=== PATIENT | male | born 1945 | race Caucasian/White ===

== ENCOUNTER → 2017-10-22 | Outpatient (CLI) | payer MEDICARE ==
[2017-10-22 14:44] LABS: HCT 40.1 % (39.0-53.0); MCH 29.3 pg (25.0-35.0); MCV 83.7 fL (80.0-100.0); Mean Platelet Volume 8.1; Platelet Count 206 k/uL (150-450); RBC 4.78 m/uL (4.30-5.90); RDW 12.3 % (11.5-15.5)
[2017-10-22 14:51] LABS: INR 1.1 (<1.2); Partial Thromboplastin Time 23.7 sec (22.0-30.0); Prothrombin Time 10.4 sec (9.0-12.0)
[2017-10-22 15:05] LABS: ALT 26 U/L (21-72); AST 22 U/L (17-59); Albumin 4.1 g/dL (3.5-5.0); Alkaline Phosphatase 110 U/L (38-126); Anion Gap 13 mmol/L; Blood Urea Nitrogen 15 mg/dL (9-20); Calcium 9.5 mg/dL (8.4-10.2); Carbon Dioxide 27 mmol/L (22-30); Chloride 101 mmol/L (98-107); Glucose 111 mg/dL (74-99); Potassium 4.3 mmol/L (3.5-5.1); Sodium 141 mmol/L (137-145); Total Bilirubin 1.4 mg/dL (0.2-1.3); Total Protein 6.9 g/dL (6.3-8.2)
[2017-10-22 15:16] LABS: Appearance,Urine Clear (Clear); Bilirubin,Urine Negative (Negative); Blood,Urine Negative (Negative); Color,Urine Yellow; Glucose,Urine (UA) Negative (Negative); Ketones,Urine Negative (Negative); Leukocyte Esterase,Urine Negative (Negative); Nitrite,Urine Negative (Negative); PH, Urine 5.5 (5.0-8.0); Protein,Urine Negative (Negative)
== END | disposition home or self-care (01) ==
LOC: LABPAT 13:48
PROVIDERS: ATTEND Orthopaedic Surgery
DX: Z01.812 Encounter for preprocedural laboratory examination (principal); M17.12 Unilateral primary osteoarthritis, left knee
CPT/HCPCS: 36415; 80053; 81003; 85027; 85610; 85730; 87070

== ENCOUNTER 2017-11-04 13:09 | Inpatient (IN) | payer MEDICARE ==
[2017-10-22 10:10] VITALS: BMI 30.8
[~2017-11-04 13:09] MED LIST: ACETAMINOPHEN TAB 500 MG TAB PO ONE; DEXAMETHASONE SOD PHOSPHATE 10 MG/ML 1 ML VIAL IV ONE; MELOXICAM 7.5 MG TAB PO ONE; MIDAZOLAM 2 MG/2 ML VIAL IV PRN; ONDANSETRON 4 MG/2 ML VIAL IVP ONE; TRANEXAMIC ACID 1,000 MG in SODIUM CHLORIDE 0.9% 50 ML IVPB ONE; ceFAZolin IN SWFI 2 GM/20 ML SYRINGE IVP ONE; fentaNYL (PF) 50 MCG/ML 2 ML AMP IV PRN
[2017-11-04] MEDS: LACTATED RINGERS 1,000 ML IV SCH ×2 (13:45→19:43)
[2017-11-04] MEDS ORDERED: LIDOCAINE 1% 20 ML VIAL (10MG/ML) FOR IV START INTRADERMA ONE (13:46)
[2017-11-04] MEDS ORDERED: MIDAZOLAM 2 MG/2 ML VIAL ONE (15:07)
[2017-11-04] MEDS ORDERED: PHENYLEPHRINE-0.9% NACL SYG 1 MG/10 ML SYRINGE ONE (15:07)
[2017-11-04] MEDS ORDERED: fentaNYL (PF) 50 MCG/ML 2 ML AMP ONE (15:07)
[2017-11-04] MEDS ORDERED: diphenhydrAMINE 50 MG/ML 1 ML VIAL ONE (15:07)
[2017-11-04] MEDS ORDERED: SODIUM CHLORIDE 0.9% 100 ML BAG ONE (15:07)
[2017-11-04] MEDS ORDERED: PROPOFOL 10 MG/ML 20 ML VIAL IV ONE (15:07)
[2017-11-04] MEDS ORDERED: TRANEXAMIC ACID 1,000 MG/10 ML VIAL ONE (15:07)
[2017-11-04] MEDS ORDERED: ROPIVACAINE 246.25 MG, EPINEPHrine 0.5 MG, KETOROLAC 30 MG, cloNIDine HCL/PF 80 MCG, WA... MISCELLANE ONE ×5 (15:39)
[2017-11-04] MEDS ORDERED: ceFAZolin 3,000 MG in SODIUM CHLORIDE 0.9% IRRIGATIO 3,000 ML IRRIGATION ONE (15:44)
[2017-11-04] MEDS ORDERED: LACTATED RINGERS 1,000 ML IV ONE (15:58)
--- NOTE | 2017-11-04 17:46 | P.OP ---
Date of Procedure: 11/04/17 Procedure(s) Performed: PREOPERATIVE DIAGNOSIS: Left knee severe osteoarthritis with genu varum POSTOPERATIVE DIAGNOSIS: Left knee severe osteoarthritis with genu varum OPERATION: Left knee cemented total replacement arthroplasty. ANESTHESIA: Spinal ESTIMATED BLOOD LOSS: 100 ml. TRACTOR EXPERT: Sarah Villalobos PA-C (assistance with: patient positioning, retraction, exposure, hemostasis, leg positioning, implantation, irrigation, closure, dressing) COMPLICATIONS: None apparent. COMPONENTS IMPLANTED: Persona system from [employer] INDICATIONS: Mr. Slaughter is a 72-year-old male with a history of left knee osteoarthritis. He is already successfully undergone right knee replacement. Conservative treatment has been tried and has been unsuccessful in controlling symptoms adequately. The operation of knee replacement has been discussed at length in the office, as well as potential risks and complications. These are inclusive of, but not limited to: bleeding, infection, scarring, discomfort, blood vessel and nerve damage, need for further surgery, failure to relieve symptoms, persistence, recurrence, or worsening of problems, loosening, dislocation, wear, blood clot, pulmonary embolism, , gait dysfunction, stiffness, and other risks as discussed in the office. The patient elects to proceed and the consent form has been signed. PROCEDURE: The patient was taken to the operating room and positioned on the operating room table in the supine position. Anesthesia was initiated. Care was taken to make sure that all pressure points were adequately padded. The operative lower extremity was prepped and draped in the usual aseptic fashion using ChloraPrep. Ioban drape was used for the case and the patient received intravenous antibiotics within one hour of the incision. A pneumotourniquet and leg tapia were used for the case. The limb was exsanguinated with an Esmarch bandage and the tourniquet was inflated to 350 mmHg. Time-out was called confirming the patient's identity, side, procedure and administration of antibiotics and tranexamic acid, 1 g IV. The incision was then created midline directly over the knee, carried down through skin and into the subcutaneous tissues and down to fascia. Full thickness subcutaneous medial flap was developed. Medial parapatellar arthrotomy was performed and the interior of the knee was inspected. There was end-stage osteoarthritis of the knee with a mild to moderate genu varum type deformity. The fat pad was excised and proximal medial release on the tibia was completed using meticulous dissection and a curved osteotome. The anterior cruciate ligament was taken down. Note was made of significant attrition of the anterior and significant degenerative appearance of the posterior cruciate ligaments. The exposure was excellent. The knee was flexed 90 degrees and the patella was everted. A spot was chosen on the femur approximately 1 cm anterior to the posterior cruciate ligament insertion and an intramedullary hole was created within the femur. The intramedullary guide was then set to 5 degrees of valgus. The distal cutting block was attached and pinned into position. An appropriate amount of distal femoral resection was set. The oscillating saw was then used to make the distal femoral cut. This cut was confirmed to be flat with the flat end of an osteotome. The retractors were placed around the tibia and the tibial surface was addressed. The angle and depth of resection was adjusted using an extramedullary cutting guide. The guide had a built-in 3 degree posterior slope cut. Once the cutting guide was adjusted appropriately and in line with the axis of the tibia and confirmed to be in good position in relation to the second metatarsal and transmalleolar axis, the tibial cut was then created with protection of the posterior neurovascular structures and the collateral ligaments. The tibial cut surface was removed and sized. Femoral sizing was then accomplished using anterior referencing. Care was taken to analyze the posterior condyles for signs of deficiency or severe wear, and adjustments to the guide were made, as appropriate. 3 degree external rotation pins were placed. The cutting jig for the femur was applied to these pins. The planned cuts were further analyzed prior to performing them with the oscillating saw. No femoral notching was produced. Bone fragments were removed and the cut surfaces were finished, as necessary, with a reciprocating saw. Spacer block technique was then used to confirm that the flexion and extension gaps were equal. Soft tissue releases and adjustment of the tibial and/or femoral cuts were made, as necessary, until the gaps were equal. This included release of the posterior cruciate ligament, which was tight in this patient. The femur was then further finished for a posterior cruciate ligament substituting component. Patellar resurfacing was performed using a reamer. The size of the required patellar component was estimated and the patellar surface was then reamed down to a residual thickness which would recreate the [place] thickness with the component. The placement of the patellar component was influenced by the degree of patellar subluxation, if any, noted on the preoperative x-rays. Prior to placing trial components, anesthetic solution consisting of ropivicaine with epinephrine, ketorolac, and clonidine was injected carefully and methodically in a grid pattern using aspiration technique into the soft tissue around the knee circumferentially, starting with the deeper tissues first and progressing to fascia, and then finally the skin/subcutaneous tissue. Particular care was taken when injecting the posterior capsule. The trial components were inserted. The tibial tray was allowed to self center and the patella was noted to track very well. The position of the tibial component was marked and the tibia was then finished for a stemmed tibial component. Cement was mixed on the back table and applied to the final components. Trial components were removed and the cut surfaces of the bone were pulse lavaged thoroughly and dried. Cement was then applied to the tibial surface and pressurized into the surface using finger pressurization technique. The tibial component was then applied and excess cement was removed after it was impacted securely and noted to be flush with the cut surface. In similar fashion, the cement was applied to the cut femoral surface, pressurized in using finger pressurization and the component was impacted into place. Excess cement was removed. The polyethylene spacer was then implanted and locked into position. The patellar component was then applied in similar technique and a patellar clamp was used to hold the patella in place as the cement hardened. Once the cement had fully hardened, the knee was reinspected. Any other cement extrusion was removed and final kinematic testing showed range of motion from 0 to 130 degrees with excellent stability, both medially and laterally and appropriate alignment of the leg. Patellar tracking was excellent. The knee was then thoroughly pulse lavaged with normal saline. The tourniquet was deflated and hemostasis was obtained with electrocautery and IV tranexamic acid, 1 g given prior to inflation of the tourniquet and another gram given at the time of closure. Closure was with #2 Ethibond in the fascia and supplemented with #2 Quill, 2-0 Vicryl suture was used for the subcutaneous tissues and 3-0 Quill for the skin. Dermabond/Steri-Strips were then applied. A lightly compressive dressing was applied using Webril and an Vic wrap. The patient was then transferred to stretcher and taken to the recovery room in stable condition. Sponge and needle counts were correct.
[2017-11-04] MEDS ORDERED: NA PHOS,M-B/NA PHOS,DI-BA 133 ML ENEMA RECTAL PRN (17:48)
[2017-11-04] MEDS ORDERED: NALOXONE 0.4 MG/ML 1 ML VIAL IV PRN (17:48)
[2017-11-04] MEDS ORDERED: MORPHINE SULFATE 4MG/4ML SYRG IVP PRN ×4 (17:48)
[2017-11-04] MEDS ORDERED: MAGNESIUM HYDROXIDE 2,400 MG/10 ML CUP PO PRN (17:48)
[2017-11-04] MEDS ORDERED: hydrOXYzine PAMOATE 25 MG CAP PO PRN (17:48)
[2017-11-04] MEDS ORDERED: BISACODYL 10 MG SUPP RECTAL PRN (17:48)
[2017-11-04] MEDS ORDERED: HYDROcodone/APAP 7.5-325MG 1 EACH TAB PO PRN ×2 (17:48)
[2017-11-04] MEDS ORDERED: ONDANSETRON 4 MG/2 ML VIAL IVP PRN (17:48)
[2017-11-04] MEDS ORDERED: ACETAMINOPHEN TAB 325 MG TAB PO PRN (17:48)
[2017-11-04] MEDS ORDERED: DIAZEPAM 5 MG TAB PO PRN (17:48)
[2017-11-04] MEDS ORDERED: WARFARIN 5 MG TAB PO ONE (18:00)
--- NOTE | 2017-11-04 18:45 | XR ---
EXAMINATION TYPE: XR knee limited LT DATE OF EXAM: 11/04/2017 COMPARISON: NONE HISTORY: Postop knee surgery TECHNIQUE: 2 views FINDINGS: There is a left knee prosthesis. I see no fracture nor dislocation. Components appear in an atomic position. IMPRESSION: No complicating process seen.
[2017-11-04] MEDS ORDERED: TEMAZEPAM 15 MG CAP PO PRN (21:00)
[2017-11-04] MEDS ORDERED: SENNOSIDES-DOCUSATE SODIUM 1 EACH TAB PO SCH (21:00)
[2017-11-04] MEDS: ceFAZolin IN SWFI 2 GM/20 ML SYRINGE IVP SCH (23:04)
[2017-11-05 02:24] VITALS: TEMP 97.5
[2017-11-05] MEDS: LACTATED RINGERS 1,000 ML IV SCH ×2 (06:08)
[2017-11-05 07:21] VITALS: BP 148/79; PULSE 105; RESP 16
[2017-11-05 07:24] LABS: INR 1.5 (<1.2); Prothrombin Time 13.6 sec (9.0-12.0)
[2017-11-05 07:33] LABS: Basophils % (A) 0 %; Eosinophils % (A) 0 %; HCT 38.6 % (39.0-53.0); HGB 12.6 gm/dL (13.0-17.5); Lymphocytes # (A) 0.7 k/uL (1.0-4.8); Lymphocytes % (A) 4 %; MCH 27.9 pg (25.0-35.0); MCHC 32.6 g/dL (31.0-37.0); MCV 85.7 fL (80.0-100.0); Mean Platelet Volume 8.4; Monocytes % (A) 5 %; Neutrophils # (A) 17.8 k/uL (1.3-7.7); Neutrophils % (A) 91 %; Platelet Count 203 k/uL (150-450); RBC 4.51 m/uL (4.30-5.90); RDW 12.4 % (11.5-15.5); WBC 19.6 k/uL (3.8-10.6)
[2017-11-05] MEDS ORDERED: ISOSORBIDE MONONITRATE ER 30 MG TAB.ER.24H PO SCH (09:00)
[2017-11-05] MEDS ORDERED: MELOXICAM 7.5 MG TAB PO SCH (09:00)
[2017-11-05] MEDS ORDERED: METOPROLOL TARTRATE 50 MG TAB PO SCH (09:00)
[2017-11-05] MEDS ORDERED: amLODIPine 10 MG TAB PO SCH (09:00)
[2017-11-05] MEDS: ceFAZolin IN SWFI 2 GM/20 ML SYRINGE IVP SCH (09:27)
[2017-11-05] MEDS ORDERED: MULTIVITAMINS, THERA 1 EACH TAB PO SCH (12:00)
--- NOTE | 2017-11-05 13:09 | P.CONS ---
History of Present Illness - Reason for Consult Consult date: 11/05/17 Medical Management - Chief Complaint s/p Left TKA - History of Present Illness 72-year-old male who underwent elective left total knee arthroplasty by Dr. Siu on 11/04/2017. Dr. Adams/Saundra was consulted for medical management. The patient has a history of atrial fibrillation, CAD, GERD, hyperlipidemia, hypertension, BPH, and osteoarthritis. The patient denies chest pain or pressure. Denies shortness of breath. Tolerating PO intake. Has been ambulating in the halls and working with PT. Denies any concerns at this time. Review of Systems GENERAL: Patient denies fever. Denies chills. EYES: Denies blurred vision. Denies vision changes. Denies eye pain. EARS, NOSE, MOUTH, & THROAT: Denies headache. Denies sore throat. Denies ear pain. RESPIRATORY: Denies cough. Denies shortness of breath. Denies sputum production. Denies hemoptysis. CARDIOVASCULAR: Denies chest pain or pressure. Denies palpitations. Denies arrhythmias. GASTROINTESTINAL: Denies abdominal pain. Denies diarrhea. Denies constipation. Denies nausea. Denies vomiting. Denies heartburn. Denies blood in the stool. GENITOURINARY: Denies urinary frequency. Denies burning. Denies dysuria. Denies cloudy urine. Denies blood in the urine. MUSCULOSKELETAL: Denies myalgias. Denies joint swelling. Denies decreased range of motion beyond patients baseline. INTEGUMENTARY: Denies pruitis. Denies rash. PSYCHIATRIC: Denies suicidal or homicial ideations. ENDOCRINE: Denies weight change. Denies polydipsia. Denies polyuria. HEMATOLOGIC: Denies bleeding disorders. Past Medical History Past Medical History: Atrial Fibrillation, Coronary Artery Disease (CAD), GERD/ Reflux, Hyperlipidemia, Hypertension, Osteoarthritis (OA), Prostate Disorder, Supraventricular Tachycardia (SVT) Additional Past Medical History / Comment(s): VARICOSE VEINS, HX DUODENAL ULCER , BPH. History of Any Multi-Drug Resistant Organisms: None Reported Past Surgical History: EPS, Heart Catheterization, Joint Replacement, Orthopedic Surgery Additional Past Surgical History / Comment(s): lipoma removed from chest area, sneha ear-cosmetic surgery, rt rotator cuff, Total right knee. Past Anesthesia/Blood Transfusion Reactions: No Reported Reaction Past Psychological History: No Psychological Hx Reported Smoking Status: Former smoker Past Alcohol Use History: Rare Additional Past Alcohol Use History / Comment(s): SMOKED 1 YEAR- APPROX 50 YEARS AGO. Past Drug Use History: None Reported - Past Family History Mother Family Medical History: No Reported History Medications and Allergies Home Medications Medication Instructions Recorded Confirmed Type Aspirin 81 mg PO DAILY 08/20/14 11/04/17 History Esomeprazole Magnesium [NexIUM] 40 mg PO DAILY 08/20/14 11/04/17 History Isosorbide Mononitrate ER [Imdur] 30 mg PO DAILY 08/20/14 11/04/17 History Metoprolol Tartrate [Lopressor] 100 mg PO BID 08/20/14 11/04/17 History Tamsulosin [Flomax] 0.4 mg PO HS 08/20/14 11/04/17 History Atorvastatin [Lipitor] 20 mg PO HS 10/22/17 11/04/17 History [place]-3 Fatty Acids/Fish Oil [Fish 3,000 mg PO DAILY 10/22/17 11/04/17 History Oil 1,000 mg Softgel] amLODIPine BESYLATE [Norvasc] 10 mg PO DAILY 10/22/17 11/04/17 History traMADol HCL [Ultram] 50 mg PO Q6HR PRN 10/22/17 11/04/17 History HYDROcodone/APAP 7.5-325MG [[place] 1 - 2 tab PO Q4-6H PRN #90 tab 11/04/17 Rx 7.5-325] Sennosides-Docusate Sodium 1 tab PO BID #60 tablet 11/04/17 Rx [Senokot-S] Warfarin [Coumadin] 2.5 mg PO DAILY #1 tab 11/04/17 Rx Warfarin [Coumadin] 7.5 mg PO ONCE 11/04/17 11/04/17 History Allergies Allergy/AdvReac Type Severity Reaction Status Date / Time No Known Allergies Allergy Verified 11/04/17 19:16 Physical Exam Vitals: Vital Signs Temp Pulse Pulse Resp BP BP Pulse Ox 11/05/17 07:00 97.5 F L 105 H 16 148/79 99 11/05/17 02:05 97.5 F L 98 17 116/70 94 L 11/04/17 19:45 98 147/80 11/04/17 19:30 97 118/66 11/04/17 19:15 100 153/82 11/04/17 19:00 103 H 152/84 11/04/17 18:45 102 H 141/72 11/04/17 18:30 97.6 F 90 16 144/70 96 11/04/17 18:13 90 16 94/57 93 L 11/04/17 17:58 91 16 91/56 95 11/04/17 17:43 97.8 F 89 18 124/46 96 11/04/17 13:43 97.7 F 66 18 128/69 96 Intake and Output 11/04/17 11/05/17 11/05/17 22:59 06:59 14:59 Intake Total 1201 800 120 Output Total 50 Balance 1151 800 120 Intake: IV 1201 Intake, IV Titration 800 Amount Lactated Ringers 1,000 ml 800 @ 100 mls/hr IV .Q10H CECI Rx#:[id number] Oral 120 Output: Estimated Blood Loss 50 Other: # Voids 1 1 Weight 97.522 kg GENERAL: This is a 72-year-old male in no apparent distress at the time of examination. Pleasant and cooperative. HEENT: Head is atraumatic, normocephalic. Pupils are equal, round, and reactive to light. Sclerae anicteric. Conjunctivae are clear. Mucus membranes of the mouth are moist. Neck is supple. RESPIRATORY: Clear to ausculation. No wheezes, rales, or rhonchi. No use of accessory muscles. Patient maintaining oxygen saturation greater than 92%. No chest wall tenderness is noted on palpation or with deep breathing. CARDIOVASCULAR: Regular rate and rhythm. S1 and S2 noted. No systolic or diastolic murmur auscultated. No JVD noted. No S3 or S4 noted. GASTROINTESTINAL: No distention noted. Abdomen soft and round. Normal active bowel sounds auscultated x 4 quadrants. No pain or tenderness noted upon palpation. INTEGUMENTARY: Dressing to left knee clean dry and intact. No drainage noted. No cyanosis. No jaundice. No rashes noted. No cellulitis noted. EXTREMITIES: 2+ peripheral pulses. No evidence of peripheral edema. No calf tenderness noted. NEUROLOGIC: Cranial nerves II-XII intact. PSYCHIATRIC: Awake, alert, and oriented X 3. Appropriate affect. Intact judgement and insight. 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 Siu Pain control Activity as tolerated Incentive spirometer 10x an hour while awake PT/OT Home meds as appropriate Monitor labs Monitor vital signs and address as appropriate Further recommendations pending patient's course Patient is cleared for discharge per Dr. Adams when cleared by attending physician Nurse practitioner note has been reviewed by physician. Signing provider agrees with the documented findings, assessment, and plan of care.
--- NOTE | 2017-11-05 13:24 | P.DS ---
Providers Date of admission: 11/04/17 13:09 Expected date of discharge: 11/05/17 Attending physician: José Miguel Siu Consults: 11/04/17 17:48 Consult Physician Routine Consulting Provider: Kg Arguello Reason/Comments: Medical management Do you want consulting provider notified?: Yes Primary care physician: Kg Arguello - Discharge Diagnosis(es) (1) Status post total left knee replacement Current Visit: Yes Status: Acute (2) Osteoarthritis of left knee Current Visit: Yes Status: Acute (3) Degenerative arthritis Current Visit: No Status: Acute Hospital Course: This is a 72-year-old male who was last seen with complaint of continued left knee pain. The patient has a known history of degenerative arthritis of the left knee and presents to discuss surgical options. After discussion and consideration the patient elects to proceed with total left knee arthroplasty. The patient is seen preoperatively by Dr. Arguello and cleared for surgery. The patient is admitted to [facility] for total left knee arthroplasty. The procedures performed without complication or sequelae. He is doing well postoperatively. Vital signs are stable at discharge. Labs are stable at discharge. the patient is ambulating well with walker with minimal assistance. The patient is discharged to home on postop day #1 pending medical clearance. Please see orders and refer to the med rec for accurate list of medications. Plan - Discharge Summary Discharge Rx Participant: No New Discharge Prescriptions: New HYDROcodone/APAP 7.5-325MG [[place] 7.5-325] 1 - 2 tab PO Q4-6H PRN #90 tab PRN Reason: Pain Sennosides-Docusate Sodium [Senokot-S] 1 tab PO BID #60 tablet Warfarin [Coumadin] 2.5 mg PO DAILY #1 tab Continue Tamsulosin [Flomax] 0.4 mg PO HS Metoprolol Tartrate [Lopressor] 100 mg PO BID Isosorbide Mononitrate ER [Imdur] 30 mg PO DAILY Atorvastatin [Lipitor] 20 mg PO HS amLODIPine BESYLATE [Norvasc] 10 mg PO DAILY No Action Esomeprazole Magnesium [NexIUM] 40 mg PO DAILY Aspirin 81 mg PO DAILY traMADol HCL [Ultram] 50 mg PO Q6HR PRN PRN Reason: Pain [place]-3 Fatty Acids/Fish Oil [Fish Oil 1,000 mg Softgel] 3,000 mg PO DAILY Warfarin [Coumadin] 7.5 mg PO ONCE Discharge Medication List Aspirin 81 mg PO DAILY 08/20/14 [History] Esomeprazole Magnesium [NexIUM] 40 mg PO DAILY 08/20/14 [History] Isosorbide Mononitrate ER [Imdur] 30 mg PO DAILY 08/20/14 [History] Metoprolol Tartrate [Lopressor] 100 mg PO BID 08/20/14 [History] Tamsulosin [Flomax] 0.4 mg PO HS 08/20/14 [History] Atorvastatin [Lipitor] 20 mg PO HS 10/22/17 [History] [place]-3 Fatty Acids/Fish Oil [Fish Oil 1,000 mg Softgel] 3,000 mg PO DAILY 10/22 [History] amLODIPine BESYLATE [Norvasc] 10 mg PO DAILY 10/22/17 [History] traMADol HCL [Ultram] 50 mg PO Q6HR PRN 10/22/17 [History] HYDROcodone/APAP 7.5-325MG [[place] 7.5-325] 1 - 2 tab PO Q4-6H PRN #90 tab [Rx] Sennosides-Docusate Sodium [Senokot-S] 1 tab PO BID #60 tablet 11/04/17 [Rx] Warfarin [Coumadin] 2.5 mg PO DAILY #1 tab 11/04/17 [Rx] Warfarin [Coumadin] 7.5 mg PO ONCE 11/04/17 [History] Follow up Appointment(s)/Referral(s): Sarah Villalobos PAC [PHYSICIAN AUTOMOTIVE SPECIALTY TECHNICIAN] - 11/20/17 1:45 pm Nirmal Adams Jr, DO [Doctor of Osteopathic Medicine] - 1 Week [facility], [NON-STAFF] - Ambulatory/Diagnostic Orders: Continuous Passive Motion (CPM) Machine [DME.AMB1] Time Frame: 3 Weeks, Facility : [facility], Location: Case Management Prothrombin Time INR [LAB.AMB] Location: Determined By Patient Activity/Diet/Wound Care/Special Instructions: May bear wt as tolerated w walker. May shower if no drainage from incision. CPM 5-6h daily. [facility] - [facility] - [phone] - Please call once home to arrange for delivery of CPM
[2017-11-05] MEDS ORDERED: WARFARIN 5 MG TAB PO ONE (18:00)
[2017-11-05] MEDS ORDERED: TAMSULOSIN 0.4 MG CAP.ER.24H PO SCH (21:00)
[2017-11-05] MEDS ORDERED: ATORVASTATIN 20 MG TAB PO SCH (21:00)
[2017-11-06] MEDS ORDERED: PANTOPRAZOLE 40 MG TABLET PO SCH (07:30)
== END 2017-11-05 15:10 | disposition home health service (06) | DRG 470 ==
LOC: 2ORMAIN 13:09 → 3SUR 17:40
PROVIDERS: ADMIT Orthopaedic Surgery; ATTEND Orthopaedic Surgery
PROC: 0SRD0J9 Replacement of Left Knee Joint with Synthetic Substitute, Cemented, Open Approach (ICD-10-PCS; principal; 2017-11-04 15:25)
DX: M17.12 Unilateral primary osteoarthritis, left knee (principal); I48.0 Paroxysmal atrial fibrillation; I25.10 Atherosclerotic heart disease of native coronary artery without angina pectoris; K21.9 Gastro-esophageal reflux disease without esophagitis; E78.5 Hyperlipidemia, unspecified; I10 Essential (primary) hypertension; N40.0 Benign prostatic hyperplasia without lower urinary tract symptoms; M21.162 Varus deformity, not elsewhere classified, left knee; I08.0 Rheumatic disorders of both mitral and aortic valves; E66.9 Obesity, unspecified; Z96.651 Presence of right artificial knee joint; Z87.11 Personal history of peptic ulcer disease; Z79.01 Long term (current) use of anticoagulants; Z79.899 Other long term (current) drug therapy; Z79.82 Long term (current) use of aspirin; Z82.49 Family history of ischemic heart disease and other diseases of the circulatory system; Z87.891 Personal history of nicotine dependence; Z79.891 Long term (current) use of opiate analgesic; Z68.30 Body mass index [BMI] 30.0-30.9, adult; Z86.79 Personal history of other diseases of the circulatory system
CPT/HCPCS: 85025; 85610; 88300

== ENCOUNTER → 2017-12-02 | Outpatient (CLI) | payer MEDICARE ==
--- NOTE | 2017-12-02 08:24 | CT ---
EXAMINATION TYPE: CT brain wo con DATE OF EXAM: 12/02/2017 COMPARISON: NONE HISTORY: Patient complains of episodes of dysphasia, depression, confusion, and biting his tongue for 1 week post knee replacement. No complaints at time of study. CT DLP: 962.7 mGycm Automated exposure control for dose reduction was used. TECHNIQUE: CT scan of the head is performed without contrast. FINDINGS: There is no acute intracranial hemorrhage, mass effect, or midline shift identified. Dystrophic basal ganglia calcifications are incidentally noted on the left. The ventricles and sulci are within norm al limits in size. No suspicious extra-axial fluid collection is seen. Scattered areas of hypoattenu ation are seen within the periventricular and subcortical white matter. Scant mucosal thickening is p resent within the ethmoid sinuses. The globes are intact and the remaining visualized sinuses are meño ar. Centrally there is possibly a colloid cyst is a rounded opacity appears to be located within the foramen magnum with slight layering hyperattenuation. No ventriculomegaly, transependymal edema or hy drocephalus. MRI could further evaluate this finding. Atherosclerosis is seen of the intracranial vas culature. IMPRESSION: 1. No acute intracranial process. 2. 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 MRI is re commended for further evaluation. 3. Mild burden nonspecific white matter change and cerebral atrophy given the patient's age, most com monly related to sequela of microangiopathy.
== END | disposition home or self-care (01) ==
LOC: RADCTMAIN 07:55
PROVIDERS: ATTEND Family Medicine
DX: G31.89 Other specified degenerative diseases of nervous system (principal); R90.82 White matter disease, unspecified; I73.9 Peripheral vascular disease, unspecified
CPT/HCPCS: 70450

== ENCOUNTER → 2018-06-05 | Outpatient (CLI) | payer MEDICARE ==
[2018-06-05 11:22] LABS: LDL Cholesterol,Calculated 74.4 mg/dL (0.0-131.0); VLDL Calculation 24.6 mg/dL (5.00-40.00)
== END | disposition home or self-care (01) ==
LOC: LABWHC1 06:37
PROVIDERS: ATTEND Internal Medicine Cardiovascular Disease
DX: E78.2 Mixed hyperlipidemia (principal)
CPT/HCPCS: 36415; 80061; 84450; 84460

== ENCOUNTER → 2020-03-22 | Outpatient (CLI) | payer MEDICARE ==
--- NOTE | 2020-03-22 12:39 | XR ---
EXAMINATION TYPE: XR lumbar spine 2 or 3V DATE OF EXAM: 03/22/2020 CLINICAL HISTORY: Lower back pain TECHNIQUE: Frontal and lateral images of the lumbar spine are obtained. COMPARISON: None FINDINGS: There are 5 lumbar type vertebral bodies identified. The lumbar spine shows satisfactory alignment without evidence of acute fracture or dislocation. Vertebral body heights are within normal limits. There is disc space narrowing at essentially all levels, with vacuum disc phenomenon at L4-L 5 and L5-S1. Multilevel endplate osteophytosis and facet arthropathy. Aortic vascular calcifications. There is a calcification over the tip of the right L2 transverse process. IMPRESSION: 1. No acute fracture or dislocation is seen in the lumbar spine. 2. Multilevel degenerative disc disease and facet arthropathy. 3. Calcification overlying the tip of the right L2 transverse process on frontal image of unknown chirag ology.
== END | disposition home or self-care (01) ==
LOC: RADXRMAIN 10:33
PROVIDERS: ATTEND Family Medicine
DX: M51.36 Other intervertebral disc degeneration, lumbar region (principal)
CPT/HCPCS: 72100

== ENCOUNTER → 2020-08-11 | Outpatient (CLI) | payer MEDICARE ==
[2020-08-11 10:55] LABS: Chol/HDL Ratio 3.97
== END | disposition home or self-care (01) ==
LOC: LABWHC1 07:11
PROVIDERS: ATTEND Internal Medicine Cardiovascular Disease
DX: E78.2 Mixed hyperlipidemia (principal)
CPT/HCPCS: 36415; 80061; 84450; 84460

== ENCOUNTER → 2022-06-04 | Outpatient (CLI) | payer MEDICARE ==
--- NOTE | 2022-06-04 12:24 | MR ---
EXAMINATION TYPE: MR lumbar spine wo con DATE OF EXAM: 06/04/2022 COMPARISON: Lumbar spine radiograph 03/22/2020. HISTORY: Lower back pain, radiates down right leg. TECHNIQUE: Multiplanar, multisequence images of the lumbar spine were acquired without IV contrast. FINDINGS: Lumbar segments are intact. No paraspinal masses are identified. Conus medullaris has a normal appe arance. Multilevel disc desiccation. Multilevel Schmorl's nodes. Type II Modic changes involving the inferior endplate of L5 and superior endplate of S1. Multilevel anterior osteophytosis. Bilateral T2 hyperintense likely renal cysts. L1-L2: Broad-based disc bulge with ligamentum flavum buckling and facet hypertrophy with minimal effa cement of the anterior thecal sac. The neural foramen are patent. L2-L3: Broad-based disc bulge with ligamentum flavum buckling and facet hypertrophy contribute to mil d spinal canal stenosis. The neural foramen are patent. L3-L4: Broad-based disc bulge with facet hypertrophy and epidural lipomatosis resulting in mild to mo derate neural canal stenosis. Moderate left and mild right neural foraminal stenosis. L4-L5: Broad-based disc bulge with facet hypertrophy contribute to mild spinal canal stenosis. Mild b ilateral neural foraminal stenosis. L5-S1: Broad-based disc bulge with facet arthropathy without significant spinal canal stenosis. Moder ate bilateral neural foraminal stenosis. IMPRESSION: 1. No definite evidence for disc herniation. 2. Multilevel degenerative disc disease with associated osteoarthritic changes as described above.
== END | disposition home or self-care (01) ==
LOC: RADMRIMAIN 10:52
PROVIDERS: ATTEND Nurse Practitioner Family
DX: M47.27 Other spondylosis with radiculopathy, lumbosacral region (principal); M51.17 Intervertebral disc disorders with radiculopathy, lumbosacral region; M99.74 Connective tissue and disc stenosis of intervertebral foramina of sacral region; M48.061 Spinal stenosis, lumbar region without neurogenic claudication
CPT/HCPCS: 72148

== ENCOUNTER → 2022-07-02 | Outpatient (CLI) | payer MEDICARE ==
[2022-07-02 10:03] VITALS: BP 110/69; PULSE 75; RESP 18; TEMP 98
--- NOTE | 2022-07-02 15:35 | P.PAINPG ---
PQRS Measure Charge Sheet Comment: HISTORY OF PRESENT ILLNESS: 77 yr old male as a referral from [facility] presents today w severe and chronic LBP secondary to DDD, disc bulges, spinal stenosis and facet arthropathy without myelopathy for evaluation. Pt states pain level is at 8/10 in intensity, constant, localized in the mid right lumbar spine, tender in character w shooting pain towards the R buttock and R thigh. Pain is provoked by bending and standing for 20 minutes or more. Pain is alleviated slightly by medications (tramadol), topicals, PT 6 weeks in May 19, heat, stretching as tolerated, repositioning and rest. PMH: Atrial Fibrillation, CAD, GERD, Hyperlipidemia, HTN, OA, BPH, SVT PSH: Cardiac Cath, Chest Lipoma, R Knee Total Arthroplasty, R RCT Repair, BL Ear Cosmetic Surgery, EPS SH:Hx 50 pack/yr tobacco user, Rare ETOH use, No illicit drug use FH: Mo- No Reported History All: NKDA Meds: See list REVIEW OF ORGAN SYSTEMS: CONSTITUTIONAL: No fevers or chills. No recent weight loss. NEUROLOGICAL: + numbness and tingling along the distal extremities. No seizure disorders or headaches. MUSCULOSKELETAL: + pain PSYCHIATRIC: Denies current depression or suicidal thoughts. Physical Examinations : Constitutional : Cooperative , not in acute distress . Neurologic : Cranial nerve II to XII intact. No focal neurological deficits. Psychiatric : alert & oriented x 3. Matching mood & appropriate affect. Judgment & insight intact. Musculoskeletal : Cervical Spine Motor strength in the deltoid and biceps: Normal right side. Normal Left side Motor strength biceps and the wrist extensors: Normal right side . Normal left side Motor strength in the triceps muscle: Normal right side. Normal left side Deep tendon reflexes: Normal at the biceps. Normal at Brachioradialis. Normal at triceps Vertebral body tenderness to deep palpation over Cervical facet loading test: positive bilaterally Spurling test: positive bilaterally Neck distraction test: positive bilaterally Юлия sign: positive bilaterally Lumbar spine Motor strength lower extremities ,thigh and legs 5/5 Right side , 5/5 Left side Deep tendon reflexes : Normal Knee Jerk. Normal Ankle Jerk Vertebral body tenderness over L3 Lumbar facet Loading Test: positive Right / positive Left Range of motion of the lumbar spine Flexion 30 degrees, extension 10 degrees Straight Leg Raise test: Left/ Right positive at degree Zenaida test: positive right / positive left. Severe tenderness over the Sacroiliac joint on the Right / Left sides Gaenslen test: positive bilaterally Seated flexion test: positive bilaterally. Sacral spine : Severe tenderness over the Sacroiliac joint: right side / left side Range of motion: Flexion of the lumbar spine <60 degrees Range of motion: Extension of the lumbar spine <20 degrees Gaenslen's Test positive Darrick's Test positive Zenaida test: positive right side / left side Thigh Thrust Test Sacral Thrust Test Imaging: MRI without contrast of the lumbar spine from 06/04/22 reviewed Assessment/ Plan : Lumbar stenosis, lumbar DDD Recommendation of R TF ANA L3-L4. May need a series of injections, up to 3 within a six-month timeframe, for optimal pain relief. Risks, benefits of procedure discussed and patient verbalized understanding. Admits to aspirin or anti- coagulant use or medical history of diabetes. Protocol for di scontinuation/ continuation of medications arnold procedure discussed. All questions answered. I have spent greater than 30 minutes on patient care today. Dr Louie was available by phone for the evaluation of this patient. The time was used to review the medical records including relevant urine studies and Prescription history (MAPs), review of the available imaging, evaluation and examination of the patient, coordination of care with the medical staff and if applicable referring physicians, as well as creation of the medical record PQRS Narrative: Smoking Status Former smoker Home Medications: Ambulatory Orders Aspirin 81 mg PO DAILY 08/20/14 Esomeprazole Magnesium [NexIUM] 40 mg PO DAILY 08/20/14 Isosorbide Mononitrate ER [Imdur] 30 mg PO DAILY 08/20/14 Metoprolol Tartrate [Lopressor] 100 mg PO BID 08/20/14 Tamsulosin [Flomax] 0.4 mg PO HS 08/20/14 Atorvastatin [Lipitor] 20 mg PO HS 10/22/17 [place]-3 Fatty Acids/Fish Oil [Fish Oil 1,000 mg Softgel] 3,000 mg PO DAILY 10/22/17 amLODIPine BESYLATE [Norvasc] 10 mg PO DAILY 10/22/17 traMADol HCL [Ultram] 50 mg PO Q6HR PRN 10/22/17 HYDROcodone/APAP 7.5-325MG [[place] 7.5-325] 1 - 2 tab PO Q4-6H PRN #90 tab 11/04/17 Sennosides-Docusate Sodium [Senokot-S] 1 tab PO BID #60 tablet 11/04/17 Warfarin [Coumadin] 2.5 mg PO DAILY #1 tab 11/04/17 Warfarin [Coumadin] 7.5 mg PO ONCE 11/04/17 Controlled Substance Measures - Controlled Substance Measures Is patient prescribed a controlled substance at discharge?: No
== END ==
LOC: PNWHC3 09:13
PROVIDERS: ATTEND Specialist
DX: M51.36 Other intervertebral disc degeneration, lumbar region (principal); M48.061 Spinal stenosis, lumbar region without neurogenic claudication; Z87.891 Personal history of nicotine dependence
CPT/HCPCS: 99211

== ENCOUNTER 2022-10-23 10:58 | Day surgery (SDC) | payer MEDICARE ==
[2022-10-18 15:08] VITALS: BMI 32.3
[~2022-10-23 10:58] MED LIST changes: -ACETAMINOPHEN TAB 500 MG TAB PO ONE; -DEXAMETHASONE SOD PHOSPHATE 10 MG/ML 1 ML VIAL IV ONE; -MELOXICAM 7.5 MG TAB PO ONE; -MIDAZOLAM 2 MG/2 ML VIAL IV PRN; -ONDANSETRON 4 MG/2 ML VIAL IVP ONE; +SODIUM CHLORIDE 0.9% 1,000 ML IV SCH; -TRANEXAMIC ACID 1,000 MG in SODIUM CHLORIDE 0.9% 50 ML IVPB ONE; -ceFAZolin IN SWFI 2 GM/20 ML SYRINGE IVP ONE; -fentaNYL (PF) 50 MCG/ML 2 ML AMP IV PRN
[2022-10-23 11:32] VITALS: BP 141/79; PULSE 74; RESP 16; TEMP 97.1
[2022-10-23] MEDS ORDERED: LIDOCAINE 1% INJ 10MG/ML (20 ML MDV) SQ ONE (11:50)
--- NOTE | 2022-10-23 12:34 | P.PCN ---
Description of Procedure: Procedure: Insertion of Linq loop recorder Indication: Paroxysmal atrial fibrillation, palpitations, nonsustained VT CONSENT:I have discussed the risks, benefits and alternative therapies for the above-mentioned procedure. The patient has indicated understanding and acceptance of the risks and procedures discussed. PROCEDURE: Patient was brought to the catheterization lab in a fasting state. Patient was prepped and draped in the usual fashion. 1% lidocaine was used to anesthetize the area of the left third intercostal space. Using the loop recorder incision device, a small 0.5 cm incision was made in the left 3rd intercostal space. Next the Linq loop recorder was deployed in the 3rd intercostal space subcutaneously using the insertion tool. Thresholds were checked and were excellent at 0.22V. Next the incision was closed using Dermabond. Steristrips were placed over the incision and the procedure was completed. The patient tolerated the procedure well. The patient was transported to the post cath holding area in stable condition. Linq loop recorder serial number: [id number]
== END 2022-10-23 12:25 | disposition home or self-care (01) ==
LOC: CATHEP 10:58
PROVIDERS: ATTEND Internal Medicine
DX: I48.0 Paroxysmal atrial fibrillation (principal)
CPT/HCPCS: 33285; C1764; J0690; J2001

== ENCOUNTER 2023-07-11 12:31 | Inpatient (IN) | payer MEDICARE ==
[~2023-07-11 12:31] MED LIST changes: +DEXAMETHASONE SOD PHOSPHATE 4 MG/ML 1 ML VIAL IV ONE; +HYDROmorphone 0.5 MG/0.5 ML SYRINGE IVP PRN; +LACTATED RINGERS 1,000 ML IV SCH; +LIDOCAINE 1% (10MG/ML) FOR IV START INTRADERMA PRN; +ONDANSETRON 4 MG/2 ML VIAL IVP ONE; +droPERidol 5 MG/2 ML VIAL IVP ONE
[2023-07-11] MEDS ORDERED: SODIUM CHLORIDE 0.9% 1,000 ML IV ONE (12:48)
[2023-07-11 13:22] LABS: Basophils % (A) 1 %; Eosinophils # (A) 0.2 k/uL (0-0.7); Eosinophils % (A) 2 %; HCT 42.4 % (39.0-53.0); Lymphocytes # (A) 1.2 k/uL (1.0-4.8); Lymphocytes % (A) 16 %; MCH 29.8 pg (25.0-35.0); MCHC 33.1 g/dL (31.0-37.0); Mean Platelet Volume 8.8; Monocytes # (A) 0.5 k/uL (0-1.0); Monocytes % (A) 7 %; Neutrophils # (A) 5.2 k/uL (1.3-7.7); Neutrophils % (A) 72 %; Platelet Count 168 k/uL (150-450); RBC 4.71 m/uL (4.30-5.90); RDW 12.5 % (11.5-15.5); WBC 7.3 k/uL (3.8-10.6)
[2023-07-11 13:33] LABS: ALT 20 U/L (4-49); AST 24 U/L (17-59); African American GFR (CKD) >90 (>60 ml/min/1.73 sqM); Albumin 4.1 g/dL (3.5-5.0); Alkaline Phosphatase 138 U/L (38-126); Anion Gap 10 mmol/L; Blood Urea Nitrogen 12 mg/dL (9-20); Calcium 9.2 mg/dL (8.4-10.2); Carbon Dioxide 28 mmol/L (22-30); Chloride 102 mmol/L (98-107); Glucose 112 mg/dL (74-99); Non-African American GFR(CKD) >90 (>60 ml/min/1.73 sqM); Potassium 4.5 mmol/L (3.5-5.1); Sodium 140 mmol/L (137-145); Total Bilirubin 1.2 mg/dL (0.2-1.3); Total Protein 6.8 g/dL (6.3-8.2)
[2023-07-11] MEDS ORDERED: PHENYLEPHRINE-0.9% NACL SYG 1,000 MCG/10 ML SYRINGE ONE (14:22)
[2023-07-11] MEDS ORDERED: CALCIUM CHLORIDE 100 MG/ML 10 ML SYRINGE ONE (14:22)
[2023-07-11] MEDS ORDERED: PROTAMINE SULFATE 10 MG/ML 25 ML VIAL IV ONE ×2 (14:22→17:33)
[2023-07-11] MEDS ORDERED: MIDAZOLAM 2 MG/2 ML VIAL ONE (14:22)
[2023-07-11] MEDS ORDERED: SODIUM BICARB 8.4% 50 ML SYR (1 MEQ/ML) ONE (14:22)
[2023-07-11] MEDS ORDERED: PROPOFOL 10 MG/ML 20 ML VIAL IV ONE (14:22)
[2023-07-11] MEDS ORDERED: ALBUMIN HUMAN 5% (25gm) 500 ML VIAL IVPB ONE (14:22)
[2023-07-11] MEDS ORDERED: SUCCINYLCHOLINE CHLORIDE 200 MG/10 ML VIAL IV ONE (14:22)
[2023-07-11] MEDS ORDERED: HEPARIN SODIUM,PORCINE 5,000 UNIT/ML 1 ML VIAL ONE (14:22)
[2023-07-11] MEDS ORDERED: HEPARIN SODIUM,PORCINE 10,000 UNIT/ML 1 ML VIAL ONE (14:22)
[2023-07-11] MEDS ORDERED: ePHEDrine 50 MG/ML 1 ML VIAL ONE (14:22)
[2023-07-11] MEDS ORDERED: KETAMINE HCL IN 0.9 % NACL 50 MG/5 ML SYRINGE ONE (14:22)
[2023-07-11] MEDS ORDERED: fentaNYL (PF) 50 MCG/ML 2 ML AMP ONE (14:22)
[2023-07-11] MEDS ORDERED: ROCURONIUM 10 MG/ML (5 ML VIAL) IV ONE (14:22)
[2023-07-11] MEDS ORDERED: LIDOCAINE 1% INJ 10MG/ML (20 ML MDV) ONE (14:22)
[2023-07-11] MEDS ORDERED: WATER FOR INJECTION, STERILE 10 ML VIAL IV ONE (14:22)
[2023-07-11] MEDS ORDERED: HEPARIN SOD,PORK IN 0.45% NACL 25,000 UNIT in 0.45% NACL 1 250ML.BAG IV ONE (14:42)
[2023-07-11] MEDS ORDERED: LIDOCAINE 1% INJ 10MG/ML (20 ML MDV) SQ ONE (14:53)
[2023-07-11] MEDS ORDERED: PROTAMINE SULFATE 10 MG/ML 5 ML VIAL IV ONE (16:40)
[2023-07-11] MEDS ORDERED: EMPTY BAG 1 BAG with HUMAN PROTHROMBIN COMPLX 2,196 UNIT IV ONE (16:45)
[2023-07-11] MEDS: Kcentra PER PHARMACY 1 EACH MISC MISCELLANE PRN ×2 (16:55→16:56)
[2023-07-11] MEDS ORDERED: NOREPINEPHRINE 4 MG in SODIUM CHLORIDE 0.9% 250 ML IV SCH (17:33)
[2023-07-11] MEDS ORDERED: PHENYLEPHRINE 10 MG/ML VIAL IV ONE (17:33)
[2023-07-11] MEDS ORDERED: ALBUMIN HUMAN 25% 50 ML in EMPTY BAG 1 BAG IVPB ONE (17:33)
[2023-07-11] MEDS ORDERED: CALCIUM CHLORIDE 100 MG/ML 10 ML SYRINGE IVP ONE (17:33)
[2023-07-11] MEDS ORDERED: MAGNESIUM SULFATE 16.24 MEQ in EMPTY SYRINGE 1 SYR IV ONE (17:33)
[2023-07-11] MEDS ORDERED: ALBUMIN HUMAN 5% 500 ML in EMPTY BAG 1 BAG IVPB ONE ×6 (17:33)
[2023-07-11] MEDS ORDERED: PROTAMINE SULFATE 250 MG in EMPTY BAG 1 BAG IV ONE (17:33)
[2023-07-11] MEDS ORDERED: ELECTROLYTE-A SOLUTION 1,000 ML with POTASSIUM CHLORIDE 40 MEQ, MAGNESIUM SULFATE 16 ME... IV ONE ×5 (17:33)
[2023-07-11] MEDS ORDERED: CLEVIDIPINE BUTYRATE 25 MG in EMPTY BAG 1 BAG IV SCH (17:33)
[2023-07-11] MEDS ORDERED: TRANEXAMIC ACID 2,000 MG in SODIUM CHLORIDE 0.9% 80 ML IV ONE (17:33)
[2023-07-11] MEDS ORDERED: ceFAZolin 1,000 MG in SODIUM CHLORIDE 0.9% IRRIGATIO 1,000 ML IRRIGATION ONE (17:33)
[2023-07-11] MEDS ORDERED: SODIUM BICARB 8.4% 50 ML SYR (1 MEQ/ML) IV ONE (17:33)
[2023-07-11] MEDS ORDERED: HEPARIN SODIUM,PORCINE (1 ML) 5,000 UNIT in SODIUM CHLORIDE 0.9% 500 ML 500 ML IV ONE (17:33)
[2023-07-11] MEDS ORDERED: NITROGLYCERIN-D5W PMX 50 MG in DEXTROSE/WATER 1 250ML.BAG IV SCH (17:33)
[2023-07-11] MEDS ORDERED: ELECTROLYTE-A SOLUTION 1,000 ML with POTASSIUM CHLORIDE 100 MEQ, MAGNESIUM SULFATE 16 M... IV ONE ×5 (17:33)
[2023-07-11] MEDS ORDERED: INSULIN REGULAR 100 UNIT in SODIUM CHLORIDE 0.9% 100 ML IV SCH (17:33)
[2023-07-11] MEDS ORDERED: HEPARIN SODIUM 1,000 UN/ML (10ML VL) IV ONE (17:33)
[2023-07-11] MEDS ORDERED: MANNITOL 25% 12.5 GM/50 ML VIAL IV ONE ×2 (17:33)
[2023-07-11] MEDS ORDERED: PHENYLEPHRINE 40 MG in SODIUM CHLORIDE 0.9% 250 ML IV ONE (17:33)
[2023-07-11] MEDS ORDERED: NITROGLYCERIN-D5W PMX 25 MG/250 ML BTL IV ONE (17:33)
[2023-07-11 17:53] LABS: O2 Sat Blood Gas >100.0 %
[2023-07-11] MEDS ORDERED: SODIUM CHLORIDE 0.9% 50 ML with ceFAZolin 2,000 MG IV ONE ×2 (17:54)
[2023-07-11 17:55] LABS: Basophils % (A) 0 %; Eosinophils # (A) 0.2 k/uL (0-0.7); Eosinophils % (A) 2 %; HCT 36.3 % (39.0-53.0); HGB 12.1 gm/dL (13.0-17.5); Lymphocytes # (A) 1.5 k/uL (1.0-4.8); Lymphocytes % (A) 12 %; MCH 30.6 pg (25.0-35.0); MCHC 33.2 g/dL (31.0-37.0); MCV 92.1 fL (80.0-100.0); Monocytes # (A) 0.7 k/uL (0-1.0); Monocytes % (A) 5 %; Neutrophils # (A) 9.7 k/uL (1.3-7.7); Neutrophils % (A) 80 %; Platelet Count 128 k/uL (150-450); RBC 3.94 m/uL (4.30-5.90); RDW 12.8 % (11.5-15.5); WBC 12.2 k/uL (3.8-10.6)
[2023-07-11 18:06] LABS: ABG Base Excess -7.8 mmol/L; ABG Glucose Whole Blood 219 mg/dL (75-99); ABG HCO3 19 mmol/L (21-25); ABG Hematocrit 41 % (34.0-46.0); ABG Ionized Calcium 4.1 mg/dL (4.5-5.3); ABG Oxygen Saturation 99.8 % (94-97); ABG PCO2 45 mmHg (35-45); ABG PH 7.24 (7.35-7.45); ABG PO2 328 mmHg (83-108); ABG Potassium Whole Blood 4.9 mmol/L (3.4-4.5); ABG Sodium Whole Blood 138 mmol/L (135-146); ABG TCO2 21 mmol/L (19-24)
[2023-07-11 18:07] LABS: INR 1.2 (<1.2); Prothrombin Time 12.7 sec (10.0-12.5)
[2023-07-11 18:10] LABS: ALT 19 U/L (4-49); AST 59 U/L (17-59); African American GFR (CKD) >90 (>60 ml/min/1.73 sqM); Albumin 2.9 g/dL (3.5-5.0); Alkaline Phosphatase 82 U/L (38-126); Anion Gap 9 mmol/L; Blood Urea Nitrogen 11 mg/dL (9-20); Calcium 7.1 mg/dL (8.4-10.2); Carbon Dioxide 20 mmol/L (22-30); Chloride 107 mmol/L (98-107); Glucose 191 mg/dL (74-99); Non-African American GFR(CKD) >90 (>60 ml/min/1.73 sqM); Sodium 136 mmol/L (137-145); Total Bilirubin 1.2 mg/dL (0.2-1.3); Total Protein 5.2 g/dL (6.3-8.2)
[2023-07-11 18:12] LABS: Potassium 4.8 mmol/L (3.5-5.1)
[2023-07-11 18:18] LABS: ABG Base Excess -2.5 mmol/L; ABG Glucose Whole Blood 222 mg/dL (75-99); ABG HCO3 26 mmol/L (21-25); ABG Hematocrit 42 % (34.0-46.0); ABG Ionized Calcium 5.2 mg/dL (4.5-5.3); ABG Oxygen Saturation 99.8 % (94-97); ABG PCO2 61 mmHg (35-45); ABG PH 7.24 (7.35-7.45); ABG PO2 335 mmHg (83-108); ABG Potassium Whole Blood 4.8 mmol/L (3.4-4.5); ABG Sodium Whole Blood 143 mmol/L (135-146); ABG TCO2 28 mmol/L (19-24)
[2023-07-11 18:41] LABS: ABG Glucose Whole Blood 247 mg/dL (75-99); ABG HCO3 23 mmol/L (21-25); ABG Hematocrit 33 % (34.0-46.0); ABG Ionized Calcium 4.2 mg/dL (4.5-5.3); ABG PCO2 51 mmHg (35-45); ABG PH 7.27 (7.35-7.45); ABG PO2 354 mmHg (83-108); ABG Potassium Whole Blood 4.4 mmol/L (3.4-4.5); ABG Sodium Whole Blood 141 mmol/L (135-146); ABG TCO2 25 mmol/L (19-24)
[2023-07-11 19:28] LABS: ABG Base Excess -4.1 mmol/L; ABG Glucose Whole Blood 199 mg/dL (75-99); ABG HCO3 22 mmol/L (21-25); ABG Hematocrit 40 % (34.0-46.0); ABG Ionized Calcium 3.8 mg/dL (4.5-5.3); ABG PCO2 41 mmHg (35-45); ABG PH 7.33 (7.35-7.45); ABG Potassium Whole Blood 4.6 mmol/L (3.4-4.5); ABG Sodium Whole Blood 141 mmol/L (135-146); ABG TCO2 23 mmol/L (19-24)
[2023-07-11 19:51] LABS: ABG Base Excess -2.4 mmol/L; ABG Glucose Whole Blood 193 mg/dL (75-99); ABG HCO3 24 mmol/L (21-25); ABG Hematocrit 37 % (34.0-46.0); ABG Ionized Calcium 4.5 mg/dL (4.5-5.3); ABG Oxygen Saturation 99.9 % (94-97); ABG PCO2 49 mmHg (35-45); ABG PO2 352 mmHg (83-108); ABG Potassium Whole Blood 4.5 mmol/L (3.4-4.5); ABG Sodium Whole Blood 144 mmol/L (135-146); ABG TCO2 26 mmol/L (19-24)
[2023-07-11 20:15] LABS: ABG Lactic Acid Whole Blood 3.6 mmol/L (0.5-1.6)
[2023-07-11 20:15] LABS: ABG Lactic Acid Whole Blood 3.7 mmol/L (0.5-1.6)
[2023-07-11 20:16] LABS: ABG Lactic Acid Whole Blood 3.7 mmol/L (0.5-1.6)
[2023-07-11 20:17] LABS: ABG Lactic Acid Whole Blood 4.1 mmol/L (0.5-1.6)
--- NOTE | 2023-07-11 20:17 | P.EPPROC ---
- EP Procedure Note Electrophysiology Procedure Note: PROCEDURE A. fib ablation/PVI DIAGNOSIS Paroxysmal Atrial fibrillation, symptomatic RESULT No left atrial appendage mass seen on intracardiac echo Successful A. fib ablation/pulmonary vein isolation of right inferior, right superior and left superior pulmonary veins veins using cryo-ablation Complete entrance block in all 3 veins confirmed No evidence for phrenic nerve injury Esophageal deflection YES Pericardial tamponade just after left superior pulmonary vein ablation Immediate pericardiocentesis and patient was then taken to the operating PROCEDURE DETAILS Written informed consent prior to procedure. Patient brought to the EP lab. General anesthesia given. Heparin administered. A city maintained above 300 seconds Both groins prepped and draped per protocol and venous sheaths placed. Esophagus intubated, circa catheter for temperature monitoring an endoscope for possible esophageal deflection. Phrenic nerve monitoring performed. Esophageal temperature monitoring performed. Esophageal deflection performed if circa catheter overlapping with the balloon or circa temperature less than 27.5C Intracardiac echocardiography performed. Pericardium evaluated. Left atrial appendage evaluated. Left atrium evaluated along with pulmonary veins Transseptal catheterization performed under fluoroscopic guidance and intracardiac echo guidance Cryoablation sheath exchanged, balloon catheter along with achieve catheter placed in the left atrium. Pulmonary veins isolated in the following sequence: Left superior pulmonary vein followed by left inferior pulmonary vein, followed by right inferior pulmonary vein and lastly right superior pulmonary vein. Phrenic nerve stimulation along with capture thresholds within the SVC and right superior pulmonary vein to identify the phrenic nerve proximity to the cryo- balloon. Pulmonary veins isolated and confirmed with entrance and exit block. Phrenic nerve integrity confirmed at the end of the procedure Diagnostic catheters for the high right atrium, His bundle, coronary sinus placed. LA and RA pressures recorded RA pressure: 15/7/11 LA pressure: 25/9/16 Diagnostic EP study with coronary sinus pacing and recording Baseline measurements: OH interval 151 ms, QRS 86 ms QT 430 ms This is a sudden drop in blood pressure just after left superior pulmonary vein isolation and completion of ablation Intracardiac echo revealed pericardial effusion Immediate pericardiocentesis performed Heparin reversed, K-centra administered, blood products administered, pressors used Patient stabilized and transferred to the operating room for open heart surgery Intraoperatively in the operating room inspection of the left atrium revealed a reentrant between the left superior and left inferior pulmonary veins in the region of the gavino in the region of the ablated tissue This area was primarily closed by the surgeon and hemostasis was assured This tear in the gavino was a direct result of Cryo balloon ablation in the left pulmonary vein PROCEDURES PERFORMED Diagnostic EP study CS pacing and recording Left and right transseptal catheterization Catheter the mapping of the tachycardia Intracardiac echocardiography Pulmonary vein isolation with transseptal and comprehensive EPS, [id number] Urgent pericardiocentesis
[2023-07-11 20:18] LABS: ABG Lactic Acid Whole Blood 4.1 mmol/L (0.5-1.6); ABG PO2 >420 mmHg (83-108)
--- NOTE | 2023-07-11 20:22 | P.HPCAR ---
History of Present Illness This is Dr. Moore dictating an H/P on this patient The patient was interviewed and examined IMPRESSION / ASSESSMENT: Symptomatic paroxysmal atrial fibrillation documented in loop monitor Hypertension Mild CAD Normal LV function PLAN: Proceed with pulmonary vein isolation continue anticoagulation cardiac medications HPI 77-year-old male patient with recurrent palpitations she's become worse in the last one to 2 years He underwent implantation of loop monitor earlier procedure and this documented recurrent episodes of atrial fibrillation lasting a few hours His episodes associated with fatigue shortness of breath and chest discomfort and palpitations He has known coronary artery disease with PLB disease nonobstructive His a history of hypertension The patient denied any chest discomfort shortness of breath dizziness syncope He denied any fever chills cough expectoration of any problems in the last few weeks ROS: No fever chills or rigors, no cough, phlegm or expectoration, no nausea, vomiting or diarrhea, no hematuria, dysuria, no musculoskeletal complaints, no strokes or seizures, no skin lesions. EXAMINATION: Afebrile, blood pressure 167/78 mmHg Heart sounds S1 and S2 are normal with regular Breath sounds are clear No JVD No lower extremity edema Abdomen soft nontender REVIEW OF LABS, ECG & MEDICAL DATA Normal 2-D echo normal LV function Medications include ELIQUIS Lipitor metoprolol amlodipine Physical Exam Vitals: Vital Signs Temp Pulse Resp BP BP Pulse Ox 07/11/23 13:13 97.8 F 68 16 167/78 170/87 98 Intake and Output 07/11/23 07/11/23 07/11/23 06:59 14:59 22:59 Intake Total 318 2924 Output Total 1920 Balance 318 1004 Intake: IV 318 51 Blood Product 2873 Ffp 24 Pher Acda Cnt1 217 Unit [id number] Ffp 24 Pher Acda Cnt2 220 Unit [id number] Platelet Pheresis Pas 266 Psoralen Unit [id number] Rc As-1 Unit 310 [id number] Rc As-1 Unit 310 [id number] Rc As-1 Unit 310 [id number] Rc As-1 Unit 310 [id number] Rc As-1 Unit 310 [id number] Rc As-1 Unit 310 [id number] Rc As-1 Unit 310 [id number] Output: Estimated Blood Loss 1920 Other: Weight 105 kg Past Medical History Past Medical History: Atrial Fibrillation, Coronary Artery Disease (CAD), GERD/Reflux, Hyperlipidemia, Hypertension, Osteoarthritis (OA), Prostate Disorder, Supraventricular Tachycardia (SVT) Additional Past Medical History / Comment(s): See Dr. Moore's H&P. Aortic valve regurgitation, VARICOSE VEINS, HX DUODENAL ULCER, BPH, occasionally left foot burning. History of Any Multi-Drug Resistant Organisms: None Reported Past Surgical History: EPS, Heart Catheterization, Joint Replacement, Orthopedic Surgery Additional Past Surgical History / Comment(s): Lipoma removed from chest area, bilateral ear-cosmetic surgery, right rotator cuff, bilateral knee replacements, heel spur removed, loop recorder, colonoscopies. Past Anesthesia/Blood Transfusion Reactions: No Reported Reaction Additional Past Anesthesia/Blood Transfusion Reaction / Comment(s): With last total knee surgery had several days "things were cloudy" and pt states he was sent for cat scan which was normal Smoking Status: Former smoker - Past Family History Mother Family Medical History: Coronary Artery Disease (CAD) Father Family Medical History: Coronary Artery Disease (CAD) Physical Examination Vital Signs Temp Pulse Resp BP BP Pulse Ox 07/11/23 13:13 97.8 F 68 16 167/78 170/87 98 Intake and Output 07/11/23 07/11/23 07/11/23 06:59 14:59 22:59 Intake Total 318 2924 Output Total 1920 Balance 318 1004 Intake: IV 318 51 Blood Product 2873 Ffp 24 Pher Acda Cnt1 217 Unit [id number] Ffp 24 Pher Acda Cnt2 220 Unit [id number] Platelet Pheresis Pas 266 Psoralen Unit [id number] Rc As-1 Unit 310 [id number] Rc As-1 Unit 310 [id number] Rc As-1 Unit 310 [id number] Rc As-1 Unit 310 [id number] Rc As-1 Unit 310 [id number] Rc As-1 Unit 310 [id number] Rc As-1 Unit 310 [id number] Output: Estimated Blood Loss 1920 Other: Weight 105 kg Results 07/11/23 17:30 07/11/23 17:30 Cardiac Enzymes 07/11/23 07/11/23 Range/Units 12:47 17:30 AST 24 59 (17-59) U/L Coagulation 07/11/23 Range/Units 17:30 PT 12.7 H (10.0-12.5) sec CBC 07/11/23 07/11/23 Range/Units 12:47 17:30 WBC 7.3 12.2 H (3.8-10.6) k/uL RBC 4.71 3.94 L (4.30-5.90) m/uL Hgb 14.0 12.1 L (13.0-17.5) gm/dL Hct 42.4 36.3 L (39.0-53.0) % Plt Count 168 128 L (150-450) k/uL Comprehensive Metabolic Panel 07/11/23 07/11/23 Range/Units 12:47 17:30 Sodium 140 136 L (137-145) mmol/L Potassium 4.5 4.8 (3.5-5.1) mmol/L Chloride 102 107 (98-107) mmol/L Carbon Dioxide 28 20 L (22-30) mmol/L BUN 12 11 (9-20) mg/dL Creatinine 0.70 0.67 (0.66-1.25) mg/dL Glucose 112 H 191 H (74-99) mg/dL Calcium 9.2 7.1 L (8.4-10.2) mg/dL AST 24 59 (17-59) U/L ALT 20 19 (4-49) U/L Alkaline Phosphatase 138 H 82 (38-126) U/L Total Protein 6.8 5.2 L (6.3-8.2) g/dL Albumin 4.1 2.9 L (3.5-5.0) g/dL Current Medications Generic Name Dose Route Start Last Admin Trade Name Freq PRN Reason Stop Dose Admin Hydromorphone HCl 0.5 mg 07/11/23 07:00 Hydromorphone 0.5 Mg/0.5 Ml Syringe IVP 07/11/23 23:00 Q5M PRN Phase 1 or 2 - Pain Control Sodium Chloride 1,000 mls @ 50 mls/hr 07/11/23 05:44 Saline 0.9% IV 08/10/23 05:45 .Q20H CECI Lactated Ringer's 1,000 mls @ 20 mls/hr 07/11/23 05:44 Lactated Ringers IV 08/10/23 05:45 .Q24H CECI Nitroglycerin/Dextrose 50 mg/ 250 mls @ 1.5 mls/hr 07/11/23 17:33 IV Solution IV 08/10/23 17:34 .Q24H CECI Protocol 5 MCG/MIN Clevidipine 25 mg/ IV Solution 50 mls @ 2 mls/hr 07/11/23 17:33 IV 08/10/23 17:34 .Q24H CECI Protocol 1 MG/HR Norepinephrine Bitartrate 4 mg 254 mls @ 0 mls/hr 07/11/23 17:33 / Sodium Chloride IV 08/10/23 17:34 .Q0M CECI Protocol Titrate Propofol 1,000 mg/ IV Solution 100 mls @ 0 mls/hr 07/11/23 17:33 IV 08/10/23 17:34 .Q0M PRN Per Protocol Protocol Titrate Insulin Human Regular 100 unit 100 mls @ 0 mls/hr 07/11/23 17:33 / Sodium Chloride IV 08/10/23 17:34 .Q0M CECI Protocol Titrate Tranexamic Acid 2,000 mg/ 100 mls @ 0 mls/hr 07/12/23 05:00 Sodium Chloride IV 07/12/23 05:01 .Q0M ONE Protocol Per Protocol Lidocaine HCl 0.1 ml 07/11/23 05:44 Lidocaine 1% (10mg/Ml) For Iv Start INTRADERMA 08/10/23 05:45 PER PROTOCOL PRN IV Start Miscellaneous Information 0 each 07/11/23 16:46 07/11/23 16:55 Kcentra Per Pharmacy 1 Each Misc MISCELLANE 08/10/23 16:47 1 each DIRECTED PRN Administration PER PROTOCOL Intake and Output 07/11/23 07/11/23 07/11/23 06:59 14:59 22:59 Intake Total 318 2924 Output Total 1920 Balance 318 1004 Intake: IV 318 51 Blood Product 2873 Ffp 24 Pher Acda Cnt1 217 Unit [id number] Ffp 24 Pher Acda Cnt2 220 Unit [id number] Platelet Pheresis Pas 266 Psoralen Unit [id number] Rc As-1 Unit 310 [id number] Rc As-1 Unit 310 [id number] Rc As-1 Unit 310 [id number] Rc As-1 Unit 310 [id number] Rc As-1 Unit 310 [id number] Rc As-1 Unit 310 [id number] Rc As-1 Unit 310 [id number] Output: Estimated Blood Loss 1920 Other: Weight 105 kg Patient Weight 07/12/23 06:59 Weight 105 kg 07/11/23 17:30 07/11/23 17:30
--- NOTE | 2023-07-11 20:53 | P.GSCN ---
History of Present Illness Consult date: 07/11/23 Reason for Consult: Cardiac tamponade status post ablation for atrial fibrillation Requesting physician: Royal Moore History of present illness: Patient is a 78 years old gentleman with a past medical history of hypertension arthritis known coronary artery disease with proven recurrent symptomatic atrial fibrillation deemed candidate for pulmonary vein and left atrial ablation. He was brought into the elective etiology lab today and this procedure was complicated by hypotension. Intracardiac echocardiography showed evidence of pericardial effusion warranting insertion of a pericardial drain. Cardiac surgical team was notified at that point and preparation were made for proceeding to the operating room for emergent expiration. Meanwhile patient had a total of around 3 L of blood aspirated from his pericardial drain and part of it was given via an right femoral venous sheath. He had received 4 units of blood, KCENTRA to reverse his Eliquis and protamine to reverse heparin. Review of Systems - Cardiovascular Reports high blood pressure, Reports palpitations, Reports rapid heart beat, Reports shortness of breath - Respiratory Reports as per HPI - Gastrointestinal Reports as per HPI, Reports heartburn - Genitourinary Reports as per HPI - Musculoskeletal Reports as per HPI - Integumentary Reports as per HPI - Neurological Reports as per HPI - Psychiatric Reports as per HPI - Endocrine Reports as per HPI - Hematologic/Lymphatic Reports as per HPI - Allergic/Immunologic Reports as per HPI (Patient was intubated when we saw him in consultation) Past Medical History Past Medical History: Atrial Fibrillation, Coronary Artery Disease (CAD), G ERD/Reflux, Hyperlipidemia, Hypertension, Osteoarthritis (OA), Prostate Disorder, Supraventricular Tachycardia (SVT) Additional Past Medical History / Comment(s): See Dr. Moore's H&P. Aortic valve regurgitation, VARICOSE VEINS, HX DUODENAL ULCER, BPH, occasionally left f oot burning. History of Any Multi-Drug Resistant Organisms: None Reported Past Surgical History: EPS, Heart Catheterization, Joint Replacement, Orthopedic Surgery Additional Past Surgical History / Comment(s): Lipoma removed from chest area, bilateral ear-cosmetic surgery, right rotator cuff, bilateral knee replacements, heel spur removed, loop recorder, colonoscopies. Past Anesthesia/Blood Transfusion Reactions: No Reported Reaction Additional Past Anesthesia/Blood Transfusion Reaction / Comm: With last total knee surgery had several days "things were cloudy" and pt states he was sent for cat scan which was normal Smoking Status: Former smoker - Past Family History Mother Family Medical History: Coronary Artery Disease (CAD) Father Family Medical History: Coronary Artery Disease (CAD) Medications and Allergies Home Medications Medication Instructions Recorded Confirmed Type Tamsulosin [Flomax] 0.4 mg PO BID 08/20/14 07/10/23 History Atorvastatin [Lipitor] 20 mg PO 1700 10/22/17 07/10/23 History amLODIPine BESYLATE [Norvasc] 10 mg PO QAM 10/22/17 07/10/23 History traMADol HCL [Ultram] 50 mg PO Q6HR PRN 10/22/17 07/11/23 History Multivitamins, Thera [Multivitamin 1 tab PO QAM 10/05/22 07/10/23 History (formulary)] Apixaban [Eliquis] 5 mg PO BID 07/10/23 07/11/23 History Metoprolol Succinate [Toprol XL] 100 mg PO BID 07/10/23 07/10/23 History Omeprazole 20 mg PO QAM 07/10/23 07/10/23 History Allergies Allergy/AdvReac Type Severity Reaction Status Date / Time No Known Allergies Allergy Verified 07/11/23 12:59 Surgical - Exam Vital Signs Temp Pulse Resp BP Pulse Ox 97.8 F 68 16 167/78 98 07/11/23 13:13 07/11/23 13:13 07/11/23 13:13 07/11/23 13:13 07/11/23 13:13 Results - Labs 07/11/23 17:30 07/11/23 17:30 Abnormal Lab Results - Last 24 Hours (Table) 07/11/23 07/11/23 07/11/23 Range/Units 12:47 12:47 12:49 WBC (3.8-10.6) k/uL RBC (4.30-5.90) m/uL Hgb (13.0-17.5) gm/dL Hct (39.0-53.0) % Plt Count (150-450) k/uL Neutrophils # (1.3-7.7) k/uL PT (10.0-12.5) sec INR (<1.2) ABG pH (7.35-7.45) ABG pCO2 (35-45) mmHg ABG pO2 (83-108) mmHg ABG HCO3 (21-25) mmol/L ABG Total CO2 (19-24) mmol/L ABG O2 Saturation (94-97) % ABG Hematocrit (34.0-46.0) % ABG Potassium (3.4-4.5) mmol/L ABG Ionized Calcium (4.5-5.3) mg/dL ABG Glucose (75-99) mg/dL ABG Lactic Acid (0.5-1.6) mmol/L Hemoglobin (13.0-17.5) gm/dL Sodium (137-145) mmol/L Carbon Dioxide (22-30) mmol/L Glucose 112 H (74-99) mg/dL Calcium (8.4-10.2) mg/dL Alkaline Phosphatase 138 H (38-126) U/L Total Protein (6.3-8.2) g/dL Albumin (3.5-5.0) g/dL TSH 0.394 L (0.465-4.680) mIU/L Arterial Blood Potassium (3.4-4.5) mmol/L Arterial Blood Glucose (75-99) mg/dL Crossmatch See Detail See Detail 07/11/23 07/11/23 07/11/23 Range/Units 17:30 17:30 17:30 WBC 12.2 H (3.8-10.6) k/uL RBC 3.94 L (4.30-5.90) m/uL Hgb 12.1 L (13.0-17.5) gm/dL Hct 36.3 L (39.0-53.0) % Plt Count 128 L (150-450) k/uL Neutrophils # 9.7 H (1.3-7.7) k/uL PT 12.7 H (10.0-12.5) sec INR 1.2 H (<1.2) ABG pH (7.35-7.45) ABG pCO2 (35-45) mmHg ABG pO2 (83-108) mmHg ABG HCO3 (21-25) mmol/L ABG Total CO2 (19-24) mmol/L ABG O2 Saturation (94-97) % ABG Hematocrit (34.0-46.0) % ABG Potassium (3.4-4.5) mmol/L ABG Ionized Calcium (4.5-5.3) mg/dL ABG Glucose (75-99) mg/dL ABG Lactic Acid (0.5-1.6) mmol/L Hemoglobin (13.0-17.5) gm/dL Sodium 136 L (137-145) mmol/L Carbon Dioxide 20 L (22-30) mmol/L Glucose 191 H (74-99) mg/dL Calcium 7.1 L (8.4-10.2) mg/dL Alkaline Phosphatase (38-126) U/L Total Protein 5.2 L (6.3-8.2) g/dL Albumin 2.9 L (3.5-5.0) g/dL TSH (0.465-4.680) mIU/L Arterial Blood Potassium (3.4-4.5) mmol/L Arterial Blood Glucose (75-99) mg/dL Crossmatch 07/11/23 07/11/23 07/11/23 Range/Units 18:06 18:17 18:41 WBC (3.8-10.6) k/uL RBC (4.30-5.90) m/uL Hgb (13.0-17.5) gm/dL Hct (39.0-53.0) % Plt Count (150-450) k/uL Neutrophils # (1.3-7.7) k/uL PT (10.0-12.5) sec INR (<1.2) ABG pH 7.24 L 7.24 L 7.27 L (7.35-7.45) ABG pCO2 61 H 51 H (35-45) mmHg ABG pO2 328 H 335 H 354 H (83-108) mmHg ABG HCO3 19 L 26 H (21-25) mmol/L ABG Total CO2 28 H 25 H (19-24) mmol/L ABG O2 Saturation 99.8 H 99.8 H 100.0 H (94-97) % ABG Hematocrit 33 L (34.0-46.0) % ABG Potassium 4.9 H 4.8 H (3.4-4.5) mmol/L ABG Ionized Calcium 4.1 L 4.2 L (4.5-5.3) mg/dL ABG Glucose 219 H 222 H 247 H (75-99) mg/dL ABG Lactic Acid 3.6 H* 3.7 H* 3.7 H* (0.5-1.6) mmol/L Hemoglobin 10.8 L (13.0-17.5) gm/dL Sodium (137-145) mmol/L Carbon Dioxide (22-30) mmol/L Glucose (74-99) mg/dL Calcium (8.4-10.2) mg/dL Alkaline Phosphatase (38-126) U/L Total Protein (6.3-8.2) g/dL Albumin (3.5-5.0) g/dL TSH (0.465-4.680) mIU/L Arterial Blood Potassium 4.9 H 4.8 H (3.4-4.5) mmol/L Arterial Blood Glucose 219 H 222 H 247 H (75-99) mg/dL Crossmatch 07/11/23 07/11/23 07/11/23 Range/Units 19:03 19:28 19:51 WBC (3.8-10.6) k/uL RBC (4.30-5.90) m/uL Hgb (13.0-17.5) gm/dL Hct (39.0-53.0) % Plt Count (150-450) k/uL Neutrophils # (1.3-7.7) k/uL PT (10.0-12.5) sec INR (<1.2) ABG pH 7.31 L 7.33 L 7.30 L (7.35-7.45) ABG pCO2 49 H (35-45) mmHg ABG pO2 >420 H >420 H 352 H (83-108) mmHg ABG HCO3 (21-25) mmol/L ABG Total CO2 26 H (19-24) mmol/L ABG O2 Saturation 100.0 H 100.0 H 99.9 H (94-97) % ABG Hematocrit 29 L (34.0-46.0) % ABG Potassium 4.6 H (3.4-4.5) mmol/L ABG Ionized Calcium 3.8 L (4.5-5.3) mg/dL ABG Glucose 236 H 199 H 193 H (75-99) mg/dL ABG Lactic Acid 4.6 H* 4.1 H* 4.1 H* (0.5-1.6) mmol/L Hemoglobin 9.4 L 12.1 L (13.0-17.5) gm/dL Sodium (137-145) mmol/L Carbon Dioxide (22-30) mmol/L Glucose (74-99) mg/dL Calcium (8.4-10.2) mg/dL Alkaline Phosphatase (38-126) U/L Total Protein (6.3-8.2) g/dL Albumin (3.5-5.0) g/dL TSH (0.465-4.680) mIU/L Arterial Blood Potassium 4.6 H (3.4-4.5) mmol/L Arterial Blood Glucose 236 H 199 H 193 H (75-99) mg/dL Crossmatch Diabetes panel 07/11/23 07/11/23 Range/Units 12:47 17:30 Sodium 140 136 L (137-145) mmol/L Potassium 4.5 4.8 (3.5-5.1) mmol/L Chloride 102 107 (98-107) mmol/L Carbon Dioxide 28 20 L (22-30) mmol/L BUN 12 11 (9-20) mg/dL Creatinine 0.70 0.67 (0.66-1.25) mg/dL Glucose 112 H 191 H (74-99) mg/dL Calcium 9.2 7.1 L (8.4-10.2) mg/dL AST 24 59 (17-59) U/L ALT 20 19 (4-49) U/L Alkaline Phosphatase 138 H 82 (38-126) U/L Total Protein 6.8 5.2 L (6.3-8.2) g/dL Albumin 4.1 2.9 L (3.5-5.0) g/dL Thyroid panel 07/11/23 Range/Units 12:47 TSH 0.394 L (0.465-4.680) mIU/L Calcium panel 07/11/23 07/11/23 Range/Units 12:47 17:30 Calcium 9.2 7.1 L (8.4-10.2) mg/dL Albumin 4.1 2.9 L (3.5-5.0) g/dL Pituitary panel 07/11/23 07/11/23 Range/Units 12:47 17:30 Sodium 140 136 L (137-145) mmol/L Potassium 4.5 4.8 (3.5-5.1) mmol/L Chloride 102 107 (98-107) mmol/L Carbon Dioxide 28 20 L (22-30) mmol/L BUN 12 11 (9-20) mg/dL Creatinine 0.70 0.67 (0.66-1.25) mg/dL Glucose 112 H 191 H (74-99) mg/dL Calcium 9.2 7.1 L (8.4-10.2) mg/dL TSH 0.394 L (0.465-4.680) mIU/L Adrenal panel 07/11/23 07/11/23 Range/Units 12:47 17:30 Sodium 140 136 L (137-145) mmol/L Potassium 4.5 4.8 (3.5-5.1) mmol/L Chloride 102 107 (98-107) mmol/L Carbon Dioxide 28 20 L (22-30) mmol/L BUN 12 11 (9-20) mg/dL Creatinine 0.70 0.67 (0.66-1.25) mg/dL Glucose 112 H 191 H (74-99) mg/dL Calcium 9.2 7.1 L (8.4-10.2) mg/dL Total Bilirubin 1.2 1.2 (0.2-1.3) mg/dL AST 24 59 (17-59) U/L ALT 20 19 (4-49) U/L Alkaline Phosphatase 138 H 82 (38-126) U/L Total Protein 6.8 5.2 L (6.3-8.2) g/dL Albumin 4.1 2.9 L (3.5-5.0) g/dL
[2023-07-11] MEDS: NOREPINEPHRINE 4 MG in SODIUM CHLORIDE 0.9% 250 ML IV SCH (21:00)
[2023-07-11 21:02] LABS: Glucose,Whole Blood 179 mg/dL (70-110)
[2023-07-11] MEDS ORDERED: ALBUMIN HUMAN 5% 250 ML in EMPTY BAG 1 BAG IVPB PRN (21:06)
[2023-07-11] MEDS ORDERED: ONDANSETRON 4 MG/2 ML VIAL IVP PRN (21:06)
[2023-07-11] MEDS ORDERED: DEXTROSE 50% SYRINGE 50 ML IVP PRN ×2 (21:06)
[2023-07-11] MEDS ORDERED: METOCLOPRAMIDE 5 MG/ML 2 ML VIAL IVP PRN (21:06)
[2023-07-11] MEDS ORDERED: Potassium Replacement Protocol 1 EACH MISC MISCELLANE PRN (21:06)
[2023-07-11] MEDS ORDERED: LACTATED RINGERS 1,000 ML IV SCH (21:06)
[2023-07-11] MEDS ORDERED: Magnesium Replacement Protocol 1 EACH MISC MISCELLANE PRN (21:06)
[2023-07-11] MEDS ORDERED: IPRATROPIUM-ALBUTEROL 3 ML NEB INHALATION PRN (21:06)
[2023-07-11] MEDS ORDERED: hydrALAZINE HCL 20 MG/ML 1 ML VIAL IVP PRN (21:06)
[2023-07-11] MEDS ORDERED: BENZOCAINE/MENTHOL LOZENG 1 EACH LOZENGE MUCOUS MEM PRN (21:06)
[2023-07-11] MEDS ORDERED: CALCIUM GLUCONATE IN NACL 2 GM in SALINE 1 100ML.BAG IVPB PRN (21:06)
[2023-07-11 21:23] LABS: HCT 43.2 % (39.0-53.0); HGB 14.5 gm/dL (13.0-17.5); MCH 30.3 pg (25.0-35.0); MCHC 33.6 g/dL (31.0-37.0); Mean Platelet Volume 9.2; RBC 4.79 m/uL (4.30-5.90); RDW 13.4 % (11.5-15.5); WBC 20.1 k/uL (3.8-10.6)
[2023-07-11 21:28] LABS: ABG Base Excess -5.6 mmol/L; ABG HCO3 21 mmol/L (21-25); ABG Oxygen Saturation 99.5 % (94-97); ABG PCO2 46 mmHg (35-45); ABG PH 7.27 (7.35-7.45); ABG PO2 263 mmHg (83-108); ABG TCO2 23 mmol/L (19-24); Allen Test Performed? Yes
[2023-07-11] MEDS: INSULIN REGULAR 100 UNIT in SODIUM CHLORIDE 0.9% 100 ML IV SCH (21:30)
[2023-07-11] MEDS: IPRATROPIUM-ALBUTEROL 3 ML NEB INHALATION SCH (21:30)
[2023-07-11 21:34] LABS: INR 1.6 (<1.2); Partial Thromboplastin Time 30.1 sec (22.0-30.0); Prothrombin Time 16.7 sec (10.0-12.5)
[2023-07-11] MEDS ORDERED: SODIUM BICARB 8.4% 50 ML SYR (1 MEQ/ML) IV STA (21:38)
[2023-07-11 21:41] LABS: Ionized Calcium 4.2 mg/dL (4.5-5.3)
[2023-07-11 21:51] LABS: ALT 25 U/L (4-49); African American GFR (CKD) >90 (>60 ml/min/1.73 sqM); Anion Gap 7 mmol/L; Blood Urea Nitrogen 12 mg/dL (9-20); Calcium 6.6 mg/dL (8.4-10.2); Carbon Dioxide 21 mmol/L (22-30); Chloride 112 mmol/L (98-107); Glucose 168 mg/dL (74-99); Non-African American GFR(CKD) >90 (>60 ml/min/1.73 sqM); Sodium 140 mmol/L (137-145)
[2023-07-11 21:54] LABS: AST 101 U/L (17-59); Alkaline Phosphatase 42 U/L (38-126); Magnesium 1.8 mg/dL (1.6-2.3); Potassium 4.6 mmol/L (3.5-5.1); Total Bilirubin 3.1 mg/dL (0.2-1.3); Total Protein 3.7 g/dL (6.3-8.2)
[2023-07-11] MEDS ORDERED: CALCIUM GLUCONATE IN NACL 1 GM in SALINE 1 100ML.BAG IVPB ONE (21:57)
[2023-07-11] MEDS ORDERED: MAGNESIUM SULFATE-D5W PMX 1 GM in DEXTROSE/WATER 1 100ML.BAG IVPB ONE (22:02)
[2023-07-11 22:03] LABS: Glucose,Whole Blood 161 mg/dL (70-110)
[2023-07-11] MEDS: CLEVIDIPINE BUTYRATE 25 MG in EMPTY BAG 1 BAG IV SCH (22:20)
[2023-07-11] MEDS: SENNOSIDES-DOCUSATE SODIUM 1 EACH TAB PO SCH (22:22)
[2023-07-11 22:54] LABS: Band Neutrophils % 8 %; Lymphocytes # (M) 1.61 k/uL (1.0-4.8); Neutrophils % (M) 79 %; Nucleated Red Blood Cells 0 /100 WBC (0-0); Total Cells Counted 100
[2023-07-11 22:55] LABS: Platelet Count 53 k/uL (150-450)
[2023-07-11 23:12] LABS: Glucose,Whole Blood 184 mg/dL (70-110)
[2023-07-11] MEDS: ACETAMINOPHEN IV (For NPO) 1,000 MG in EMPTY BAG 1 BAG IVPB SCH (23:55)
[2023-07-12 00:10] LABS: INR 1.3 (<1.2); Partial Thromboplastin Time 26.9 sec (22.0-30.0); Prothrombin Time 13.9 sec (10.0-12.5)
[2023-07-12 00:10] LABS: Glucose,Whole Blood 164 mg/dL (70-110)
[2023-07-12 00:17] LABS: Basophils % (A) 0 %; Eosinophils # (A) 0.1 k/uL (0-0.7); Eosinophils % (A) 0 %; HCT 46.7 % (39.0-53.0); Lymphocytes # (A) 1.3 k/uL (1.0-4.8); Lymphocytes % (A) 7 %; MCH 30.5 pg (25.0-35.0); MCHC 34.2 g/dL (31.0-37.0); MCV 89.1 fL (80.0-100.0); Mean Platelet Volume 9.3; Monocytes # (A) 1.4 k/uL (0-1.0); Monocytes % (A) 7 %; Neutrophils # (A) 16.9 k/uL (1.3-7.7); Neutrophils % (A) 86 %; Platelet Count 66 k/uL (150-450); RBC 5.24 m/uL (4.30-5.90); RDW 13.6 % (11.5-15.5); WBC 19.7 k/uL (3.8-10.6)
[2023-07-12] MEDS: IPRATROPIUM-ALBUTEROL 3 ML NEB INHALATION SCH ×6 (00:25→21:06)
[2023-07-12] MEDS: HEPARIN SODIUM,PORCINE 5,000 UNIT/ML 1 ML VIAL SQ SCH ×3 (00:33→15:33)
--- NOTE | 2023-07-12 00:44 | XR ---
EXAM: XR chest 1V portable CLINICAL INDICATION:Male, 78 years old with history of Post Operative Cardiac Surgery; [facility] COMPARISON: None. TECHNIQUE: Chest single view. FINDINGS: Lines/tubes/devices: ET tube tip difficult to visualize but is judged to be 2.3 cm above the gavino. NG tube traverses below the diaphragm on the left with the tip over the expected gastric cardia regio n but the sidehole is above the level of the GE junction. There is apparent mediastinal drain. Left a trial appendage occlusion device and cardiac loop recorder project over the left heart. EKG leads and other extrinsic structures over the chest. Cardiomediastinum: Cardiac silhouette appears moderately enlarged Atherosclerotic calcifications of the aorta. Vasculature: Mild central congestion. Mildly increased interstitial markings can be related to conge stion or infiltrates. Lungs/pleura: Mild bibasilar atelectasis. No definite consolidation but the left lung base is difficult to assess d ue to overlying heart. Mild blunting of the left costophrenic angle. No visible pneumothorax. Bones/soft tissues: Bony thorax appears grossly intact as seen. Mild/moderate degenerative changes of the shoulders and spine. Regional soft tissues appear unremarkable, except for the possible presence of small streaky l ucency over the right chest which might be gas tracking in the pectoralis.. IMPRESSION: 1. Postoperative chest, with multiple lines and tubes in place as above. Recommend several centimete rs of further advancement of the NG tube. 2. Mild cardiomegaly with mild vascular congestion. Small left pleural effusion.
[2023-07-12 01:05] LABS: Glucose,Whole Blood 134 mg/dL (70-110)
[2023-07-12 01:59] LABS: Glucose,Whole Blood 146 mg/dL (70-110)
[2023-07-12 03:04] LABS: Glucose,Whole Blood 134 mg/dL (70-110)
--- NOTE | 2023-07-12 03:08 | OP ---
OPERATIVE REPORT DATE OF SERVICE : 07/11/2023 ASSISTANTS: Douglas Perez, Physician Housekeeping Room Inspector, and Dr. Royal Moore PREOPERATIVE DIAGNOSES: Cardiac tamponade, status post left atrial ablation for paroxysmal atrial fibrillation. POSTOPERATIVE DIAGNOSES: Cardiac tamponade, status post left atrial ablation for paroxysmal atrial fibrillation with evidence of injury to the left atrium between the left superior pulmonary vein and the left inferior pulmonary vein. PROCEDURES PERFORMED: 1. Emergent sternotomy and institution of cardiopulmonary bypass. 2. Repair of left atrial injury. 3. Exclusion of the left atrial appendage using a 35 mm AtriClip. 4. Intraoperative transesophageal echocardiogram. INDICATIONS FOR PROCEDURE: The patient is a 78-year-old gentleman with a history of paroxysmal atrial fibrillation that is symptomatic, who underwent today pulmonary vein ablation by electrophysiology that was complicated by hypotension and evidence of tamponade by intracardiac echo. Pericardial drain was placed and the cardiac surgical team was called and notified. The patient had around 3 L of blood aspirated from the pericardial drain and some of it was given back via the right femoral venous sheath. By the time we got to get him to the OR, he had received at least 4 units of blood and was on Ameya-Synephrine with a systolic blood pressure of around 100 and a heart rate of around also 100. The patient has been taken emergently to the operating room for emergent sternotomy and exploration. The increased risk was discussed with the family by Dr. Moore, and they agreed to proceed. The patient was already intubated when he was brought to the operating room. The Alberts catheter was inserted. The patient received 2 g of cefazolin intravenously. The chest, abdomen, and both groins were prepped and draped using ChloraPrep. Ioban was used to cover the skin. Transesophageal echocardiogram confirmed good LV function. However, there was evidence of clots around the heart. Emergent midline sternotomy was performed. No bone wax was used. Mediastinal fat was transected between 2 ties. The pericardium was opened and was under tension and there was a large amount of bright red blood that was evacuated. It was clearly and rapidly obvious that we were dealing with a major injury in the left atrium that warranted institution of cardiopulmonary bypass in order to be able to evaluate it and properly correct it. Emergent institution of cardiopulmonary bypass was done via an arterial cannula that is 21-Frisian inserted in the distal ascending aorta and a venous cannula, which was a 29/37-Frisian inserted via the right atrial appendage. With the heart empty and beating on bypass, we kept the patient warm, we were able to explore and there appeared to be a rent in the left atrium between the left superior pulmonary vein and left inferior pulmonary vein, in a way connecting them together. Attempt at repairing this without stopping the heart was not too successful in view of friability of tissue and for that reason, I decided to arrest the heart. The aorta was clamped and during aortic clamping, myocardial protection was achieved with a single dose of 1.2 L of antegrade cold blood cardioplegia. With the heart arrested and empty, we looked and we were able to again identify the injury that extended over around 3/4 of an inch in length. It took 4 pledgeted horizontal mattress Prolene 4-0 to control this area. To reinforce it, I placed a TachoSil patch over it. We were pleased with that. Subsequently, the left atrial appendage was excluded using a 35 mm AtriClip. The patient was placed in Trendelenburg position. De- airing maneuvers were pursued before unclamping the aorta. He regained spontaneous sinus rhythm. After around 10 minutes of reperfusion, we were able to wean off cardiopulmonary bypass without the need of low dose vasopressor support. JUANA showed good left ventricular function and no evidence of air in the heart. With that, pump suckers were stopped as we gave test dose followed by full dose protamine. Two 19- Frisian Toby drain were left, 1 in the posterior pericardium and 1 substernally. Pericardium was partially approximated over the aorta and the heart. We had placed 2 monopolar atrial pacing wires on the pursestring around the right atrial appendage. No ventricular pacing wires were placed. After ensuring adequate hemostasis and hemodynamic and after correct sponge, instrument, and needle count, the sternum was closed using 5 [id number] pionneer cable after interposing fibrillar between the sternal edges. Thorough irrigation with cefazolin followed. The rest of the closure proceeded in layers. Skin glue was applied. The patient received a large amount of Cell Saver blood and received blood, FFPs, and platelets and the final count will be eventually in the chart. He was transferred to the ICU with stable hemodynamics on low-dose Levophed. The patient made adequate urine output on bypass. MMODL / IJN: [id number] / ALICJA
[2023-07-12 03:12] LABS: Basophils % (A) 0 %; Eosinophils % (A) 0 %; HCT 46.1 % (39.0-53.0); HGB 15.8 gm/dL (13.0-17.5); Lymphocytes # (A) 1.3 k/uL (1.0-4.8); Lymphocytes % (A) 6 %; MCH 30.4 pg (25.0-35.0); MCHC 34.2 g/dL (31.0-37.0); MCV 88.8 fL (80.0-100.0); Mean Platelet Volume 10.9; Monocytes # (A) 1.9 k/uL (0-1.0); Monocytes % (A) 9 %; Neutrophils # (A) 17.7 k/uL (1.3-7.7); Neutrophils % (A) 84 %; Platelet Count 70 k/uL (150-450); RBC 5.19 m/uL (4.30-5.90); RDW 13.7 % (11.5-15.5); WBC 21.2 k/uL (3.8-10.6)
[2023-07-12 04:08] LABS: Glucose,Whole Blood 118 mg/dL (70-110)
[2023-07-12] MEDS ORDERED: TRANEXAMIC ACID 2,000 MG in SODIUM CHLORIDE 0.9% 80 ML IV ONE (05:00)
[2023-07-12 05:01] LABS: Glucose,Whole Blood 131 mg/dL (70-110)
[2023-07-12 05:07] LABS: Basophils % (A) 0 %; Eosinophils # (A) 0.1 k/uL (0-0.7); Eosinophils % (A) 0 %; HCT 45.7 % (39.0-53.0); HGB 15.4 gm/dL (13.0-17.5); Lymphocytes # (A) 1.1 k/uL (1.0-4.8); Lymphocytes % (A) 6 %; MCH 29.7 pg (25.0-35.0); MCHC 33.7 g/dL (31.0-37.0); Mean Platelet Volume 11.5; Monocytes # (A) 1.4 k/uL (0-1.0); Monocytes % (A) 7 %; Neutrophils # (A) 16.8 k/uL (1.3-7.7); Neutrophils % (A) 85 %; Platelet Count 71 k/uL (150-450); RBC 5.19 m/uL (4.30-5.90); RDW 14.2 % (11.5-15.5); WBC 19.7 k/uL (3.8-10.6)
[2023-07-12] MEDS: ACETAMINOPHEN IV (For NPO) 1,000 MG in EMPTY BAG 1 BAG IVPB SCH ×3 (05:27→23:00)
[2023-07-12 05:50] LABS: Ionized Calcium 4.5 mg/dL (4.5-5.3)
[2023-07-12 06:00] LABS: ALT 38 U/L (4-49); AST 152 U/L (17-59); African American GFR (CKD) 64 (>60 ml/min/1.73 sqM); Albumin 2.2 g/dL (3.5-5.0); Alkaline Phosphatase 64 U/L (38-126); Anion Gap 9 mmol/L; Blood Urea Nitrogen 20 mg/dL (9-20); Calcium 7.5 mg/dL (8.4-10.2); Carbon Dioxide 19 mmol/L (22-30); Chloride 113 mmol/L (98-107); Glucose 134 mg/dL (74-99); Magnesium 2.2 mg/dL (1.6-2.3); Non-African American GFR(CKD) 56 (>60 ml/min/1.73 sqM); Potassium 4.5 mmol/L (3.5-5.1); Sodium 141 mmol/L (137-145); Total Bilirubin 2.4 mg/dL (0.2-1.3); Total Protein 4.1 g/dL (6.3-8.2)
[2023-07-12 06:00] LABS: Glucose,Whole Blood 136 mg/dL (70-110)
[2023-07-12 06:14] LABS: ABG Base Excess -5.2 mmol/L; ABG HCO3 20 mmol/L (21-25); ABG Oxygen Saturation 97.6 % (94-97); ABG PCO2 34 mmHg (35-45); ABG PH 7.38 (7.35-7.45); ABG PO2 91 mmHg (83-108); ABG TCO2 21 mmol/L (19-24); Allen Test Performed? Yes
[2023-07-12 06:56] LABS: Glucose,Whole Blood 129 mg/dL (70-110)
--- NOTE | 2023-07-12 07:35 | P.PN ---
Subjective Mrs. Slaughter is in the ICU was stable overnight He is on a small dose of flu. In his blood pressure is normal heart rates in the 90s sinus rhythm no arrhythmias Temperature 99.9F, respirations 24, blood pressure 117/65 120/60 mmHg Breath sounds are equal bilaterally no rhonchi no crackles Heart sounds are soft Impression Symptomatic paroxysmal atrial fibrillation, high A. fib burden Status post pulmonary and isolation of the right superior, right inferior and left superior pulmonary vein Pericardial tamponade likely during left superior cryoablation Status post urgent pericardiocentesis and transferred to the operating room for open exploration The site of the puncture intraoperatively was in the gavino between the left superior and left inferior pulmonary veins and was sewn primarily Small left atrial appendage and intraoperative left atrial appendectomy performed This morning his chest x-ray shows slight increased markings but no other abnormalities White count elevated, hemoglobin 15.4 PH 7.38 bicarb 20 Electrolytes normal normal sodium and potassium AST mildly elevated 152 ALT normal Magnesium 2.4 Impression 120 and 113 Platelet count 71,000 Plan continue continue ICU care Appreciate CT surgery efforts The patient has a 14-Marshallese sheath in the right femoral vein, a right femoral artery sheath, 6-Marshallese for hemodynamic monitoring Two 8-Marshallese sheaths in the left femoral vein Over the next 24 hours I will remove the sheaths and perform a primary closure with Vascade in the ICU Discussed with the ICU nurse Objective - Vital Signs Vital signs: Vital Signs Temp 99.9 F H 07/12/23 07:00 Pulse 92 07/12/23 07:00 Resp 24 07/12/23 07:00 BP 107/65 07/12/23 06:45 Pulse Ox 98 07/12/23 07:00 FiO2 50 07/12/23 04:00 Intake & Output 07/11/23 07/12/23 07/12/23 18:59 06:59 18:59 Intake Total 1609 2989.463 Output Total 1540 85979 Balance -311 8202.537 Weight 105 kg 112 kg Intake: IV 369 1034 ACETAMINOPHEN IV (For NPO 200 ) 1,000 mg In Empty Bag 1 bag @ 400 mls/hr IVPB Q6HR [facility] Rx#:[id number] Calcium Gluconate in NaCl 100 1 gm In Saline 1 100ml. bag @ 100 mls/hr IVPB ONCE ONE Rx#:[id number] Lactated Ringers 1,000 ml 550 @ 50 mls/hr IV .Q20H [facility] Rx#:[id number] Magnesium Sulfate-D5w Pmx 100 1 gm In Dextrose/Water 1 100ml.bag @ 100 mls/hr IVPB ONCE ONE Rx#: [id number] Pressure Bag 0.9 NS 33 ceFAZolin 2 gm In Sodium 50 Chloride 0.9% 50 ml @ 100 mls/hr IVPB ONCE ONE Rx# :[id number] Intake, IV Titration 322.463 Amount Insulin Regular 100 unit 27.299 In Sodium Chloride 0.9% 100 ml @ Per Protocol IV .Q0M [facility] Rx#:[id number] Norepinephrine 4 mg In 134.619 Sodium Chloride 0.9% 250 ml @ 0.03 MCG/KG/MIN 12. 002 mls/hr IV .[id number] [facility] Rx#:[id number] propofoL 1,000 mg In 160.545 Empty Bag 1 bag @ Titrate IV .Q0M [facility] Rx#: [id number] Blood Product 1240 1633 Ffp 24 Pher Acda Cnt1 217 Unit [id number] Ffp 24 Pher Acda Cnt2 220 Unit [id number] Platelet Pheresis Pas 266 Psoralen Unit [id number] Rc As-1 Unit 310 0 [id number] Rc As-1 Unit 310 [id number] Rc As-1 Unit 310 [id number] Rc As-1 Unit 310 [id number] Rc As-1 Unit 310 0 [id number] Rc As-1 Unit 310 0 [id number] Rc As-1 Unit 310 0 [id number] Output: Chest Tube Drainage 410 L/R Pleural 410 Urine 782 Estimated Blood Loss 1920 14964 Other: Voiding Method Indwelling Catheter ABP, PAP, CO, CI - Last Documented Arterial Blood Pressure 120/60 - Labs CBC & Chem 7: 07/12/23 05:00 07/12/23 05:00 Labs: Abnormal Lab Results - Last 24 Hours (Table) 07/11/23 07/11/23 07/11/23 Range/Units 12:47 12:47 12:49 WBC (3.8-10.6) k/uL RBC (4.30-5.90) m/uL Hgb (13.0-17.5) gm/dL Hct (39.0-53.0) % Plt Count (150-450) k/uL Neutrophils # (1.3-7.7) k/uL Neutrophils # (Manual) (1.3-7.7) k/uL Monocytes # (0-1.0) k/uL PT (10.0-12.5) sec INR (<1.2) APTT (22.0-30.0) sec Fibrinogen (200-500) mg/dL ABG pH (7.35-7.45) ABG pCO2 (35-45) mmHg ABG pO2 (83-108) mmHg ABG HCO3 (21-25) mmol/L ABG Total CO2 (19-24) mmol/L ABG O2 Saturation (94-97) % ABG Hematocrit (34.0-46.0) % ABG Potassium (3.4-4.5) mmol/L ABG Ionized Calcium (4.5-5.3) mg/dL ABG Glucose (75-99) mg/dL ABG Lactic Acid (0.5-1.6) mmol/L Hemoglobin (13.0-17.5) gm/dL Sodium (137-145) mmol/L Chloride (98-107) mmol/L Carbon Dioxide (22-30) mmol/L Creatinine (0.66-1.25) mg/dL Glucose 112 H (74-99) mg/dL POC Glucose (mg/dL) (70-110) mg/dL Calcium (8.4-10.2) mg/dL Ionized Calcium Elmo (4.5-5.3) mg/dL Total Bilirubin (0.2-1.3) mg/dL AST (17-59) U/L Alkaline Phosphatase 138 H (38-126) U/L Total Protein (6.3-8.2) g/dL Albumin (3.5-5.0) g/dL TSH 0.394 L (0.465-4.680) mIU/L Arterial Blood Potassium (3.4-4.5) mmol/L Arterial Blood Glucose (75-99) mg/dL Crossmatch See Detail See Detail 07/11/23 07/11/23 07/11/23 Range/Units 17:30 17:30 17:30 WBC 12.2 H (3.8-10.6) k/uL RBC 3.94 L (4.30-5.90) m/uL Hgb 12.1 L (13.0-17.5) gm/dL Hct 36.3 L (39.0-53.0) % Plt Count 128 L (150-450) k/uL Neutrophils # 9.7 H (1.3-7.7) k/uL Neutrophils # (Manual) (1.3-7.7) k/uL Monocytes # (0-1.0) k/uL PT 12.7 H (10.0-12.5) sec INR 1.2 H (<1.2) APTT (22.0-30.0) sec Fibrinogen (200-500) mg/dL ABG pH (7.35-7.45) ABG pCO2 (35-45) mmHg ABG pO2 (83-108) mmHg ABG HCO3 (21-25) mmol/L ABG Total CO2 (19-24) mmol/L ABG O2 Saturation (94-97) % ABG Hematocrit (34.0-46.0) % ABG Potassium (3.4-4.5) mmol/L ABG Ionized Calcium (4.5-5.3) mg/dL ABG Glucose (75-99) mg/dL ABG Lactic Acid (0.5-1.6) mmol/L Hemoglobin (13.0-17.5) gm/dL Sodium 136 L (137-145) mmol/L Chloride (98-107) mmol/L Carbon Dioxide 20 L (22-30) mmol/L Creatinine (0.66-1.25) mg/dL Glucose 191 H (74-99) mg/dL POC Glucose (mg/dL) (70-110) mg/dL Calcium 7.1 L (8.4-10.2) mg/dL Ionized Calcium Elmo (4.5-5.3) mg/dL Total Bilirubin (0.2-1.3) mg/dL AST (17-59) U/L Alkaline Phosphatase (38-126) U/L Total Protein 5.2 L (6.3-8.2) g/dL Albumin 2.9 L (3.5-5.0) g/dL TSH (0.465-4.680) mIU/L Arterial Blood Potassium (3.4-4.5) mmol/L Arterial Blood Glucose (75-99) mg/dL Crossmatch 07/11/23 07/11/23 07/11/23 Range/Units 18:06 18:17 18:41 WBC (3.8-10.6) k/uL RBC (4.30-5.90) m/uL Hgb (13.0-17.5) gm/dL Hct (39.0-53.0) % Plt Count (150-450) k/uL Neutrophils # (1.3-7.7) k/uL Neutrophils # (Manual) (1.3-7.7) k/uL Monocytes # (0-1.0) k/uL PT (10.0-12.5) sec INR (<1.2) APTT (22.0-30.0) sec Fibrinogen (200-500) mg/dL ABG pH 7.24 L 7.24 L 7.27 L (7.35-7.45) ABG pCO2 61 H 51 H (35-45) mmHg ABG pO2 328 H 335 H 354 H (83-108) mmHg ABG HCO3 19 L 26 H (21-25) mmol/L ABG Total CO2 28 H 25 H (19-24) mmol/L ABG O2 Saturation 99.8 H 99.8 H 100.0 H (94-97) % ABG Hematocrit 33 L (34.0-46.0) % ABG Potassium 4.9 H 4.8 H (3.4-4.5) mmol/L ABG Ionized Calcium 4.1 L 4.2 L (4.5-5.3) mg/dL ABG Glucose 219 H 222 H 247 H (75-99) mg/dL ABG Lactic Acid 3.6 H* 3.7 H* 3.7 H* (0.5-1.6) mmol/L Hemoglobin 10.8 L (13.0-17.5) gm/dL Sodium (137-145) mmol/L Chloride (98-107) mmol/L Carbon Dioxide (22-30) mmol/L Creatinine (0.66-1.25) mg/dL Glucose (74-99) mg/dL POC Glucose (mg/dL) (70-110) mg/dL Calcium (8.4-10.2) mg/dL Ionized Calcium Elmo (4.5-5.3) mg/dL Total Bilirubin (0.2-1.3) mg/dL AST (17-59) U/L Alkaline Phosphatase (38-126) U/L Total Protein (6.3-8.2) g/dL Albumin (3.5-5.0) g/dL TSH (0.465-4.680) mIU/L Arterial Blood Potassium 4.9 H 4.8 H (3.4-4.5) mmol/L Arterial Blood Glucose 219 H 222 H 247 H (75-99) mg/dL Crossmatch 07/11/23 07/11/23 07/11/23 Range/Units 19:28 19:51 20:45 WBC 20.1 H (3.8-10.6) k/uL RBC (4.30-5.90) m/uL Hgb (13.0-17.5) gm/dL Hct (39.0-53.0) % Plt Count 53 L D (150-450) k/uL Neutrophils # (1.3-7.7) k/uL Neutrophils # (Manual) 17.40 H (1.3-7.7) k/uL Monocytes # (0-1.0) k/uL PT (10.0-12.5) sec INR (<1.2) APTT (22.0-30.0) sec Fibrinogen (200-500) mg/dL ABG pH 7.33 L 7.30 L (7.35-7.45) ABG pCO2 49 H (35-45) mmHg ABG pO2 >420 H 352 H (83-108) mmHg ABG HCO3 (21-25) mmol/L ABG Total CO2 26 H (19-24) mmol/L ABG O2 Saturation 100.0 H 99.9 H (94-97) % ABG Hematocrit (34.0-46.0) % ABG Potassium 4.6 H (3.4-4.5) mmol/L ABG Ionized Calcium 3.8 L (4.5-5.3) mg/dL ABG Glucose 199 H 193 H (75-99) mg/dL ABG Lactic Acid 4.1 H* 4.1 H* (0.5-1.6) mmol/L Hemoglobin 12.1 L (13.0-17.5) gm/dL Sodium (137-145) mmol/L Chloride (98-107) mmol/L Carbon Dioxide (22-30) mmol/L Creatinine (0.66-1.25) mg/dL Glucose (74-99) mg/dL POC Glucose (mg/dL) (70-110) mg/dL Calcium (8.4-10.2) mg/dL Ionized Calcium Elmo (4.5-5.3) mg/dL Total Bilirubin (0.2-1.3) mg/dL AST (17-59) U/L Alkaline Phosphatase (38-126) U/L Total Protein (6.3-8.2) g/dL Albumin (3.5-5.0) g/dL TSH (0.465-4.680) mIU/L Arterial Blood Potassium 4.6 H (3.4-4.5) mmol/L Arterial Blood Glucose 199 H 193 H (75-99) mg/dL Crossmatch 07/11/23 07/11/23 07/11/23 Range/Units 20:45 21:00 21:06 WBC (3.8-10.6) k/uL RBC (4.30-5.90) m/uL Hgb (13.0-17.5) gm/dL Hct (39.0-53.0) % Plt Count (150-450) k/uL Neutrophils # (1.3-7.7) k/uL Neutrophils # (Manual) (1.3-7.7) k/uL Monocytes # (0-1.0) k/uL PT 16.7 H (10.0-12.5) sec INR 1.6 H (<1.2) APTT 30.1 H (22.0-30.0) sec Fibrinogen (200-500) mg/dL ABG pH (7.35-7.45) ABG pCO2 (35-45) mmHg ABG pO2 (83-108) mmHg ABG HCO3 (21-25) mmol/L ABG Total CO2 (19-24) mmol/L ABG O2 Saturation (94-97) % ABG Hematocrit (34.0-46.0) % ABG Potassium (3.4-4.5) mmol/L ABG Ionized Calcium (4.5-5.3) mg/dL ABG Glucose (75-99) mg/dL ABG Lactic Acid (0.5-1.6) mmol/L Hemoglobin (13.0-17.5) gm/dL Sodium (137-145) mmol/L Chloride 112 H (98-107) mmol/L Carbon Dioxide 21 L (22-30) mmol/L Creatinine 0.60 L (0.66-1.25) mg/dL Glucose 168 H (74-99) mg/dL POC Glucose (mg/dL) 179 H (70-110) mg/dL Calcium 6.6 L (8.4-10.2) mg/dL Ionized Calcium Elmo 4.2 L (4.5-5.3) mg/dL Total Bilirubin 3.1 H (0.2-1.3) mg/dL AST 101 H (17-59) U/L Alkaline Phosphatase (38-126) U/L Total Protein 3.7 L (6.3-8.2) g/dL Albumin 2.0 L (3.5-5.0) g/dL TSH (0.465-4.680) mIU/L Arterial Blood Potassium (3.4-4.5) mmol/L Arterial Blood Glucose (75-99) mg/dL Crossmatch 07/11/23 07/11/23 07/11/23 Range/Units 21:24 22:02 23:01 WBC (3.8-10.6) k/uL RBC (4.30-5.90) m/uL Hgb (13.0-17.5) gm/dL Hct (39.0-53.0) % Plt Count (150-450) k/uL Neutrophils # (1.3-7.7) k/uL Neutrophils # (Manual) (1.3-7.7) k/uL Monocytes # (0-1.0) k/uL PT (10.0-12.5) sec INR (<1.2) APTT (22.0-30.0) sec Fibrinogen (200-500) mg/dL ABG pH 7.27 L (7.35-7.45) ABG pCO2 46 H (35-45) mmHg ABG pO2 263 H (83-108) mmHg ABG HCO3 (21-25) mmol/L ABG Total CO2 (19-24) mmol/L ABG O2 Saturation 99.5 H (94-97) % ABG Hematocrit (34.0-46.0) % ABG Potassium (3.4-4.5) mmol/L ABG Ionized Calcium (4.5-5.3) mg/dL ABG Glucose (75-99) mg/dL ABG Lactic Acid (0.5-1.6) mmol/L Hemoglobin (13.0-17.5) gm/dL Sodium (137-145) mmol/L Chloride (98-107) mmol/L Carbon Dioxide (22-30) mmol/L Creatinine (0.66-1.25) mg/dL Glucose (74-99) mg/dL POC Glucose (mg/dL) 161 H 184 H (70-110) mg/dL Calcium (8.4-10.2) mg/dL Ionized Calcium Elmo (4.5-5.3) mg/dL Total Bilirubin (0.2-1.3) mg/dL AST (17-59) U/L Alkaline Phosphatase (38-126) U/L Total Protein (6.3-8.2) g/dL Albumin (3.5-5.0) g/dL TSH (0.465-4.680) mIU/L Arterial Blood Potassium (3.4-4.5) mmol/L Arterial Blood Glucose (75-99) mg/dL Crossmatch 07/11/23 07/12/23 07/12/23 Range/Units 23:15 00:00 00:07 WBC 19.7 H (3.8-10.6) k/uL RBC (4.30-5.90) m/uL Hgb (13.0-17.5) gm/dL Hct (39.0-53.0) % Plt Count 66 L (150-450) k/uL Neutrophils # 16.9 H (1.3-7.7) k/uL Neutrophils # (Manual) (1.3-7.7) k/uL Monocytes # 1.4 H (0-1.0) k/uL PT 13.9 H (10.0-12.5) sec INR 1.3 H (<1.2) APTT (22.0-30.0) sec Fibrinogen 121 L (200-500) mg/dL ABG pH (7.35-7.45) ABG pCO2 (35-45) mmHg ABG pO2 (83-108) mmHg ABG HCO3 (21-25) mmol/L ABG Total CO2 (19-24) mmol/L ABG O2 Saturation (94-97) % ABG Hematocrit (34.0-46.0) % ABG Potassium (3.4-4.5) mmol/L ABG Ionized Calcium (4.5-5.3) mg/dL ABG Glucose (75-99) mg/dL ABG Lactic Acid (0.5-1.6) mmol/L Hemoglobin (13.0-17.5) gm/dL Sodium (137-145) mmol/L Chloride (98-107) mmol/L Carbon Dioxide (22-30) mmol/L Creatinine (0.66-1.25) mg/dL Glucose (74-99) mg/dL POC Glucose (mg/dL) 164 H (70-110) mg/dL Calcium (8.4-10.2) mg/dL Ionized Calcium Elmo (4.5-5.3) mg/dL Total Bilirubin (0.2-1.3) mg/dL AST (17-59) U/L Alkaline Phosphatase (38-126) U/L Total Protein (6.3-8.2) g/dL Albumin (3.5-5.0) g/dL TSH (0.465-4.680) mIU/L Arterial Blood Potassium (3.4-4.5) mmol/L Arterial Blood Glucose (75-99) mg/dL Crossmatch 07/12/23 07/12/23 07/12/23 Range/Units 01:04 01:58 03:00 WBC 21.2 H (3.8-10.6) k/uL RBC (4.30-5.90) m/uL Hgb (13.0-17.5) gm/dL Hct (39.0-53.0) % Plt Count 70 L (150-450) k/uL Neutrophils # 17.7 H (1.3-7.7) k/uL Neutrophils # (Manual) (1.3-7.7) k/uL Monocytes # 1.9 H (0-1.0) k/uL PT (10.0-12.5) sec INR (<1.2) APTT (22.0-30.0) sec Fibrinogen (200-500) mg/dL ABG pH (7.35-7.45) ABG pCO2 (35-45) mmHg ABG pO2 (83-108) mmHg ABG HCO3 (21-25) mmol/L ABG Total CO2 (19-24) mmol/L ABG O2 Saturation (94-97) % ABG Hematocrit (34.0-46.0) % ABG Potassium (3.4-4.5) mmol/L ABG Ionized Calcium (4.5-5.3) mg/dL ABG Glucose (75-99) mg/dL ABG Lactic Acid (0.5-1.6) mmol/L Hemoglobin (13.0-17.5) gm/dL Sodium (137-145) mmol/L Chloride (98-107) mmol/L Carbon Dioxide (22-30) mmol/L Creatinine (0.66-1.25) mg/dL Glucose (74-99) mg/dL POC Glucose (mg/dL) 134 H 146 H (70-110) mg/dL Calcium (8.4-10.2) mg/dL Ionized Calcium Elmo (4.5-5.3) mg/dL Total Bilirubin (0.2-1.3) mg/dL AST (17-59) U/L Alkaline Phosphatase (38-126) U/L Total Protein (6.3-8.2) g/dL Albumin (3.5-5.0) g/dL TSH (0.465-4.680) mIU/L Arterial Blood Potassium (3.4-4.5) mmol/L Arterial Blood Glucose (75-99) mg/dL Crossmatch 07/12/23 07/12/23 07/12/23 Range/Units 03:03 04:06 04:59 WBC (3.8-10.6) k/uL RBC (4.30-5.90) m/uL Hgb (13.0-17.5) gm/dL Hct (39.0-53.0) % Plt Count (150-450) k/uL Neutrophils # (1.3-7.7) k/uL Neutrophils # (Manual) (1.3-7.7) k/uL Monocytes # (0-1.0) k/uL PT (10.0-12.5) sec INR (<1.2) APTT (22.0-30.0) sec Fibrinogen (200-500) mg/dL ABG pH (7.35-7.45) ABG pCO2 (35-45) mmHg ABG pO2 (83-108) mmHg ABG HCO3 (21-25) mmol/L ABG Total CO2 (19-24) mmol/L ABG O2 Saturation (94-97) % ABG Hematocrit (34.0-46.0) % ABG Potassium (3.4-4.5) mmol/L ABG Ionized Calcium (4.5-5.3) mg/dL ABG Glucose (75-99) mg/dL ABG Lactic Acid (0.5-1.6) mmol/L Hemoglobin (13.0-17.5) gm/dL Sodium (137-145) mmol/L Chloride (98-107) mmol/L Carbon Dioxide (22-30) mmol/L Creatinine (0.66-1.25) mg/dL Glucose (74-99) mg/dL POC Glucose (mg/dL) 134 H 118 H 131 H (70-110) mg/dL Calcium (8.4-10.2) mg/dL Ionized Calcium Elmo (4.5-5.3) mg/dL Total Bilirubin (0.2-1.3) mg/dL AST (17-59) U/L Alkaline Phosphatase (38-126) U/L Total Protein (6.3-8.2) g/dL Albumin (3.5-5.0) g/dL TSH (0.465-4.680) mIU/L Arterial Blood Potassium (3.4-4.5) mmol/L Arterial Blood Glucose (75-99) mg/dL Crossmatch 07/12/23 07/12/23 07/12/23 Range/Units 05:00 05:00 05:58 WBC 19.7 H (3.8-10.6) k/uL RBC (4.30-5.90) m/uL Hgb (13.0-17.5) gm/dL Hct (39.0-53.0) % Plt Count 71 L (150-450) k/uL Neutrophils # 16.8 H (1.3-7.7) k/uL Neutrophils # (Manual) (1.3-7.7) k/uL Monocytes # 1.4 H (0-1.0) k/uL PT (10.0-12.5) sec INR (<1.2) APTT (22.0-30.0) sec Fibrinogen (200-500) mg/dL ABG pH (7.35-7.45) ABG pCO2 (35-45) mmHg ABG pO2 (83-108) mmHg ABG HCO3 (21-25) mmol/L ABG Total CO2 (19-24) mmol/L ABG O2 Saturation (94-97) % ABG Hematocrit (34.0-46.0) % ABG Potassium (3.4-4.5) mmol/L ABG Ionized Calcium (4.5-5.3) mg/dL ABG Glucose (75-99) mg/dL ABG Lactic Acid (0.5-1.6) mmol/L Hemoglobin (13.0-17.5) gm/dL Sodium (137-145) mmol/L Chloride 113 H (98-107) mmol/L Carbon Dioxide 19 L (22-30) mmol/L Creatinine (0.66-1.25) mg/dL Glucose 134 H (74-99) mg/dL POC Glucose (mg/dL) 136 H (70-110) mg/dL Calcium 7.5 L (8.4-10.2) mg/dL Ionized Calcium Elmo (4.5-5.3) mg/dL Total Bilirubin 2.4 H (0.2-1.3) mg/dL AST 152 H (17-59) U/L Alkaline Phosphatase (38-126) U/L Total Protein 4.1 L (6.3-8.2) g/dL Albumin 2.2 L (3.5-5.0) g/dL TSH (0.465-4.680) mIU/L Arterial Blood Potassium (3.4-4.5) mmol/L Arterial Blood Glucose (75-99) mg/dL Crossmatch 07/12/23 07/12/23 07/12/23 Range/Units 05:58 06:09 06:55 WBC (3.8-10.6) k/uL RBC (4.30-5.90) m/uL Hgb (13.0-17.5) gm/dL Hct (39.0-53.0) % Plt Count (150-450) k/uL Neutrophils # (1.3-7.7) k/uL Neutrophils # (Manual) (1.3-7.7) k/uL Monocytes # (0-1.0) k/uL PT (10.0-12.5) sec INR (<1.2) APTT (22.0-30.0) sec Fibrinogen 113 L (200-500) mg/dL ABG pH (7.35-7.45) ABG pCO2 34 L (35-45) mmHg ABG pO2 (83-108) mmHg ABG HCO3 20 L (21-25) mmol/L ABG Total CO2 (19-24) mmol/L ABG O2 Saturation 97.6 H (94-97) % ABG Hematocrit (34.0-46.0) % ABG Potassium (3.4-4.5) mmol/L ABG Ionized Calcium (4.5-5.3) mg/dL ABG Glucose (75-99) mg/dL ABG Lactic Acid (0.5-1.6) mmol/L Hemoglobin (13.0-17.5) gm/dL Sodium (137-145) mmol/L Chloride (98-107) mmol/L Carbon Dioxide (22-30) mmol/L Creatinine (0.66-1.25) mg/dL Glucose (74-99) mg/dL POC Glucose (mg/dL) 129 H (70-110) mg/dL Calcium (8.4-10.2) mg/dL Ionized Calcium Elmo (4.5-5.3) mg/dL Total Bilirubin (0.2-1.3) mg/dL AST (17-59) U/L Alkaline Phosphatase (38-126) U/L Total Protein (6.3-8.2) g/dL Albumin (3.5-5.0) g/dL TSH (0.465-4.680) mIU/L Arterial Blood Potassium (3.4-4.5) mmol/L Arterial Blood Glucose (75-99) mg/dL Crossmatch
[2023-07-12] MEDS: SODIUM CHLORIDE 0.9% 1,000 ML IV SCH ×2 (08:00→20:40)
[2023-07-12] MEDS ORDERED: SODIUM BICARB 8.4% 50 ML SYR (1 MEQ/ML) IV STA (08:07)
[2023-07-12 08:25] LABS: Glucose,Whole Blood 97 mg/dL (70-110)
[2023-07-12] MEDS: PANTOPRAZOLE 40 MG/10 ML VIAL IVP SCH (08:26)
[2023-07-12] MEDS: ATORVASTATIN 40 MG TAB PO SCH (08:30)
[2023-07-12] MEDS: MULTIVITAMINS, THERA 1 EACH TAB PO SCH (08:30)
[2023-07-12] MEDS ORDERED: CALCIUM GLUCONATE IN NACL 1 GM in SALINE 1 100ML.BAG IVPB ONE (08:45)
[2023-07-12] MEDS ORDERED: bisacodyL 10 MG SUPP RECTAL PRN (09:00)
[2023-07-12] MEDS ORDERED: MAGNESIUM HYDROXIDE 2,400 MG/30 ML CUP PO PRN (09:00)
--- NOTE | 2023-07-12 09:12 | P.PN ---
Subjective Progress Note Date: 07/12/23 Principal diagnosis: Repeat tamponade status post left atrial ablation for paroxysmal atrial fibrillation with evidence of injury to the left atrium between the left superior pulmonary vein and the left inferior pulmonary vein. Previous medical history of coronary artery disease, recurrent symptomatic atrial fibrillation, SVT, hypertension, hyperlipidemia, arthritis, BPH, and previous tobacco dependence POD #1 emergent sternotomy and institution of cardiopulmonary bypass, repair of left atrial injury, exclusion of the left atrial appendage using a 35 mm AtriClip, intraoperative transesophageal echocardiogram The patient was seen and examined this morning laying in bed in the intensive care unit still being mechanically ventilated on sedation. Remains in sinus rhythm, hemodynamically stable although on low-dose levo for blood pressure support. Mediastinal chest tubes present with 400 mL serosanguineous drainage, no air leak present. Chest x-ray, labs reviewed. No other new concerns. Objective - Vital Signs Vital signs: Vital Signs Temp 99.9 F H 07/12/23 07:00 Pulse 92 07/12/23 07:00 Resp 24 07/12/23 07:00 BP 107/65 07/12/23 06:45 Pulse Ox 98 07/12/23 07:00 FiO2 50 07/12/23 04:00 Intake & Output 07/11/23 07/12/23 07/12/23 18:59 06:59 18:59 Intake Total 1609 2989.463 124.703 Output Total 1920 34470 Balance -311 -8202.537 124.703 Weight 105 kg 112 kg Intake: IV 369 1034 ACETAMINOPHEN IV (For NPO 200 ) 1,000 mg In Empty Bag 1 bag @ 400 mls/hr IVPB Q6HR [facility] Rx#:[id number] Calcium Gluconate in NaCl 100 1 gm In Saline 1 100ml. bag @ 100 mls/hr IVPB ONCE ONE Rx#:[id number] Lactated Ringers 1,000 ml 550 @ 50 mls/hr IV .Q20H [facility] Rx#:[id number] Magnesium Sulfate-D5w Pmx 100 1 gm In Dextrose/Water 1 100ml.bag @ 100 mls/hr IVPB ONCE ONE Rx#: [id number] Pressure Bag 0.9 NS 33 ceFAZolin 2 gm In Sodium 50 Chloride 0.9% 50 ml @ 100 mls/hr IVPB ONCE ONE Rx# :[id number] Intake, IV Titration 322.463 124.703 Amount Insulin Regular 100 unit 27.299 3.1 In Sodium Chloride 0.9% 100 ml @ Per Protocol IV .Q0M [facility] Rx#:[id number] Norepinephrine 4 mg In 134.619 57.343 Sodium Chloride 0.9% 250 ml @ 0.03 MCG/KG/MIN 12. 002 mls/hr IV .[id number] [facility] Rx#:[id number] propofoL 1,000 mg In 160.545 64.26 Empty Bag 1 bag @ Titrate IV .Q0M [facility] Rx#: [id number] Blood Product 1240 1633 Ffp 24 Pher Acda Cnt1 217 Unit [id number] Ffp 24 Pher Acda Cnt2 220 Unit [id number] Platelet Pheresis Pas 266 Psoralen Unit [id number] Rc As-1 Unit 310 0 [id number] Rc As-1 Unit 310 [id number] Rc As-1 Unit 310 [id number] Rc As-1 Unit 310 [id number] Rc As-1 Unit 310 0 [id number] Rc As-1 Unit 310 0 [id number] Rc As-1 Unit 310 0 [id number] Output: Chest Tube Drainage 410 L/R Pleural 410 Urine 782 Estimated Blood Loss 1920 16588 Other: Voiding Method Indwelling Catheter ABP, PAP, CO, CI - Last Documented Arterial Blood Pressure 120/60 - Exam CONSTITUTIONAL: Sedated on mechanical ventilation RESPIRATORY: Lungs sounds diminished bilaterally. Respirations even, nonlabored. Currently on assist control mode with FiO2 50%, PEEP 5, tidal volume 550, respiratory rate 16. 8.0 ET tube present 25 at the lip. CARDIOVASCULAR: S1, S2 present. Regular rate and rhythm, sinus rhythm on telemetry. Sternum stable. Palpable peripheral pulses bilaterally. Trace generalized edema present. No calf pain or tenderness noted. Heart hugger in place, antiembolism stockings, SCDs present. GASTROINTESTINAL: Abdomen soft, nontender, nondistended, obese. Active bowel sounds present 4 quadrants. OGT present to low intermittent suction with minimal drainage GENITOURINARY: Alberts present draining clear, yellow urine. Output overnight 15-25 mL per hour INTEGUMENTARY: Skin is warm and dry. Anterior chest incision well approximated and covered with dry intact dressing NEUROLOGIC: Sedated on mechanical ventilation INVASIVE LINES AND TUBES: Mediastinal chest tubes present and connected to wall suction, no air leaks present, 130 mL serosanguineous drainage overnight, 400 mL since surgery. Atrial epicardial pacemaker wires present, grounded. Right and left femoral sheaths in place. - Allied health notes Allied health notes reviewed: nursing - Labs CBC & Chem 7: 07/12/23 05:00 07/12/23 05:00 Labs: Abnormal Lab Results - Last 24 Hours (Table) 07/11/23 07/11/23 07/11/23 Range/Units 12:47 12:47 12:49 WBC (3.8-10.6) k/uL RBC (4.30-5.90) m/uL Hgb (13.0-17.5) gm/dL Hct (39.0-53.0) % Plt Count (150-450) k/uL Neutrophils # (1.3-7.7) k/uL Neutrophils # (Manual) (1.3-7.7) k/uL Monocytes # (0-1.0) k/uL PT (10.0-12.5) sec INR (<1.2) APTT (22.0-30.0) sec Fibrinogen (200-500) mg/dL ABG pH (7.35-7.45) ABG pCO2 (35-45) mmHg ABG pO2 (83-108) mmHg ABG HCO3 (21-25) mmol/L ABG Total CO2 (19-24) mmol/L ABG O2 Saturation (94-97) % ABG Hematocrit (34.0-46.0) % ABG Potassium (3.4-4.5) mmol/L ABG Ionized Calcium (4.5-5.3) mg/dL ABG Glucose (75-99) mg/dL ABG Lactic Acid (0.5-1.6) mmol/L Hemoglobin (13.0-17.5) gm/dL Sodium (137-145) mmol/L Chloride (98-107) mmol/L Carbon Dioxide (22-30) mmol/L Creatinine (0.66-1.25) mg/dL Glucose 112 H (74-99) mg/dL POC Glucose (mg/dL) (70-110) mg/dL Calcium (8.4-10.2) mg/dL Ionized Calcium Elmo (4.5-5.3) mg/dL Total Bilirubin (0.2-1.3) mg/dL AST (17-59) U/L Alkaline Phosphatase 138 H (38-126) U/L Total Protein (6.3-8.2) g/dL Albumin (3.5-5.0) g/dL TSH 0.394 L (0.465-4.680) mIU/L Arterial Blood Potassium (3.4-4.5) mmol/L Arterial Blood Glucose (75-99) mg/dL Crossmatch See Detail See Detail 07/11/23 07/11/23 07/11/23 Range/Units 17:30 17:30 17:30 WBC 12.2 H (3.8-10.6) k/uL RBC 3.94 L (4.30-5.90) m/uL Hgb 12.1 L (13.0-17.5) gm/dL Hct 36.3 L (39.0-53.0) % Plt Count 128 L (150-450) k/uL Neutrophils # 9.7 H (1.3-7.7) k/uL Neutrophils # (Manual) (1.3-7.7) k/uL Monocytes # (0-1.0) k/uL PT 12.7 H (10.0-12.5) sec INR 1.2 H (<1.2) APTT (22.0-30.0) sec Fibrinogen (200-500) mg/dL ABG pH (7.35-7.45) ABG pCO2 (35-45) mmHg ABG pO2 (83-108) mmHg ABG HCO3 (21-25) mmol/L ABG Total CO2 (19-24) mmol/L ABG O2 Saturation (94-97) % ABG Hematocrit (34.0-46.0) % ABG Potassium (3.4-4.5) mmol/L ABG Ionized Calcium (4.5-5.3) mg/dL ABG Glucose (75-99) mg/dL ABG Lactic Acid (0.5-1.6) mmol/L Hemoglobin (13.0-17.5) gm/dL Sodium 136 L (137-145) mmol/L Chloride (98-107) mmol/L Carbon Dioxide 20 L (22-30) mmol/L Creatinine (0.66-1.25) mg/dL Glucose 191 H (74-99) mg/dL POC Glucose (mg/dL) (70-110) mg/dL Calcium 7.1 L (8.4-10.2) mg/dL Ionized Calcium Elmo (4.5-5.3) mg/dL Total Bilirubin (0.2-1.3) mg/dL AST (17-59) U/L Alkaline Phosphatase (38-126) U/L Total Protein 5.2 L (6.3-8.2) g/dL Albumin 2.9 L (3.5-5.0) g/dL TSH (0.465-4.680) mIU/L Arterial Blood Potassium (3.4-4.5) mmol/L Arterial Blood Glucose (75-99) mg/dL Crossmatch 07/11/23 07/11/23 07/11/23 Range/Units 18:06 18:17 18:41 WBC (3.8-10.6) k/uL RBC (4.30-5.90) m/uL Hgb (13.0-17.5) gm/dL Hct (39.0-53.0) % Plt Count (150-450) k/uL Neutrophils # (1.3-7.7) k/uL Neutrophils # (Manual) (1.3-7.7) k/uL Monocytes # (0-1.0) k/uL PT (10.0-12.5) sec INR (<1.2) APTT (22.0-30.0) sec Fibrinogen (200-500) mg/dL ABG pH 7.24 L 7.24 L 7.27 L (7.35-7.45) ABG pCO2 61 H 51 H (35-45) mmHg ABG pO2 328 H 335 H 354 H (83-108) mmHg ABG HCO3 19 L 26 H (21-25) mmol/L ABG Total CO2 28 H 25 H (19-24) mmol/L ABG O2 Saturation 99.8 H 99.8 H 100.0 H (94-97) % ABG Hematocrit 33 L (34.0-46.0) % ABG Potassium 4.9 H 4.8 H (3.4-4.5) mmol/L ABG Ionized Calcium 4.1 L 4.2 L (4.5-5.3) mg/dL ABG Glucose 219 H 222 H 247 H (75-99) mg/dL ABG Lactic Acid 3.6 H* 3.7 H* 3.7 H* (0.5-1.6) mmol/L Hemoglobin 10.8 L (13.0-17.5) gm/dL Sodium (137-145) mmol/L Chloride (98-107) mmol/L Carbon Dioxide (22-30) mmol/L Creatinine (0.66-1.25) mg/dL Glucose (74-99) mg/dL POC Glucose (mg/dL) (70-110) mg/dL Calcium (8.4-10.2) mg/dL Ionized Calcium Elmo (4.5-5.3) mg/dL Total Bilirubin (0.2-1.3) mg/dL AST (17-59) U/L Alkaline Phosphatase (38-126) U/L Total Protein (6.3-8.2) g/dL Albumin (3.5-5.0) g/dL TSH (0.465-4.680) mIU/L Arterial Blood Potassium 4.9 H 4.8 H (3.4-4.5) mmol/L Arterial Blood Glucose 219 H 222 H 247 H (75-99) mg/dL Crossmatch 07/11/23 07/11/23 07/11/23 Range/Units 19:28 19:51 20:45 WBC 20.1 H (3.8-10.6) k/uL RBC (4.30-5.90) m/uL Hgb (13.0-17.5) gm/dL Hct (39.0-53.0) % Plt Count 53 L D (150-450) k/uL Neutrophils # (1.3-7.7) k/uL Neutrophils # (Manual) 17.40 H (1.3-7.7) k/uL Monocytes # (0-1.0) k/uL PT (10.0-12.5) sec INR (<1.2) APTT (22.0-30.0) sec Fibrinogen (200-500) mg/dL ABG pH 7.33 L 7.30 L (7.35-7.45) ABG pCO2 49 H (35-45) mmHg ABG pO2 >420 H 352 H (83-108) mmHg ABG HCO3 (21-25) mmol/L ABG Total CO2 26 H (19-24) mmol/L ABG O2 Saturation 100.0 H 99.9 H (94-97) % ABG Hematocrit (34.0-46.0) % ABG Potassium 4.6 H (3.4-4.5) mmol/L ABG Ionized Calcium 3.8 L (4.5-5.3) mg/dL ABG Glucose 199 H 193 H (75-99) mg/dL ABG Lactic Acid 4.1 H* 4.1 H* (0.5-1.6) mmol/L Hemoglobin 12.1 L (13.0-17.5) gm/dL Sodium (137-145) mmol/L Chloride (98-107) mmol/L Carbon Dioxide (22-30) mmol/L Creatinine (0.66-1.25) mg/dL Glucose (74-99) mg/dL POC Glucose (mg/dL) (70-110) mg/dL Calcium (8.4-10.2) mg/dL Ionized Calcium Elmo (4.5-5.3) mg/dL Total Bilirubin (0.2-1.3) mg/dL AST (17-59) U/L Alkaline Phosphatase (38-126) U/L Total Protein (6.3-8.2) g/dL Albumin (3.5-5.0) g/dL TSH (0.465-4.680) mIU/L Arterial Blood Potassium 4.6 H (3.4-4.5) mmol/L Arterial Blood Glucose 199 H 193 H (75-99) mg/dL Crossmatch 07/11/23 07/11/23 07/11/23 Range/Units 20:45 21:00 21:06 WBC (3.8-10.6) k/uL RBC (4.30-5.90) m/uL Hgb (13.0-17.5) gm/dL Hct (39.0-53.0) % Plt Count (150-450) k/uL Neutrophils # (1.3-7.7) k/uL Neutrophils # (Manual) (1.3-7.7) k/uL Monocytes # (0-1.0) k/uL PT 16.7 H (10.0-12.5) sec INR 1.6 H (<1.2) APTT 30.1 H (22.0-30.0) sec Fibrinogen (200-500) mg/dL ABG pH (7.35-7.45) ABG pCO2 (35-45) mmHg ABG pO2 (83-108) mmHg ABG HCO3 (21-25) mmol/L ABG Total CO2 (19-24) mmol/L ABG O2 Saturation (94-97) % ABG Hematocrit (34.0-46.0) % ABG Potassium (3.4-4.5) mmol/L ABG Ionized Calcium (4.5-5.3) mg/dL ABG Glucose (75-99) mg/dL ABG Lactic Acid (0.5-1.6) mmol/L Hemoglobin (13.0-17.5) gm/dL Sodium (137-145) mmol/L Chloride 112 H (98-107) mmol/L Carbon Dioxide 21 L (22-30) mmol/L Creatinine 0.60 L (0.66-1.25) mg/dL Glucose 168 H (74-99) mg/dL POC Glucose (mg/dL) 179 H (70-110) mg/dL Calcium 6.6 L (8.4-10.2) mg/dL Ionized Calcium Elmo 4.2 L (4.5-5.3) mg/dL Total Bilirubin 3.1 H (0.2-1.3) mg/dL AST 101 H (17-59) U/L Alkaline Phosphatase (38-126) U/L Total Protein 3.7 L (6.3-8.2) g/dL Albumin 2.0 L (3.5-5.0) g/dL TSH (0.465-4.680) mIU/L Arterial Blood Potassium (3.4-4.5) mmol/L Arterial Blood Glucose (75-99) mg/dL Crossmatch 07/11/23 07/11/23 07/11/23 Range/Units 21:24 22:02 23:01 WBC (3.8-10.6) k/uL RBC (4.30-5.90) m/uL Hgb (13.0-17.5) gm/dL Hct (39.0-53.0) % Plt Count (150-450) k/uL Neutrophils # (1.3-7.7) k/uL Neutrophils # (Manual) (1.3-7.7) k/uL Monocytes # (0-1.0) k/uL PT (10.0-12.5) sec INR (<1.2) APTT (22.0-30.0) sec Fibrinogen (200-500) mg/dL ABG pH 7.27 L (7.35-7.45) ABG pCO2 46 H (35-45) mmHg ABG pO2 263 H (83-108) mmHg ABG HCO3 (21-25) mmol/L ABG Total CO2 (19-24) mmol/L ABG O2 Saturation 99.5 H (94-97) % ABG Hematocrit (34.0-46.0) % ABG Potassium (3.4-4.5) mmol/L ABG Ionized Calcium (4.5-5.3) mg/dL ABG Glucose (75-99) mg/dL ABG Lactic Acid (0.5-1.6) mmol/L Hemoglobin (13.0-17.5) gm/dL Sodium (137-145) mmol/L Chloride (98-107) mmol/L Carbon Dioxide (22-30) mmol/L Creatinine (0.66-1.25) mg/dL Glucose (74-99) mg/dL POC Glucose (mg/dL) 161 H 184 H (70-110) mg/dL Calcium (8.4-10.2) mg/dL Ionized Calcium Elmo (4.5-5.3) mg/dL Total Bilirubin (0.2-1.3) mg/dL AST (17-59) U/L Alkaline Phosphatase (38-126) U/L Total Protein (6.3-8.2) g/dL Albumin (3.5-5.0) g/dL TSH (0.465-4.680) mIU/L Arterial Blood Potassium (3.4-4.5) mmol/L Arterial Blood Glucose (75-99) mg/dL Crossmatch 07/11/23 07/12/23 07/12/23 Range/Units 23:15 00:00 00:07 WBC 19.7 H (3.8-10.6) k/uL RBC (4.30-5.90) m/uL Hgb (13.0-17.5) gm/dL Hct (39.0-53.0) % Plt Count 66 L (150-450) k/uL Neutrophils # 16.9 H (1.3-7.7) k/uL Neutrophils # (Manual) (1.3-7.7) k/uL Monocytes # 1.4 H (0-1.0) k/uL PT 13.9 H (10.0-12.5) sec INR 1.3 H (<1.2) APTT (22.0-30.0) sec Fibrinogen 121 L (200-500) mg/dL ABG pH (7.35-7.45) ABG pCO2 (35-45) mmHg ABG pO2 (83-108) mmHg ABG HCO3 (21-25) mmol/L ABG Total CO2 (19-24) mmol/L ABG O2 Saturation (94-97) % ABG Hematocrit (34.0-46.0) % ABG Potassium (3.4-4.5) mmol/L ABG Ionized Calcium (4.5-5.3) mg/dL ABG Glucose (75-99) mg/dL ABG Lactic Acid (0.5-1.6) mmol/L Hemoglobin (13.0-17.5) gm/dL Sodium (137-145) mmol/L Chloride (98-107) mmol/L Carbon Dioxide (22-30) mmol/L Creatinine (0.66-1.25) mg/dL Glucose (74-99) mg/dL POC Glucose (mg/dL) 164 H (70-110) mg/dL Calcium (8.4-10.2) mg/dL Ionized Calcium Elmo (4.5-5.3) mg/dL Total Bilirubin (0.2-1.3) mg/dL AST (17-59) U/L Alkaline Phosphatase (38-126) U/L Total Protein (6.3-8.2) g/dL Albumin (3.5-5.0) g/dL TSH (0.465-4.680) mIU/L Arterial Blood Potassium (3.4-4.5) mmol/L Arterial Blood Glucose (75-99) mg/dL Crossmatch 07/12/23 07/12/23 07/12/23 Range/Units 01:04 01:58 03:00 WBC 21.2 H (3.8-10.6) k/uL RBC (4.30-5.90) m/uL Hgb (13.0-17.5) gm/dL Hct (39.0-53.0) % Plt Count 70 L (150-450) k/uL Neutrophils # 17.7 H (1.3-7.7) k/uL Neutrophils # (Manual) (1.3-7.7) k/uL Monocytes # 1.9 H (0-1.0) k/uL PT (10.0-12.5) sec INR (<1.2) APTT (22.0-30.0) sec Fibrinogen (200-500) mg/dL ABG pH (7.35-7.45) ABG pCO2 (35-45) mmHg ABG pO2 (83-108) mmHg ABG HCO3 (21-25) mmol/L ABG Total CO2 (19-24) mmol/L ABG O2 Saturation (94-97) % ABG Hematocrit (34.0-46.0) % ABG Potassium (3.4-4.5) mmol/L ABG Ionized Calcium (4.5-5.3) mg/dL ABG Glucose (75-99) mg/dL ABG Lactic Acid (0.5-1.6) mmol/L Hemoglobin (13.0-17.5) gm/dL Sodium (137-145) mmol/L Chloride (98-107) mmol/L Carbon Dioxide (22-30) mmol/L Creatinine (0.66-1.25) mg/dL Glucose (74-99) mg/dL POC Glucose (mg/dL) 134 H 146 H (70-110) mg/dL Calcium (8.4-10.2) mg/dL Ionized Calcium Elmo (4.5-5.3) mg/dL Total Bilirubin (0.2-1.3) mg/dL AST (17-59) U/L Alkaline Phosphatase (38-126) U/L Total Protein (6.3-8.2) g/dL Albumin (3.5-5.0) g/dL TSH (0.465-4.680) mIU/L Arterial Blood Potassium (3.4-4.5) mmol/L Arterial Blood Glucose (75-99) mg/dL Crossmatch 07/12/23 07/12/23 07/12/23 Range/Units 03:03 04:06 04:59 WBC (3.8-10.6) k/uL RBC (4.30-5.90) m/uL Hgb (13.0-17.5) gm/dL Hct (39.0-53.0) % Plt Count (150-450) k/uL Neutrophils # (1.3-7.7) k/uL Neutrophils # (Manual) (1.3-7.7) k/uL Monocytes # (0-1.0) k/uL PT (10.0-12.5) sec INR (<1.2) APTT (22.0-30.0) sec Fibrinogen (200-500) mg/dL ABG pH (7.35-7.45) ABG pCO2 (35-45) mmHg ABG pO2 (83-108) mmHg ABG HCO3 (21-25) mmol/L ABG Total CO2 (19-24) mmol/L ABG O2 Saturation (94-97) % ABG Hematocrit (34.0-46.0) % ABG Potassium (3.4-4.5) mmol/L ABG Ionized Calcium (4.5-5.3) mg/dL ABG Glucose (75-99) mg/dL ABG Lactic Acid (0.5-1.6) mmol/L Hemoglobin (13.0-17.5) gm/dL Sodium (137-145) mmol/L Chloride (98-107) mmol/L Carbon Dioxide (22-30) mmol/L Creatinine (0.66-1.25) mg/dL Glucose (74-99) mg/dL POC Glucose (mg/dL) 134 H 118 H 131 H (70-110) mg/dL Calcium (8.4-10.2) mg/dL Ionized Calcium Elmo (4.5-5.3) mg/dL Total Bilirubin (0.2-1.3) mg/dL AST (17-59) U/L Alkaline Phosphatase (38-126) U/L Total Protein (6.3-8.2) g/dL Albumin (3.5-5.0) g/dL TSH (0.465-4.680) mIU/L Arterial Blood Potassium (3.4-4.5) mmol/L Arterial Blood Glucose (75-99) mg/dL Crossmatch 07/12/23 07/12/23 07/12/23 Range/Units 05:00 05:00 05:58 WBC 19.7 H (3.8-10.6) k/uL RBC (4.30-5.90) m/uL Hgb (13.0-17.5) gm/dL Hct (39.0-53.0) % Plt Count 71 L (150-450) k/uL Neutrophils # 16.8 H (1.3-7.7) k/uL Neutrophils # (Manual) (1.3-7.7) k/uL Monocytes # 1.4 H (0-1.0) k/uL PT (10.0-12.5) sec INR (<1.2) APTT (22.0-30.0) sec Fibrinogen (200-500) mg/dL ABG pH (7.35-7.45) ABG pCO2 (35-45) mmHg ABG pO2 (83-108) mmHg ABG HCO3 (21-25) mmol/L ABG Total CO2 (19-24) mmol/L ABG O2 Saturation (94-97) % ABG Hematocrit (34.0-46.0) % ABG Potassium (3.4-4.5) mmol/L ABG Ionized Calcium (4.5-5.3) mg/dL ABG Glucose (75-99) mg/dL ABG Lactic Acid (0.5-1.6) mmol/L Hemoglobin (13.0-17.5) gm/dL Sodium (137-145) mmol/L Chloride 113 H (98-107) mmol/L Carbon Dioxide 19 L (22-30) mmol/L Creatinine (0.66-1.25) mg/dL Glucose 134 H (74-99) mg/dL POC Glucose (mg/dL) 136 H (70-110) mg/dL Calcium 7.5 L (8.4-10.2) mg/dL Ionized Calcium Elmo (4.5-5.3) mg/dL Total Bilirubin 2.4 H (0.2-1.3) mg/dL AST 152 H (17-59) U/L Alkaline Phosphatase (38-126) U/L Total Protein 4.1 L (6.3-8.2) g/dL Albumin 2.2 L (3.5-5.0) g/dL TSH (0.465-4.680) mIU/L Arterial Blood Potassium (3.4-4.5) mmol/L Arterial Blood Glucose (75-99) mg/dL Crossmatch 07/12/23 07/12/23 07/12/23 Range/Units 05:58 06:09 06:55 WBC (3.8-10.6) k/uL RBC (4.30-5.90) m/uL Hgb (13.0-17.5) gm/dL Hct (39.0-53.0) % Plt Count (150-450) k/uL Neutrophils # (1.3-7.7) k/uL Neutrophils # (Manual) (1.3-7.7) k/uL Monocytes # (0-1.0) k/uL PT (10.0-12.5) sec INR (<1.2) APTT (22.0-30.0) sec Fibrinogen 113 L (200-500) mg/dL ABG pH (7.35-7.45) ABG pCO2 34 L (35-45) mmHg ABG pO2 (83-108) mmHg ABG HCO3 20 L (21-25) mmol/L ABG Total CO2 (19-24) mmol/L ABG O2 Saturation 97.6 H (94-97) % ABG Hematocrit (34.0-46.0) % ABG Potassium (3.4-4.5) mmol/L ABG Ionized Calcium (4.5-5.3) mg/dL ABG Glucose (75-99) mg/dL ABG Lactic Acid (0.5-1.6) mmol/L Hemoglobin (13.0-17.5) gm/dL Sodium (137-145) mmol/L Chloride (98-107) mmol/L Carbon Dioxide (22-30) mmol/L Creatinine (0.66-1.25) mg/dL Glucose (74-99) mg/dL POC Glucose (mg/dL) 129 H (70-110) mg/dL Calcium (8.4-10.2) mg/dL Ionized Calcium Elmo (4.5-5.3) mg/dL Total Bilirubin (0.2-1.3) mg/dL AST (17-59) U/L Alkaline Phosphatase (38-126) U/L Total Protein (6.3-8.2) g/dL Albumin (3.5-5.0) g/dL TSH (0.465-4.680) mIU/L Arterial Blood Potassium (3.4-4.5) mmol/L Arterial Blood Glucose (75-99) mg/dL Crossmatch - Imaging and Cardiology Chest x-ray: image reviewed Assessment and Plan Assessment: Cardiac tamponade status post left atrial ablation for paroxysmal atrial fibrillation with evidence of injury to the left atrium between the left superior pulmonary vein and the left inferior pulmonary vein, status post emergent sternotomy and institution of cardiopulmonary bypass, repair of left atrial injury Leukocytosis, likely reactive Thrombocytopenia, likely from massive blood loss History of coronary artery disease Recurrent symptomatic atrial fibrillation, exclusion of the left atrial appendage using a 35 mm AtriClip, currently sinus History of SVT History of hypertension, currently hypotensive on low dose levo Hyperlipidemia Arthritis BPH Previous tobacco dependence Plan: Ventilator management per pulmonology, may wean and extubate when able Continue mediastinal chest tubes for another 24 hours, monitor output Resume low-dose Lopressor, Lipitor. Continue to hold anticoagulation Wean levo as tolerated Will monitor daily labs and x-rays. Electrolyte replacement per protocol. We will give calcium gluconate and sodium bicarb today Continue Alberts catheter for another 24 hours, continue to record strict accurate intake and output Sternal precautions Per Dr. Moore likely will discontinue femoral sheaths tomorrow Once extubated Will increase activity as tolerated, encourage incentive spirometry More recommendations to follow
--- NOTE | 2023-07-12 09:20 | XR ---
EXAMINATION TYPE: XR chest 1V portable DATE OF EXAM: 07/12/2023 COMPARISON: 07/11/2023 HISTORY: Postop cardiac surgery TECHNIQUE: Single frontal view of the chest is obtained. FINDINGS: ET tube is seen in good position. NG tube is at the level of the GE junction. There are junior bsegmental changes at the lung bases. There is limited inspiration. There is postmedian sternotomy ch anges. A loop recorder device and atrial appendage clip. Atherosclerotic change aorta. No overt failu re. Underlying COPD. IMPRESSION: Postoperative changes are stable.
[2023-07-12 09:24] LABS: Glucose,Whole Blood 146 mg/dL (70-110)
[2023-07-12] MEDS: METOPROLOL TARTRATE 12.5 MG TAB PO SCH ×2 (09:35→20:38)
--- NOTE | 2023-07-12 09:41 | XR ---
EXAMINATION TYPE: XR chest 1V portable DATE OF EXAM: 07/12/2023 9:29 AM CLINICAL INDICATION:Male, 78 years old with history of for og tube placement; [facility] COMPARISON: Chest radiographs from same day earlier. TECHNIQUE: XR chest 1V portable Frontal view of the chest. FINDINGS: Lungs/Pleura: There is no evidence of pleural effusion, focal consolidation, or pneumothorax. Pulmonary vascularity: Unremarkable. Heart/mediastinum: Cardiomediastinal silhouette is unremarkable. Left atrial appendage occlusion quique ce is present. A loop recorder projects over the left thorax over the heart. Musculoskeletal: No acute osseous pathology. Midline sternotomy wires are noted. Other findings: None Lines/Tubes: Endotracheal tube with distal tip 3.4 cm above the gavino. Nasogastric tube with its distal tip and side-port projecting under the diaphragm. IMPRESSION: Stable support tubes. No evidence for acute process. No significant change from prior.
[2023-07-12 10:17] LABS: ABG Base Excess -3.1 mmol/L; ABG HCO3 21 mmol/L (21-25); ABG Oxygen Saturation 96.2 % (94-97); ABG PCO2 33 mmHg (35-45); ABG PH 7.43 (7.35-7.45); ABG PO2 75 mmHg (83-108); ABG TCO2 22 mmol/L (19-24); Allen Test Performed? Yes
[2023-07-12 10:20] LABS: Glucose,Whole Blood 147 mg/dL (70-110)
[2023-07-12 11:25] LABS: Glucose,Whole Blood 135 mg/dL (70-110)
--- NOTE | 2023-07-12 11:33 | P.CONS ---
History of Present Illness - Reason for Consult Consult date: 07/12/23 Medical management Requesting physician: Khurram Espinoza - Chief Complaint Cardiac tamponade status post left atrial ablation - History of Present Illness This is a 78-year-old gentleman with past medical history significant for symptomatic paroxysmal atrial fibrillation, CAD, hypertension, hyperlipidemia, BPH, prior nicotine dependence and multiple other medical issues, underwent emergent sternotomy and cardiopulmonary bypass with repair of left atrial injury, exclusion of left atrial appendage and intraoperative transesophageal echocardiogram secondary to cardiac tamponade status post left atrial ablation for proximal atrial fibrillation. Vent dependent, FiO2 50%/+5 of PEEP. Chest x-ray reporting mild cardiomegaly with mild vascular congestion, small left pleu ral effusion, mild bibasilar atelectasis, loop recorder device and atrial appendage clip. Maintained on levophed. Wily sinus rhythm. T-max 100.2, WBC decreased to 19.7, hemoglobin 15.4, platelets 71. BUN 20, creatinine 1.24. On glucose 134, hemoglobin A1c 6.2, sodium 141, potassium 4.5, magnesium 2.2. T bili decreased to 0.4, AST 152 ALT 38, alk phos 64 albumin 2.2, TSH 0.394. Receiving calcium and bicarb; Bicarb 19, calcium 7.5, ionized calcium 4.5. Review of Systems Review systems unable to obtain as patient sedated and intubated Past Medical History Past Medical History: Atrial Fibrillation, Coronary Artery Disease (CAD), GERD/Reflux, Hyperlipidemia, Hypertension, Osteoarthritis (OA), Prostate Disorder, Supraventricular Tachycardia (SVT) Additional Past Medical History / Comment(s): See Dr. Moore's H&P. Aortic valve regurgitation, VARICOSE VEINS, HX DUODENAL ULCER, BPH, occasionally left foot burning. History of Any Multi-Drug Resistant Organisms: None Reported Past Surgical History: EPS, Heart Catheterization, Joint Replacement, Orthopedic Surgery Additional Past Surgical History / Comment(s): Lipoma removed from chest area, bilateral ear-cosmetic surgery, right rotator cuff, bilateral knee replacements, heel spur removed, loop recorder, colonoscopies. Past Anesthesia/Blood Transfusion Reactions: No Reported Reaction Additional Past Anesthesia/Blood Transfusion Reaction / Comm: With last total knee surgery had several days "things were cloudy" and pt states he was sent for cat scan which was normal Past Psychological History: No Psychological Hx Reported Additional Psychological History / Comment(s): Pt resides with spouse. No device Smoking Status: Former smoker Past Alcohol Use History: Occasional Additional Past Alcohol Use History / Comment(s): SMOKED 1 YEAR - APPROX 50 YEARS AGO. Past Drug Use History: None Reported - Past Family History Mother Family Medical History: Coronary Artery Disease (CAD) Father Family Medical History: Coronary Artery Disease (CAD) Medications and Allergies Home Medications Medication Instructions Recorded Confirmed Type Tamsulosin [Flomax] 0.4 mg PO BID 08/20/14 07/10/23 History Atorvastatin [Lipitor] 20 mg PO 1700 10/22/17 07/10/23 History amLODIPine BESYLATE [Norvasc] 10 mg PO QAM 10/22/17 07/10/23 History traMADol HCL [Ultram] 50 mg PO Q6HR PRN 10/22/17 07/11/23 History Multivitamins, Thera [Multivitamin 1 tab PO QAM 10/05/22 07/10/23 History (formulary)] Apixaban [Eliquis] 5 mg PO BID 07/10/23 07/11/23 History Metoprolol Succinate [Toprol XL] 100 mg PO BID 07/10/23 07/10/23 History Omeprazole 20 mg PO QAM 07/10/23 07/10/23 History Allergies Allergy/AdvReac Type Severity Reaction Status Date / Time No Known Allergies Allergy Verified 07/11/23 12:59 Physical Exam Vitals: Vital Signs Temp Pulse Pulse Resp BP BP BP 07/12/23 10:33 07/12/23 10:00 100.2 F H 93 35 H 07/12/23 09:45 91 36 H 07/12/23 09:36 07/12/23 09:35 91 07/12/23 09:30 36 H 07/12/23 09:29 07/12/23 09:23 89 07/12/23 09:15 89 27 H 110/73 07/12/23 09:00 86 25 H 98/67 07/12/23 08:45 89 25 H 98/67 07/12/23 08:30 90 25 H 07/12/23 08:15 89 25 H 100/66 07/12/23 08:00 100.0 F H 89 26 H 07/12/23 07:45 89 100/70 07/12/23 07:30 89 23 07/12/23 07:15 90 106/68 07/12/23 07:00 99.9 F H 92 24 07/12/23 06:45 92 24 107/65 07/12/23 06:30 92 24 07/12/23 06:15 92 24 100/65 07/12/23 06:00 90 23 07/12/23 05:45 89 24 95/68 07/12/23 05:30 99.7 F H 92 23 07/12/23 05:15 92 23 101/71 07/12/23 05:00 97.4 F L 92 18 07/12/23 04:45 94 16 96/66 07/12/23 04:30 93 21 07/12/23 04:15 93 20 106/71 07/12/23 04:00 96.7 F L 92 26 H 07/12/23 03:45 91 32 H 102/72 07/12/23 03:30 90 23 07/12/23 03:15 87 32 H 106/74 07/12/23 03:10 07/12/23 03:00 92 32 H 07/12/23 02:45 90 27 H 108/83 07/12/23 02:30 89 32 H 07/12/23 02:15 91 18 98/75 07/12/23 02:00 90 28 H 07/12/23 01:45 88 26 H 106/82 07/12/23 01:30 87 28 H 07/12/23 01:15 87 28 H 97/62 07/12/23 01:00 86 28 H 07/12/23 00:45 87 28 H 101/74 07/12/23 00:39 87 07/12/23 00:30 85 28 H 07/12/23 00:26 85 07/12/23 00:20 07/12/23 00:15 83 26 H 98/67 07/12/23 00:00 97.4 F L 81 29 H 07/11/23 23:45 84 27 H 95/73 07/11/23 23:30 85 16 07/11/23 23:15 92 25 H 98/72 07/11/23 23:10 97.4 F L 16 111/65 07/11/23 23:00 93 26 H 07/11/23 22:45 96 24 85/69 07/11/23 22:30 96 24 07/11/23 22:20 96 23 104/54 07/11/23 22:10 97 24 104/54 07/11/23 22:00 98 23 07/11/23 21:50 99 21 07/11/23 21:43 95 07/11/23 21:40 100 21 134/94 07/11/23 21:39 07/11/23 21:32 96 07/11/23 21:30 96 19 07/11/23 21:29 07/11/23 21:20 96 18 07/11/23 21:10 97.4 F L 100 24 07/11/23 21:06 07/11/23 21:02 07/11/23 20:58 82 H 07/11/23 13:13 97.8 F 68 16 167/78 170/87 Pulse Ox FiO2 07/12/23 10:33 97 07/12/23 10:00 96 07/12/23 09:45 97 07/12/23 09:36 50 07/12/23 09:35 07/12/23 09:30 97 07/12/23 09:29 50 07/12/23 09:23 07/12/23 09:15 97 07/12/23 09:00 97 07/12/23 08:45 97 07/12/23 08:30 97 07/12/23 08:15 97 07/12/23 08:00 97 50 07/12/23 07:45 98 07/12/23 07:30 98 07/12/23 07:15 98 07/12/23 07:00 98 07/12/23 06:45 98 07/12/23 06:30 98 07/12/23 06:15 98 07/12/23 06:00 98 07/12/23 05:45 98 07/12/23 05:30 99 07/12/23 05:15 99 07/12/23 05:00 99 07/12/23 04:45 99 07/12/23 04:30 99 07/12/23 04:15 99 07/12/23 04:00 99 50 07/12/23 03:45 100 07/12/23 03:30 100 07/12/23 03:15 100 07/12/23 03:10 50 07/12/23 03:00 99 07/12/23 02:45 100 07/12/23 02:30 98 07/12/23 02:15 96 07/12/23 02:00 99 07/12/23 01:45 99 07/12/23 01:30 99 07/12/23 01:15 100 07/12/23 01:00 100 07/12/23 00:45 99 07/12/23 00:39 07/12/23 00:30 99 07/12/23 00:26 07/12/23 00:20 50 07/12/23 00:15 100 07/12/23 00:00 100 50 07/11/23 23:45 100 07/11/23 23:30 100 07/11/23 23:15 99 07/11/23 23:10 100 50 07/11/23 23:00 99 07/11/23 22:45 99 07/11/23 22:30 100 07/11/23 22:20 98 07/11/23 22:10 99 07/11/23 22:00 100 07/11/23 21:50 99 07/11/23 21:43 07/11/23 21:40 100 07/11/23 21:39 50 07/11/23 21:32 07/11/23 21:30 100 60 07/11/23 21:29 60 07/11/23 21:20 100 07/11/23 21:10 100 60 07/11/23 21:06 100 07/11/23 21:02 100 07/11/23 20:58 07/11/23 13:13 98 Intake and Output 07/11/23 07/12/23 07/12/23 22:59 06:59 14:59 Intake Total 3276.349 1004.114 515.536 Output Total 20372 332 134 Balance -9503.651 672.114 381.536 Intake: IV 358 727 369 ACETAMINOPHEN IV (For NPO 200 ) 1,000 mg In Empty Bag 1 bag @ 400 mls/hr IVPB Q6HR [facility] Rx#:[id number] Calcium Gluconate in NaCl 100 1 gm In Saline 1 100ml. bag @ 100 mls/hr IVPB ONCE ONE Rx#:[id number] Calcium Gluconate in NaCl 100 1 gm In Saline 1 100ml. bag @ 100 mls/hr IVPB ONCE ONE Rx#:[id number] Lactated Ringers 1,000 ml 100 450 130 @ 50 mls/hr IV .Q20H [facility] Rx#:[id number] Magnesium Sulfate-D5w Pmx 100 1 gm In Dextrose/Water 1 100ml.bag @ 100 mls/hr IVPB ONCE ONE Rx#: [id number] Pressure Bag 0.9 NS 6 27 9 Sodium Chloride 0.9% 1, 80 000 ml @ 80 mls/hr IV . [id number] [facility] Rx#:[id number] ceFAZolin 2 gm In Sodium 50 50 Chloride 0.9% 50 ml @ 100 mls/hr IVPB ONCE ONE Rx# :[id number] Intake, IV Titration 45.349 277.114 146.536 Amount Insulin Regular 100 unit 2.6 24.699 5.558 In Sodium Chloride 0.9% 100 ml @ Per Protocol IV .Q0M [facility] Rx#:[id number] Norepinephrine 4 mg In 18.336 116.283 58.343 Sodium Chloride 0.9% 250 ml @ 0.03 MCG/KG/MIN 12. 002 mls/hr IV .[id number] [facility] Rx#:[id number] propofoL 1,000 mg In 24.413 136.132 82.635 Empty Bag 1 bag @ Titrate IV .Q0M [facility] Rx#: [id number] Blood Product 2873 Ffp 24 Pher Acda Cnt1 217 Unit [id number] Ffp 24 Pher Acda Cnt2 220 Unit [id number] Platelet Pheresis Pas 266 Psoralen Unit [id number] Rc As-1 Unit 310 [id number] Rc As-1 Unit 310 [id number] Rc As-1 Unit 310 [id number] Rc As-1 Unit 310 [id number] Rc As-1 Unit 310 [id number] Rc As-1 Unit 310 [id number] Rc As-1 Unit 310 [id number] Output: Chest Tube Drainage 270 140 34 L/R Pleural 270 140 34 Urine 590 192 100 Estimated Blood Loss 60186 Other: Voiding Method Indwelling Catheter Indwelling Catheter Indwelling Catheter Weight 112 kg 112 kg ABP, PAP, CO, CI - Last 8 Hours Arterial Blood Pressure 138/63 Arterial Blood Pressure 137/62 Arterial Blood Pressure 134/66 Arterial Blood Pressure 125/59 Arterial Blood Pressure 105/51 Arterial Blood Pressure 120/60 Arterial Blood Pressure 113/58 Arterial Blood Pressure 110/55 Arterial Blood Pressure 114/58 Arterial Blood Pressure 115/58 Arterial Blood Pressure 115/55 Arterial Blood Pressure 111/56 Arterial Blood Pressure 120/60 Arterial Blood Pressure 112/56 Arterial Blood Pressure 107/56 Arterial Blood Pressure 112/56 Arterial Blood Pressure 116/59 Arterial Blood Pressure 114/58 Arterial Blood Pressure 114/59 Arterial Blood Pressure 109/58 Arterial Blood Pressure 109/58 Arterial Blood Pressure 114/60 Arterial Blood Pressure 110/59 Arterial Blood Pressure 110/60 Arterial Blood Pressure 111/62 Arterial Blood Pressure 108/60 Arterial Blood Pressure 117/64 Arterial Blood Pressure 110/62 Arterial Blood Pressure 115/69 PHYSICAL EXAM: VITAL SIGNS: As above GENERAL: Sitting up in bed, sedated and intubated HEENT: Normocephalic, Conjunctivae normal. eyes normal. NECK: Supple, No JVD. CARDIOVASCULAR: S1, S2 regular.telemetry sinus rhythm ,No murmur RESPIRATION: Unlabored, Breath sounds diminished in the bases. Mediastinal chest tubes. ABDOMEN: Soft, nontender . No guarding. no masses palpable. No ascites, No hepatosplenomegaly.Bowel sounds heard. LEGS: Trace edema NERVOUS SYSTEM: Currently unable to assess, intubated, sedated Skin: Warm and dry, no rash Results CBC & Chem 7: 07/12/23 05:00 07/12/23 05:00 Labs: Abnormal Lab Results - Last 24 Hours (Table) 07/11/23 07/11/23 07/11/23 Range/Units 12:47 12:47 12:49 WBC (3.8-10.6) k/uL RBC (4.30-5.90) m/uL Hgb (13.0-17.5) gm/dL Hct (39.0-53.0) % Plt Count (150-450) k/uL Neutrophils # (1.3-7.7) k/uL Neutrophils # (Manual) (1.3-7.7) k/uL Monocytes # (0-1.0) k/uL PT (10.0-12.5) sec INR (<1.2) APTT (22.0-30.0) sec Fibrinogen (200-500) mg/dL ABG pH (7.35-7.45) ABG pCO2 (35-45) mmHg ABG pO2 (83-108) mmHg ABG HCO3 (21-25) mmol/L ABG Total CO2 (19-24) mmol/L ABG O2 Saturation (94-97) % ABG Hematocrit (34.0-46.0) % ABG Potassium (3.4-4.5) mmol/L ABG Ionized Calcium (4.5-5.3) mg/dL ABG Glucose (75-99) mg/dL ABG Lactic Acid (0.5-1.6) mmol/L Hemoglobin (13.0-17.5) gm/dL Sodium (137-145) mmol/L Chloride (98-107) mmol/L Carbon Dioxide (22-30) mmol/L Creatinine (0.66-1.25) mg/dL Glucose 112 H (74-99) mg/dL POC Glucose (mg/dL) (70-110) mg/dL Hemoglobin A1c (<=6.0) % Calcium (8.4-10.2) mg/dL Ionized Calcium Elmo (4.5-5.3) mg/dL Total Bilirubin (0.2-1.3) mg/dL AST (17-59) U/L Alkaline Phosphatase 138 H (38-126) U/L Total Protein (6.3-8.2) g/dL Albumin (3.5-5.0) g/dL TSH 0.394 L (0.465-4.680) mIU/L Arterial Blood Potassium (3.4-4.5) mmol/L Arterial Blood Glucose (75-99) mg/dL Crossmatch See Detail See Detail 07/11/23 07/11/23 07/11/23 Range/Units 17:30 17:30 17:30 WBC 12.2 H (3.8-10.6) k/uL RBC 3.94 L (4.30-5.90) m/uL Hgb 12.1 L (13.0-17.5) gm/dL Hct 36.3 L (39.0-53.0) % Plt Count 128 L (150-450) k/uL Neutrophils # 9.7 H (1.3-7.7) k/uL Neutrophils # (Manual) (1.3-7.7) k/uL Monocytes # (0-1.0) k/uL PT 12.7 H (10.0-12.5) sec INR 1.2 H (<1.2) APTT (22.0-30.0) sec Fibrinogen (200-500) mg/dL ABG pH (7.35-7.45) ABG pCO2 (35-45) mmHg ABG pO2 (83-108) mmHg ABG HCO3 (21-25) mmol/L ABG Total CO2 (19-24) mmol/L ABG O2 Saturation (94-97) % ABG Hematocrit (34.0-46.0) % ABG Potassium (3.4-4.5) mmol/L ABG Ionized Calcium (4.5-5.3) mg/dL ABG Glucose (75-99) mg/dL ABG Lactic Acid (0.5-1.6) mmol/L Hemoglobin (13.0-17.5) gm/dL Sodium 136 L (137-145) mmol/L Chloride (98-107) mmol/L Carbon Dioxide 20 L (22-30) mmol/L Creatinine (0.66-1.25) mg/dL Glucose 191 H (74-99) mg/dL POC Glucose (mg/dL) (70-110) mg/dL Hemoglobin A1c (<=6.0) % Calcium 7.1 L (8.4-10.2) mg/dL Ionized Calcium Elmo (4.5-5.3) mg/dL Total Bilirubin (0.2-1.3) mg/dL AST (17-59) U/L Alkaline Phosphatase (38-126) U/L Total Protein 5.2 L (6.3-8.2) g/dL Albumin 2.9 L (3.5-5.0) g/dL TSH (0.465-4.680) mIU/L Arterial Blood Potassium (3.4-4.5) mmol/L Arterial Blood Glucose (75-99) mg/dL Crossmatch 07/11/23 07/11/23 07/11/23 Range/Units 18:06 18:17 18:41 WBC (3.8-10.6) k/uL RBC (4.30-5.90) m/uL Hgb (13.0-17.5) gm/dL Hct (39.0-53.0) % Plt Count (150-450) k/uL Neutrophils # (1.3-7.7) k/uL Neutrophils # (Manual) (1.3-7.7) k/uL Monocytes # (0-1.0) k/uL PT (10.0-12.5) sec INR (<1.2) APTT (22.0-30.0) sec Fibrinogen (200-500) mg/dL ABG pH 7.24 L 7.24 L 7.27 L (7.35-7.45) ABG pCO2 61 H 51 H (35-45) mmHg ABG pO2 328 H 335 H 354 H (83-108) mmHg ABG HCO3 19 L 26 H (21-25) mmol/L ABG Total CO2 28 H 25 H (19-24) mmol/L ABG O2 Saturation 99.8 H 99.8 H 100.0 H (94-97) % ABG Hematocrit 33 L (34.0-46.0) % ABG Potassium 4.9 H 4.8 H (3.4-4.5) mmol/L ABG Ionized Calcium 4.1 L 4.2 L (4.5-5.3) mg/dL ABG Glucose 219 H 222 H 247 H (75-99) mg/dL ABG Lactic Acid 3.6 H* 3.7 H* 3.7 H* (0.5-1.6) mmol/L Hemoglobin 10.8 L (13.0-17.5) gm/dL Sodium (137-145) mmol/L Chloride (98-107) mmol/L Carbon Dioxide (22-30) mmol/L Creatinine (0.66-1.25) mg/dL Glucose (74-99) mg/dL POC Glucose (mg/dL) (70-110) mg/dL Hemoglobin A1c (<=6.0) % Calcium (8.4-10.2) mg/dL Ionized Calcium Elmo (4.5-5.3) mg/dL Total Bilirubin (0.2-1.3) mg/dL AST (17-59) U/L Alkaline Phosphatase (38-126) U/L Total Protein (6.3-8.2) g/dL Albumin (3.5-5.0) g/dL TSH (0.465-4.680) mIU/L Arterial Blood Potassium 4.9 H 4.8 H (3.4-4.5) mmol/L Arterial Blood Glucose 219 H 222 H 247 H (75-99) mg/dL Crossmatch 07/11/23 07/11/23 07/11/23 Range/Units 19:28 19:51 20:45 WBC 20.1 H (3.8-10.6) k/uL RBC (4.30-5.90) m/uL Hgb (13.0-17.5) gm/dL Hct (39.0-53.0) % Plt Count 53 L D (150-450) k/uL Neutrophils # (1.3-7.7) k/uL Neutrophils # (Manual) 17.40 H (1.3-7.7) k/uL Monocytes # (0-1.0) k/uL PT (10.0-12.5) sec INR (<1.2) APTT (22.0-30.0) sec Fibrinogen (200-500) mg/dL ABG pH 7.33 L 7.30 L (7.35-7.45) ABG pCO2 49 H (35-45) mmHg ABG pO2 >420 H 352 H (83-108) mmHg ABG HCO3 (21-25) mmol/L ABG Total CO2 26 H (19-24) mmol/L ABG O2 Saturation 100.0 H 99.9 H (94-97) % ABG Hematocrit (34.0-46.0) % ABG Potassium 4.6 H (3.4-4.5) mmol/L ABG Ionized Calcium 3.8 L (4.5-5.3) mg/dL ABG Glucose 199 H 193 H (75-99) mg/dL ABG Lactic Acid 4.1 H* 4.1 H* (0.5-1.6) mmol/L Hemoglobin 12.1 L (13.0-17.5) gm/dL Sodium (137-145) mmol/L Chloride (98-107) mmol/L Carbon Dioxide (22-30) mmol/L Creatinine (0.66-1.25) mg/dL Glucose (74-99) mg/dL POC Glucose (mg/dL) (70-110) mg/dL Hemoglobin A1c (<=6.0) % Calcium (8.4-10.2) mg/dL Ionized Calcium Elmo (4.5-5.3) mg/dL Total Bilirubin (0.2-1.3) mg/dL AST (17-59) U/L Alkaline Phosphatase (38-126) U/L Total Protein (6.3-8.2) g/dL Albumin (3.5-5.0) g/dL TSH (0.465-4.680) mIU/L Arterial Blood Potassium 4.6 H (3.4-4.5) mmol/L Arterial Blood Glucose 199 H 193 H (75-99) mg/dL Crossmatch 07/11/23 07/11/23 07/11/23 Range/Units 20:45 21:00 21:06 WBC (3.8-10.6) k/uL RBC (4.30-5.90) m/uL Hgb (13.0-17.5) gm/dL Hct (39.0-53.0) % Plt Count (150-450) k/uL Neutrophils # (1.3-7.7) k/uL Neutrophils # (Manual) (1.3-7.7) k/uL Monocytes # (0-1.0) k/uL PT 16.7 H (10.0-12.5) sec INR 1.6 H (<1.2) APTT 30.1 H (22.0-30.0) sec Fibrinogen (200-500) mg/dL ABG pH (7.35-7.45) ABG pCO2 (35-45) mmHg ABG pO2 (83-108) mmHg ABG HCO3 (21-25) mmol/L ABG Total CO2 (19-24) mmol/L ABG O2 Saturation (94-97) % ABG Hematocrit (34.0-46.0) % ABG Potassium (3.4-4.5) mmol/L ABG Ionized Calcium (4.5-5.3) mg/dL ABG Glucose (75-99) mg/dL ABG Lactic Acid (0.5-1.6) mmol/L Hemoglobin (13.0-17.5) gm/dL Sodium (137-145) mmol/L Chloride 112 H (98-107) mmol/L Carbon Dioxide 21 L (22-30) mmol/L Creatinine 0.60 L (0.66-1.25) mg/dL Glucose 168 H (74-99) mg/dL POC Glucose (mg/dL) 179 H (70-110) mg/dL Hemoglobin A1c (<=6.0) % Calcium 6.6 L (8.4-10.2) mg/dL Ionized Calcium Elmo 4.2 L (4.5-5.3) mg/dL Total Bilirubin 3.1 H (0.2-1.3) mg/dL AST 101 H (17-59) U/L Alkaline Phosphatase (38-126) U/L Total Protein 3.7 L (6.3-8.2) g/dL Albumin 2.0 L (3.5-5.0) g/dL TSH (0.465-4.680) mIU/L Arterial Blood Potassium (3.4-4.5) mmol/L Arterial Blood Glucose (75-99) mg/dL Crossmatch 07/11/23 07/11/23 07/11/23 Range/Units 21:24 22:02 23:01 WBC (3.8-10.6) k/uL RBC (4.30-5.90) m/uL Hgb (13.0-17.5) gm/dL Hct (39.0-53.0) % Plt Count (150-450) k/uL Neutrophils # (1.3-7.7) k/uL Neutrophils # (Manual) (1.3-7.7) k/uL Monocytes # (0-1.0) k/uL PT (10.0-12.5) sec INR (<1.2) APTT (22.0-30.0) sec Fibrinogen (200-500) mg/dL ABG pH 7.27 L (7.35-7.45) ABG pCO2 46 H (35-45) mmHg ABG pO2 263 H (83-108) mmHg ABG HCO3 (21-25) mmol/L ABG Total CO2 (19-24) mmol/L ABG O2 Saturation 99.5 H (94-97) % ABG Hematocrit (34.0-46.0) % ABG Potassium (3.4-4.5) mmol/L ABG Ionized Calcium (4.5-5.3) mg/dL ABG Glucose (75-99) mg/dL ABG Lactic Acid (0.5-1.6) mmol/L Hemoglobin (13.0-17.5) gm/dL Sodium (137-145) mmol/L Chloride (98-107) mmol/L Carbon Dioxide (22-30) mmol/L Creatinine (0.66-1.25) mg/dL Glucose (74-99) mg/dL POC Glucose (mg/dL) 161 H 184 H (70-110) mg/dL Hemoglobin A1c (<=6.0) % Calcium (8.4-10.2) mg/dL Ionized Calcium Elmo (4.5-5.3) mg/dL Total Bilirubin (0.2-1.3) mg/dL AST (17-59) U/L Alkaline Phosphatase (38-126) U/L Total Protein (6.3-8.2) g/dL Albumin (3.5-5.0) g/dL TSH (0.465-4.680) mIU/L Arterial Blood Potassium (3.4-4.5) mmol/L Arterial Blood Glucose (75-99) mg/dL Crossmatch 07/11/23 07/12/23 07/12/23 Range/Units 23:15 00:00 00:07 WBC 19.7 H (3.8-10.6) k/uL RBC (4.30-5.90) m/uL Hgb (13.0-17.5) gm/dL Hct (39.0-53.0) % Plt Count 66 L (150-450) k/uL Neutrophils # 16.9 H (1.3-7.7) k/uL Neutrophils # (Manual) (1.3-7.7) k/uL Monocytes # 1.4 H (0-1.0) k/uL PT 13.9 H (10.0-12.5) sec INR 1.3 H (<1.2) APTT (22.0-30.0) sec Fibrinogen 121 L (200-500) mg/dL ABG pH (7.35-7.45) ABG pCO2 (35-45) mmHg ABG pO2 (83-108) mmHg ABG HCO3 (21-25) mmol/L ABG Total CO2 (19-24) mmol/L ABG O2 Saturation (94-97) % ABG Hematocrit (34.0-46.0) % ABG Potassium (3.4-4.5) mmol/L ABG Ionized Calcium (4.5-5.3) mg/dL ABG Glucose (75-99) mg/dL ABG Lactic Acid (0.5-1.6) mmol/L Hemoglobin (13.0-17.5) gm/dL Sodium (137-145) mmol/L Chloride (98-107) mmol/L Carbon Dioxide (22-30) mmol/L Creatinine (0.66-1.25) mg/dL Glucose (74-99) mg/dL POC Glucose (mg/dL) 164 H (70-110) mg/dL Hemoglobin A1c (<=6.0) % Calcium (8.4-10.2) mg/dL Ionized Calcium Elmo (4.5-5.3) mg/dL Total Bilirubin (0.2-1.3) mg/dL AST (17-59) U/L Alkaline Phosphatase (38-126) U/L Total Protein (6.3-8.2) g/dL Albumin (3.5-5.0) g/dL TSH (0.465-4.680) mIU/L Arterial Blood Potassium (3.4-4.5) mmol/L Arterial Blood Glucose (75-99) mg/dL Crossmatch 07/12/23 07/12/23 07/12/23 Range/Units 01:04 01:58 03:00 WBC 21.2 H (3.8-10.6) k/uL RBC (4.30-5.90) m/uL Hgb (13.0-17.5) gm/dL Hct (39.0-53.0) % Plt Count 70 L (150-450) k/uL Neutrophils # 17.7 H (1.3-7.7) k/uL Neutrophils # (Manual) (1.3-7.7) k/uL Monocytes # 1.9 H (0-1.0) k/uL PT (10.0-12.5) sec INR (<1.2) APTT (22.0-30.0) sec Fibrinogen (200-500) mg/dL ABG pH (7.35-7.45) ABG pCO2 (35-45) mmHg ABG pO2 (83-108) mmHg ABG HCO3 (21-25) mmol/L ABG Total CO2 (19-24) mmol/L ABG O2 Saturation (94-97) % ABG Hematocrit (34.0-46.0) % ABG Potassium (3.4-4.5) mmol/L ABG Ionized Calcium (4.5-5.3) mg/dL ABG Glucose (75-99) mg/dL ABG Lactic Acid (0.5-1.6) mmol/L Hemoglobin (13.0-17.5) gm/dL Sodium (137-145) mmol/L Chloride (98-107) mmol/L Carbon Dioxide (22-30) mmol/L Creatinine (0.66-1.25) mg/dL Glucose (74-99) mg/dL POC Glucose (mg/dL) 134 H 146 H (70-110) mg/dL Hemoglobin A1c (<=6.0) % Calcium (8.4-10.2) mg/dL Ionized Calcium Elmo (4.5-5.3) mg/dL Total Bilirubin (0.2-1.3) mg/dL AST (17-59) U/L Alkaline Phosphatase (38-126) U/L Total Protein (6.3-8.2) g/dL Albumin (3.5-5.0) g/dL TSH (0.465-4.680) mIU/L Arterial Blood Potassium (3.4-4.5) mmol/L Arterial Blood Glucose (75-99) mg/dL Crossmatch 07/12/23 07/12/23 07/12/23 Range/Units 03:03 04:06 04:59 WBC (3.8-10.6) k/uL RBC (4.30-5.90) m/uL Hgb (13.0-17.5) gm/dL Hct (39.0-53.0) % Plt Count (150-450) k/uL Neutrophils # (1.3-7.7) k/uL Neutrophils # (Manual) (1.3-7.7) k/uL Monocytes # (0-1.0) k/uL PT (10.0-12.5) sec INR (<1.2) APTT (22.0-30.0) sec Fibrinogen (200-500) mg/dL ABG pH (7.35-7.45) ABG pCO2 (35-45) mmHg ABG pO2 (83-108) mmHg ABG HCO3 (21-25) mmol/L ABG Total CO2 (19-24) mmol/L ABG O2 Saturation (94-97) % ABG Hematocrit (34.0-46.0) % ABG Potassium (3.4-4.5) mmol/L ABG Ionized Calcium (4.5-5.3) mg/dL ABG Glucose (75-99) mg/dL ABG Lactic Acid (0.5-1.6) mmol/L Hemoglobin (13.0-17.5) gm/dL Sodium (137-145) mmol/L Chloride (98-107) mmol/L Carbon Dioxide (22-30) mmol/L Creatinine (0.66-1.25) mg/dL Glucose (74-99) mg/dL POC Glucose (mg/dL) 134 H 118 H 131 H (70-110) mg/dL Hemoglobin A1c (<=6.0) % Calcium (8.4-10.2) mg/dL Ionized Calcium Elmo (4.5-5.3) mg/dL Total Bilirubin (0.2-1.3) mg/dL AST (17-59) U/L Alkaline Phosphatase (38-126) U/L Total Protein (6.3-8.2) g/dL Albumin (3.5-5.0) g/dL TSH (0.465-4.680) mIU/L Arterial Blood Potassium (3.4-4.5) mmol/L Arterial Blood Glucose (75-99) mg/dL Crossmatch 07/12/23 07/12/23 07/12/23 Range/Units 05:00 05:00 05:00 WBC 19.7 H (3.8-10.6) k/uL RBC (4.30-5.90) m/uL Hgb (13.0-17.5) gm/dL Hct (39.0-53.0) % Plt Count 71 L (150-450) k/uL Neutrophils # 16.8 H (1.3-7.7) k/uL Neutrophils # (Manual) (1.3-7.7) k/uL Monocytes # 1.4 H (0-1.0) k/uL PT (10.0-12.5) sec INR (<1.2) APTT (22.0-30.0) sec Fibrinogen (200-500) mg/dL ABG pH (7.35-7.45) ABG pCO2 (35-45) mmHg ABG pO2 (83-108) mmHg ABG HCO3 (21-25) mmol/L ABG Total CO2 (19-24) mmol/L ABG O2 Saturation (94-97) % ABG Hematocrit (34.0-46.0) % ABG Potassium (3.4-4.5) mmol/L ABG Ionized Calcium (4.5-5.3) mg/dL ABG Glucose (75-99) mg/dL ABG Lactic Acid (0.5-1.6) mmol/L Hemoglobin (13.0-17.5) gm/dL Sodium (137-145) mmol/L Chloride 113 H (98-107) mmol/L Carbon Dioxide 19 L (22-30) mmol/L Creatinine (0.66-1.25) mg/dL Glucose 134 H (74-99) mg/dL POC Glucose (mg/dL) (70-110) mg/dL Hemoglobin A1c 6.2 H (<=6.0) % Calcium 7.5 L (8.4-10.2) mg/dL Ionized Calcium Elmo (4.5-5.3) mg/dL Total Bilirubin 2.4 H (0.2-1.3) mg/dL AST 152 H (17-59) U/L Alkaline Phosphatase (38-126) U/L Total Protein 4.1 L (6.3-8.2) g/dL Albumin 2.2 L (3.5-5.0) g/dL TSH (0.465-4.680) mIU/L Arterial Blood Potassium (3.4-4.5) mmol/L Arterial Blood Glucose (75-99) mg/dL Crossmatch 07/12/23 07/12/23 07/12/23 Range/Units 05:58 05:58 06:09 WBC (3.8-10.6) k/uL RBC (4.30-5.90) m/uL Hgb (13.0-17.5) gm/dL Hct (39.0-53.0) % Plt Count (150-450) k/uL Neutrophils # (1.3-7.7) k/uL Neutrophils # (Manual) (1.3-7.7) k/uL Monocytes # (0-1.0) k/uL PT (10.0-12.5) sec INR (<1.2) APTT (22.0-30.0) sec Fibrinogen 113 L (200-500) mg/dL ABG pH (7.35-7.45) ABG pCO2 34 L (35-45) mmHg ABG pO2 (83-108) mmHg ABG HCO3 20 L (21-25) mmol/L ABG Total CO2 (19-24) mmol/L ABG O2 Saturation 97.6 H (94-97) % ABG Hematocrit (34.0-46.0) % ABG Potassium (3.4-4.5) mmol/L ABG Ionized Calcium (4.5-5.3) mg/dL ABG Glucose (75-99) mg/dL ABG Lactic Acid (0.5-1.6) mmol/L Hemoglobin (13.0-17.5) gm/dL Sodium (137-145) mmol/L Chloride (98-107) mmol/L Carbon Dioxide (22-30) mmol/L Creatinine (0.66-1.25) mg/dL Glucose (74-99) mg/dL POC Glucose (mg/dL) 136 H (70-110) mg/dL Hemoglobin A1c (<=6.0) % Calcium (8.4-10.2) mg/dL Ionized Calcium Elmo (4.5-5.3) mg/dL Total Bilirubin (0.2-1.3) mg/dL AST (17-59) U/L Alkaline Phosphatase (38-126) U/L Total Protein (6.3-8.2) g/dL Albumin (3.5-5.0) g/dL TSH (0.465-4.680) mIU/L Arterial Blood Potassium (3.4-4.5) mmol/L Arterial Blood Glucose (75-99) mg/dL Crossmatch 12/15/23 12/15/23 12/15/23 Range/Units 06:55 09:23 10:14 WBC (3.8-10.6) k/uL RBC (4.30-5.90) m/uL Hgb (13.0-17.5) gm/dL Hct (39.0-53.0) % Plt Count (150-450) k/uL Neutrophils # (1.3-7.7) k/uL Neutrophils # (Manual) (1.3-7.7) k/uL Monocytes # (0-1.0) k/uL PT (10.0-12.5) sec INR (<1.2) APTT (22.0-30.0) sec Fibrinogen (200-500) mg/dL ABG pH (7.35-7.45) ABG pCO2 33 L (35-45) mmHg ABG pO2 75 L (83-108) mmHg ABG HCO3 (21-25) mmol/L ABG Total CO2 (19-24) mmol/L ABG O2 Saturation (94-97) % ABG Hematocrit (34.0-46.0) % ABG Potassium (3.4-4.5) mmol/L ABG Ionized Calcium (4.5-5.3) mg/dL ABG Glucose (75-99) mg/dL ABG Lactic Acid (0.5-1.6) mmol/L Hemoglobin (13.0-17.5) gm/dL Sodium (137-145) mmol/L Chloride (98-107) mmol/L Carbon Dioxide (22-30) mmol/L Creatinine (0.66-1.25) mg/dL Glucose (74-99) mg/dL POC Glucose (mg/dL) 129 H 146 H (70-110) mg/dL Hemoglobin A1c (<=6.0) % Calcium (8.4-10.2) mg/dL Ionized Calcium Elmo (4.5-5.3) mg/dL Total Bilirubin (0.2-1.3) mg/dL AST (17-59) U/L Alkaline Phosphatase (38-126) U/L Total Protein (6.3-8.2) g/dL Albumin (3.5-5.0) g/dL TSH (0.465-4.680) mIU/L Arterial Blood Potassium (3.4-4.5) mmol/L Arterial Blood Glucose (75-99) mg/dL Crossmatch 07/12/23 Range/Units 10:19 WBC (3.8-10.6) k/uL RBC (4.30-5.90) m/uL Hgb (13.0-17.5) gm/dL Hct (39.0-53.0) % Plt Count (150-450) k/uL Neutrophils # (1.3-7.7) k/uL Neutrophils # (Manual) (1.3-7.7) k/uL Monocytes # (0-1.0) k/uL PT (10.0-12.5) sec INR (<1.2) APTT (22.0-30.0) sec Fibrinogen (200-500) mg/dL ABG pH (7.35-7.45) ABG pCO2 (35-45) mmHg ABG pO2 (83-108) mmHg ABG HCO3 (21-25) mmol/L ABG Total CO2 (19-24) mmol/L ABG O2 Saturation (94-97) % ABG Hematocrit (34.0-46.0) % ABG Potassium (3.4-4.5) mmol/L ABG Ionized Calcium (4.5-5.3) mg/dL ABG Glucose (75-99) mg/dL ABG Lactic Acid (0.5-1.6) mmol/L Hemoglobin (13.0-17.5) gm/dL Sodium (137-145) mmol/L Chloride (98-107) mmol/L Carbon Dioxide (22-30) mmol/L Creatinine (0.66-1.25) mg/dL Glucose (74-99) mg/dL POC Glucose (mg/dL) 147 H (70-110) mg/dL Hemoglobin A1c (<=6.0) % Calcium (8.4-10.2) mg/dL Ionized Calcium Elmo (4.5-5.3) mg/dL Total Bilirubin (0.2-1.3) mg/dL AST (17-59) U/L Alkaline Phosphatase (38-126) U/L Total Protein (6.3-8.2) g/dL Albumin (3.5-5.0) g/dL TSH (0.465-4.680) mIU/L Arterial Blood Potassium (3.4-4.5) mmol/L Arterial Blood Glucose (75-99) mg/dL Crossmatch Assessment and Plan Assessment: Cardiac tamponade status post left atrial ablation for symptomatic paroximal atrial fibrillation, status post emergent sternotomy and cardiopulmonary bypass with repair left atrial injury Thrombocytopenia secondary to the above Hypotension, pressor dependent, secondary to the above Acute hypoxic respiratory failure, vent dependent secondary to the above Acute renal failure Diabetes mellitus, hemoglobin A1c 6.2 CAD Hypertension Hyperlipidemia BPH Gastroesophageal reflux disease Morbid obesity, BMI 35 Plan: Continue on current medication regime ,monitoring and symptomatic treatment. Vent and levophed weaning in progress. Close monitoring of renal function, coags. The impression and plan of care has been dictated as directed. : I performed a history and examination of this patient, discussed the same with the dictator. I agree with the dictator's note ,documented as a scribe. Any additional findings or plans will be noted.
[2023-07-12 12:16] LABS: Glucose,Whole Blood 130 mg/dL (70-110)
--- NOTE | 2023-07-12 12:22 | CDI ---
Documentation Clarification Form Date: From: Judy Reinoso Phone: [phone] Admit Date: 07/11/2023 08:45:00 PM Patient Name: Eliud Slaughter Visit Number: [id number] Discharge Date: ATTENTION: The Clinical Documentation Specialists (CDI) and [facility] Coding Staff appreciate your assistance in clarifying documentation. Please respond to the clarification below the line at the bottom and electronically sign. The CDI & [facility] Coding staff will review the response and follow-up if needed. Please note: Queries are made part of the Legal Health Record. If you have any questions, please contact the author of this message via ITS. Dr. Royal Moore Your patient has a hemoglobin level of 12.1. Please clarify if there is an additional diagnosis and/or clinical significance related to these lab values. History/Risk Factors: "78-year-old gentleman with past medical history significant for symptomatic paroxysmal atrial fibrillation, CAD, hypertension, hyperlipidemia, BPH, prior nicotine dependence and multiple other medical issues, underwent emergent sternotomy and cardiopulmonary bypass with repair of left atrial injury, exclusion of left atrial appendage and intraoperative transesophageal echocardiogram secondary to cardiac tamponade status post left atrial ablation for proximal atrial fibrillation." - Per Medical Consult Note on 07/12 Clinical indicators: "evidence of injury to the left atrium between the left superior pulmonary vein and the left inferior pulmonary vein" "Thrombocytopenia, likely from massive blood loss" "currently hypotensive" - Per Progress Note on 07/12 "about 3L of blood aspirated from the pericardial drain" - Per OP report on 07/11 Hemoglobin: 07/11 - 14.0, 12.1, 14.5: 07/12 - 16.0, 15.8, 15.4 Treatment: "on low dose levo" - Per Progress Note on 07/12 "patient received a large amount of Cell Saver blood and received blood, FFPs, and platelets and the final count will be eventually in the chart" - Per OP Report on 07/11 Is there an additional diagnosis and/or clinical significance related to the above lab result/information: [ xx ] Acute blood loss anemia [ ] No additional diagnosis/Not clinically significant [ ] Unable to determine [ ] Other, please specify MTDD
--- NOTE | 2023-07-12 12:35 | CDI ---
Documentation Clarification Form Date: From: Judy Reinoso Phone: [phone] Admit Date: 07/11/2023 08:45:00 PM Patient Name: Eliud Slaughter Visit Number: [id number] Discharge Date: ATTENTION: The Clinical Documentation Specialists (CDI) and [facility] Coding Staff appreciate your assistance in clarifying documentation. Please respond to the clarification below the line at the bottom and electronically sign. The CDI & [facility] Coding staff will review the response and follow-up if needed. Please note: Queries are made part of the Legal Health Record. If you have any questions, please contact the author of this message via ITS. Dr. Royal Moore "Hypotension" is documented in the Progress Note on 07/12 and patient had an emergent sternotomy and cardiopulmonary bypass on 07/11. Additional clarification is requested regarding the relationship, if any, that exists between the diagnosis and the procedure. History/Risk Factors: "78-year-old gentleman with past medical history significant for symptomatic paroxysmal atrial fibrillation, CAD, hypertension, hyperlipidemia, BPH, prior nicotine dependence and multiple other medical issues, underwent emergent sternotomy and cardiopulmonary bypass with repair of left atrial injury, exclusion of left atrial appendage and intraoperative transesophageal echocardiogram secondary to cardiac tamponade status post left atrial ablation for proximal atrial fibrillation." - Per Medical Consult Note on 07/12 Clinical indicators: "evidence of injury to the left atrium between the left superior pulmonary vein and the left inferior pulmonary vein" "Thrombocytopenia, likely from massive blood loss" "currently hypotensive" - Per Progress Note on 07/12 "about 3L of blood aspirated from the pericardial drain" - Per OP report on 07/11 Treatment: "on low dose levo" - Per Progress Note on 07/12 "received at least 4 units of blood and was on Ameya-Synephrine" - Per OP Report on 07/11 What relationship, if any, exists between the diagnosis of hypotension and the procedure: [ ] hypotension is a complication of surgical procedure [ xx] hypotension is an expected outcome of the surgical procedure [ ] hypotension is related to patients co-morbid condition(s) of blood loss & not a complication of the procedure [ ] Other please specify ____ [ ] Unable to determine MTDD
--- NOTE | 2023-07-12 13:37 | P.CNPUL ---
History of Present Illness Consult date: 07/12/23 Requesting physician: Khurram Espinoza Reason for consult: other (ICU management) Chief complaint: Cardiac tamponade History of present illness: This is a 78-year-old white male with history of hypertension, degenerative joint disease, known history of coronary artery disease, recurrent symptomatic atrial fibrillation, he was deemed to be a good candidate for pulmonary vein and left atrial ablation. Yesterday the patient underwent elective ablation by Dr. Trinidad, the procedure was complicated by hypotension. Echocardiography showed evidence of the pericardial effusion and tamponade hence cardiothoracic surgery was consulted yesterday on emergent basis, and the patient underwent Urgent pe ricardiocentesis and was sent to the OR for open exploration. Apparently there was a puncture in the gavino between the left superior and left inferior pulmonary veins and this was repaired by Dr. Espinoza. Postoperatively, patient was admitted to the ICU intubated and mechanically ventilated, and this consult was initiated. I saw this patient today, he is intubated and mechanically ventilated, he is on assist control rate of 16 tidal volume 550 FiO2 50% and PEEP of 5. His IV fluid is running at 80 mL/h, patient is on insulin drip at 2.5 units per hour, ABG showed a pO2 of 90 pCO2 of 34 pH of 7.38. Chest x-ray this morning showed mostly stable tubes and catheters, and no evidence of acute process. Patient was on propofol which was placed on hold earlier this morning for plans to wean and extubate if possible. Hence I recommended that we continue with the weaning process, check weaning parameters, and if appropriate and the patient meets the criteria, we'll proceed with extubation. Review of Systems ROS unobtainable: due to endotracheal tube Past Medical History Past Medical History: Atrial Fibrillation, Coronary Artery Disease (CAD), GERD/Reflux, Hyperlipidemia, Hypertension, Osteoarthritis (OA), Prostate Disorder, Supraventricular Tachycardia (SVT) Additional Past Medical History / Comment(s): See Dr. Moore's H&P. Aortic valve regurgitation, VARICOSE VEINS, HX DUODENAL ULCER, BPH, occasionally left foot burning. History of Any Multi-Drug Resistant Organisms: None Reported Past Surgical History: EPS, Heart Catheterization, Joint Replacement, Orthopedic Surgery Additional Past Surgical History / Comment(s): Lipoma removed from chest area, bilateral ear-cosmetic surgery, right rotator cuff, bilateral knee replacements, heel spur removed, loop recorder, colonoscopies. Past Anesthesia/Blood Transfusion Reactions: No Reported Reaction Additional Past Anesthesia/Blood Transfusion Reaction / Comment(s): With last total knee surgery had several days "things were cloudy" and pt states he was sent for cat scan which was normal Past Psychological History: No Psychological Hx Reported Additional Psychological History / Comment(s): Pt resides with spouse. No device Smoking Status: Former smoker Past Alcohol Use History: Occasional Additional Past Alcohol Use History / Comment(s): SMOKED 1 YEAR - APPROX 50 YEARS AGO. Past Drug Use History: None Reported - Past Family History Mother Family Medical History: Coronary Artery Disease (CAD) Father Family Medical History: Coronary Artery Disease (CAD) Medications and Allergies Home Medications Medication Instructions Recorded Confirmed Type Tamsulosin [Flomax] 0.4 mg PO BID 08/20/14 07/10/23 History Atorvastatin [Lipitor] 20 mg PO 1700 10/22/17 07/10/23 History amLODIPine BESYLATE [Norvasc] 10 mg PO QAM 10/22/17 07/10/23 History traMADol HCL [Ultram] 50 mg PO Q6HR PRN 10/22/17 07/11/23 History Multivitamins, Thera [Multivitamin 1 tab PO QAM 10/05/22 07/10/23 History (formulary)] Apixaban [Eliquis] 5 mg PO BID 07/10/23 07/11/23 History Metoprolol Succinate [Toprol XL] 100 mg PO BID 07/10/23 07/10/23 History Omeprazole 20 mg PO QAM 07/10/23 07/10/23 History Allergies Allergy/AdvReac Type Severity Reaction Status Date / Time No Known Allergies Allergy Verified 07/11/23 12:59 Physical Exam Vitals: Vital Signs Temp Pulse Resp BP BP Pulse Ox FiO2 07/12/23 12:30 93 28 H 95 07/12/23 12:00 93 31 H 93 L 07/12/23 11:45 26 H 07/12/23 11:30 93 21 126/70 94 L 07/12/23 11:00 92 24 94 L 07/12/23 10:33 97 07/12/23 10:30 89 27 H 133/72 94 L 07/12/23 10:00 100.2 F H 93 35 H 96 07/12/23 09:45 91 36 H 97 07/12/23 09:36 50 07/12/23 09:35 91 96 07/12/23 09:30 36 H 97 07/12/23 09:29 50 07/12/23 09:23 89 07/12/23 09:15 89 27 H 110/73 97 07/12/23 09:00 86 25 H 98/67 97 07/12/23 08:45 89 25 H 98/67 97 07/12/23 08:30 90 25 H 97 07/12/23 08:15 89 25 H 100/66 97 07/12/23 08:00 100.0 F H 89 26 H 97 50 07/12/23 07:45 89 100/70 98 07/12/23 07:30 89 23 98 07/12/23 07:15 90 106/68 98 07/12/23 07:00 99.9 F H 92 24 98 07/12/23 06:45 92 24 107/65 98 07/12/23 06:30 92 24 98 07/12/23 06:15 92 24 100/65 98 07/12/23 06:00 90 23 98 07/12/23 05:45 89 24 95/68 98 07/12/23 05:30 99.7 F H 92 23 99 07/12/23 05:15 92 23 101/71 99 07/12/23 05:00 97.4 F L 92 18 99 07/12/23 04:45 94 16 96/66 99 07/12/23 04:30 93 21 99 07/12/23 04:15 93 20 106/71 99 07/12/23 04:00 96.7 F L 92 26 H 99 50 07/12/23 03:45 91 32 H 102/72 100 07/12/23 03:30 90 23 100 07/12/23 03:15 87 32 H 106/74 100 07/12/23 03:10 50 07/12/23 03:00 92 32 H 99 07/12/23 02:45 90 27 H 108/83 100 07/12/23 02:30 89 32 H 98 07/12/23 02:15 91 18 98/75 96 07/12/23 02:00 90 28 H 99 07/12/23 01:45 88 26 H 106/82 99 07/12/23 01:30 87 28 H 99 07/12/23 01:15 87 28 H 97/62 100 07/12/23 01:00 86 28 H 100 07/12/23 00:45 87 28 H 101/74 99 07/12/23 00:39 87 07/12/23 00:30 85 28 H 99 07/12/23 00:26 85 07/12/23 00:20 50 07/12/23 00:15 83 26 H 98/67 100 07/12/23 00:00 97.4 F L 81 29 H 100 50 07/11/23 23:45 84 27 H 95/73 100 07/11/23 23:30 85 16 100 07/11/23 23:15 92 25 H 98/72 99 07/11/23 23:10 97.4 F L 16 111/65 100 50 07/11/23 23:00 93 26 H 99 07/11/23 22:45 96 24 85/69 99 07/11/23 22:30 96 24 100 07/11/23 22:20 96 23 104/54 98 07/11/23 22:10 97 24 104/54 99 07/11/23 22:00 98 23 100 07/11/23 21:50 99 21 99 07/11/23 21:43 95 07/11/23 21:40 100 21 134/94 100 07/11/23 21:39 50 07/11/23 21:32 96 07/11/23 21:30 96 19 100 60 07/11/23 21:29 60 07/11/23 21:20 96 18 100 07/11/23 21:10 97.4 F L 100 24 100 60 07/11/23 21:06 100 07/11/23 21:02 100 07/11/23 20:58 82 H Intake and Output 07/11/23 07/12/23 07/12/23 22:59 06:59 14:59 Intake Total 3276.349 1004.114 687.236 Output Total 83230 332 254 Balance -9503.651 672.114 433.236 Intake: IV 358 727 535 ACETAMINOPHEN IV (For NPO 200 ) 1,000 mg In Empty Bag 1 bag @ 400 mls/hr IVPB Q6HR [facility] Rx#:[id number] Calcium Gluconate in NaCl 100 1 gm In Saline 1 100ml. bag @ 100 mls/hr IVPB ONCE ONE Rx#:[id number] Calcium Gluconate in NaCl 100 1 gm In Saline 1 100ml. bag @ 100 mls/hr IVPB ONCE ONE Rx#:[id number] Lactated Ringers 1,000 ml 100 450 130 @ 50 mls/hr IV .Q20H [facility] Rx#:[id number] Magnesium Sulfate-D5w Pmx 100 1 gm In Dextrose/Water 1 100ml.bag @ 100 mls/hr IVPB ONCE ONE Rx#: [id number] Pressure Bag 0.9 NS 6 27 15 Sodium Chloride 0.9% 1, 240 000 ml @ 80 mls/hr IV . [id number] [facility] Rx#:[id number] ceFAZolin 2 gm In Sodium 50 50 Chloride 0.9% 50 ml @ 100 mls/hr IVPB ONCE ONE Rx# :[id number] Intake, IV Titration 45.349 277.114 152.236 Amount Insulin Regular 100 unit 2.6 24.699 11.258 In Sodium Chloride 0.9% 100 ml @ Per Protocol IV .Q0M [facility] Rx#:[id number] Norepinephrine 4 mg In 18.336 116.283 58.343 Sodium Chloride 0.9% 250 ml @ 0.03 MCG/KG/MIN 12. 002 mls/hr IV .[id number] [facility] Rx#:[id number] propofoL 1,000 mg In 24.413 136.132 82.635 Empty Bag 1 bag @ Titrate IV .Q0M [facility] Rx#: [id number] Blood Product 2873 Ffp 24 Pher Acda Cnt1 217 Unit [id number] Ffp 24 Pher Acda Cnt2 220 Unit [id number] Platelet Pheresis Pas 266 Psoralen Unit [id number] Rc As-1 Unit 310 [id number] Rc As-1 Unit 310 [id number] Rc As-1 Unit 310 [id number] Rc As-1 Unit 310 [id number] Rc As-1 Unit 310 [id number] Rc As-1 Unit 310 [id number] Rc As-1 Unit 310 [id number] Output: Chest Tube Drainage 270 140 74 L/R Pleural 270 140 74 Urine 590 192 180 Estimated Blood Loss 22891 Other: Voiding Method Indwelling Catheter Indwelling Catheter Indwelling Catheter Weight 112 kg 112 kg ABP, PAP, CO, CI - Last 8 Hours Arterial Blood Pressure 134/63 Arterial Blood Pressure 140/67 Arterial Blood Pressure 123/58 Arterial Blood Pressure 124/63 Arterial Blood Pressure 114/59 Arterial Blood Pressure 138/63 Arterial Blood Pressure 137/62 Arterial Blood Pressure 134/66 Arterial Blood Pressure 125/59 Arterial Blood Pressure 105/51 Arterial Blood Pressure 120/60 Arterial Blood Pressure 113/58 Arterial Blood Pressure 110/55 Arterial Blood Pressure 114/58 Arterial Blood Pressure 115/58 Arterial Blood Pressure 115/55 Arterial Blood Pressure 111/56 Arterial Blood Pressure 120/60 Arterial Blood Pressure 112/56 Arterial Blood Pressure 107/56 Arterial Blood Pressure 112/56 Arterial Blood Pressure 116/59 Arterial Blood Pressure 114/58 Arterial Blood Pressure 114/59 Physical Exam: Revealed a 78-year-old white male intubated, mechanically ventilated, not in distress. Head: Atraumatic normocephalic. HEENT:[Neck is supple.] [No neck masses.] [No thyromegaly.] [No JVD.] Chest: [Symmetrical chest expansion, diminished breath sounds at the bases. Mediastinal chest tubes present and connected to wall suction. No air leak. Cardiac Exam: [Normal S1 and S2, no S3 gallop, no murmur.] Positive pericardial rub. Abdomen: [Soft, nontender, no megaly, no rebound, no guarding, normal bowel sounds.] Extremities: [No clubbing, no edema, no cyanosis.] Right and left femoral sheaths noted in place Neurological Exam: Not fully assessed, patient was sedated, lethargic, arousable but tends to fall asleep easily, patient was on propofol which was just discontinued Psychiatric: Could not be assessed. Skin is warm, anterior chest incision well approximated and covered with dry intact dressing Results - Laboratory Findings CBC and BMP: 07/12/23 05:00 07/12/23 05:00 ABG ABG pH 7.43 (7.35-7.45) 07/12/23 10:14 ABG pCO2 33 mmHg (35-45) L 07/12/23 10:14 ABG pO2 75 mmHg (83-108) L 07/12/23 10:14 ABG O2 Saturation 96.2 % (94-97) 07/12/23 10:14 PT/INR, D-dimer PT 13.9 sec (10.0-12.5) H 07/11/23 23:15 INR 1.3 (<1.2) H 07/11/23 23:15 Abnormal lab findings: Abnormal Labs 07/11/23 07/11/23 07/11/23 12:47 12:47 12:49 WBC RBC Hgb Hct Plt Count Neutrophils # Neutrophils # (Manual) Monocytes # PT INR APTT Fibrinogen ABG pH ABG pCO2 ABG pO2 ABG HCO3 ABG Total CO2 ABG O2 Saturation ABG Hematocrit ABG Potassium ABG Ionized Calcium ABG Glucose ABG Lactic Acid Hemoglobin Sodium Chloride Carbon Dioxide Creatinine Glucose 112 H POC Glucose (mg/dL) Hemoglobin A1c Calcium Ionized Calcium Elmo Total Bilirubin AST Alkaline Phosphatase 138 H Total Protein Albumin TSH 0.394 L Arterial Blood Potassium Arterial Blood Glucose Crossmatch See Detail See Detail 07/11/23 07/11/23 07/11/23 17:30 17:30 17:30 WBC 12.2 H RBC 3.94 L Hgb 12.1 L Hct 36.3 L Plt Count 128 L Neutrophils # 9.7 H Neutrophils # (Manual) Monocytes # PT 12.7 H INR 1.2 H APTT Fibrinogen ABG pH ABG pCO2 ABG pO2 ABG HCO3 ABG Total CO2 ABG O2 Saturation ABG Hematocrit ABG Potassium ABG Ionized Calcium ABG Glucose ABG Lactic Acid Hemoglobin Sodium 136 L Chloride Carbon Dioxide 20 L Creatinine Glucose 191 H POC Glucose (mg/dL) Hemoglobin A1c Calcium 7.1 L Ionized Calcium Elmo Total Bilirubin AST Alkaline Phosphatase Total Protein 5.2 L Albumin 2.9 L TSH Arterial Blood Potassium Arterial Blood Glucose Crossmatch 07/11/23 07/11/23 07/11/23 18:06 18:17 18:41 WBC RBC Hgb Hct Plt Count Neutrophils # Neutrophils # (Manual) Monocytes # PT INR APTT Fibrinogen ABG pH 7.24 L 7.24 L 7.27 L ABG pCO2 61 H 51 H ABG pO2 328 H 335 H 354 H ABG HCO3 19 L 26 H ABG Total CO2 28 H 25 H ABG O2 Saturation 99.8 H 99.8 H 100.0 H ABG Hematocrit 33 L ABG Potassium 4.9 H 4.8 H ABG Ionized Calcium 4.1 L 4.2 L ABG Glucose 219 H 222 H 247 H ABG Lactic Acid 3.6 H* 3.7 H* 3.7 H* Hemoglobin 10.8 L Sodium Chloride Carbon Dioxide Creatinine Glucose POC Glucose (mg/dL) Hemoglobin A1c Calcium Ionized Calcium Elmo Total Bilirubin AST Alkaline Phosphatase Total Protein Albumin TSH Arterial Blood Potassium 4.9 H 4.8 H Arterial Blood Glucose 219 H 222 H 247 H Crossmatch 07/11/23 07/11/23 07/11/23 19:28 19:51 20:45 WBC 20.1 H RBC Hgb Hct Plt Count 53 L D Neutrophils # Neutrophils # (Manual) 17.40 H Monocytes # PT INR APTT Fibrinogen ABG pH 7.33 L 7.30 L ABG pCO2 49 H ABG pO2 >420 H 352 H ABG HCO3 ABG Total CO2 26 H ABG O2 Saturation 100.0 H 99.9 H ABG Hematocrit ABG Potassium 4.6 H ABG Ionized Calcium 3.8 L ABG Glucose 199 H 193 H ABG Lactic Acid 4.1 H* 4.1 H* Hemoglobin 12.1 L Sodium Chloride Carbon Dioxide Creatinine Glucose POC Glucose (mg/dL) Hemoglobin A1c Calcium Ionized Calcium Elmo Total Bilirubin AST Alkaline Phosphatase Total Protein Albumin TSH Arterial Blood Potassium 4.6 H Arterial Blood Glucose 199 H 193 H Crossmatch 07/11/23 07/11/23 07/11/23 20:45 21:00 21:06 WBC RBC Hgb Hct Plt Count Neutrophils # Neutrophils # (Manual) Monocytes # PT 16.7 H INR 1.6 H APTT 30.1 H Fibrinogen ABG pH ABG pCO2 ABG pO2 ABG HCO3 ABG Total CO2 ABG O2 Saturation ABG Hematocrit ABG Potassium ABG Ionized Calcium ABG Glucose ABG Lactic Acid Hemoglobin Sodium Chloride 112 H Carbon Dioxide 21 L Creatinine 0.60 L Glucose 168 H POC Glucose (mg/dL) 179 H Hemoglobin A1c Calcium 6.6 L Ionized Calcium Elmo 4.2 L Total Bilirubin 3.1 H AST 101 H Alkaline Phosphatase Total Protein 3.7 L Albumin 2.0 L TSH Arterial Blood Potassium Arterial Blood Glucose Crossmatch 07/11/23 07/11/23 07/11/23 21:24 22:02 23:01 WBC RBC Hgb Hct Plt Count Neutrophils # Neutrophils # (Manual) Monocytes # PT INR APTT Fibrinogen ABG pH 7.27 L ABG pCO2 46 H ABG pO2 263 H ABG HCO3 ABG Total CO2 ABG O2 Saturation 99.5 H ABG Hematocrit ABG Potassium ABG Ionized Calcium ABG Glucose ABG Lactic Acid Hemoglobin Sodium Chloride Carbon Dioxide Creatinine Glucose POC Glucose (mg/dL) 161 H 184 H Hemoglobin A1c Calcium Ionized Calcium El[place] Total Bilirubin AST Alkaline Phosphatase Total Protein Albumin TSH Arterial Blood Potassium Arterial Blood Glucose Crossmatch 07/11/23 07/12/23 07/12/23 23:15 00:00 00:07 WBC 19.7 H RBC Hgb Hct Plt Count 66 L Neutrophils # 16.9 H Neutrophils # (Manual) Monocytes # 1.4 H PT 13.9 H INR 1.3 H APTT Fibrinogen 121 L ABG pH ABG pCO2 ABG pO2 ABG HCO3 ABG Total CO2 ABG O2 Saturation ABG Hematocrit ABG Potassium ABG Ionized Calcium ABG Glucose ABG Lactic Acid Hemoglobin Sodium Chloride Carbon Dioxide Creatinine Glucose POC Glucose (mg/dL) 164 H Hemoglobin A1c Calcium Ionized Calcium [place] Total Bilirubin AST Alkaline Phosphatase Total Protein Albumin TSH Arterial Blood Potassium Arterial Blood Glucose Crossmatch 07/12/23 07/12/23 07/12/23 01:04 01:58 03:00 WBC 21.2 H RBC Hgb Hct Plt Count 70 L Neutrophils # 17.7 H Neutrophils # (Manual) Monocytes # 1.9 H PT INR APTT Fibrinogen ABG pH ABG pCO2 ABG pO2 ABG HCO3 ABG Total CO2 ABG O2 Saturation ABG Hematocrit ABG Potassium ABG Ionized Calcium ABG Glucose ABG Lactic Acid Hemoglobin Sodium Chloride Carbon Dioxide Creatinine Glucose POC Glucose (mg/dL) 134 H 146 H Hemoglobin A1c Calcium Ionized Calcium [place] Total Bilirubin AST Alkaline Phosphatase Total Protein Albumin TSH Arterial Blood Potassium Arterial Blood Glucose Crossmatch 07/12/23 07/12/23 07/12/23 03:03 04:06 04:59 WBC RBC Hgb Hct Plt Count Neutrophils # Neutrophils # (Manual) Monocytes # PT INR APTT Fibrinogen ABG pH ABG pCO2 ABG pO2 ABG HCO3 ABG Total CO2 ABG O2 Saturation ABG Hematocrit ABG Potassium ABG Ionized Calcium ABG Glucose ABG Lactic Acid Hemoglobin Sodium Chloride Carbon Dioxide Creatinine Glucose POC Glucose (mg/dL) 134 H 118 H 131 H Hemoglobin A1c Calcium Ionized Calcium [place] Total Bilirubin AST Alkaline Phosphatase Total Protein Albumin TSH Arterial Blood Potassium Arterial Blood Glucose Crossmatch 07/12/23 07/12/23 07/12/23 05:00 05:00 05:00 WBC 19.7 H RBC Hgb Hct Plt Count 71 L Neutrophils # 16.8 H Neutrophils # (Manual) Monocytes # 1.4 H PT INR APTT Fibrinogen ABG pH ABG pCO2 ABG pO2 ABG HCO3 ABG Total CO2 ABG O2 Saturation ABG Hematocrit ABG Potassium ABG Ionized Calcium ABG Glucose ABG Lactic Acid Hemoglobin Sodium Chloride 113 H Carbon Dioxide 19 L Creatinine Glucose 134 H POC Glucose (mg/dL) Hemoglobin A1c 6.2 H Calcium 7.5 L Ionized Calcium Elmo Total Bilirubin 2.4 H AST 152 H Alkaline Phosphatase Total Protein 4.1 L Albumin 2.2 L TSH Arterial Blood Potassium Arterial Blood Glucose Crossmatch 07/12/23 07/12/23 07/12/23 05:58 05:58 06:09 WBC RBC Hgb Hct Plt Count Neutrophils # Neutrophils # (Manual) Monocytes # PT INR APTT Fibrinogen 113 L ABG pH ABG pCO2 34 L ABG pO2 ABG HCO3 20 L ABG Total CO2 ABG O2 Saturation 97.6 H ABG Hematocrit ABG Potassium ABG Ionized Calcium ABG Glucose ABG Lactic Acid Hemoglobin Sodium Chloride Carbon Dioxide Creatinine Glucose POC Glucose (mg/dL) 136 H Hemoglobin A1c Calcium Ionized Calcium [place] Total Bilirubin AST Alkaline Phosphatase Total Protein Albumin TSH Arterial Blood Potassium Arterial Blood Glucose Crossmatch 07/12/23 07/12/23 07/12/23 06:55 09:23 10:14 WBC RBC Hgb Hct Plt Count Neutrophils # Neutrophils # (Manual) Monocytes # PT INR APTT Fibrinogen ABG pH ABG pCO2 33 L ABG pO2 75 L ABG HCO3 ABG Total CO2 ABG O2 Saturation ABG Hematocrit ABG Potassium ABG Ionized Calcium ABG Glucose ABG Lactic Acid Hemoglobin Sodium Chloride Carbon Dioxide Creatinine Glucose POC Glucose (mg/dL) 129 H 146 H Hemoglobin A1c Calcium Ionized Calcium [place] Total Bilirubin AST Alkaline Phosphatase Total Protein Albumin TSH Arterial Blood Potassium Arterial Blood Glucose Crossmatch 07/12/23 07/12/23 07/12/23 10:19 11:23 12:15 WBC RBC Hgb Hct Plt Count Neutrophils # Neutrophils # (Manual) Monocytes # PT INR APTT Fibrinogen ABG pH ABG pCO2 ABG pO2 ABG HCO3 ABG Total CO2 ABG O2 Saturation ABG Hematocrit ABG Potassium ABG Ionized Calcium ABG Glucose ABG Lactic Acid Hemoglobin Sodium Chloride Carbon Dioxide Creatinine Glucose POC Glucose (mg/dL) 147 H 135 H 130 H Hemoglobin A1c Calcium Ionized Calcium [place] Total Bilirubin AST Alkaline Phosphatase Total Protein Albumin TSH Arterial Blood Potassium Arterial Blood Glucose Crossmatch - Diagnostic Findings Chest x-ray: image reviewed (As noted in HPI) Assessment and Plan Assessment: Impression Acute hypoxic respiratory failure secondary to cardiac tamponade, iatrogenic in nature Cardiac tamponade, status post left atrial ablation for paroxysmal atrial fibril lation with evidence of injury to the left atrium requiring emergent sternotomy, institution of cardiopulmonary bypass, and repair of left atrial injury, exclusion of left atrial appendage using a 35 mm atriclip, intraoperative transesophageal echocardiogram, postoperative day #1 Benign essential hypertension Chronic atrial fibrillation, symptomatic History of supraventricular tachycardia Dyslipidemia degenerative joint disease Ex-smoker Recommendation: Continue ventilatory support Continue to address weaning and possible extubation today. Continue supportive care measures Check weaning parameters before extubation today, and address accordingly Continue mediastinal chest tubes for another 24 hours. Patient is now off norepinephrine Continue Alberts catheter for the next 24 hours. Resume his home cardiac medications Cardiology to address his femoral sheaths If extubated, O2 incentive spirometry and encourage ambulation We'll continue to follow Time with Patient: Greater than 30
[2023-07-12 13:50] LABS: Glucose,Whole Blood 117 mg/dL (70-110)
[2023-07-12 14:51] LABS: Glucose,Whole Blood 117 mg/dL (70-110)
[2023-07-12] MEDS ORDERED: fentaNYL (PF) 50 MCG/ML 2 ML AMP IVP STA (14:54)
--- NOTE | 2023-07-12 15:06 | P.PN ---
Subjective HISTORY OF PRESENTING ILLNESS Patient is a pleasant 78-year-old male with history of CAD, persistent atrial fibrillation, SVT, hypertension, hyperlipidemia, previous tobacco abuse who presented for elective A. fib ablation. Patient did have cardiac tamponade nod and therefore was taken to surgery with findings of left atrial injury with repair as well as exclusion of left atrial appendage and he had been placed on cardiopulmonary bypass. He remains in sinus rhythm today and has approximate 400 mL output from his mediastinal chest tube. He has been on low-dose norepinephrine. He was extubated earlier today and found to have left sided we akness and therefore code stroke called and neurology consult that with concern of ischemic stroke. Blood blood cell count 19.7, hemoglobin 15.4, platelets down to 71, creatinine 1.2, bilirubin 2.4, AST 152, ALT was 38. Patient not responding all questions appropriately however does admit to chest pain around his sternotomy incision. PHYSICAL EXAMINATION Vital signs reviewed. CONSTITUTIONAL: No apparent distress, +left sided weakness. HEENT: Head is normocephalic. Pupils are equal, round. Sclerae anicteric. Mucous membranes of the mouth are moist. No JVD. No carotid bruit. CHEST EXAMINATION: Lungs are clear to auscultation. No chest wall tenderness is noted on palpation or with deep breathing. HEART EXAMINATION: Regular rate and rhythm. S1, S2 heard. No murmurs, gallops or rub. ABDOMEN: Soft, nontender. Positive bowel sounds. EXTREMITIES: 2+ peripheral pulses, no lower extremity edema and no calf tenderness. NEUROLOGIC EXAMINATION: Patient is awake, slurring his words ASSESSMENT Status post pulmonary vein isolation ablation 07/11 with left atrial injury, pericardial effusion/cardiac tamponade Left atrial injury status post cardiopulmonary bypass with left atrial repair, exclusion of left atrial appendage Acute left-sided stroke CAD Thrombocytopenia Hypertension Hyperlipidemia PLAN Patient had cardiac tamponade from left atrial injury with 6 this will repair, postop day 1. Unfortunately it does appear he is also suffered a ischemic stroke. Defer to neurology and surgery in terms of timing of restarting anticoagulation. Continue current supportive care. Monitor hemoglobin and platelets closely. Prognosis guarded. Objective - Vital Signs Vital signs: Vital Signs Temp 100.2 F H 07/12/23 10:00 Pulse 92 07/12/23 13:00 Resp 31 H 07/12/23 13:00 BP 140/69 07/12/23 13:00 Pulse Ox 94 L 07/12/23 13:00 FiO2 50 07/12/23 09:36 Intake & Output 07/11/23 07/12/23 07/12/23 18:59 06:59 18:59 Intake Total 1609 2989.463 775.503 Output Total 1920 75827 314 Balance -311 -8202.537 461.503 Weight 105 kg 112 kg 112 kg Intake: IV 369 1034 618 ACETAMINOPHEN IV (For NPO 200 ) 1,000 mg In Empty Bag 1 bag @ 400 mls/hr IVPB Q6HR [facility] Rx#:[id number] Calcium Gluconate in NaCl 100 1 gm In Saline 1 100ml. bag @ 100 mls/hr IVPB ONCE ONE Rx#:[id number] Calcium Gluconate in NaCl 100 1 gm In Saline 1 100ml. bag @ 100 mls/hr IVPB ONCE ONE Rx#:[id number] Lactated Ringers 1,000 ml 550 130 @ 50 mls/hr IV .Q20H [facility] Rx#:[id number] Magnesium Sulfate-D5w Pmx 100 1 gm In Dextrose/Water 1 100ml.bag @ 100 mls/hr IVPB ONCE ONE Rx#: [id number] Pressure Bag 0.9 NS 33 18 Sodium Chloride 0.9% 1, 320 000 ml @ 80 mls/hr IV . [id number] [facility] Rx#:[id number] ceFAZolin 2 gm In Sodium 50 50 Chloride 0.9% 50 ml @ 100 mls/hr IVPB ONCE ONE Rx# :[id number] Intake, IV Titration 322.463 157.503 Amount Insulin Regular 100 unit 27.299 16.525 In Sodium Chloride 0.9% 100 ml @ Per Protocol IV .Q0M [facility] Rx#:[id number] Norepinephrine 4 mg In 134.619 58.343 Sodium Chloride 0.9% 250 ml @ 0.03 MCG/KG/MIN 12. 002 mls/hr IV .[id number] [facility] Rx#:[id number] propofoL 1,000 mg In 160.545 82.635 Empty Bag 1 bag @ Titrate IV .Q0M [facility] Rx#: [id number] Blood Product 1240 1633 Ffp 24 Pher Acda Cnt1 217 Unit [id number] Ffp 24 Pher Acda Cnt2 220 Unit [id number] Platelet Pheresis Pas 266 Psoralen Unit [id number] Rc As-1 Unit 310 0 [id number] Rc As-1 Unit 310 [id number] Rc As-1 Unit 310 [id number] Rc As-1 Unit 310 [id number] Rc As-1 Unit 310 0 [id number] Rc As-1 Unit 310 0 [id number] Rc As-1 Unit 310 0 [id number] Output: Chest Tube Drainage 410 84 L/R Pleural 410 84 Urine 782 230 Estimated Blood Loss 1920 18087 Other: Voiding Method Indwelling Catheter Indwelling Catheter ABP, PAP, CO, CI - Last Documented Arterial Blood Pressure 140/66 - Labs CBC & Chem 7: 07/12/23 05:00 07/12/23 05:00 Labs: Abnormal Lab Results - Last 24 Hours (Table) 07/11/23 07/11/23 07/11/23 Range/Units 12:47 12:49 17:30 WBC (3.8-10.6) k/uL RBC (4.30-5.90) m/uL Hgb (13.0-17.5) gm/dL Hct (39.0-53.0) % Plt Count (150-450) k/uL Neutrophils # (1.3-7.7) k/uL Neutrophils # (Manual) (1.3-7.7) k/uL Monocytes # (0-1.0) k/uL PT (10.0-12.5) sec INR (<1.2) APTT (22.0-30.0) sec Fibrinogen (200-500) mg/dL ABG pH (7.35-7.45) ABG pCO2 (35-45) mmHg ABG pO2 (83-108) mmHg ABG HCO3 (21-25) mmol/L ABG Total CO2 (19-24) mmol/L ABG O2 Saturation (94-97) % ABG Hematocrit (34.0-46.0) % ABG Potassium (3.4-4.5) mmol/L ABG Ionized Calcium (4.5-5.3) mg/dL ABG Glucose (75-99) mg/dL ABG Lactic Acid (0.5-1.6) mmol/L Hemoglobin (13.0-17.5) gm/dL Sodium 136 L (137-145) mmol/L Chloride (98-107) mmol/L Carbon Dioxide 20 L (22-30) mmol/L Creatinine (0.66-1.25) mg/dL Glucose 191 H (74-99) mg/dL POC Glucose (mg/dL) (70-110) mg/dL Hemoglobin A1c (<=6.0) % Calcium 7.1 L (8.4-10.2) mg/dL Ionized Calcium Elmo (4.5-5.3) mg/dL Total Bilirubin (0.2-1.3) mg/dL AST (17-59) U/L Total Protein 5.2 L (6.3-8.2) g/dL Albumin 2.9 L (3.5-5.0) g/dL Arterial Blood Potassium (3.4-4.5) mmol/L Arterial Blood Glucose (75-99) mg/dL Crossmatch See Detail See Detail 07/11/23 07/11/23 07/11/23 Range/Units 17:30 17:30 18:06 WBC 12.2 H (3.8-10.6) k/uL RBC 3.94 L (4.30-5.90) m/uL Hgb 12.1 L (13.0-17.5) gm/dL Hct 36.3 L (39.0-53.0) % Plt Count 128 L (150-450) k/uL Neutrophils # 9.7 H (1.3-7.7) k/uL Neutrophils # (Manual) (1.3-7.7) k/uL Monocytes # (0-1.0) k/uL PT 12.7 H (10.0-12.5) sec INR 1.2 H (<1.2) APTT (22.0-30.0) sec Fibrinogen (200-500) mg/dL ABG pH 7.24 L (7.35-7.45) ABG pCO2 (35-45) mmHg ABG pO2 328 H (83-108) mmHg ABG HCO3 19 L (21-25) mmol/L ABG Total CO2 (19-24) mmol/L ABG O2 Saturation 99.8 H (94-97) % ABG Hematocrit (34.0-46.0) % ABG Potassium 4.9 H (3.4-4.5) mmol/L ABG Ionized Calcium 4.1 L (4.5-5.3) mg/dL ABG Glucose 219 H (75-99) mg/dL ABG Lactic Acid 3.6 H* (0.5-1.6) mmol/L Hemoglobin (13.0-17.5) gm/dL Sodium (137-145) mmol/L Chloride (98-107) mmol/L Carbon Dioxide (22-30) mmol/L Creatinine (0.66-1.25) mg/dL Glucose (74-99) mg/dL POC Glucose (mg/dL) (70-110) mg/dL Hemoglobin A1c (<=6.0) % Calcium (8.4-10.2) mg/dL Ionized Calcium Elmo (4.5-5.3) mg/dL Total Bilirubin (0.2-1.3) mg/dL AST (17-59) U/L Total Protein (6.3-8.2) g/dL Albumin (3.5-5.0) g/dL Arterial Blood Potassium 4.9 H (3.4-4.5) mmol/L Arterial Blood Glucose 219 H (75-99) mg/dL Crossmatch 07/11/23 07/11/23 07/11/23 Range/Units 18:17 18:41 19:28 WBC (3.8-10.6) k/uL RBC (4.30-5.90) m/uL Hgb (13.0-17.5) gm/dL Hct (39.0-53.0) % Plt Count (150-450) k/uL Neutrophils # (1.3-7.7) k/uL Neutrophils # (Manual) (1.3-7.7) k/uL Monocytes # (0-1.0) k/uL PT (10.0-12.5) sec INR (<1.2) APTT (22.0-30.0) sec Fibrinogen (200-500) mg/dL ABG pH 7.24 L 7.27 L 7.33 L (7.35-7.45) ABG pCO2 61 H 51 H (35-45) mmHg ABG pO2 335 H 354 H >420 H (83-108) mmHg ABG HCO3 26 H (21-25) mmol/L ABG Total CO2 28 H 25 H (19-24) mmol/L ABG O2 Saturation 99.8 H 100.0 H 100.0 H (94-97) % ABG Hematocrit 33 L (34.0-46.0) % ABG Potassium 4.8 H 4.6 H (3.4-4.5) mmol/L ABG Ionized Calcium 4.2 L 3.8 L (4.5-5.3) mg/dL ABG Glucose 222 H 247 H 199 H (75-99) mg/dL ABG Lactic Acid 3.7 H* 3.7 H* 4.1 H* (0.5-1.6) mmol/L Hemoglobin 10.8 L (13.0-17.5) gm/dL Sodium (137-145) mmol/L Chloride (98-107) mmol/L Carbon Dioxide (22-30) mmol/L Creatinine (0.66-1.25) mg/dL Glucose (74-99) mg/dL POC Glucose (mg/dL) (70-110) mg/dL Hemoglobin A1c (<=6.0) % Calcium (8.4-10.2) mg/dL Ionized Calcium Elmo (4.5-5.3) mg/dL Total Bilirubin (0.2-1.3) mg/dL AST (17-59) U/L Total Protein (6.3-8.2) g/dL Albumin (3.5-5.0) g/dL Arterial Blood Potassium 4.8 H 4.6 H (3.4-4.5) mmol/L Arterial Blood Glucose 222 H 247 H 199 H (75-99) mg/dL Crossmatch 07/11/23 07/11/23 07/11/23 Range/Units 19:51 20:45 20:45 WBC 20.1 H (3.8-10.6) k/uL RBC (4.30-5.90) m/uL Hgb (13.0-17.5) gm/dL Hct (39.0-53.0) % Plt Count 53 L D (150-450) k/uL Neutrophils # (1.3-7.7) k/uL Neutrophils # (Manual) 17.40 H (1.3-7.7) k/uL Monocytes # (0-1.0) k/uL PT 16.7 H (10.0-12.5) sec INR 1.6 H (<1.2) APTT 30.1 H (22.0-30.0) sec Fibrinogen (200-500) mg/dL ABG pH 7.30 L (7.35-7.45) ABG pCO2 49 H (35-45) mmHg ABG pO2 352 H (83-108) mmHg ABG HCO3 (21-25) mmol/L ABG Total CO2 26 H (19-24) mmol/L ABG O2 Saturation 99.9 H (94-97) % ABG Hematocrit (34.0-46.0) % ABG Potassium (3.4-4.5) mmol/L ABG Ionized Calcium (4.5-5.3) mg/dL ABG Glucose 193 H (75-99) mg/dL ABG Lactic Acid 4.1 H* (0.5-1.6) mmol/L Hemoglobin 12.1 L (13.0-17.5) gm/dL Sodium (137-145) mmol/L Chloride (98-107) mmol/L Carbon Dioxide (22-30) mmol/L Creatinine (0.66-1.25) mg/dL Glucose (74-99) mg/dL POC Glucose (mg/dL) (70-110) mg/dL Hemoglobin A1c (<=6.0) % Calcium (8.4-10.2) mg/dL Ionized Calcium Elmo (4.5-5.3) mg/dL Total Bilirubin (0.2-1.3) mg/dL AST (17-59) U/L Total Protein (6.3-8.2) g/dL Albumin (3.5-5.0) g/dL Arterial Blood Potassium (3.4-4.5) mmol/L Arterial Blood Glucose 193 H (75-99) mg/dL Crossmatch 07/11/23 07/11/23 07/11/23 Range/Units 21:00 21:06 21:24 WBC (3.8-10.6) k/uL RBC (4.30-5.90) m/uL Hgb (13.0-17.5) gm/dL Hct (39.0-53.0) % Plt Count (150-450) k/uL Neutrophils # (1.3-7.7) k/uL Neutrophils # (Manual) (1.3-7.7) k/uL Monocytes # (0-1.0) k/uL PT (10.0-12.5) sec INR (<1.2) APTT (22.0-30.0) sec Fibrinogen (200-500) mg/dL ABG pH 7.27 L (7.35-7.45) ABG pCO2 46 H (35-45) mmHg ABG pO2 263 H (83-108) mmHg ABG HCO3 (21-25) mmol/L ABG Total CO2 (19-24) mmol/L ABG O2 Saturation 99.5 H (94-97) % ABG Hematocrit (34.0-46.0) % ABG Potassium (3.4-4.5) mmol/L ABG Ionized Calcium (4.5-5.3) mg/dL ABG Glucose (75-99) mg/dL ABG Lactic Acid (0.5-1.6) mmol/L Hemoglobin (13.0-17.5) gm/dL Sodium (137-145) mmol/L Chloride 112 H (98-107) mmol/L Carbon Dioxide 21 L (22-30) mmol/L Creatinine 0.60 L (0.66-1.25) mg/dL Glucose 168 H (74-99) mg/dL POC Glucose (mg/dL) 179 H (70-110) mg/dL Hemoglobin A1c (<=6.0) % Calcium 6.6 L (8.4-10.2) mg/dL Ionized Calcium Elmo 4.2 L (4.5-5.3) mg/dL Total Bilirubin 3.1 H (0.2-1.3) mg/dL AST 101 H (17-59) U/L Total Protein 3.7 L (6.3-8.2) g/dL Albumin 2.0 L (3.5-5.0) g/dL Arterial Blood Potassium (3.4-4.5) mmol/L Arterial Blood Glucose (75-99) mg/dL Crossmatch 07/11/23 07/11/23 07/11/23 Range/Units 22:02 23:01 23:15 WBC (3.8-10.6) k/uL RBC (4.30-5.90) m/uL Hgb (13.0-17.5) gm/dL Hct (39.0-53.0) % Plt Count (150-450) k/uL Neutrophils # (1.3-7.7) k/uL Neutrophils # (Manual) (1.3-7.7) k/uL Monocytes # (0-1.0) k/uL PT 13.9 H (10.0-12.5) sec INR 1.3 H (<1.2) APTT (22.0-30.0) sec Fibrinogen 121 L (200-500) mg/dL ABG pH (7.35-7.45) ABG pCO2 (35-45) mmHg ABG pO2 (83-108) mmHg ABG HCO3 (21-25) mmol/L ABG Total CO2 (19-24) mmol/L ABG O2 Saturation (94-97) % ABG Hematocrit (34.0-46.0) % ABG Potassium (3.4-4.5) mmol/L ABG Ionized Calcium (4.5-5.3) mg/dL ABG Glucose (75-99) mg/dL ABG Lactic Acid (0.5-1.6) mmol/L Hemoglobin (13.0-17.5) gm/dL Sodium (137-145) mmol/L Chloride (98-107) mmol/L Carbon Dioxide (22-30) mmol/L Creatinine (0.66-1.25) mg/dL Glucose (74-99) mg/dL POC Glucose (mg/dL) 161 H 184 H (70-110) mg/dL Hemoglobin A1c (<=6.0) % Calcium (8.4-10.2) mg/dL Ionized Calcium Elmo (4.5-5.3) mg/dL Total Bilirubin (0.2-1.3) mg/dL AST (17-59) U/L Total Protein (6.3-8.2) g/dL Albumin (3.5-5.0) g/dL Arterial Blood Potassium (3.4-4.5) mmol/L Arterial Blood Glucose (75-99) mg/dL Crossmatch 07/12/23 07/12/23 07/12/23 Range/Units 00:00 00:07 01:04 WBC 19.7 H (3.8-10.6) k/uL RBC (4.30-5.90) m/uL Hgb (13.0-17.5) gm/dL Hct (39.0-53.0) % Plt Count 66 L (150-450) k/uL Neutrophils # 16.9 H (1.3-7.7) k/uL Neutrophils # (Manual) (1.3-7.7) k/uL Monocytes # 1.4 H (0-1.0) k/uL PT (10.0-12.5) sec INR (<1.2) APTT (22.0-30.0) sec Fibrinogen (200-500) mg/dL ABG pH (7.35-7.45) ABG pCO2 (35-45) mmHg ABG pO2 (83-108) mmHg ABG HCO3 (21-25) mmol/L ABG Total CO2 (19-24) mmol/L ABG O2 Saturation (94-97) % ABG Hematocrit (34.0-46.0) % ABG Potassium (3.4-4.5) mmol/L ABG Ionized Calcium (4.5-5.3) mg/dL ABG Glucose (75-99) mg/dL ABG Lactic Acid (0.5-1.6) mmol/L Hemoglobin (13.0-17.5) gm/dL Sodium (137-145) mmol/L Chloride (98-107) mmol/L Carbon Dioxide (22-30) mmol/L Creatinine (0.66-1.25) mg/dL Glucose (74-99) mg/dL POC Glucose (mg/dL) 164 H 134 H (70-110) mg/dL Hemoglobin A1c (<=6.0) % Calcium (8.4-10.2) mg/dL Ionized Calcium Elmo (4.5-5.3) mg/dL Total Bilirubin (0.2-1.3) mg/dL AST (17-59) U/L Total Protein (6.3-8.2) g/dL Albumin (3.5-5.0) g/dL Arterial Blood Potassium (3.4-4.5) mmol/L Arterial Blood Glucose (75-99) mg/dL Crossmatch 07/12/23 07/12/23 07/12/23 Range/Units 01:58 03:00 03:03 WBC 21.2 H (3.8-10.6) k/uL RBC (4.30-5.90) m/uL Hgb (13.0-17.5) gm/dL Hct (39.0-53.0) % Plt Count 70 L (150-450) k/uL Neutrophils # 17.7 H (1.3-7.7) k/uL Neutrophils # (Manual) (1.3-7.7) k/uL Monocytes # 1.9 H (0-1.0) k/uL PT (10.0-12.5) sec INR (<1.2) APTT (22.0-30.0) sec Fibrinogen (200-500) mg/dL ABG pH (7.35-7.45) ABG pCO2 (35-45) mmHg ABG pO2 (83-108) mmHg ABG HCO3 (21-25) mmol/L ABG Total CO2 (19-24) mmol/L ABG O2 Saturation (94-97) % ABG Hematocrit (34.0-46.0) % ABG Potassium (3.4-4.5) mmol/L ABG Ionized Calcium (4.5-5.3) mg/dL ABG Glucose (75-99) mg/dL ABG Lactic Acid (0.5-1.6) mmol/L Hemoglobin (13.0-17.5) gm/dL Sodium (137-145) mmol/L Chloride (98-107) mmol/L Carbon Dioxide (22-30) mmol/L Creatinine (0.66-1.25) mg/dL Glucose (74-99) mg/dL POC Glucose (mg/dL) 146 H 134 H (70-110) mg/dL Hemoglobin A1c (<=6.0) % Calcium (8.4-10.2) mg/dL Ionized Calcium Elmo (4.5-5.3) mg/dL Total Bilirubin (0.2-1.3) mg/dL AST (17-59) U/L Total Protein (6.3-8.2) g/dL Albumin (3.5-5.0) g/dL Arterial Blood Potassium (3.4-4.5) mmol/L Arterial Blood Glucose (75-99) mg/dL Crossmatch 07/12/23 07/12/23 07/12/23 Range/Units 04:06 04:59 05:00 WBC (3.8-10.6) k/uL RBC (4.30-5.90) m/uL Hgb (13.0-17.5) gm/dL Hct (39.0-53.0) % Plt Count (150-450) k/uL Neutrophils # (1.3-7.7) k/uL Neutrophils # (Manual) (1.3-7.7) k/uL Monocytes # (0-1.0) k/uL PT (10.0-12.5) sec INR (<1.2) APTT (22.0-30.0) sec Fibrinogen (200-500) mg/dL ABG pH (7.35-7.45) ABG pCO2 (35-45) mmHg ABG pO2 (83-108) mmHg ABG HCO3 (21-25) mmol/L ABG Total CO2 (19-24) mmol/L ABG O2 Saturation (94-97) % ABG Hematocrit (34.0-46.0) % ABG Potassium (3.4-4.5) mmol/L ABG Ionized Calcium (4.5-5.3) mg/dL ABG Glucose (75-99) mg/dL ABG Lactic Acid (0.5-1.6) mmol/L Hemoglobin (13.0-17.5) gm/dL Sodium (137-145) mmol/L Chloride (98-107) mmol/L Carbon Dioxide (22-30) mmol/L Creatinine (0.66-1.25) mg/dL Glucose (74-99) mg/dL POC Glucose (mg/dL) 118 H 131 H (70-110) mg/dL Hemoglobin A1c 6.2 H (<=6.0) % Calcium (8.4-10.2) mg/dL Ionized Calcium Elmo (4.5-5.3) mg/dL Total Bilirubin (0.2-1.3) mg/dL AST (17-59) U/L Total Protein (6.3-8.2) g/dL Albumin (3.5-5.0) g/dL Arterial Blood Potassium (3.4-4.5) mmol/L Arterial Blood Glucose (75-99) mg/dL Crossmatch 07/12/23 07/12/23 07/12/23 Range/Units 05:00 05:00 05:58 WBC 19.7 H (3.8-10.6) k/uL RBC (4.30-5.90) m/uL Hgb (13.0-17.5) gm/dL Hct (39.0-53.0) % Plt Count 71 L (150-450) k/uL Neutrophils # 16.8 H (1.3-7.7) k/uL Neutrophils # (Manual) (1.3-7.7) k/uL Monocytes # 1.4 H (0-1.0) k/uL PT (10.0-12.5) sec INR (<1.2) APTT (22.0-30.0) sec Fibrinogen (200-500) mg/dL ABG pH (7.35-7.45) ABG pCO2 (35-45) mmHg ABG pO2 (83-108) mmHg ABG HCO3 (21-25) mmol/L ABG Total CO2 (19-24) mmol/L ABG O2 Saturation (94-97) % ABG Hematocrit (34.0-46.0) % ABG Potassium (3.4-4.5) mmol/L ABG Ionized Calcium (4.5-5.3) mg/dL ABG Glucose (75-99) mg/dL ABG Lactic Acid (0.5-1.6) mmol/L Hemoglobin (13.0-17.5) gm/dL Sodium (137-145) mmol/L Chloride 113 H (98-107) mmol/L Carbon Dioxide 19 L (22-30) mmol/L Creatinine (0.66-1.25) mg/dL Glucose 134 H (74-99) mg/dL POC Glucose (mg/dL) 136 H (70-110) mg/dL Hemoglobin A1c (<=6.0) % Calcium 7.5 L (8.4-10.2) mg/dL Ionized Calcium Elmo (4.5-5.3) mg/dL Total Bilirubin 2.4 H (0.2-1.3) mg/dL AST 152 H (17-59) U/L Total Protein 4.1 L (6.3-8.2) g/dL Albumin 2.2 L (3.5-5.0) g/dL Arterial Blood Potassium (3.4-4.5) mmol/L Arterial Blood Glucose (75-99) mg/dL Crossmatch 07/12/23 07/12/23 07/12/23 Range/Units 05:58 06:09 06:55 WBC (3.8-10.6) k/uL RBC (4.30-5.90) m/uL Hgb (13.0-17.5) gm/dL Hct (39.0-53.0) % Plt Count (150-450) k/uL Neutrophils # (1.3-7.7) k/uL Neutrophils # (Manual) (1.3-7.7) k/uL Monocytes # (0-1.0) k/uL PT (10.0-12.5) sec INR (<1.2) APTT (22.0-30.0) sec Fibrinogen 113 L (200-500) mg/dL ABG pH (7.35-7.45) ABG pCO2 34 L (35-45) mmHg ABG pO2 (83-108) mmHg ABG HCO3 20 L (21-25) mmol/L ABG Total CO2 (19-24) mmol/L ABG O2 Saturation 97.6 H (94-97) % ABG Hematocrit (34.0-46.0) % ABG Potassium (3.4-4.5) mmol/L ABG Ionized Calcium (4.5-5.3) mg/dL ABG Glucose (75-99) mg/dL ABG Lactic Acid (0.5-1.6) mmol/L Hemoglobin (13.0-17.5) gm/dL Sodium (137-145) mmol/L Chloride (98-107) mmol/L Carbon Dioxide (22-30) mmol/L Creatinine (0.66-1.25) mg/dL Glucose (74-99) mg/dL POC Glucose (mg/dL) 129 H (70-110) mg/dL Hemoglobin A1c (<=6.0) % Calcium (8.4-10.2) mg/dL Ionized Calcium Elmo (4.5-5.3) mg/dL Total Bilirubin (0.2-1.3) mg/dL AST (17-59) U/L Total Protein (6.3-8.2) g/dL Albumin (3.5-5.0) g/dL Arterial Blood Potassium (3.4-4.5) mmol/L Arterial Blood Glucose (75-99) mg/dL Crossmatch 07/12/23 07/12/23 07/12/23 Range/Units 09:23 10:14 10:19 WBC (3.8-10.6) k/uL RBC (4.30-5.90) m/uL Hgb (13.0-17.5) gm/dL Hct (39.0-53.0) % Plt Count (150-450) k/uL Neutrophils # (1.3-7.7) k/uL Neutrophils # (Manual) (1.3-7.7) k/uL Monocytes # (0-1.0) k/uL PT (10.0-12.5) sec INR (<1.2) APTT (22.0-30.0) sec Fibrinogen (200-500) mg/dL ABG pH (7.35-7.45) ABG pCO2 33 L (35-45) mmHg ABG pO2 75 L (83-108) mmHg ABG HCO3 (21-25) mmol/L ABG Total CO2 (19-24) mmol/L ABG O2 Saturation (94-97) % ABG Hematocrit (34.0-46.0) % ABG Potassium (3.4-4.5) mmol/L ABG Ionized Calcium (4.5-5.3) mg/dL ABG Glucose (75-99) mg/dL ABG Lactic Acid (0.5-1.6) mmol/L Hemoglobin (13.0-17.5) gm/dL Sodium (137-145) mmol/L Chloride (98-107) mmol/L Carbon Dioxide (22-30) mmol/L Creatinine (0.66-1.25) mg/dL Glucose (74-99) mg/dL POC Glucose (mg/dL) 146 H 147 H (70-110) mg/dL Hemoglobin A1c (<=6.0) % Calcium (8.4-10.2) mg/dL Ionized Calcium Elmo (4.5-5.3) mg/dL Total Bilirubin (0.2-1.3) mg/dL AST (17-59) U/L Total Protein (6.3-8.2) g/dL Albumin (3.5-5.0) g/dL Arterial Blood Potassium (3.4-4.5) mmol/L Arterial Blood Glucose (75-99) mg/dL Crossmatch 07/12/23 07/12/23 07/12/23 Range/Units 11: 12: 13:49 WBC (3.8-10.6) k/uL RBC (4.30-5.90) m/uL Hgb (13.0-17.5) gm/dL Hct (39.0-53.0) % Plt Count (150-450) k/uL Neutrophils # (1.3-7.7) k/uL Neutrophils # (Manual) (1.3-7.7) k/uL Monocytes # (0-1.0) k/uL PT (10.0-12.5) sec INR (<1.2) APTT (22.0-30.0) sec Fibrinogen (200-500) mg/dL ABG pH (7.35-7.45) ABG pCO2 (35-45) mmHg ABG pO2 (83-108) mmHg ABG HCO3 (21-25) mmol/L ABG Total CO2 (19-24) mmol/L ABG O2 Saturation (94-97) % ABG Hematocrit (34.0-46.0) % ABG Potassium (3.4-4.5) mmol/L ABG Ionized Calcium (4.5-5.3) mg/dL ABG Glucose (75-99) mg/dL ABG Lactic Acid (0.5-1.6) mmol/L Hemoglobin (13.0-17.5) gm/dL Sodium (137-145) mmol/L Chloride (98-107) mmol/L Carbon Dioxide (22-30) mmol/L Creatinine (0.66-1.25) mg/dL Glucose (74-99) mg/dL POC Glucose (mg/dL) 135 H 130 H 117 H (70-110) mg/dL Hemoglobin A1c (<=6.0) % Calcium (8.4-10.2) mg/dL Ionized Calcium Elmo (4.5-5.3) mg/dL Total Bilirubin (0.2-1.3) mg/dL AST (17-59) U/L Total Protein (6.3-8.2) g/dL Albumin (3.5-5.0) g/dL Arterial Blood Potassium (3.4-4.5) mmol/L Arterial Blood Glucose (75-99) mg/dL Crossmatch 07/12/23 Range/Units 14:50 WBC (3.8-10.6) k/uL RBC (4.30-5.90) m/uL Hgb (13.0-17.5) gm/dL Hct (39.0-53.0) % Plt Count (150-450) k/uL Neutrophils # (1.3-7.7) k/uL Neutrophils # (Manual) (1.3-7.7) k/uL Monocytes # (0-1.0) k/uL PT (10.0-12.5) sec INR (<1.2) APTT (22.0-30.0) sec Fibrinogen (200-500) mg/dL ABG pH (7.35-7.45) ABG pCO2 (35-45) mmHg ABG pO2 (83-108) mmHg ABG HCO3 (21-25) mmol/L ABG Total CO2 (19-24) mmol/L ABG O2 Saturation (94-97) % ABG Hematocrit (34.0-46.0) % ABG Potassium (3.4-4.5) mmol/L ABG Ionized Calcium (4.5-5.3) mg/dL ABG Glucose (75-99) mg/dL ABG Lactic Acid (0.5-1.6) mmol/L Hemoglobin (13.0-17.5) gm/dL Sodium (137-145) mmol/L Chloride (98-107) mmol/L Carbon Dioxide (22-30) mmol/L Creatinine (0.66-1.25) mg/dL Glucose (74-99) mg/dL POC Glucose (mg/dL) 117 H (70-110) mg/dL Hemoglobin A1c (<=6.0) % Calcium (8.4-10.2) mg/dL Ionized Calcium Elmo (4.5-5.3) mg/dL Total Bilirubin (0.2-1.3) mg/dL AST (17-59) U/L Total Protein (6.3-8.2) g/dL Albumin (3.5-5.0) g/dL Arterial Blood Potassium (3.4-4.5) mmol/L Arterial Blood Glucose (75-99) mg/dL Crossmatch
--- NOTE | 2023-07-12 15:12 | CT ---
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 Coronal and sagittal reconstructions performed. Subseque nt CT scanning of the head and neck performed with IV Contrast, patient injected with 65 mL of Isovue 370. Coronal/sagittal reconstructions performed. 3-D reconstructions generated on a dedicated workst [employer]. CT DLP: 672 (accession [id number]), 1192.8 (accession [id number]) mGycm Automated exposure control for dose reduction was used. FINDINGS: Noncontrast CT head: There is cortical/subcortical hypodensity anterior right frontal lobe, axial image 43 with loss of gr ay-white matter interface. Some benign basal ganglionic calcifications on the left. Other scattered calcifications carotid sipho ns. No evidence for acute intracranial hemorrhage, mass, mass effect, midline shift, or extra-axial f luid collection. No hydrocephalus. No effacement of basal subarachnoid cisterns. Leftward nasal septal deviation. Mucosal retention cyst left maxillary sinus measuring 1.3 cm. Mastoi d air cells well pneumatized. CT angiography head: The left vertebral artery. Otherwise, the vertebral and basilar arteries are patent as is the remaind er of the posterior circulation. Dural venous sinuses are patent. Mild atherosclerotic calcifications in the carotid siphons without significant narrowing. Remainder o f the anterior circulation is patent. No aneurysmal changes seen. CT angiography neck: Nodules within the thyroid gland measuring up to 1.3 cm on the left. Nonemergent thyroid ultrasound f ollow-up to further evaluate. Extensive subcutaneous emphysema along the anterior chest wall. Median sternotomy wires are also pres ent. Anterior mediastinal air. Prominent patchy dependent opacities in the lungs, likely atelectasis. Findings likely on the basis of patient's recent cardiac surgery. Conventional arch was a branching anatomy. Tortuous arch vessels. Mild atherosclerotic narrowing at t he origin of the right subclavian artery. Very diminutive right vertebral artery. Bilateral common carotid arteries are patent. Mild atelectatic calcifications at the knee right commo n and internal carotid arteries are widely patent. The left common carotid artery is patent. There is mild, less than 20% narrowing at the proximal left ICA by NASCET criteria. IMPRESSION: CT HEAD: 1. CORRELATE FOR ACUTE ISCHEMIA ANTERIOR RIGHT FRONTAL LOBE. NO MIDLINE SHIFT OR ACUTE INTRACRANIAL H EMORRHAGE. CTA HEAD: 2. Dominant left vertebral artery. No large vessel intracranial arterial occlusion, significant steno sis, or aneurysmal change is are seen. CTA NECK: 3. Dominant left vertebral artery. No significant common or internal carotid artery stenosis. 4. Recent post-CABG changes in the visualized upper chest. Findings called to Dr. Chaves at 3:09 PM.
[2023-07-12] MEDS ORDERED: ASPIRIN 300 MG SUPP RECTAL SCH (15:15)
[2023-07-12 16:49] LABS: Glucose,Whole Blood 142 mg/dL (70-110)
--- NOTE | 2023-07-12 17:03 | P.CNNES ---
History of Present Illness Consult date: 07/12/23 Requesting physician: Royal Moore Reason for Consult: s/p cardiac ablation r/o stroke. History of Present Illness: Patient is a 78-year-old right-handed male with history of hypertension, DJD, CAD, paroxysmal atrial fibrillation, came to the hospital for an elective procedure, and underwent pulmonary vein isolation, and elective ablation of atrial fibrillation yesterday. Postoperatively, patient developed hypotension, and was found to have pericardial tamponade just after left superior pulmonary vein ablation. Patient underwent immediate pericardiocentesis and patient was transferred to the operating room. Patient underwent emergent sternotomy and institution of cardiopulmonary bypass. Patient was found to have a puncture in the gavino between the left superior and left inferior pulmonary veins and this was repaired. Repair of the left atrial injury. Exclusion of the left atrial appendage using 35mm Atriclip, intraoperative transesophageal echocardiogram. Patient was intubated, and transferred to ICU after stabilization. Patient received 7 units of packed RBC, 1 unit platelets and 2 units FFP. Agent remains stable overnight. Patient was extubated this morning at 10:25 AM. Subsequently patient was noted to have left hemiparesis, dysarthria and his tongue was deviating to the right as per nursing report, therefore neurology was consulted. Per patient's report, patient is a nonsmoker, drinks 1 or 2 drinks a week not a heavy drinker. Denies any diabetes or blood pressure. Patient is cognitively intact for his age. He does not use any assistive device for walking. Patient's T-max is 100.2 as of 10 AM today. Chest x-ray showed stable support groups. No evidence for acute process. No significant change from prior. Blood test shows WBC 19.7 hemoglobin 15.4, platelets are 71. Fibular no chin 113. Sodium and potassium are normal, renal functions are normal, AST is 152, ALT 64. Hemoglobin A1c 6.2 Review of Systems Some reported by patient, but mostly by patient's . Constitutional: Denies chills, Denies fever Eyes: denies blurred vision, denies pain Ears: deny: decreased hearing, ear discharge Ears, nose, mouth and throat: Reports epistaxis, Reports post-nasal drip, Denies headache, Denies sore throat Cardiovascular: Reports chest pain, Reports shortness of breath Respiratory: Denies cough, Denies excessive sputum, Denies hemoptysis Gastrointestinal: Denies abdominal pain, Denies diarrhea, Denies nausea, Denies vomiting Genitourinary: Reports nocturia, Reports urinary frequency, Denies incontinence Musculoskeletal: Reports low back pain, Denies neck pain Musculoskeletal: bilateral: knee pain Integumentary: Denies pruritus, Denies rash Neurological: Reports as per HPI Psychiatric: Denies anxiety, Denies depression Endocrine: Reports fatigue, Denies weight change Hematologic/Lymphatic: Denies easy bleeding, Denies easy bruising Past Medical History Past Medical History: Atrial Fibrillation, Coronary Artery Disease (CAD), GERD/Reflux, Hyperlipidemia, Hypertension, Osteoarthritis (OA), Prostate Disorder, Supraventricular Tachycardia (SVT) Additional Past Medical History / Comment(s): See Dr. Moore's H&P. Aortic valve regurgitation, VARICOSE VEINS, HX DUODENAL ULCER, BPH, occasionally left foot burning. History of Any Multi-Drug Resistant Organisms: None Reported Past Surgical History: EPS, Heart Catheterization, Joint Replacement, Orthopedic Surgery Additional Past Surgical History / Comment(s): Lipoma removed from chest area, bilateral ear-cosmetic surgery, right rotator cuff, bilateral knee replacements, heel spur removed, loop recorder, colonoscopies. Past Anesthesia/Blood Transfusion Reactions: No Reported Reaction Additional Past Anesthesia/Blood Transfusion Reaction / Comment(s): With last total knee surgery had several days "things were cloudy" and pt states he was sent for cat scan which was normal Past Psychological History: No Psychological Hx Reported Additional Psychological History / Comment(s): Pt resides with spouse. No device Smoking Status: Former smoker Past Alcohol Use History: Occasional Additional Past Alcohol Use History / Comment(s): SMOKED 1 YEAR - APPROX 50 YEARS AGO. Past Drug Use History: None Reported - Past Family History Mother Family Medical History: Coronary Artery Disease (CAD) Father Family Medical History: Coronary Artery Disease (CAD) Medications and Allergies Home Medications Medication Instructions Recorded Confirmed Type Tamsulosin [Flomax] 0.4 mg PO BID 08/20/14 07/10/23 History Atorvastatin [Lipitor] 20 mg PO 1700 10/22/17 07/10/23 History amLODIPine BESYLATE [Norvasc] 10 mg PO QAM 10/22/17 07/10/23 History traMADol HCL [Ultram] 50 mg PO Q6HR PRN 10/22/17 07/11/23 History Multivitamins, Thera [Multivitamin 1 tab PO QAM 10/05/22 07/10/23 History (formulary)] Apixaban [Eliquis] 5 mg PO BID 07/10/23 07/11/23 History Metoprolol Succinate [Toprol XL] 100 mg PO BID 07/10/23 07/10/23 History Omeprazole 20 mg PO QAM 07/10/23 07/10/23 History Allergies Allergy/AdvReac Type Severity Reaction Status Date / Time No Known Allergies Allergy Verified 07/11/23 12:59 Physical Examination - Vital Signs Vital Signs: Vital Signs Temp Pulse Resp BP BP Pulse Ox FiO2 07/12/23 13:00 92 31 H 140/69 94 L 07/12/23 12:30 93 28 H 95 07/12/23 12:00 93 31 H 93 L 07/12/23 11:45 26 H 07/12/23 11:30 93 21 126/70 94 L 07/12/23 11:00 92 24 94 L 07/12/23 10:33 97 07/12/23 10:30 89 27 H 133/72 94 L 07/12/23 10:00 100.2 F H 93 35 H 96 07/12/23 09:45 91 36 H 97 07/12/23 09:36 50 07/12/23 09:35 91 96 07/12/23 09:30 36 H 97 07/12/23 09:29 50 07/12/23 09:23 89 07/12/23 09:15 89 27 H 110/73 97 07/12/23 09:00 86 25 H 98/67 97 07/12/23 08:45 89 25 H 98/67 97 07/12/23 08:30 90 25 H 97 07/12/23 08:15 89 25 H 100/66 97 07/12/23 08:00 100.0 F H 89 26 H 97 50 07/12/23 07:45 89 100/70 98 07/12/23 07:30 89 23 98 07/12/23 07:15 90 106/68 98 07/12/23 07:00 99.9 F H 92 24 98 07/12/23 06:45 92 24 107/65 98 07/12/23 06:30 92 24 98 12/15/23 06:15 92 24 100/65 98 07/12/23 06:00 90 23 98 07/12/23 05:45 89 24 95/68 98 07/12/23 05:30 99.7 F H 92 23 99 07/12/23 05:15 92 23 101/71 99 07/12/23 05:00 97.4 F L 92 18 99 07/12/23 04:45 94 16 96/66 99 07/12/23 04:30 93 21 99 07/12/23 04:15 93 20 106/71 99 07/12/23 04:00 96.7 F L 92 26 H 99 50 07/12/23 03:45 91 32 H 102/72 100 07/12/23 03:30 90 23 100 07/12/23 03:15 87 32 H 106/74 100 07/12/23 03:10 50 07/12/23 03:00 92 32 H 99 07/12/23 02:45 90 27 H 108/83 100 07/12/23 02:30 89 32 H 98 07/12/23 02:15 91 18 98/75 96 07/12/23 02:00 90 28 H 99 07/12/23 01:45 88 26 H 106/82 99 07/12/23 01:30 87 28 H 99 07/12/23 01:15 87 28 H 97/62 100 07/12/23 01:00 86 28 H 100 07/12/23 00:45 87 28 H 101/74 99 07/12/23 00:39 87 07/12/23 00:30 85 28 H 99 07/12/23 00:26 85 07/12/23 00:20 50 07/12/23 00:15 83 26 H 98/67 100 07/12/23 00:00 97.4 F L 81 29 H 100 50 07/11/23 23:45 84 27 H 95/73 100 07/11/23 23:30 85 16 100 07/11/23 23:15 92 25 H 98/72 99 07/11/23 23:10 97.4 F L 16 111/65 100 50 07/11/23 23:00 93 26 H 99 07/11/23 22:45 96 24 85/69 99 07/11/23 22:30 96 24 100 07/11/23 22:20 96 23 104/54 98 07/11/23 22:10 97 24 104/54 99 07/11/23 22:00 98 23 100 07/11/23 21:50 99 21 99 07/11/23 21:43 95 07/11/23 21:40 100 21 134/94 100 07/11/23 21:39 50 07/11/23 21:32 96 07/11/23 21:30 96 19 100 60 07/11/23 21:29 60 07/11/23 21:20 96 18 100 07/11/23 21:10 97.4 F L 100 24 100 60 07/11/23 21:06 100 07/11/23 21:02 100 07/11/23 20:58 82 H Intake and Output 07/11/23 07/12/23 07/12/23 22:59 06:59 14:59 Intake Total 3276.349 1004.114 770.236 Output Total 05455 332 314 Balance -9503.651 672.114 456.236 Intake: IV 358 727 618 ACETAMINOPHEN IV (For NPO 200 ) 1,000 mg In Empty Bag 1 bag @ 400 mls/hr IVPB Q6HR [facility] Rx#:[id number] Calcium Gluconate in NaCl 100 1 gm In Saline 1 100ml. bag @ 100 mls/hr IVPB ONCE ONE Rx#:[id number] Calcium Gluconate in NaCl 100 1 gm In Saline 1 100ml. bag @ 100 mls/hr IVPB ONCE ONE Rx#:[id number] Lactated Ringers 1,000 ml 100 450 130 @ 50 mls/hr IV .Q20H [facility] Rx#:[id number] Magnesium Sulfate-D5w Pmx 100 1 gm In Dextrose/Water 1 100ml.bag @ 100 mls/hr IVPB ONCE ONE Rx#: [id number] Pressure Bag 0.9 NS 6 27 18 Sodium Chloride 0.9% 1, 320 000 ml @ 80 mls/hr IV . [id number] [facility] Rx#:[id number] ceFAZolin 2 gm In Sodium 50 50 Chloride 0.9% 50 ml @ 100 mls/hr IVPB ONCE ONE Rx# :[id number] Intake, IV Titration 45.349 277.114 152.236 Amount Insulin Regular 100 unit 2.6 24.699 11.258 In Sodium Chloride 0.9% 100 ml @ Per Protocol IV .Q0M [facility] Rx#:[id number] Norepinephrine 4 mg In 18.336 116.283 58.343 Sodium Chloride 0.9% 250 ml @ 0.03 MCG/KG/MIN 12. 002 mls/hr IV .[id number] [facility] Rx#:[id number] propofoL 1,000 mg In 24.413 136.132 82.635 Empty Bag 1 bag @ Titrate IV .Q0M [facility] Rx#: [id number] Blood Product 2873 Ffp 24 Pher Acda Cnt1 217 Unit [id number] Ffp 24 Pher Acda Cnt2 220 Unit [id number] Platelet Pheresis Pas 266 Psoralen Unit [id number] Rc As-1 Unit 310 [id number] Rc As-1 Unit 310 [id number] Rc As-1 Unit 310 [id number] Rc As-1 Unit 310 [id number] Rc As-1 Unit 310 [id number] Rc As-1 Unit 310 [id number] Rc As-1 Unit 310 [id number] Output: Chest Tube Drainage 270 140 84 L/R Pleural 270 140 84 Urine 590 192 230 Estimated Blood Loss 22279 Other: Voiding Method Indwelling Catheter Indwelling Catheter Indwelling Catheter Weight 112 kg 112 kg ABP, PAP, CO, CI - Last 8 Hours Arterial Blood Pressure 140/66 Arterial Blood Pressure 134/63 Arterial Blood Pressure 140/67 Arterial Blood Pressure 123/58 Arterial Blood Pressure 124/63 Arterial Blood Pressure 114/59 Arterial Blood Pressure 138/63 Arterial Blood Pressure 137/62 Arterial Blood Pressure 134/66 Arterial Blood Pressure 125/59 Arterial Blood Pressure 105/51 Arterial Blood Pressure 120/60 Arterial Blood Pressure 113/58 Arterial Blood Pressure 110/55 Arterial Blood Pressure 114/58 Arterial Blood Pressure 115/58 Arterial Blood Pressure 115/55 Arterial Blood Pressure 111/56 Arterial Blood Pressure 120/60 Arterial Blood Pressure 112/56 Arterial Blood Pressure 107/56 Arterial Blood Pressure 112/56 Arterial Blood Pressure 116/59 Arterial Blood Pressure 114/58 Patient is an elderly male, who is laying in the bed, appears slightly encephalopathic, with slow mentation. Patient is alert awake. Patient knows his age, and current month of June. Speech is at least moderately dysarthric, but is intelligible, and able to understand although patient requires a lot of effort. He can name and repeat very well. His comprehension is intact. Attention, concentration is decreased and fund of knowledge is difficult to assess with current state. On cranial nerve examination, pupils are equal, round and reacting to light, visual donaldson are full on confrontation, however patient neglects left side on double simultaneous stimulation. Extraocular muscles are intact with no nystagmus. Patient has left facial weakness, central type, with significant involvement of the lower facial region. His left cheek puffs out when he tries to breathe. His tongue protrudes to the left. Palatal elevation and sensation normal, hearing is normal and shoulder shrug decreased on the left, facial sensation normal. On muscle strength testing, patient has normal strength of the right arm and right leg. Patient's left arm is almost flaccid, but he does flex his left elbow against the gravity. [employer] is 0. On holding it up, it drops down immediately. The left leg slightly droops, but does not hit the bed. Left ankle is normal, hip flexion is slightly weaker than the right. Deep tendon reflexes are symmetric 1 at the biceps, 1 brachioradialis, 1 at the knees, 0 ankles and plantars are flat bilaterally. Sensory to touch is equal with no neglect on double simultaneous stimulation. Cerebellar function cannot be performed with the left side. No ataxia for [id number] on the right. Tone and bulk of muscles normal. Gait deferred.. On general examination, there is no carotid bruit or murmur, S1-S2 audible. Chest is clear on consultation. Abdomen is soft nontender. No organomegaly, bowel sounds present. Peripheral pulses are present. Results - Laboratory Findings CBC and BMP: 07/12/23 05:00 07/12/23 05:00 Abnormal Lab Findings: Abnormal Labs 07/11/23 07/11/23 07/11/23 12:47 12:47 12:49 WBC RBC Hgb Hct Plt Count Neutrophils # Neutrophils # (Manual) Monocytes # PT INR APTT Fibrinogen ABG pH ABG pCO2 ABG pO2 ABG HCO3 ABG Total CO2 ABG O2 Saturation ABG Hematocrit ABG Potassium ABG Ionized Calcium ABG Glucose ABG Lactic Acid Hemoglobin Sodium Chloride Carbon Dioxide Creatinine Glucose 112 H POC Glucose (mg/dL) Hemoglobin A1c Calcium Ionized Calcium Elmo Total Bilirubin AST Alkaline Phosphatase 138 H Total Protein Albumin TSH 0.394 L Arterial Blood Potassium Arterial Blood Glucose Crossmatch See Detail See Detail 07/11/23 07/11/23 07/11/23 17:30 17:30 17:30 WBC 12.2 H RBC 3.94 L Hgb 12.1 L Hct 36.3 L Plt Count 128 L Neutrophils # 9.7 H Neutrophils # (Manual) Monocytes # PT 12.7 H INR 1.2 H APTT Fibrinogen ABG pH ABG pCO2 ABG pO2 ABG HCO3 ABG Total CO2 ABG O2 Saturation ABG Hematocrit ABG Potassium ABG Ionized Calcium ABG Glucose ABG Lactic Acid Hemoglobin Sodium 136 L Chloride Carbon Dioxide 20 L Creatinine Glucose 191 H POC Glucose (mg/dL) Hemoglobin A1c Calcium 7.1 L Ionized Calcium Elmo Total Bilirubin AST Alkaline Phosphatase Total Protein 5.2 L Albumin 2.9 L TSH Arterial Blood Potassium Arterial Blood Glucose Crossmatch 07/11/23 07/11/23 07/11/23 18:06 18:17 18:41 WBC RBC Hgb Hct Plt Count Neutrophils # Neutrophils # (Manual) Monocytes # PT INR APTT Fibrinogen ABG pH 7.24 L 7.24 L 7.27 L ABG pCO2 61 H 51 H ABG pO2 328 H 335 H 354 H ABG HCO3 19 L 26 H ABG Total CO2 28 H 25 H ABG O2 Saturation 99.8 H 99.8 H 100.0 H ABG Hematocrit 33 L ABG Potassium 4.9 H 4.8 H ABG Ionized Calcium 4.1 L 4.2 L ABG Glucose 219 H 222 H 247 H ABG Lactic Acid 3.6 H* 3.7 H* 3.7 H* Hemoglobin 10.8 L Sodium Chloride Carbon Dioxide Creatinine Glucose POC Glucose (mg/dL) Hemoglobin A1c Calcium Ionized Calcium Elmo Total Bilirubin AST Alkaline Phosphatase Total Protein Albumin TSH Arterial Blood Potassium 4.9 H 4.8 H Arterial Blood Glucose 219 H 222 H 247 H Crossmatch 07/11/23 07/11/23 07/11/23 19:28 19:51 20:45 WBC 20.1 H RBC Hgb Hct Plt Count 53 L D Neutrophils # Neutrophils # (Manual) 17.40 H Monocytes # PT INR APTT Fibrinogen ABG pH 7.33 L 7.30 L ABG pCO2 49 H ABG pO2 >420 H 352 H ABG HCO3 ABG Total CO2 26 H ABG O2 Saturation 100.0 H 99.9 H ABG Hematocrit ABG Potassium 4.6 H ABG Ionized Calcium 3.8 L ABG Glucose 199 H 193 H ABG Lactic Acid 4.1 H* 4.1 H* Hemoglobin 12.1 L Sodium Chloride Carbon Dioxide Creatinine Glucose POC Glucose (mg/dL) Hemoglobin A1c Calcium Ionized Calcium Elmo Total Bilirubin AST Alkaline Phosphatase Total Protein Albumin TSH Arterial Blood Potassium 4.6 H Arterial Blood Glucose 199 H 193 H Crossmatch 07/11/23 07/11/23 07/11/23 20:45 21:00 21:06 WBC RBC Hgb Hct Plt Count Neutrophils # Neutrophils # (Manual) Monocytes # PT 16.7 H INR 1.6 H APTT 30.1 H Fibrinogen ABG pH ABG pCO2 ABG pO2 ABG HCO3 ABG Total CO2 ABG O2 Saturation ABG Hematocrit ABG Potassium ABG Ionized Calcium ABG Glucose ABG Lactic Acid Hemoglobin Sodium Chloride 112 H Carbon Dioxide 21 L Creatinine 0.60 L Glucose 168 H POC Glucose (mg/dL) 179 H Hemoglobin A1c Calcium 6.6 L Ionized Calcium Elmo 4.2 L Total Bilirubin 3.1 H AST 101 H Alkaline Phosphatase Total Protein 3.7 L Albumin 2.0 L TSH Arterial Blood Potassium Arterial Blood Glucose Crossmatch 07/11/23 07/11/23 07/11/23 21:24 22:02 23:01 WBC RBC Hgb Hct Plt Count Neutrophils # Neutrophils # (Manual) Monocytes # PT INR APTT Fibrinogen ABG pH 7.27 L ABG pCO2 46 H ABG pO2 263 H ABG HCO3 ABG Total CO2 ABG O2 Saturation 99.5 H ABG Hematocrit ABG Potassium ABG Ionized Calcium ABG Glucose ABG Lactic Acid Hemoglobin Sodium Chloride Carbon Dioxide Creatinine Glucose POC Glucose (mg/dL) 161 H 184 H Hemoglobin A1c Calcium Ionized Calcium Elmo Total Bilirubin AST Alkaline Phosphatase Total Protein Albumin TSH Arterial Blood Potassium Arterial Blood Glucose Crossmatch 07/11/23 07/12/23 07/12/23 23:15 00:00 00:07 WBC 19.7 H RBC Hgb Hct Plt Count 66 L Neutrophils # 16.9 H Neutrophils # (Manual) Monocytes # 1.4 H PT 13.9 H INR 1.3 H APTT Fibrinogen 121 L ABG pH ABG pCO2 ABG pO2 ABG HCO3 ABG Total CO2 ABG O2 Saturation ABG Hematocrit ABG Potassium ABG Ionized Calcium ABG Glucose ABG Lactic Acid Hemoglobin Sodium Chloride Carbon Dioxide Creatinine Glucose POC Glucose (mg/dL) 164 H Hemoglobin A1c Calcium Ionized Calcium Elmo Total Bilirubin AST Alkaline Phosphatase Total Protein Albumin TSH Arterial Blood Potassium Arterial Blood Glucose Crossmatch 07/12/23 07/12/23 07/12/23 01:04 01:58 03:00 WBC 21.2 H RBC Hgb Hct Plt Count 70 L Neutrophils # 17.7 H Neutrophils # (Manual) Monocytes # 1.9 H PT INR APTT Fibrinogen ABG pH ABG pCO2 ABG pO2 ABG HCO3 ABG Total CO2 ABG O2 Saturation ABG Hematocrit ABG Potassium ABG Ionized Calcium ABG Glucose ABG Lactic Acid Hemoglobin Sodium Chloride Carbon Dioxide Creatinine Glucose POC Glucose (mg/dL) 134 H 146 H Hemoglobin A1c Calcium Ionized Calcium Elmo Total Bilirubin AST Alkaline Phosphatase Total Protein Albumin TSH Arterial Blood Potassium Arterial Blood Glucose Crossmatch 07/12/23 07/12/23 07/12/23 03:03 04:06 04:59 WBC RBC Hgb Hct Plt Count Neutrophils # Neutrophils # (Manual) Monocytes # PT INR APTT Fibrinogen ABG pH ABG pCO2 ABG pO2 ABG HCO3 ABG Total CO2 ABG O2 Saturation ABG Hematocrit ABG Potassium ABG Ionized Calcium ABG Glucose ABG Lactic Acid Hemoglobin Sodium Chloride Carbon Dioxide Creatinine Glucose POC Glucose (mg/dL) 134 H 118 H 131 H Hemoglobin A1c Calcium Ionized Calcium Elmo Total Bilirubin AST Alkaline Phosphatase Total Protein Albumin TSH Arterial Blood Potassium Arterial Blood Glucose Crossmatch 07/12/23 07/12/23 07/12/23 05:00 05:00 05:00 WBC 19.7 H RBC Hgb Hct Plt Count 71 L Neutrophils # 16.8 H Neutrophils # (Manual) Monocytes # 1.4 H PT INR APTT Fibrinogen ABG pH ABG pCO2 ABG pO2 ABG HCO3 ABG Total CO2 ABG O2 Saturation ABG Hematocrit ABG Potassium ABG Ionized Calcium ABG Glucose ABG Lactic Acid Hemoglobin Sodium Chloride 113 H Carbon Dioxide 19 L Creatinine Glucose 134 H POC Glucose (mg/dL) Hemoglobin A1c 6.2 H Calcium 7.5 L Ionized Calcium Elmo Total Bilirubin 2.4 H AST 152 H Alkaline Phosphatase Total Protein 4.1 L Albumin 2.2 L TSH Arterial Blood Potassium Arterial Blood Glucose Crossmatch 07/12/23 07/12/23 07/12/23 05:58 05:58 06:09 WBC RBC Hgb Hct Plt Count Neutrophils # Neutrophils # (Manual) Monocytes # PT INR APTT Fibrinogen 113 L ABG pH ABG pCO2 34 L ABG pO2 ABG HCO3 20 L ABG Total CO2 ABG O2 Saturation 97.6 H ABG Hematocrit ABG Potassium ABG Ionized Calcium ABG Glucose ABG Lactic Acid Hemoglobin Sodium Chloride Carbon Dioxide Creatinine Glucose POC Glucose (mg/dL) 136 H Hemoglobin A1c Calcium Ionized Calcium Elmo Total Bilirubin AST Alkaline Phosphatase Total Protein Albumin TSH Arterial Blood Potassium Arterial Blood Glucose Crossmatch 07/12/23 07/12/23 07/12/23 06:55 09:23 10:14 WBC RBC Hgb Hct Plt Count Neutrophils # Neutrophils # (Manual) Monocytes # PT INR APTT Fibrinogen ABG pH ABG pCO2 33 L ABG pO2 75 L ABG HCO3 ABG Total CO2 ABG O2 Saturation ABG Hematocrit ABG Potassium ABG Ionized Calcium ABG Glucose ABG Lactic Acid Hemoglobin Sodium Chloride Carbon Dioxide Creatinine Glucose POC Glucose (mg/dL) 129 H 146 H Hemoglobin A1c Calcium Ionized Calcium Elmo Total Bilirubin AST Alkaline Phosphatase Total Protein Albumin TSH Arterial Blood Potassium Arterial Blood Glucose Crossmatch 07/12/23 07/12/23 07/12/23 10:19 11:23 12:15 WBC RBC Hgb Hct Plt Count Neutrophils # Neutrophils # (Manual) Monocytes # PT INR APTT Fibrinogen ABG pH ABG pCO2 ABG pO2 ABG HCO3 ABG Total CO2 ABG O2 Saturation ABG Hematocrit ABG Potassium ABG Ionized Calcium ABG Glucose ABG Lactic Acid Hemoglobin Sodium Chloride Carbon Dioxide Creatinine Glucose POC Glucose (mg/dL) 147 H 135 H 130 H Hemoglobin A1c Calcium Ionized Calcium Elmo Total Bilirubin AST Alkaline Phosphatase Total Protein Albumin TSH Arterial Blood Potassium Arterial Blood Glucose Crossmatch Assessment and Plan Assessment: * Acute ischemic stroke with dysarthria and left hemiparesis, mainly involving the left facial brachial region. Patient also has slight left visual field neglect without visual field loss. Patient's current NIH stroke scale is 7. Patient not a candidate for TPA, because of recent cardiac surgery, and s ymptoms present for > 4.5 hours. * Status post pulmonary vein isolation, and ablation 07/11/2023 with left atrial injury, pericardial effusion/cardiac tamponade * Left atrial injury status post cardiopulmonary bypass with left atrial repair, exclusion of left atrial appendage * History of paroxysmal atrial fibrillation. * CAD * Thrombocytopenia * Hypertension * Hyperlipidemia * Obesity Plan: * Stat computed tomography scan of the head evaluate for CVA, rule out bleed * Stat CTA head and neck to rule out large vessel occlusion * 2-D echo * Fasting a.m. lipid panel * Hemoglobin A1c 6.2 * Optimize control of blood pressure due to cardiac reasons. * Start aspirin 300 mg rectally daily. Patient is nothing by mouth. Discussed with surgical team, cleared for aspirin. * Neuro checks every 2 hours. * Telemetry monitoring rule out any arrhythmia * PT, OT, speech therapy * DVT prophylaxis: As per critical care team/cardiology * Discussed at length with patient's , nursing staff. Also discussed with cardiothoracic surgery. * Neurology will continue to follow. Thank you for the consult. Addendum: CT had revealed evidence of acute ischemia anterior right frontal lobe, no midline shift or acute intracranial hemorrhage. I personally reviewed CT head, agree with the findings. CTA of head showed dominant left vertebral artery. No large vessel intracranial arterial occlusion, significant stenosis or aneurysmal change seen. CTA of the neck showed dominant left vertebral artery. No significant, and or internal carotid artery stenosis. Recent post CABG changes visualized. I personally reviewed CTA of head and neck, agree with findings. No large vessel occlusion. No indication for mechanical thrombectomy. Time with Patient: Greater than 30
[2023-07-12] MEDS ORDERED: AMIODARONE 360 MG in DEXTROSE 5% IN WATER 200 ML IV ONE ×2 (17:22)
[2023-07-12] MEDS ORDERED: DEXTROSE 5% IN WATER 100 ML with AMIODARONE 150 MG IV ONE ×2 (17:22→18:53)
[2023-07-12 19:19] LABS: Glucose,Whole Blood 170 mg/dL (70-110)
[2023-07-12] MEDS: NOREPINEPHRINE 4 MG in SODIUM CHLORIDE 0.9% 250 ML IV SCH (19:46)
[2023-07-12 20:07] LABS: Glucose,Whole Blood 165 mg/dL (70-110)
[2023-07-12] MEDS: MORPHINE SULFATE 2 MG/ML SYRINGE IVP PRN (20:22)
[2023-07-12] MEDS: SENNOSIDES-DOCUSATE SODIUM 1 EACH TAB PO SCH (20:38)
[2023-07-12] MEDS: TAMSULOSIN 0.4 MG CAP.ER.24H PO SCH (20:39)
[2023-07-12] MEDS: CLEVIDIPINE BUTYRATE 25 MG in EMPTY BAG 1 BAG IV SCH (20:43)
[2023-07-12 21:07] LABS: Glucose,Whole Blood 164 mg/dL (70-110)
[2023-07-12] MEDS ORDERED: DIGOXIN 250 MCG/ML 2 ML AMP IVP ONE (21:36)
[2023-07-12] MEDS: AMIODARONE 360 MG in DEXTROSE 5% IN WATER 200 ML IV SCH ×2 (21:36)
[2023-07-12 22:07] LABS: Glucose,Whole Blood 135 mg/dL (70-110)
[2023-07-12 22:56] LABS: Glucose,Whole Blood 136 mg/dL (70-110)
[2023-07-12] MEDS ORDERED: AMIODARONE 450 MG in DEXTROSE 5% IN WATER 250 ML IV SCH ×2 (23:30)
[2023-07-13] MEDS: MORPHINE SULFATE 2 MG/ML SYRINGE IVP PRN ×2 (00:01→04:59)
[2023-07-13] MEDS: HEPARIN SODIUM,PORCINE 5,000 UNIT/ML 1 ML VIAL SQ SCH ×4 (00:05→23:51)
[2023-07-13 00:09] LABS: Glucose,Whole Blood 136 mg/dL (70-110)
[2023-07-13 01:01] LABS: Glucose,Whole Blood 124 mg/dL (70-110)
[2023-07-13 02:01] LABS: Glucose,Whole Blood 157 mg/dL (70-110)
[2023-07-13 03:04] LABS: Glucose,Whole Blood 143 mg/dL (70-110)
[2023-07-13] MEDS: AMIODARONE 360 MG in DEXTROSE 5% IN WATER 200 ML IV SCH ×10 (03:07→22:19)
[2023-07-13] MEDS: INSULIN REGULAR 100 UNIT in SODIUM CHLORIDE 0.9% 100 ML IV SCH (03:08)
[2023-07-13 04:04] LABS: Glucose,Whole Blood 146 mg/dL (70-110)
[2023-07-13 05:00] LABS: Basophils % (A) 0 %; Eosinophils % (A) 0 %; HCT 34.4 % (39.0-53.0); Lymphocytes # (A) 1.5 k/uL (1.0-4.8); Lymphocytes % (A) 9 %; MCHC 34.1 g/dL (31.0-37.0); MCV 87.9 fL (80.0-100.0); Mean Platelet Volume 11.1; Monocytes # (A) 1.5 k/uL (0-1.0); Monocytes % (A) 9 %; Neutrophils # (A) 13.8 k/uL (1.3-7.7); Neutrophils % (A) 81 %; RBC 3.91 m/uL (4.30-5.90); RDW 13.9 % (11.5-15.5); WBC 17.1 k/uL (3.8-10.6)
[2023-07-13 05:02] LABS: Ionized Calcium 4.6 mg/dL (4.5-5.3)
[2023-07-13 05:05] LABS: Glucose,Whole Blood 136 mg/dL (70-110)
[2023-07-13 05:14] LABS: HGB 11.7 gm/dL (13.0-17.5)
[2023-07-13 05:15] LABS: Platelet Count 84 k/uL (150-450)
[2023-07-13 05:45] LABS: ALT 38 U/L (4-49); AST 99 U/L (17-59); African American GFR (CKD) 68 (>60 ml/min/1.73 sqM); Albumin 2.2 g/dL (3.5-5.0); Alkaline Phosphatase 78 U/L (38-126); Anion Gap 6 mmol/L; Blood Urea Nitrogen 28 mg/dL (9-20); Calcium 7.7 mg/dL (8.4-10.2); Carbon Dioxide 23 mmol/L (22-30); Chloride 111 mmol/L (98-107); Glucose 128 mg/dL (74-99); Non-African American GFR(CKD) 59 (>60 ml/min/1.73 sqM); Potassium 3.7 mmol/L (3.5-5.1); Sodium 140 mmol/L (137-145); Total Bilirubin 1.3 mg/dL (0.2-1.3); Total Protein 4.2 g/dL (6.3-8.2)
[2023-07-13] MEDS: ACETAMINOPHEN IV (For NPO) 1,000 MG in EMPTY BAG 1 BAG IVPB SCH ×2 (05:52→11:40)
[2023-07-13] MEDS: POTASSIUM CHLORIDE 10 MEQ in WATER FOR INJECTION 1 100ML.BAG IVPB SCH ×2 (06:03→07:00)
[2023-07-13 06:08] LABS: Glucose,Whole Blood 134 mg/dL (70-110)
[2023-07-13] MEDS ORDERED: DIGOXIN 250 MCG/ML 2 ML AMP IVP ONE (07:00)
[2023-07-13 07:13] LABS: Glucose,Whole Blood 123 mg/dL (70-110)
--- NOTE | 2023-07-13 08:07 | XR ---
EXAMINATION TYPE: XR chest 1V portable DATE OF EXAM: 07/13/2023 5:51 AM CLINICAL INDICATION:Male, 78 years old with history of Post Operative Cardiac Surgery; [facility] COMPARISON: Chest radiographs from 07/12/2023 TECHNIQUE: XR chest 1V portable Frontal view of the chest. FINDINGS: Lungs/Pleura: There is no evidence of pleural effusion, focal consolidation, or pneumothorax. Pulmonary vascularity: Unremarkable. Heart/mediastinum: Cardiomediastinal silhouette is unremarkable. Left atrial appendage occlusion quique ce is present. A loop recorder projects over the left thorax over the heart. Musculoskeletal: No acute osseous pathology. Midline sternotomy wires are noted. Other findings: None IMPRESSION: Low lung volumes with a generalized hazy appearance which could represent atelectasis versus pulmonar y edema correlate with serum BNP.
[2023-07-13] MEDS: ASPIRIN 325 MG TAB PO SCH (08:14)
[2023-07-13] MEDS: TAMSULOSIN 0.4 MG CAP.ER.24H PO SCH ×2 (08:15→20:26)
[2023-07-13] MEDS: MULTIVITAMINS, THERA 1 EACH TAB PO SCH (08:15)
[2023-07-13] MEDS: ATORVASTATIN 40 MG TAB PO SCH (08:15)
[2023-07-13] MEDS: PANTOPRAZOLE 40 MG/10 ML VIAL IVP SCH (08:27)
[2023-07-13] MEDS: SODIUM CHLORIDE 0.9% 1,000 ML IV SCH ×2 (08:28→20:27)
[2023-07-13 08:42] LABS: Glucose,Whole Blood 139 mg/dL (70-110)
[2023-07-13] MEDS ORDERED: METOPROLOL TARTRATE 25 MG TAB PO SCH (09:00)
[2023-07-13] MEDS: IPRATROPIUM-ALBUTEROL 3 ML NEB INHALATION SCH ×4 (09:09→19:46)
--- NOTE | 2023-07-13 10:13 | P.PN ---
Subjective Progress Note Date: 07/13/23 Principal diagnosis: Repeat tamponade status post left atrial ablation for paroxysmal atrial fibrillation with evidence of injury to the left atrium between the left superior pulmonary vein and the left inferior pulmonary vein. Previous medical history of coronary artery disease, recurrent symptomatic atrial fibrillation, SVT, hypertension, hyperlipidemia, arthritis, BPH, and previous tobacco dependence POD #2 emergent sternotomy and institution of cardiopulmonary bypass, repair of left atrial injury, exclusion of the left atrial appendage using a 35 mm AtriClip, intraoperative transesophageal echocardiogram Acute ischemia anterior right frontal lobe without midline shift or acute intracranial hemorrhage The patient was seen and examined this morning with Dr. Ram sitting up in her recliner in the intensive care unit in no acute distress. Currently in rapid atrial fibrillation although blood pressure stable, off levo since prior to extubation yesterday, currently on IV amiodarone. Patient did receive 2 doses of digoxin last night and beta mauro increased this morning. Mediastinal chest tubes present with 250 mL serosanguineous drainage in the last 24 hours, no air leak present. Chest x-ray, labs reviewed. This morning patient is alert and oriented 3 and able to speak understandably, he does still have left arm weakness but able to move all extremities and follow all commands, does have a bit of a left-sided facial droop and left pronator drift. He did pass his bedside swallow this morning and has been able to take oral medication. Objective - Vital Signs Vital signs: Vital Signs Temp 99.3 F 07/13/23 08:00 Pulse 161 H 07/13/23 09:09 Resp 24 07/13/23 09:00 BP 127/81 07/13/23 07:00 Pulse Ox 93 L 07/13/23 09:13 FiO2 50 07/12/23 09:36 Intake & Output 07/12/23 07/13/23 07/13/23 18:59 06:59 18:59 Intake Total 2068.069 6266.613 356.683 Output Total 784 790 100 Balance 509.553 624.613 256.683 Weight 112 kg 111.4 kg Intake: IV 1133 1196 349 ACETAMINOPHEN IV (For NPO 100 100 ) 1,000 mg In Empty Bag 1 bag @ 400 mls/hr IVPB Q6HR [facility] Rx#:[id number] Calcium Gluconate in NaCl 100 1 gm In Saline 1 100ml. bag @ 100 mls/hr IVPB ONCE ONE Rx#:[id number] Lactated Ringers 1,000 ml 130 @ 50 mls/hr IV .Q20H [facility] Rx#:[id number] Potassium Chloride 10 meq 100 100 In Water For Injection 1 100ml.bag @ 100 mls/hr IVPB Q1H [facility] Rx#: [id number] Pressure Bag 0.9 NS 33 36 9 Sodium Chloride 0.9% 1, 720 960 240 000 ml @ 80 mls/hr IV . [id number] [facility] Rx#:[id number] ceFAZolin 2 gm In Sodium 50 Chloride 0.9% 50 ml @ 100 mls/hr IVPB ONCE ONE Rx# :[id number] Intake, IV Titration 160.553 218.613 7.683 Amount Amiodarone 360 mg In 183.887 Dextrose 5% in Water 200 ml @ 1 MG/MIN 33.333 mls/ hr IV .Q6H [facility] Rx#: [id number] Insulin Regular 100 unit 19.575 34.726 7.683 In Sodium Chloride 0.9% 100 ml @ Per Protocol IV .Q0M [facility] Rx#:[id number] Norepinephrine 4 mg In 58.343 Sodium Chloride 0.9% 250 ml @ 0.03 MCG/KG/MIN 12. 002 mls/hr IV .[id number] [facility] Rx#:[id number] propofoL 1,000 mg In 82.635 Empty Bag 1 bag @ Titrate IV .Q0M [facility] Rx#: [id number] Output: Chest Tube Drainage 124 110 0 Midstinal 124 110 0 Urine 660 680 100 Other: Voiding Method Indwelling Catheter Indwelling Catheter Urinal ABP, PAP, CO, CI - Last Documented Arterial Blood Pressure 111/55 - Exam CONSTITUTIONAL: Appears comfortable, cooperative, no acute distress RESPIRATORY: Lungs sounds diminished bilaterally. Respirations even, nonlabored. Currently on 2 L nasal cannula with oxygen saturation 93%. Able to achieve 1000 mL on incentive spirometry. Strong cough. CARDIOVASCULAR: S1, S2 present. Rapid irregular rate and rhythm, rapid atrial fibrillation on telemetry. Sternum stable. Palpable peripheral pulses bilaterally. No edema present. No calf pain or tenderness noted. Heart hugger, antiembolism stockings, SCDs present. GASTROINTESTINAL: Abdomen soft, nontender, nondistended. Active bowel sounds present 4 quadrants. Tolerating ice chips and clear liquids GENITOURINARY: Alberts present draining clear, yellow urine. Output overnight 45-60 mL per hour, 1340 mL in the last 24 hours INTEGUMENTARY: Skin is warm and dry. Anterior chest incision well approximated and covered with dry intact dressing NEUROLOGIC: Cranial nerves II through XII intact MUSKULOSKELETAL: Able to move all extremities, right arm weakness PSYCHIATRIC: Alert and oriented to person place and time, flat affect INVASIVE LINES AND TUBES: Mediastinal chest tubes present and connected to wall suction, no air leaks present, 50 mL serosanguineous drainage overnight, 250 mL in the last 24 hours - Allied health notes Allied health notes reviewed: nursing - Labs CBC & Chem 7: 07/13/23 04:04 07/13/23 04:04 Labs: Abnormal Lab Results - Last 24 Hours (Table) 07/11/23 07/12/23 07/12/23 Range/Units 12:47 10:14 10:19 WBC (3.8-10.6) k/uL RBC (4.30-5.90) m/uL Hgb (13.0-17.5) gm/dL Hct (39.0-53.0) % Plt Count (150-450) k/uL Neutrophils # (1.3-7.7) k/uL Monocytes # (0-1.0) k/uL ABG pCO2 33 L (35-45) mmHg ABG pO2 75 L (83-108) mmHg Chloride (98-107) mmol/L BUN (9-20) mg/dL Glucose (74-99) mg/dL POC Glucose (mg/dL) 147 H (70-110) mg/dL Calcium (8.4-10.2) mg/dL AST (17-59) U/L Total Protein (6.3-8.2) g/dL Albumin (3.5-5.0) g/dL Crossmatch See Detail 07/12/23 07/12/23 07/12/23 Range/Units 11:23 12:15 13:49 WBC (3.8-10.6) k/uL RBC (4.30-5.90) m/uL Hgb (13.0-17.5) gm/dL Hct (39.0-53.0) % Plt Count (150-450) k/uL Neutrophils # (1.3-7.7) k/uL Monocytes # (0-1.0) k/uL ABG pCO2 (35-45) mmHg ABG pO2 (83-108) mmHg Chloride (98-107) mmol/L BUN (9-20) mg/dL Glucose (74-99) mg/dL POC Glucose (mg/dL) 135 H 130 H 117 H (70-110) mg/dL Calcium (8.4-10.2) mg/dL AST (17-59) U/L Total Protein (6.3-8.2) g/dL Albumin (3.5-5.0) g/dL Crossmatch 07/12/23 07/12/23 07/12/23 Range/Units 14:50 16:47 19:10 WBC (3.8-10.6) k/uL RBC (4.30-5.90) m/uL Hgb (13.0-17.5) gm/dL Hct (39.0-53.0) % Plt Count (150-450) k/uL Neutrophils # (1.3-7.7) k/uL Monocytes # (0-1.0) k/uL ABG pCO2 (35-45) mmHg ABG pO2 (83-108) mmHg Chloride (98-107) mmol/L BUN (9-20) mg/dL Glucose (74-99) mg/dL POC Glucose (mg/dL) 117 H 142 H 170 H (70-110) mg/dL Calcium (8.4-10.2) mg/dL AST (17-59) U/L Total Protein (6.3-8.2) g/dL Albumin (3.5-5.0) g/dL Crossmatch 07/12/23 07/12/23 07/12/23 Range/Units 20:05 21:06 22:05 WBC (3.8-10.6) k/uL RBC (4.30-5.90) m/uL Hgb (13.0-17.5) gm/dL Hct (39.0-53.0) % Plt Count (150-450) k/uL Neutrophils # (1.3-7.7) k/uL Monocytes # (0-1.0) k/uL ABG pCO2 (35-45) mmHg ABG pO2 (83-108) mmHg Chloride (98-107) mmol/L BUN (9-20) mg/dL Glucose (74-99) mg/dL POC Glucose (mg/dL) 165 H 164 H 135 H (70-110) mg/dL Calcium (8.4-10.2) mg/dL AST (17-59) U/L Total Protein (6.3-8.2) g/dL Albumin (3.5-5.0) g/dL Crossmatch 07/12/23 07/13/23 07/13/23 Range/Units 22:55 00:07 01:00 WBC (3.8-10.6) k/uL RBC (4.30-5.90) m/uL Hgb (13.0-17.5) gm/dL Hct (39.0-53.0) % Plt Count (150-450) k/uL Neutrophils # (1.3-7.7) k/uL Monocytes # (0-1.0) k/uL ABG pCO2 (35-45) mmHg ABG pO2 (83-108) mmHg Chloride (98-107) mmol/L BUN (9-20) mg/dL Glucose (74-99) mg/dL POC Glucose (mg/dL) 136 H 136 H 124 H (70-110) mg/dL Calcium (8.4-10.2) mg/dL AST (17-59) U/L Total Protein (6.3-8.2) g/dL Albumin (3.5-5.0) g/dL Crossmatch 07/13/23 07/13/23 07/13/23 Range/Units 01:59 03:01 04:03 WBC (3.8-10.6) k/uL RBC (4.30-5.90) m/uL Hgb (13.0-17.5) gm/dL Hct (39.0-53.0) % Plt Count (150-450) k/uL Neutrophils # (1.3-7.7) k/uL Monocytes # (0-1.0) k/uL ABG pCO2 (35-45) mmHg ABG pO2 (83-108) mmHg Chloride (98-107) mmol/L BUN (9-20) mg/dL Glucose (74-99) mg/dL POC Glucose (mg/dL) 157 H 143 H 146 H (70-110) mg/dL Calcium (8.4-10.2) mg/dL AST (17-59) U/L Total Protein (6.3-8.2) g/dL Albumin (3.5-5.0) g/dL Crossmatch 07/13/23 07/13/23 07/13/23 Range/Units 04:04 04:04 05:04 WBC 17.1 H (3.8-10.6) k/uL RBC 3.91 L (4.30-5.90) m/uL Hgb 11.7 L D (13.0-17.5) gm/dL Hct 34.4 L (39.0-53.0) % Plt Count 84 L (150-450) k/uL Neutrophils # 13.8 H (1.3-7.7) k/uL Monocytes # 1.5 H (0-1.0) k/uL ABG pCO2 (35-45) mmHg ABG pO2 (83-108) mmHg Chloride 111 H (98-107) mmol/L BUN 28 H (9-20) mg/dL Glucose 128 H (74-99) mg/dL POC Glucose (mg/dL) 136 H (70-110) mg/dL Calcium 7.7 L (8.4-10.2) mg/dL AST 99 H (17-59) U/L Total Protein 4.2 L (6.3-8.2) g/dL Albumin 2.2 L (3.5-5.0) g/dL Crossmatch 07/13/23 07/13/23 07/13/23 Range/Units 06:06 07:12 08:41 WBC (3.8-10.6) k/uL RBC (4.30-5.90) m/uL Hgb (13.0-17.5) gm/dL Hct (39.0-53.0) % Plt Count (150-450) k/uL Neutrophils # (1.3-7.7) k/uL Monocytes # (0-1.0) k/uL ABG pCO2 (35-45) mmHg ABG pO2 (83-108) mmHg Chloride (98-107) mmol/L BUN (9-20) mg/dL Glucose (74-99) mg/dL POC Glucose (mg/dL) 134 H 123 H 139 H (70-110) mg/dL Calcium (8.4-10.2) mg/dL AST (17-59) U/L Total Protein (6.3-8.2) g/dL Albumin (3.5-5.0) g/dL Crossmatch - Imaging and Cardiology Chest x-ray: report reviewed, image reviewed Assessment and Plan Assessment: Cardiac tamponade status post left atrial ablation for paroxysmal atrial fibrillation with evidence of injury to the left atrium between the left superior pulmonary vein and the left inferior pulmonary vein, status post emergent sternotomy and institution of cardiopulmonary bypass, repair of left atrial injury Leukocytosis, likely reactive Thrombocytopenia, likely from massive blood loss History of coronary artery disease Recurrent symptomatic atrial fibrillation, exclusion of the left atrial appendage using a 35 mm AtriClip, currently sinus History of SVT History of hypertension, currently hypotensive on low dose levo Hyperlipidemia Arthritis BPH Previous tobacco dependence Acute ischemia anterior right frontal lobe without midline shift or acute intracranial hemorrhage Plan: Continue mediastinal chest tubes for another 24 hours, monitor output Lopressor increased. A. fib management per Dr. Moore Will monitor daily labs and x-rays. Electrolyte replacement per protocol Continue Alberts catheter for another 24 hours, continue to record strict accurate intake and output Sternal precautions Increase activity as tolerated. PT/OT/cardiac rehab consulted Wean O2 as tolerated. Encourage incentive spirometry use More recommendations to follow
[2023-07-13 11:29] LABS: Glucose,Whole Blood 165 mg/dL (70-110)
[2023-07-13] MEDS: INSULIN ASPART (NovoLOG) 100 UNIT/ML VIAL SQ SCH ×3 (11:39→20:26)
[2023-07-13] MEDS ORDERED: ACETAMINOPHEN TAB 325 MG TAB PO PRN (11:46)
--- NOTE | 2023-07-13 11:58 | P.PN ---
Subjective Progress Note Date: 07/13/23 Principal diagnosis: Acute hypoxic respiratory failure secondary to cardiac tamponade, iatrogenic in nature This is a 78-year-old white male with history of hypertension, degenerative joint disease, known history of coronary artery disease, recurrent symptomatic atrial fibrillation, he was deemed to be a good candidate for pulmonary vein and left atrial ablation. Yesterday the patient underwent elective ablation by Dr. Trinidad, the procedure was complicated by hypotension. Echocardiography showed evidence of the pericardial effusion and tamponade hence cardiothoracic surgery was consulted yesterday on emergent basis, and the patient underwent Urgent pericardiocentesis and was sent to the OR for open exploration. Apparently there was a puncture in the gavino between the left superior and left inferior pulmonary veins and this was repaired by Dr. Espinoza. Postoperatively, patient was admitted to the ICU intubated and mechanically ventilated, and this consult was initiated. I saw this patient today, he is intubated and mechanically ventilated, he is on assist control rate of 16 tidal volume 550 FiO2 50% and PEEP of 5. His IV fluid is running at 80 mL/h, patient is on insulin drip at 2.5 units per hour, ABG showed a pO2 of 90 pCO2 of 34 pH of 7.38. Chest x-ray this morning showed mostly stable tubes and catheters, and no evidence of acute process. Patient was on propofol which was placed on hold earlier this morning for plans to wean and extubate if possible. Hence I recommended that we continue with the weaning process, check weaning parameters, and if appropriate and the patient meets the criteria, we'll proceed with extubation. Patient was reevaluated today on 07/13/2023, patient remains in the ICU, he was extubated yesterday, tolerated the extubation well. Unfortunately the patient developed what seems to be an acute ischemic event involving the right frontal lobe, no midline shift or acute intracranial hemorrhage. Patient was seen by neurology on consultation, and at this point mostly recommending supportive care measures. Patient has a slight weakness noted in his left upper extremity, and according to the urologist he was found to have left visual field neglect without visual field loss. Clearly the urologist felt that he is not a candidate for TPA, NIH stroke scale is 7. Not to mention the patient had a recent cardiac surgery. Labs today showed WBC count of 17.1 hemoglobin 11.7 on a relatively normal basic metabolic profile, renal profile is improving creatinine is down to 1.18 compared to 1.24 yesterday patient is on amiodarone drip for atrial fibrillation with RVR, he is also on insulin drip at 1.5 units per hour, IV fluid 0.9 normal saline at 80 mL per hour. He is doing poorly with incentive spirometry achieving no more than 500 mL. Mediastinal tube remains in place, drained 50 mL overnight. Chest x-ray showed minimal basilar atelectasis. Especially at the left base. Objective - Vital Signs Vital signs: Vital Signs Temp 99.3 F 07/13/23 08:00 Pulse 84 07/13/23 11:00 Resp 23 07/13/23 11:00 BP 131/66 07/13/23 11:00 Pulse Ox 94 L 07/13/23 10:00 FiO2 50 07/12/23 09:36 Intake & Output 07/12/23 07/13/23 07/13/23 18:59 06:59 18:59 Intake Total 1077.985 0014.613 896.683 Output Total 784 790 100 Balance 509.553 624.613 796.683 Weight 112 kg 111.4 kg Intake: IV 1133 1196 689 ACETAMINOPHEN IV (For NPO 100 100 100 ) 1,000 mg In Empty Bag 1 bag @ 400 mls/hr IVPB Q6HR [facility] Rx#:[id number] Calcium Gluconate in NaCl 100 1 gm In Saline 1 100ml. bag @ 100 mls/hr IVPB ONCE ONE Rx#:[id number] Lactated Ringers 1,000 ml 130 @ 50 mls/hr IV .Q20H [facility] Rx#:[id number] Potassium Chloride 10 meq 100 100 In Water For Injection 1 100ml.bag @ 100 mls/hr IVPB Q1H [facility] Rx#: [id number] Pressure Bag 0.9 NS 33 36 9 Sodium Chloride 0.9% 1, 720 960 480 000 ml @ 80 mls/hr IV . [id number] [facility] Rx#:[id number] ceFAZolin 2 gm In Sodium 50 Chloride 0.9% 50 ml @ 100 mls/hr IVPB ONCE ONE Rx# :[id number] Intake, IV Titration 160.553 218.613 207.683 Amount Amiodarone 360 mg In 183.887 200 Dextrose 5% in Water 200 ml @ 1 MG/MIN 33.333 mls/ hr IV .Q6H [facility] Rx#: [id number] Insulin Regular 100 unit 19.575 34.726 7.683 In Sodium Chloride 0.9% 100 ml @ Per Protocol IV .Q0M [facility] Rx#:[id number] Norepinephrine 4 mg In 58.343 Sodium Chloride 0.9% 250 ml @ 0.03 MCG/KG/MIN 12. 002 mls/hr IV .[id number] [facility] Rx#:[id number] propofoL 1,000 mg In 82.635 Empty Bag 1 bag @ Titrate IV .Q0M [facility] Rx#: [id number] Output: Chest Tube Drainage 124 110 0 Midstinal 124 110 0 Urine 660 680 100 Other: Voiding Method Indwelling Catheter Indwelling Catheter Urinal ABP, PAP, CO, CI - Last Documented Arterial Blood Pressure 116/62 - Exam Physical Exam: Revealed a 78-year-old white male in no distress, patient is in atrial fibrillation with RVR. And on IV amiodarone. HEENT:[Neck is supple.] [No neck masses.] [No thyromegaly.] [No JVD.] Speech is normal. Chest: [Minimal crackles and diminished breath sounds at the left base otherwise unremarkable. Cardiac: Irregular irregular rhythm, positive pericardial rub. Abdomen: [Soft, nontender, no megaly, no rebound, no guarding, normal bowel sounds.] Extremities: [No clubbing, no edema, no cyanosis.] Neurological Exam: Patient continues to have mild left sided hemiparesis, he has a left upper extremity pronator shift, and this left sided facial droop, seems to be oriented 3 psychiatric: Depressed mood Flat affect, normal mental status examination. skin: No rashes - Labs CBC & Chem 7: 07/13/23 04:04 07/13/23 04:04 Labs: Abnormal Lab Results - Last 24 Hours (Table) 07/11/23 07/12/23 07/12/23 Range/Units 12:47 12:15 13:49 WBC (3.8-10.6) k/uL RBC (4.30-5.90) m/uL Hgb (13.0-17.5) gm/dL Hct (39.0-53.0) % Plt Count (150-450) k/uL Neutrophils # (1.3-7.7) k/uL Monocytes # (0-1.0) k/uL Chloride (98-107) mmol/L BUN (9-20) mg/dL Glucose (74-99) mg/dL POC Glucose (mg/dL) 130 H 117 H (70-110) mg/dL Calcium (8.4-10.2) mg/dL AST (17-59) U/L Total Protein (6.3-8.2) g/dL Albumin (3.5-5.0) g/dL Crossmatch See Detail 07/12/23 07/12/23 07/12/23 Range/Units 14:50 16:47 19:10 WBC (3.8-10.6) k/uL RBC (4.30-5.90) m/uL Hgb (13.0-17.5) gm/dL Hct (39.0-53.0) % Plt Count (150-450) k/uL Neutrophils # (1.3-7.7) k/uL Monocytes # (0-1.0) k/uL Chloride (98-107) mmol/L BUN (9-20) mg/dL Glucose (74-99) mg/dL POC Glucose (mg/dL) 117 H 142 H 170 H (70-110) mg/dL Calcium (8.4-10.2) mg/dL AST (17-59) U/L Total Protein (6.3-8.2) g/dL Albumin (3.5-5.0) g/dL Crossmatch 07/12/23 07/12/23 07/12/23 Range/Units 20:05 21:06 22:05 WBC (3.8-10.6) k/uL RBC (4.30-5.90) m/uL Hgb (13.0-17.5) gm/dL Hct (39.0-53.0) % Plt Count (150-450) k/uL Neutrophils # (1.3-7.7) k/uL Monocytes # (0-1.0) k/uL Chloride (98-107) mmol/L BUN (9-20) mg/dL Glucose (74-99) mg/dL POC Glucose (mg/dL) 165 H 164 H 135 H (70-110) mg/dL Calcium (8.4-10.2) mg/dL AST (17-59) U/L Total Protein (6.3-8.2) g/dL Albumin (3.5-5.0) g/dL Crossmatch 07/12/23 07/13/23 07/13/23 Range/Units 22:55 00:07 01:00 WBC (3.8-10.6) k/uL RBC (4.30-5.90) m/uL Hgb (13.0-17.5) gm/dL Hct (39.0-53.0) % Plt Count (150-450) k/uL Neutrophils # (1.3-7.7) k/uL Monocytes # (0-1.0) k/uL Chloride (98-107) mmol/L BUN (9-20) mg/dL Glucose (74-99) mg/dL POC Glucose (mg/dL) 136 H 136 H 124 H (70-110) mg/dL Calcium (8.4-10.2) mg/dL AST (17-59) U/L Total Protein (6.3-8.2) g/dL Albumin (3.5-5.0) g/dL Crossmatch 07/13/23 07/13/23 07/13/23 Range/Units 01:59 03:01 04:03 WBC (3.8-10.6) k/uL RBC (4.30-5.90) m/uL Hgb (13.0-17.5) gm/dL Hct (39.0-53.0) % Plt Count (150-450) k/uL Neutrophils # (1.3-7.7) k/uL Monocytes # (0-1.0) k/uL Chloride (98-107) mmol/L BUN (9-20) mg/dL Glucose (74-99) mg/dL POC Glucose (mg/dL) 157 H 143 H 146 H (70-110) mg/dL Calcium (8.4-10.2) mg/dL AST (17-59) U/L Total Protein (6.3-8.2) g/dL Albumin (3.5-5.0) g/dL Crossmatch 07/13/23 07/13/23 07/13/23 Range/Units 04:04 04:04 05:04 WBC 17.1 H (3.8-10.6) k/uL RBC 3.91 L (4.30-5.90) m/uL Hgb 11.7 L D (13.0-17.5) gm/dL Hct 34.4 L (39.0-53.0) % Plt Count 84 L (150-450) k/uL Neutrophils # 13.8 H (1.3-7.7) k/uL Monocytes # 1.5 H (0-1.0) k/uL Chloride 111 H (98-107) mmol/L BUN 28 H (9-20) mg/dL Glucose 128 H (74-99) mg/dL POC Glucose (mg/dL) 136 H (70-110) mg/dL Calcium 7.7 L (8.4-10.2) mg/dL AST 99 H (17-59) U/L Total Protein 4.2 L (6.3-8.2) g/dL Albumin 2.2 L (3.5-5.0) g/dL Crossmatch 07/13/23 07/13/23 07/13/23 Range/Units 06:06 07:12 08:41 WBC (3.8-10.6) k/uL RBC (4.30-5.90) m/uL Hgb (13.0-17.5) gm/dL Hct (39.0-53.0) % Plt Count (150-450) k/uL Neutrophils # (1.3-7.7) k/uL Monocytes # (0-1.0) k/uL Chloride (98-107) mmol/L BUN (9-20) mg/dL Glucose (74-99) mg/dL POC Glucose (mg/dL) 134 H 123 H 139 H (70-110) mg/dL Calcium (8.4-10.2) mg/dL AST (17-59) U/L Total Protein (6.3-8.2) g/dL Albumin (3.5-5.0) g/dL Crossmatch 07/13/23 Range/Units 11:27 WBC (3.8-10.6) k/uL RBC (4.30-5.90) m/uL Hgb (13.0-17.5) gm/dL Hct (39.0-53.0) % Plt Count (150-450) k/uL Neutrophils # (1.3-7.7) k/uL Monocytes # (0-1.0) k/uL Chloride (98-107) mmol/L BUN (9-20) mg/dL Glucose (74-99) mg/dL POC Glucose (mg/dL) 165 H (70-110) mg/dL Calcium (8.4-10.2) mg/dL AST (17-59) U/L Total Protein (6.3-8.2) g/dL Albumin (3.5-5.0) g/dL Crossmatch Assessment and Plan Assessment: Impression Acute hypoxic respiratory failure secondary to cardiac tamponade, iatrogenic in nature Cardiac tamponade, status post left atrial ablation for paroxysmal atrial fibrillation with evidence of injury to the left atrium requiring emergent sternotomy, institution of cardiopulmonary bypass, and repair of left atrial injury, exclusion of left atrial appendage using a 35 mm atriclip, intraopera tive transesophageal echocardiogram, postoperative day #2 Acute CVA, 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 With a left sided hemiparesis. Benign essential hypertension Chronic atrial fibrillation, symptomatic History of supraventricular tachycardia Dyslipidemia degenerative joint disease Ex-smoker Recommendation: Patient tolerated extubation well over the last 24 hours. Continue to monitor the patient in the ICU Continue supportive care measures Continue incentive spirometry Continue mediastinal chest tubes , as felt necessary by cardiac surgery on the case. Continue amiodarone, patient did receive digoxin last night for his atrial fibrillation with RVR Early ambulation Immune GI and DVT prophylaxis per We'll continue to follow Time with Patient: Less than 30
--- NOTE | 2023-07-13 12:26 | P.PN ---
Subjective Progress Note Date: 07/13/23 07/12/2023 This is a 78-year-old gentleman with past medical history significant for symptomatic paroxysmal atrial fibrillation, CAD, hypertension, hyperlipidemia, BPH, prior nicotine dependence and multiple other medical issues, underwent emergent sternotomy and cardiopulmonary bypass with repair of left atrial injury, exclusion of left atrial appendage and intraoperative transesophageal echocardiogram secondary to cardiac tamponade status post left atrial ablation for proximal atrial fibrillation. Vent dependent, FiO2 50%/+5 of PEEP. Chest x-ray reporting mild cardiomegaly with mild vascular congestion, small left pleural effusion, mild bibasilar atelectasis, loop recorder device and atrial ap pendage clip. Maintained on levophed. Wily sinus rhythm. T-max 100.2, WBC decreased to 19.7, hemoglobin 15.4, platelets 71. BUN 20, creatinine 1.24. On glucose 134, hemoglobin A1c 6.2, sodium 141, potassium 4.5, magnesium 2.2. T bili decreased to 0.4, AST 152 ALT 38, alk phos 64 albumin 2.2, TSH 0.394. Receiving calcium and bicarb; Bicarb 19, calcium 7.5, ionized calcium 4.5. 07/13/2023: The patient is awake and alert in bed. He is lying flat. He is status post left atrial ablation for chronic atrial fibrillation. During the procedure he had a left atrial injury resulting in cardiac tamponade on and blood loss. Cardiothoracic surgery then taken to the operating room he was on c ardiopulmonary bypass. Upon is awaking there was a left facial droop and weakness. Thought to be an acute CVA during the event. He seems quite somnolent today he is much more awake. Family is at bedside. He has some slurred speech but is understanding me. Some commands. Nursing reports a bedside swallow test was okay for round and textured diet. Currently he is in sinus rhythm. Respiratory normal pressures tolerable pulse ox is 94% on 2 L O2. Labs showed potassium 2.9 hemoglobin was 1.7. Platelets are 84. Chemistries are essentially normal exception of glucose 128. He did receive 7 units packed red blood cells 2 units of fresh frozen plasma and 1 unit of platelets yesterday. He continues be followed by critical care, thoracic surgery, cardiology, and neurology. their notes were reviewed today Objective - Vital Signs Vital signs: Vital Signs Temp 99.3 F 07/13/23 08:00 Pulse 84 07/13/23 11:00 Resp 23 07/13/23 11:00 BP 131/66 07/13/23 11:00 Pulse Ox 94 L 07/13/23 10:00 FiO2 50 07/12/23 09:36 Intake & Output 07/12/23 07/13/23 07/13/23 18:59 06:59 18:59 Intake Total 8587.785 9706.613 896.683 Output Total 784 790 100 Balance 509.553 624.613 796.683 Weight 112 kg 111.4 kg Intake: IV 1133 1196 689 ACETAMINOPHEN IV (For NPO 100 100 100 ) 1,000 mg In Empty Bag 1 bag @ 400 mls/hr IVPB Q6HR [facility] Rx#:[id number] Calcium Gluconate in NaCl 100 1 gm In Saline 1 100ml. bag @ 100 mls/hr IVPB ONCE ONE Rx#:[id number] Lactated Ringers 1,000 ml 130 @ 50 mls/hr IV .Q20H [facility] Rx#:[id number] Potassium Chloride 10 meq 100 100 In Water For Injection 1 100ml.bag @ 100 mls/hr IVPB Q1H [facility] Rx#: [id number] Pressure Bag 0.9 NS 33 36 9 Sodium Chloride 0.9% 1, 720 960 480 000 ml @ 80 mls/hr IV . [id number] [facility] Rx#:[id number] ceFAZolin 2 gm In Sodium 50 Chloride 0.9% 50 ml @ 100 mls/hr IVPB ONCE ONE Rx# :[id number] Intake, IV Titration 160.553 218.613 207.683 Amount Amiodarone 360 mg In 183.887 200 Dextrose 5% in Water 200 ml @ 1 MG/MIN 33.333 mls/ hr IV .Q6H [facility] Rx#: [id number] Insulin Regular 100 unit 19.575 34.726 7.683 In Sodium Chloride 0.9% 100 ml @ Per Protocol IV .Q0M [facility] Rx#:[id number] Norepinephrine 4 mg In 58.343 Sodium Chloride 0.9% 250 ml @ 0.03 MCG/KG/MIN 12. 002 mls/hr IV .[id number] [facility] Rx#:[id number] propofoL 1,000 mg In 82.635 Empty Bag 1 bag @ Titrate IV .Q0M [facility] Rx#: [id number] Output: Chest Tube Drainage 124 110 0 Midstinal 124 110 0 Urine 660 680 100 Other: Voiding Method Indwelling Catheter Indwelling Catheter Urinal ABP, PAP, CO, CI - Last Documented Arterial Blood Pressure 116/62 - Exam GENERAL: lying flat, awake alert HEENT: Normocephalic, Conjunctivae normal. eyes normal. There is obvious left facial droop with smiling NECK: Supple, No JVD. CARDIOVASCULAR: S1, S2 regular.telemetry sinus rhythm ,No murmur RESPIRATION: Unlabored, Breath sounds diminished in the bases. Mediastinal chest tube in place ABDOMEN: Soft, nontender . No guarding. no masses palpable. No ascites, No hepatosplenomegaly.Bowel sounds heard. Extremities: The legs show trace pedal edema. He is moving them in all quadrants. There is some weakness in the left hand grasp. NERVOUS SYSTEM: Awake alert and oriented 2. Skin: Warm and dry, no rash Results - Labs CBC & Chem 7: 07/13/23 04:04 07/13/23 04:04 Labs: Abnormal Lab Results - Last 24 Hours (Table) 07/11/23 07/12/23 07/12/23 Range/Units 12:47 12:15 13:49 WBC (3.8-10.6) k/uL RBC (4.30-5.90) m/uL Hgb (13.0-17.5) gm/dL Hct (39.0-53.0) % Plt Count (150-450) k/uL Neutrophils # (1.3-7.7) k/uL Monocytes # (0-1.0) k/uL Chloride (98-107) mmol/L BUN (9-20) mg/dL Glucose (74-99) mg/dL POC Glucose (mg/dL) 130 H 117 H (70-110) mg/dL Calcium (8.4-10.2) mg/dL AST (17-59) U/L Total Protein (6.3-8.2) g/dL Albumin (3.5-5.0) g/dL Crossmatch See Detail 07/12/23 07/12/23 07/12/23 Range/Units 14:50 16:47 19:10 WBC (3.8-10.6) k/uL RBC (4.30-5.90) m/uL Hgb (13.0-17.5) gm/dL Hct (39.0-53.0) % Plt Count (150-450) k/uL Neutrophils # (1.3-7.7) k/uL Monocytes # (0-1.0) k/uL Chloride (98-107) mmol/L BUN (9-20) mg/dL Glucose (74-99) mg/dL POC Glucose (mg/dL) 117 H 142 H 170 H (70-110) mg/dL Calcium (8.4-10.2) mg/dL AST (17-59) U/L Total Protein (6.3-8.2) g/dL Albumin (3.5-5.0) g/dL Crossmatch 07/12/23 07/12/23 07/12/23 Range/Units 20:05 21:06 22:05 WBC (3.8-10.6) k/uL RBC (4.30-5.90) m/uL Hgb (13.0-17.5) gm/dL Hct (39.0-53.0) % Plt Count (150-450) k/uL Neutrophils # (1.3-7.7) k/uL Monocytes # (0-1.0) k/uL Chloride (98-107) mmol/L BUN (9-20) mg/dL Glucose (74-99) mg/dL POC Glucose (mg/dL) 165 H 164 H 135 H (70-110) mg/dL Calcium (8.4-10.2) mg/dL AST (17-59) U/L Total Protein (6.3-8.2) g/dL Albumin (3.5-5.0) g/dL Crossmatch 07/12/23 07/13/23 07/13/23 Range/Units 22:55 00:07 01:00 WBC (3.8-10.6) k/uL RBC (4.30-5.90) m/uL Hgb (13.0-17.5) gm/dL Hct (39.0-53.0) % Plt Count (150-450) k/uL Neutrophils # (1.3-7.7) k/uL Monocytes # (0-1.0) k/uL Chloride (98-107) mmol/L BUN (9-20) mg/dL Glucose (74-99) mg/dL POC Glucose (mg/dL) 136 H 136 H 124 H (70-110) mg/dL Calcium (8.4-10.2) mg/dL AST (17-59) U/L Total Protein (6.3-8.2) g/dL Albumin (3.5-5.0) g/dL Crossmatch 07/13/23 07/13/23 07/13/23 Range/Units 01:59 03:01 04:03 WBC (3.8-10.6) k/uL RBC (4.30-5.90) m/uL Hgb (13.0-17.5) gm/dL Hct (39.0-53.0) % Plt Count (150-450) k/uL Neutrophils # (1.3-7.7) k/uL Monocytes # (0-1.0) k/uL Chloride (98-107) mmol/L BUN (9-20) mg/dL Glucose (74-99) mg/dL POC Glucose (mg/dL) 157 H 143 H 146 H (70-110) mg/dL Calcium (8.4-10.2) mg/dL AST (17-59) U/L Total Protein (6.3-8.2) g/dL Albumin (3.5-5.0) g/dL Crossmatch 07/13/23 07/13/23 07/13/23 Range/Units 04:04 04:04 05:04 WBC 17.1 H (3.8-10.6) k/uL RBC 3.91 L (4.30-5.90) m/uL Hgb 11.7 L D (13.0-17.5) gm/dL Hct 34.4 L (39.0-53.0) % Plt Count 84 L (150-450) k/uL Neutrophils # 13.8 H (1.3-7.7) k/uL Monocytes # 1.5 H (0-1.0) k/uL Chloride 111 H (98-107) mmol/L BUN 28 H (9-20) mg/dL Glucose 128 H (74-99) mg/dL POC Glucose (mg/dL) 136 H (70-110) mg/dL Calcium 7.7 L (8.4-10.2) mg/dL AST 99 H (17-59) U/L Total Protein 4.2 L (6.3-8.2) g/dL Albumin 2.2 L (3.5-5.0) g/dL Crossmatch 07/13/23 07/13/23 07/13/23 Range/Units 06:06 07:12 08:41 WBC (3.8-10.6) k/uL RBC (4.30-5.90) m/uL Hgb (13.0-17.5) gm/dL Hct (39.0-53.0) % Plt Count (150-450) k/uL Neutrophils # (1.3-7.7) k/uL Monocytes # (0-1.0) k/uL Chloride (98-107) mmol/L BUN (9-20) mg/dL Glucose (74-99) mg/dL POC Glucose (mg/dL) 134 H 123 H 139 H (70-110) mg/dL Calcium (8.4-10.2) mg/dL AST (17-59) U/L Total Protein (6.3-8.2) g/dL Albumin (3.5-5.0) g/dL Crossmatch 07/13/23 Range/Units 11:27 WBC (3.8-10.6) k/uL RBC (4.30-5.90) m/uL Hgb (13.0-17.5) gm/dL Hct (39.0-53.0) % Plt Count (150-450) k/uL Neutrophils # (1.3-7.7) k/uL Monocytes # (0-1.0) k/uL Chloride (98-107) mmol/L BUN (9-20) mg/dL Glucose (74-99) mg/dL POC Glucose (mg/dL) 165 H (70-110) mg/dL Calcium (8.4-10.2) mg/dL AST (17-59) U/L Total Protein (6.3-8.2) g/dL Albumin (3.5-5.0) g/dL Crossmatch Assessment and Plan Plan: Acute hypoxic respiratory failure secondary to cardiac tamponade, iatrogenic in nature Cardiac tamponade, status post left atrial ablation for paroxysmal atrial fibrillation injury to the left atrium requiring emergent sternotomy, institution of cardiopulmonary bypass, and repair of left atrial injury, , chest tube in place emergent sternotomy POD#2 Acute CVA, 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 With a left sided hemiparesis. Benign essential hypertension Chronic atrial fibrillation, symptomatic, status post ablation History of supraventricular tachycardia Dyslipidemia degenerative joint disease BPH: Alberts catheter to gravity Ex-smoker Recommendations from critical care, thoracic surgery, cardiology, and neurology are pending. He'll continue on his current care treatment. I'll advance his diet. Labs in a.m. He'll be reevaluated by family medicine in the next 24 hours
[2023-07-13 12:40] LABS: Chol/HDL Ratio 2.85 Ratio; LDL Cholesterol,Calculated 11.2 mg/dL (0.0-131.0)
[2023-07-13] MEDS: METOPROLOL TARTRATE 25 MG TAB PO SCH ×2 (16:07→20:26)
--- NOTE | 2023-07-13 16:15 | P.PN ---
Subjective HISTORY OF PRESENTING ILLNESS Patient is a pleasant 78-year-old male with history of CAD, persistent atrial fibrillation, SVT, hypertension, hyperlipidemia, previous tobacco abuse who presented for elective A. fib ablation. Patient did have cardiac tamponade nod and therefore was taken to surgery with findings of left atrial injury with repair as well as exclusion of left atrial appendage and he had been placed on cardiopulmonary bypass. He remains in sinus rhythm today and has approximate 400 mL output from his mediastinal chest tube. He has been on low-dose norepinephrine. He was extubated earlier today and found to have left sided we akness and therefore code stroke called and neurology consult that with concern of ischemic stroke. Blood blood cell count 19.7, hemoglobin 15.4, platelets down to 71, creatinine 1.2, bilirubin 2.4, AST 152, ALT was 38. Patient not responding all questions appropriately however does admit to chest pain around his sternotomy incision. 07/13 Patient seen and examined. Patient went and A. fib with RVR with heart rates in the 150s and was placed on amiodarone, currently amiodarone drip at 1. He additionally received metoprolol with conversion to normal sinus rhythm. His somewhat more alert today and moving more of his left hand. CT brain showed findings consistent with right frontal lobe stroke. Patient tolerating aspirin. Platelets stable at 84, 71 yesterday. Off of vasopressors. His arterial sheath was removed this morning with no significant hematoma. PHYSICAL EXAMINATION Vital signs reviewed. CONSTITUTIONAL: No apparent distress, +left sided weakness. HEENT: Head is normocephalic. Pupils are equal, round. Sclerae anicteric. Mucous membranes of the mouth are moist. No JVD. No carotid bruit. CHEST EXAMINATION: Lungs are clear to auscultation. No chest wall tenderness is noted on palpation or with deep breathing. HEART EXAMINATION: Regular rate and rhythm. S1, S2 heard. No murmurs, gallops or rub. ABDOMEN: Soft, nontender. Positive bowel sounds. EXTREMITIES: 2+ peripheral pulses, no lower extremity edema and no calf tenderness. NEUROLOGIC EXAMINATION: Patient is awake, slurring his words ASSESSMENT Status post pulmonary vein isolation ablation 07/11 with left atrial injury, pericardial effusion/cardiac tamponade Left atrial injury status post cardiopulmonary bypass with left atrial repair, exclusion of left atrial appendage Acute left-sided stroke CAD Thrombocytopenia Hypertension Hyperlipidemia Persistent Afib with RVR, currently sinus rhythm PLAN Patient had cardiac tamponade from left atrial injury with surgical repair, postop day 2. Defer to neuro on timing of restarting anticoagulation with recent stroke however additional thrombogenicity from pulmonary vein ablation. Continue current supportive care. Monitor hemoglobin and platelets closely. Continue amiodarone drip and likely transition to lower dose 0.5 mg tomorrow, possibly oral tomorrow. Objective - Vital Signs Vital signs: Vital Signs Temp 98.2 F 07/13/23 12:00 Pulse 80 07/13/23 16:09 Resp 17 07/13/23 14:00 BP 127/65 07/13/23 14:00 Pulse Ox 92 L 07/13/23 14:00 FiO2 50 07/12/23 09:36 Intake & Output 07/12/23 07/13/23 07/13/23 18:59 06:59 18:59 Intake Total 6462.551 9634.613 1216.683 Output Total 784 790 100 Balance 509.553 138.282 7378.683 Weight 112 kg 111.4 kg Intake: IV 1133 1196 1009 ACETAMINOPHEN IV (For NPO 100 100 100 ) 1,000 mg In Empty Bag 1 bag @ 400 mls/hr IVPB Q6HR [facility] Rx#:[id number] Calcium Gluconate in NaCl 100 1 gm In Saline 1 100ml. bag @ 100 mls/hr IVPB ONCE ONE Rx#:[id number] Lactated Ringers 1,000 ml 130 @ 50 mls/hr IV .Q20H [facility] Rx#:[id number] Potassium Chloride 10 meq 100 100 In Water For Injection 1 100ml.bag @ 100 mls/hr IVPB Q1H [facility] Rx#: [id number] Pressure Bag 0.9 NS 33 36 9 Sodium Chloride 0.9% 1, 720 960 800 000 ml @ 80 mls/hr IV . [id number] [facility] Rx#:[id number] ceFAZolin 2 gm In Sodium 50 Chloride 0.9% 50 ml @ 100 mls/hr IVPB ONCE ONE Rx# :[id number] Intake, IV Titration 160.553 218.613 207.683 Amount Amiodarone 360 mg In 183.887 200 Dextrose 5% in Water 200 ml @ 1 MG/MIN 33.333 mls/ hr IV .Q6H [facility] Rx#: [id number] Insulin Regular 100 unit 19.575 34.726 7.683 In Sodium Chloride 0.9% 100 ml @ Per Protocol IV .Q0M [facility] Rx#:[id number] Norepinephrine 4 mg In 58.343 Sodium Chloride 0.9% 250 ml @ 0.03 MCG/KG/MIN 12. 002 mls/hr IV .[id number] [facility] Rx#:[id number] propofoL 1,000 mg In 82.635 Empty Bag 1 bag @ Titrate IV .Q0M [facility] Rx#: [id number] Output: Chest Tube Drainage 124 110 0 Midstinal 124 110 0 Urine 660 680 100 Other: Voiding Method Indwelling Catheter Indwelling Catheter Urinal ABP, PAP, CO, CI - Last Documented Arterial Blood Pressure 116/62 - Labs CBC & Chem 7: 07/13/23 04:04 07/13/23 04:04 Labs: Abnormal Lab Results - Last 24 Hours (Table) 07/11/23 07/12/23 07/12/23 Range/Units 12:47 16:47 19:10 WBC (3.8-10.6) k/uL RBC (4.30-5.90) m/uL Hgb (13.0-17.5) gm/dL Hct (39.0-53.0) % Plt Count (150-450) k/uL Neutrophils # (1.3-7.7) k/uL Monocytes # (0-1.0) k/uL Chloride (98-107) mmol/L BUN (9-20) mg/dL Glucose (74-99) mg/dL POC Glucose (mg/dL) 142 H 170 H (70-110) mg/dL Calcium (8.4-10.2) mg/dL AST (17-59) U/L Total Protein (6.3-8.2) g/dL Albumin (3.5-5.0) g/dL HDL Cholesterol (40.00-60.00) mg/dL Crossmatch See Detail 07/12/23 07/12/23 07/12/23 Range/Units 20:05 21:06 22:05 WBC (3.8-10.6) k/uL RBC (4.30-5.90) m/uL Hgb (13.0-17.5) gm/dL Hct (39.0-53.0) % Plt Count (150-450) k/uL Neutrophils # (1.3-7.7) k/uL Monocytes # (0-1.0) k/uL Chloride (98-107) mmol/L BUN (9-20) mg/dL Glucose (74-99) mg/dL POC Glucose (mg/dL) 165 H 164 H 135 H (70-110) mg/dL Calcium (8.4-10.2) mg/dL AST (17-59) U/L Total Protein (6.3-8.2) g/dL Albumin (3.5-5.0) g/dL HDL Cholesterol (40.00-60.00) mg/dL Crossmatch 07/12/23 07/13/23 07/13/23 Range/Units 22:55 00:07 01:00 WBC (3.8-10.6) k/uL RBC (4.30-5.90) m/uL Hgb (13.0-17.5) gm/dL Hct (39.0-53.0) % Plt Count (150-450) k/uL Neutrophils # (1.3-7.7) k/uL Monocytes # (0-1.0) k/uL Chloride (98-107) mmol/L BUN (9-20) mg/dL Glucose (74-99) mg/dL POC Glucose (mg/dL) 136 H 136 H 124 H (70-110) mg/dL Calcium (8.4-10.2) mg/dL AST (17-59) U/L Total Protein (6.3-8.2) g/dL Albumin (3.5-5.0) g/dL HDL Cholesterol (40.00-60.00) mg/dL Crossmatch 07/13/23 07/13/23 07/13/23 Range/Units 01:59 03:01 04:03 WBC (3.8-10.6) k/uL RBC (4.30-5.90) m/uL Hgb (13.0-17.5) gm/dL Hct (39.0-53.0) % Plt Count (150-450) k/uL Neutrophils # (1.3-7.7) k/uL Monocytes # (0-1.0) k/uL Chloride (98-107) mmol/L BUN (9-20) mg/dL Glucose (74-99) mg/dL POC Glucose (mg/dL) 157 H 143 H 146 H (70-110) mg/dL Calcium (8.4-10.2) mg/dL AST (17-59) U/L Total Protein (6.3-8.2) g/dL Albumin (3.5-5.0) g/dL HDL Cholesterol (40.00-60.00) mg/dL Crossmatch 07/13/23 07/13/23 07/13/23 Range/Units 04:04 04:04 05:04 WBC 17.1 H (3.8-10.6) k/uL RBC 3.91 L (4.30-5.90) m/uL Hgb 11.7 L D (13.0-17.5) gm/dL Hct 34.4 L (39.0-53.0) % Plt Count 84 L (150-450) k/uL Neutrophils # 13.8 H (1.3-7.7) k/uL Monocytes # 1.5 H (0-1.0) k/uL Chloride 111 H (98-107) mmol/L BUN 28 H (9-20) mg/dL Glucose 128 H (74-99) mg/dL POC Glucose (mg/dL) 136 H (70-110) mg/dL Calcium 7.7 L (8.4-10.2) mg/dL AST 99 H (17-59) U/L Total Protein 4.2 L (6.3-8.2) g/dL Albumin 2.2 L (3.5-5.0) g/dL HDL Cholesterol 20.00 L (40.00-60.00) mg/dL Crossmatch 07/13/23 07/13/23 07/13/23 Range/Units 06:06 07:12 08:41 WBC (3.8-10.6) k/uL RBC (4.30-5.90) m/uL Hgb (13.0-17.5) gm/dL Hct (39.0-53.0) % Plt Count (150-450) k/uL Neutrophils # (1.3-7.7) k/uL Monocytes # (0-1.0) k/uL Chloride (98-107) mmol/L BUN (9-20) mg/dL Glucose (74-99) mg/dL POC Glucose (mg/dL) 134 H 123 H 139 H (70-110) mg/dL Calcium (8.4-10.2) mg/dL AST (17-59) U/L Total Protein (6.3-8.2) g/dL Albumin (3.5-5.0) g/dL HDL Cholesterol (40.00-60.00) mg/dL Crossmatch 07/13/23 Range/Units 11:27 WBC (3.8-10.6) k/uL RBC (4.30-5.90) m/uL Hgb (13.0-17.5) gm/dL Hct (39.0-53.0) % Plt Count (150-450) k/uL Neutrophils # (1.3-7.7) k/uL Monocytes # (0-1.0) k/uL Chloride (98-107) mmol/L BUN (9-20) mg/dL Glucose (74-99) mg/dL POC Glucose (mg/dL) 165 H (70-110) mg/dL Calcium (8.4-10.2) mg/dL AST (17-59) U/L Total Protein (6.3-8.2) g/dL Albumin (3.5-5.0) g/dL HDL Cholesterol (40.00-60.00) mg/dL Crossmatch
[2023-07-13 16:37] LABS: Glucose,Whole Blood 200 mg/dL (70-110)
--- NOTE | 2023-07-13 16:46 | CA ---
Transthoracic Echo Report Name: Eliud Slaughter Age: 78 Gender: M : 1945 Exam Date: 07/13/2023 15:43 Exam Location: [facility] Ht (in): 70 Wt (lb): 245 Ordering Physician: Wilson Chaves MD Attending/Referring Phys: [employer] Information Clerk Aishwarya Felix RDCS Procedure CPT: Indications: CVA Cardiac Hx: Technical Quality: Very technically difficult study Contrast 1: Total Dose (mL): Contrast 2: Total Dose (mL): MEASUREMENTS (Male / Female) Normal Values FINDINGS Left Ventricle Left ventricle not well visualized. Left ventricular ejection fraction is estimated at 50-55 %. Right Ventricle Right ventricle not well visualized. Right Atrium Right atrium not well visualized. Left Atrium Left atrium not well visualized. Mitral Valve Mitral valve not well visualized. Aortic Valve Aortic valve not well visualized. Tricuspid Valve Tricuspid valve not well visualized. Pulmonic Valve Pulmonic valve not well visualized. Pericardium No pericardial effusion. Aorta Aortic root and proximal ascending aorta not well visualized. CONCLUSIONS Limited 2-D echo Technically difficult study Left ventricular EF 50-55% Previewed by: Dr. Francois Gregory DO (Electronically Signed) Final Date: 13 July 2023 16:45
[2023-07-13 20:24] LABS: Glucose,Whole Blood 194 mg/dL (70-110)
[2023-07-13] MEDS: SENNOSIDES-DOCUSATE SODIUM 1 EACH TAB PO SCH (20:26)
[2023-07-13] MEDS: HYDROcodone/APAP 5-325MG 1 EACH TAB PO PRN (20:44)
[2023-07-13] MEDS: CLEVIDIPINE BUTYRATE 25 MG in EMPTY BAG 1 BAG IV SCH (20:56)
[2023-07-14] MEDS ORDERED: METOPROLOL TARTRATE 50 MG TAB PO STA (01:25)
[2023-07-14] MEDS ORDERED: DEXTROSE 5% IN WATER 100 ML with AMIODARONE 150 MG IV ONE (01:25)
[2023-07-14 03:45] LABS: Basophils % (A) 0 %; Eosinophils # (A) 0.1 k/uL (0-0.7); Eosinophils % (A) 1 %; HCT 29.3 % (39.0-53.0); Lymphocytes % (A) 8 %; MCV 90.8 fL (80.0-100.0); Mean Platelet Volume 11.8; Monocytes # (A) 0.7 k/uL (0-1.0); Monocytes % (A) 6 %; Neutrophils # (A) 10.4 k/uL (1.3-7.7); Neutrophils % (A) 84 %; Platelet Count 68 k/uL (150-450); RBC 3.23 m/uL (4.30-5.90); RDW 13.8 % (11.5-15.5); WBC 12.4 k/uL (3.8-10.6)
[2023-07-14] MEDS: AMIODARONE 360 MG in DEXTROSE 5% IN WATER 200 ML IV SCH ×2 (03:49)
[2023-07-14 03:55] LABS: HGB 9.7 gm/dL (13.0-17.5)
[2023-07-14 04:00] LABS: ALT 43 U/L (4-49); African American GFR (CKD) >90 (>60 ml/min/1.73 sqM); Anion Gap 5 mmol/L; Blood Urea Nitrogen 23 mg/dL (9-20); Calcium 7.5 mg/dL (8.4-10.2); Carbon Dioxide 22 mmol/L (22-30); Chloride 107 mmol/L (98-107); Glucose 142 mg/dL (74-99); Non-African American GFR(CKD) >90 (>60 ml/min/1.73 sqM); Sodium 134 mmol/L (137-145); Total Bilirubin 1.4 mg/dL (0.2-1.3)
[2023-07-14 04:04] LABS: AST 97 U/L (17-59); Albumin 2.2 g/dL (3.5-5.0); Alkaline Phosphatase 64 U/L (38-126); Potassium 4.2 mmol/L (3.5-5.1); Total Protein 4.5 g/dL (6.3-8.2)
[2023-07-14] MEDS: HYDROcodone/APAP 5-325MG 1 EACH TAB PO PRN ×2 (04:19→23:51)
[2023-07-14 06:40] LABS: Glucose,Whole Blood 165 mg/dL (70-110)
[2023-07-14] MEDS: INSULIN ASPART (NovoLOG) 100 UNIT/ML VIAL SQ SCH ×4 (06:42→21:59)
--- NOTE | 2023-07-14 08:00 | P.PN ---
Subjective Progress Note Date: 07/13/23 Patient was seen for a follow-up. Patient's was also present today. Patient denies any headache. He is doing much better. No new focal symptoms. Patient is laying in the bed. Objective - Vital Signs Vital signs: Vital Signs Temp 98.2 F 07/13/23 12:00 Pulse 86 07/13/23 14:00 Resp 17 07/13/23 14:00 BP 127/65 07/13/23 14:00 Pulse Ox 92 L 07/13/23 14:00 FiO2 50 07/12/23 09:36 Intake & Output 07/12/23 07/13/23 07/13/23 18:59 06:59 18:59 Intake Total 6631.404 7459.613 1056.683 Output Total 784 790 100 Balance 509.553 624.613 956.683 Weight 112 kg 111.4 kg Intake: IV 1133 1196 849 ACETAMINOPHEN IV (For NPO 100 100 100 ) 1,000 mg In Empty Bag 1 bag @ 400 mls/hr IVPB Q6HR [facility] Rx#:[id number] Calcium Gluconate in NaCl 100 1 gm In Saline 1 100ml. bag @ 100 mls/hr IVPB ONCE ONE Rx#:[id number] Lactated Ringers 1,000 ml 130 @ 50 mls/hr IV .Q20H [facility] Rx#:[id number] Potassium Chloride 10 meq 100 100 In Water For Injection 1 100ml.bag @ 100 mls/hr IVPB Q1H [facility] Rx#: [id number] Pressure Bag 0.9 NS 33 36 9 Sodium Chloride 0.9% 1, 720 960 640 000 ml @ 80 mls/hr IV . [id number] [facility] Rx#:[id number] ceFAZolin 2 gm In Sodium 50 Chloride 0.9% 50 ml @ 100 mls/hr IVPB ONCE ONE Rx# :[id number] Intake, IV Titration 160.553 218.613 207.683 Amount Amiodarone 360 mg In 183.887 200 Dextrose 5% in Water 200 ml @ 1 MG/MIN 33.333 mls/ hr IV .Q6H [facility] Rx#: [id number] Insulin Regular 100 unit 19.575 34.726 7.683 In Sodium Chloride 0.9% 100 ml @ Per Protocol IV .Q0M [facility] Rx#:[id number] Norepinephrine 4 mg In 58.343 Sodium Chloride 0.9% 250 ml @ 0.03 MCG/KG/MIN 12. 002 mls/hr IV .[id number] [facility] Rx#:[id number] propofoL 1,000 mg In 82.635 Empty Bag 1 bag @ Titrate IV .Q0M [facility] Rx#: [id number] Output: Chest Tube Drainage 124 110 0 Midstinal 124 110 0 Urine 660 680 100 Other: Voiding Method Indwelling Catheter Indwelling Catheter Urinal ABP, PAP, CO, CI - Last Documented Arterial Blood Pressure 116/62 - Exam Patient is an elderly male, who is laying in the bed, much more mentally clear. Mentation is improved. Patient is alert awake. Patient knows his age, and current month of June. Speech is very mildly dysarthric. He can name and repeat very well. His comprehension is intact. Attention, concentration and fund of knowledge normal. On cranial nerve examination, pupils are equal, round and reacting to light, visual donaldson are full on confrontation, with no neglect on double simultaneous stimulation. Extraocular muscles are intact with no nystagmus. Patient has mild left facial weakness, central type. His tongue protrudes to the midline. Palatal elevation and sensation normal, hearing is normal and shoulder shrug normal. Facial sensation normal. On muscle strength testing, there is mild left pronation drift only 10. The strength is normal in arms and legs distally and proximally bilaterally, except left induction heat treater, which is 5-. Deep tendon reflexes are symmetric 1 at the biceps, 1 brachioradialis, 1 at the knees, 0 ankles and plantars are flat bilaterally. Sensory to touch is equal with no neglect on double simultaneous stimulation. Cerebellar function revealed mild ataxia for [id number] testing left upper extremity. No ataxia on the right side. Tone and bulk of muscles normal. Gait deferred.. On general examination, there is no carotid bruit or murmur, S1-S2 audible. Chest is clear on consultation. Abdomen is soft nontender. No organomegaly, bowel sounds present. Peripheral pulses are present. - Labs CBC & Chem 7: 07/14/23 03:11 07/14/23 03:11 Labs: Abnormal Lab Results - Last 24 Hours (Table) 07/11/23 07/12/23 07/12/23 Range/Units 12:47 14:50 16:47 WBC (3.8-10.6) k/uL RBC (4.30-5.90) m/uL Hgb (13.0-17.5) gm/dL Hct (39.0-53.0) % Plt Count (150-450) k/uL Neutrophils # (1.3-7.7) k/uL Monocytes # (0-1.0) k/uL Chloride (98-107) mmol/L BUN (9-20) mg/dL Glucose (74-99) mg/dL POC Glucose (mg/dL) 117 H 142 H (70-110) mg/dL Calcium (8.4-10.2) mg/dL AST (17-59) U/L Total Protein (6.3-8.2) g/dL Albumin (3.5-5.0) g/dL HDL Cholesterol (40.00-60.00) mg/dL Crossmatch See Detail 07/12/23 07/12/23 07/12/23 Range/Units 19:10 20:05 21:06 WBC (3.8-10.6) k/uL RBC (4.30-5.90) m/uL Hgb (13.0-17.5) gm/dL Hct (39.0-53.0) % Plt Count (150-450) k/uL Neutrophils # (1.3-7.7) k/uL Monocytes # (0-1.0) k/uL Chloride (98-107) mmol/L BUN (9-20) mg/dL Glucose (74-99) mg/dL POC Glucose (mg/dL) 170 H 165 H 164 H (70-110) mg/dL Calcium (8.4-10.2) mg/dL AST (17-59) U/L Total Protein (6.3-8.2) g/dL Albumin (3.5-5.0) g/dL HDL Cholesterol (40.00-60.00) mg/dL Crossmatch 07/12/23 07/12/23 07/13/23 Range/Units 22:05 22:55 00:07 WBC (3.8-10.6) k/uL RBC (4.30-5.90) m/uL Hgb (13.0-17.5) gm/dL Hct (39.0-53.0) % Plt Count (150-450) k/uL Neutrophils # (1.3-7.7) k/uL Monocytes # (0-1.0) k/uL Chloride (98-107) mmol/L BUN (9-20) mg/dL Glucose (74-99) mg/dL POC Glucose (mg/dL) 135 H 136 H 136 H (70-110) mg/dL Calcium (8.4-10.2) mg/dL AST (17-59) U/L Total Protein (6.3-8.2) g/dL Albumin (3.5-5.0) g/dL HDL Cholesterol (40.00-60.00) mg/dL Crossmatch 07/13/23 07/13/23 07/13/23 Range/Units 01:00 01:59 03:01 WBC (3.8-10.6) k/uL RBC (4.30-5.90) m/uL Hgb (13.0-17.5) gm/dL Hct (39.0-53.0) % Plt Count (150-450) k/uL Neutrophils # (1.3-7.7) k/uL Monocytes # (0-1.0) k/uL Chloride (98-107) mmol/L BUN (9-20) mg/dL Glucose (74-99) mg/dL POC Glucose (mg/dL) 124 H 157 H 143 H (70-110) mg/dL Calcium (8.4-10.2) mg/dL AST (17-59) U/L Total Protein (6.3-8.2) g/dL Albumin (3.5-5.0) g/dL HDL Cholesterol (40.00-60.00) mg/dL Crossmatch 07/13/23 07/13/23 07/13/23 Range/Units 04:03 04:04 04:04 WBC 17.1 H (3.8-10.6) k/uL RBC 3.91 L (4.30-5.90) m/uL Hgb 11.7 L D (13.0-17.5) gm/dL Hct 34.4 L (39.0-53.0) % Plt Count 84 L (150-450) k/uL Neutrophils # 13.8 H (1.3-7.7) k/uL Monocytes # 1.5 H (0-1.0) k/uL Chloride 111 H (98-107) mmol/L BUN 28 H (9-20) mg/dL Glucose 128 H (74-99) mg/dL POC Glucose (mg/dL) 146 H (70-110) mg/dL Calcium 7.7 L (8.4-10.2) mg/dL AST 99 H (17-59) U/L Total Protein 4.2 L (6.3-8.2) g/dL Albumin 2.2 L (3.5-5.0) g/dL HDL Cholesterol 20.00 L (40.00-60.00) mg/dL Crossmatch 07/13/23 07/13/23 07/13/23 Range/Units 05:04 06:06 07:12 WBC (3.8-10.6) k/uL RBC (4.30-5.90) m/uL Hgb (13.0-17.5) gm/dL Hct (39.0-53.0) % Plt Count (150-450) k/uL Neutrophils # (1.3-7.7) k/uL Monocytes # (0-1.0) k/uL Chloride (98-107) mmol/L BUN (9-20) mg/dL Glucose (74-99) mg/dL POC Glucose (mg/dL) 136 H 134 H 123 H (70-110) mg/dL Calcium (8.4-10.2) mg/dL AST (17-59) U/L Total Protein (6.3-8.2) g/dL Albumin (3.5-5.0) g/dL HDL Cholesterol (40.00-60.00) mg/dL Crossmatch 07/13/23 07/13/23 Range/Units 08:41 11:27 WBC (3.8-10.6) k/uL RBC (4.30-5.90) m/uL Hgb (13.0-17.5) gm/dL Hct (39.0-53.0) % Plt Count (150-450) k/uL Neutrophils # (1.3-7.7) k/uL Monocytes # (0-1.0) k/uL Chloride (98-107) mmol/L BUN (9-20) mg/dL Glucose (74-99) mg/dL POC Glucose (mg/dL) 139 H 165 H (70-110) mg/dL Calcium (8.4-10.2) mg/dL AST (17-59) U/L Total Protein (6.3-8.2) g/dL Albumin (3.5-5.0) g/dL HDL Cholesterol (40.00-60.00) mg/dL Crossmatch Assessment and Plan Assessment: * Acute ischemic stroke with dysarthria and left hemiparesis, mainly involving the left facial brachial region. Patient also has slight left visual field neglect without visual field loss. Patient's current NIH stroke scale is 7. Patient not a candidate for TPA, because of recent cardiac surgery, and symptoms present for > 4.5 hours. Patient's neurological examination much improved, with NIH stroke scale down to 4. * Status post pulmonary vein isolation, and ablation 07/11/2023 with left atrial injury, pericardial effusion/cardiac tamponade * Left atrial injury status post cardiopulmonary bypass with left atrial repair, exclusion of left atrial appendage * History of paroxysmal atrial fibrillation. * CAD * Thrombocytopenia * Hypertension * Hyperlipidemia * Obesity Plan: * Patient has remarkably improved today as compared to yesterday. * CTA of head showed dominant left vertebral artery. No large vessel intracranial arterial occlusion, significant stenosis or aneurysmal change seen. * CTA of the neck showed dominant left vertebral artery. No significant, and or internal carotid artery stenosis. Recent post CABG changes visualized. I personally reviewed CTA of head and neck, agree with findings. No large vessel occlusion. No indication for mechanical thrombectomy. * 2-D echo limited views revealed technically difficult study. Left- ventricular EF is 50-55%. Left atrium not well visualized. * Fasting a.m. lipid panel cholesterol 57, LDL 11, HDL 20 and triglycerides 129. Continue continue Lipitor 40 mg daily. (Patient at home on Lipitor 20 mg) * Hemoglobin A1c 6.2 * Optimize control of blood pressure due to cardiac reasons. * Continue aspirin 325 mg daily. * Neuro checks every 2 hours. * Telemetry monitoring rule out any arrhythmia * PT, OT, speech therapy * DVT prophylaxis: heparin 5000 units subcu every 8 hours * Cardiology wants to resume anticoagulation for recurrence of atrial fibrillation. Cardiothoracic surgery has cleared patient for anticoagulation. We will check stat MRI of the brain to rule out any hemorrhagic conversion. If negative, then may consider resuming anticoagulation, if the benefits out weigh the risks. * Discussed with patient's family in detail as well.
--- NOTE | 2023-07-14 08:05 | XR ---
EXAMINATION TYPE: XR chest 1V portable DATE OF EXAM: 07/14/2023 5:22 AM CLINICAL INDICATION:Male, 78 years old with history of post cardiac surgery; [facility] COMPARISON: Chest radiograph from one day prior. TECHNIQUE: XR chest 1V portable Frontal view of the chest. FINDINGS: Lungs/Pleura: There is no evidence of pleural effusion, focal consolidation, or pneumothora x. Pulmonary vascularity: Unremarkable. Heart/mediastinum: Cardiomediastinal silhouette is unremarkable. Left atrial appendage occlusion quique ce is present. A loop recorder projects over the left thorax over the heart. Musculoskeletal: No acute osseous pathology. Midline sternotomy wires are noted. Other findings: None IMPRESSION: Low lung volumes with a generalized hazy appearance which could represent atelectasis.
[2023-07-14] MEDS: IPRATROPIUM-ALBUTEROL 3 ML NEB INHALATION SCH ×5 (08:13→19:36)
[2023-07-14] MEDS: ASPIRIN 325 MG TAB PO SCH (08:18)
[2023-07-14] MEDS: HEPARIN SODIUM,PORCINE 5,000 UNIT/ML 1 ML VIAL SQ SCH ×2 (08:18→15:57)
[2023-07-14] MEDS: ATORVASTATIN 40 MG TAB PO SCH (08:19)
[2023-07-14] MEDS: TAMSULOSIN 0.4 MG CAP.ER.24H PO SCH ×2 (08:19→21:46)
[2023-07-14] MEDS: METOPROLOL TARTRATE 50 MG TAB PO SCH ×3 (08:20→21:46)
[2023-07-14] MEDS: PANTOPRAZOLE 40 MG/10 ML VIAL IVP SCH ×2 (08:20→08:27)
[2023-07-14] MEDS: MULTIVITAMINS, THERA 1 EACH TAB PO SCH (08:20)
--- NOTE | 2023-07-14 09:04 | P.PN ---
Subjective Progress Note Date: 07/14/23 Principal diagnosis: Repeat tamponade status post left atrial ablation for paroxysmal atrial fibrillation with evidence of injury to the left atrium between the left superior pulmonary vein and the left inferior pulmonary vein. Previous medical history of coronary artery disease, recurrent symptomatic atrial fibrillation, SVT, hypertension, hyperlipidemia, arthritis, BPH, and previous tobacco dependence POD #3 emergent sternotomy and institution of cardiopulmonary bypass, repair of left atrial injury, exclusion of the left atrial appendage using a 35 mm AtriClip, intraoperative transesophageal echocardiogram Acute ischemia anterior right frontal lobe without midline shift or acute intracranial hemorrhage The patient was seen and examined this morning sitting up in the recliner in the intensive care unit in no acute distress. Currently in rapid atrial fibrillation although blood pressure stable, had converted yesterday to sinus rhythm but went back into atrial fibrillation this morning. Mediastinal chest tubes present with 150 mL serosanguineous drainage in the last 24 hours, no air leak present. Limited echo was completed yesterday demonstrating normal left ventricular systolic function with EF 50-55%, no pericardial effusion noted. Chest x-ray, labs reviewed. This morning patient is alert and oriented 3 and able to speak clearly, he does still have left arm weakness but able to move all extremities and follow all commands, per nursing he did ambulate about 20 feet and has been tolerating oral diet without difficulty. Objective - Vital Signs Vital signs: Vital Signs Temp 98.7 F 07/14/23 04:00 Pulse 134 H 07/14/23 07:00 Resp 35 H 07/14/23 07:00 BP 124/104 07/14/23 07:00 Pulse Ox 92 L 07/14/23 07:00 FiO2 50 07/12/23 09:36 Intake & Output 07/13/23 07/14/23 07/14/23 18:59 06:59 18:59 Intake Total 0247.095 4669.332 Output Total 360 470 Balance 4060.107 9273.332 Weight 114.1 kg Intake: IV 1169 1040 ACETAMINOPHEN IV (For NPO 100 ) 1,000 mg In Empty Bag 1 bag @ 400 mls/hr IVPB Q6HR [facility] Rx#:[id number] Potassium Chloride 10 meq 100 In Water For Injection 1 100ml.bag @ 100 mls/hr IVPB Q1H [facility] Rx#: [id number] Pressure Bag 0.9 NS 9 Sodium Chloride 0.9% 1, 960 1040 000 ml @ 80 mls/hr IV . [id number] [facility] Rx#:[id number] Intake, IV Titration 407.683 183.332 Amount Amiodarone 360 mg In 400 183.332 Dextrose 5% in Water 200 ml @ 1 MG/MIN 33.333 mls/ hr IV .Q6H [facility] Rx#: [id number] Insulin Regular 100 unit 7.683 In Sodium Chloride 0.9% 100 ml @ Per Protocol IV .Q0M [facility] Rx#:[id number] Oral 800 Output: Chest Tube Drainage 60 120 Midstinal 60 120 Urine 300 350 Other: Voiding Method Urinal External Catheter # Voids 1 1 ABP, PAP, CO, CI - Last Documented Arterial Blood Pressure 116/62 - Exam CONSTITUTIONAL: Appears comfortable, cooperative, no acute distress RESPIRATORY: Lungs sounds diminished bilaterally. Respirations even, nonlabored. Currently on 1 L nasal cannula with oxygen saturation 93%. Able to achieve 1000 mL on incentive spirometry. Strong cough. CARDIOVASCULAR: S1, S2 present. Rapid irregular rate and rhythm, rapid atrial fibrillation on telemetry. Sternum stable. Palpable peripheral pulses bilaterally. No edema present. No calf pain or tenderness noted. Heart hugger, antiembolism stockings, SCDs present. GASTROINTESTINAL: Abdomen soft, nontender, nondistended. Active bowel sounds present 4 quadrants. Tolerating diet, passing flatus GENITOURINARY: External catheter present draining clear, yellow urine. Output 650 mL in the last 24 hours INTEGUMENTARY: Skin is warm and dry. Anterior chest incision well approximated and covered with dry intact dressing NEUROLOGIC: Cranial nerves II through XII intact MUSKULOSKELETAL: Able to move all extremities, right arm weakness PSYCHIATRIC: Alert and oriented to person place and time, flat affect INVASIVE LINES AND TUBES: Mediastinal chest tubes present and connected to wall suction, no air leaks present, 90 mL serosanguineous drainage overnight, 150 mL in the last 24 hours - Allied health notes Allied health notes reviewed: nursing - Labs CBC & Chem 7: 07/14/23 03:11 07/14/23 03:11 Labs: Abnormal Lab Results - Last 24 Hours (Table) 07/13/23 07/13/23 07/13/23 Range/Units 04:04 08:41 11:27 WBC (3.8-10.6) k/uL RBC (4.30-5.90) m/uL Hgb (13.0-17.5) gm/dL Hct (39.0-53.0) % Plt Count (150-450) k/uL Neutrophils # (1.3-7.7) k/uL Sodium (137-145) mmol/L BUN (9-20) mg/dL Glucose (74-99) mg/dL POC Glucose (mg/dL) 139 H 165 H (70-110) mg/dL Calcium (8.4-10.2) mg/dL Total Bilirubin (0.2-1.3) mg/dL AST (17-59) U/L Total Protein (6.3-8.2) g/dL Albumin (3.5-5.0) g/dL HDL Cholesterol 20.00 L (40.00-60.00) mg/dL 07/13/23 07/13/23 07/14/23 Range/Units 16:36 20:22 03:11 WBC 12.4 H (3.8-10.6) k/uL RBC 3.23 L (4.30-5.90) m/uL Hgb 9.7 L D (13.0-17.5) gm/dL Hct 29.3 L (39.0-53.0) % Plt Count 68 L (150-450) k/uL Neutrophils # 10.4 H (1.3-7.7) k/uL Sodium (137-145) mmol/L BUN (9-20) mg/dL Glucose (74-99) mg/dL POC Glucose (mg/dL) 200 H 194 H (70-110) mg/dL Calcium (8.4-10.2) mg/dL Total Bilirubin (0.2-1.3) mg/dL AST (17-59) U/L Total Protein (6.3-8.2) g/dL Albumin (3.5-5.0) g/dL HDL Cholesterol (40.00-60.00) mg/dL 07/14/23 07/14/23 Range/Units 03:11 06:38 WBC (3.8-10.6) k/uL RBC (4.30-5.90) m/uL Hgb (13.0-17.5) gm/dL Hct (39.0-53.0) % Plt Count (150-450) k/uL Neutrophils # (1.3-7.7) k/uL Sodium 134 L (137-145) mmol/L BUN 23 H (9-20) mg/dL Glucose 142 H (74-99) mg/dL POC Glucose (mg/dL) 165 H (70-110) mg/dL Calcium 7.5 L (8.4-10.2) mg/dL Total Bilirubin 1.4 H (0.2-1.3) mg/dL AST 97 H (17-59) U/L Total Protein 4.5 L (6.3-8.2) g/dL Albumin 2.2 L (3.5-5.0) g/dL HDL Cholesterol (40.00-60.00) mg/dL - Imaging and Cardiology Chest x-ray: report reviewed, image reviewed Assessment and Plan Assessment: Cardiac tamponade status post left atrial ablation for paroxysmal atrial fibrillation with evidence of injury to the left atrium between the left superior pulmonary vein and the left inferior pulmonary vein, status post emergent sternotomy and institution of cardiopulmonary bypass, repair of left atrial injury Leukocytosis, likely reactive Thrombocytopenia, likely from massive blood loss History of coronary artery disease Recurrent symptomatic atrial fibrillation, exclusion of the left atrial appendage using a 35 mm AtriClip, currently sinus History of SVT History of hypertension, currently hypotensive on low dose levo Hyperlipidemia Arthritis BPH Previous tobacco dependence Acute ischemia anterior right frontal lobe without midline shift or acute intracranial hemorrhage Plan: Continue mediastinal chest tubes for another 24 hours, placed to water seal, monitor output Lopressor increased. A. fib management per Dr. Moore Will monitor daily labs and x-rays. Electrolyte replacement per protocol Continue to record strict accurate intake and output Sternal precautions Increase activity as tolerated. PT/OT/cardiac rehab consulted Wean O2 as tolerated. Encourage incentive spirometry use Continue epicardial pacer wires for another 24 hours, may ground NO anticoagulation until after chest tube and pacer wires removed More recommendations to follow
[2023-07-14] MEDS ORDERED: AMIODARONE 200 MG TAB PO STA (09:24)
[2023-07-14] MEDS ORDERED: DIGOXIN 250 MCG TAB PO ONE (09:30)
[2023-07-14] MEDS ORDERED: DIGOXIN 250 MCG/ML 2 ML AMP IVP ONE (09:30)
[2023-07-14] MEDS ORDERED: FUROSEMIDE 10 MG/ML 4 ML VIAL IV STA (09:35)
--- NOTE | 2023-07-14 09:35 | P.PN ---
Progress Note - Text Patient is steadily improving Neurologically he is has improved significantly since Saturday He is able to comprehend everything the nurses and I had to sit He is able to speak although has still mild dysarthria He is able to track my finger and he is a full range of orbital motion/no pulses He is able to stick out his tongue His left arm strength has improved and is able to lift his arm against gravity He has developed swelling in the right arm on account of IV infiltration and this is being discontinued He goes in and out of atrial fibrillation but has maintained blood pressure and is able to tolerate the higher dose of metoprolol 50 mrem 3 times a day Denies any chest discomfort denies any shortness of breath Sitting up in a chair His swallowing reflex is improved and is able to eat Examination pulse rate ranges from 70-130 (in A. fib and recent sinus rhythm he goes in and out of atrial fibrillation Blood pressure is stable 128/78 mmHg respirations actually are normal between 16-20 he has no respiratory distress The chest tube still in situ, atrial pacing wires and in situ His groin lines venous and arterial were removed on Saturday and then subsequently on Saturday Labs White count 12,000, hemoglobin 9.7 Sodium 134 potassium 4.2 AST improved to 97 Bilirubin 1.4 Creatinine 0.7 Good urine output Impression Symptomatic paroxysmal atrial fibrillation with RVR in the high A. fib burden on the loop monitor Status post A. fib ablation was successful isolation of the right superior right inferior and left superior pulmonary vein Pericardial tamponade on account of cardiac puncture during isolation of the left superior pulmonary vein Urgent pericardiocentesis followed by open heart surgery for exploration Primary closure of the puncture in the left pulmonary venous gavino Hypertension Postoperative paroxysmal atrial fibrillation Swollen right upper extremity, IV line being discontinued ultrasound awaited Postoperative stroke but improving steadily improvement in speech and significant improvement in the left arm function Postoperative echo shows normal LV function and no pericardial effusion Plan The nurse was able to get a good IV line in the left forearm The IV line in the right antecubital area was discontinued Right arm elevation, ultrasound of right comfortably Incentive spirometry Lasix 40 mg IV 1 dose Stop IV amiodarone and switched to by mouth amiodarone 200 mg 3 times daily 1 dose of IV digoxin 0.25 mg Continue metoprolol 50 mg 3 times a day Continue full dose aspirin along with atorvastatin DC IV hydralazine Plan for PICC line in the left arm tomorrow for staple IV access Avoid central line in the groins
[2023-07-14 11:08] LABS: Glucose,Whole Blood 162 mg/dL (70-110)
--- NOTE | 2023-07-14 11:20 | P.PN ---
Subjective Progress Note Date: 07/14/23 Principal diagnosis: Acute hypoxic respiratory failure secondary to cardiac tamponade, iatrogenic in nature This is a 78-year-old white male with history of hypertension, degenerative joint disease, known history of coronary artery disease, recurrent symptomatic atrial fibrillation, he was deemed to be a good candidate for pulmonary vein and left atrial ablation. Yesterday the patient underwent elective ablation by Dr. Trinidad, the procedure was complicated by hypotension. Echocardiography showed evidence of the pericardial effusion and tamponade hence cardiothoracic surgery was consulted yesterday on emergent basis, and the patient underwent Urgent pericardiocentesis and was sent to the OR for open exploration. Apparently there was a puncture in the gavino between the left superior and left inferior pulmonary veins and this was repaired by Dr. Espinoza. Postoperatively, patient was admitted to the ICU intubated and mechanically ventilated, and this consult was initiated. I saw this patient today, he is intubated and mechanically ventilated, he is on assist control rate of 16 tidal volume 550 FiO2 50% and PEEP of 5. His IV fluid is running at 80 mL/h, patient is on insulin drip at 2.5 units per hour, ABG showed a pO2 of 90 pCO2 of 34 pH of 7.38. Chest x-ray this morning showed mostly stable tubes and catheters, and no evidence of acute process. Patient was on propofol which was placed on hold earlier this morning for plans to wean and extubate if possible. Hence I recommended that we continue with the weaning process, check weaning parameters, and if appropriate and the patient meets the criteria, we'll proceed with extubation. Patient was reevaluated today on 07/13/2023, patient remains in the ICU, he was extubated yesterday, tolerated the extubation well. Unfortunately the patient developed what seems to be an acute ischemic event involving the right frontal lobe, no midline shift or acute intracranial hemorrhage. Patient was seen by neurology on consultation, and at this point mostly recommending supportive care measures. Patient has a slight weakness noted in his left upper extremity, and according to the urologist he was found to have left visual field neglect without visual field loss. Clearly the urologist felt that he is not a candidate for TPA, NIH stroke scale is 7. Not to mention the patient had a recent cardiac surgery. Labs today showed WBC count of 17.1 hemoglobin 11.7 on a relatively normal basic metabolic profile, renal profile is improving creatinine is down to 1.18 compared to 1.24 yesterday patient is on amiodarone drip for atrial fibrillation with RVR, he is also on insulin drip at 1.5 units per hour, IV fluid 0.9 normal saline at 80 mL per hour. He is doing poorly with incentive spirometry achieving no more than 500 mL. Mediastinal tube remains in place, drained 50 mL overnight. Chest x-ray showed minimal basilar atelectasis. Especially at the left base. Patient was reevaluated 07/14/2023, patient remains in the ICU, hemodynamically stable, however the patient remains on amiodarone for his atrial fibrillation with RVR receiving 1 mg/m and his IV fluid is 0.9 normal saline at 75 mL per hour. Chest x-ray is showing minimal left lower lobe atelectasis and possibly a small tiny left pleural effusion, his mediastinal chest tube drained no more than 60 mL of bloody effusion. Patient remains doing poorly with incentive spirometry. Transcript Clerk saw the patient, transitioned his amiodarone to oral, and placed on metoprolol 50 mg 3 times a day. Today the right upper extremity noted to be swollen and edematous, hence I recommended removing the IV from the right upper extremity, and established another IV access in the left forearm. Ultrasound of the upper extremity was also ordered to make sure the patient does not have DVT. Neurologically the patient is about the same, his left-sided weakness and his left facial droop remain but they seem to be improving. WBC count is 12.4 hemoglobin 9.7 basic metabolic profile is normal and renal profile is normal Objective - Vital Signs Vital signs: Vital Signs Temp 98.3 F 07/14/23 08:00 Pulse 68 07/14/23 10:00 Resp 17 07/14/23 10:00 BP 131/75 07/14/23 10:00 Pulse Ox 95 07/14/23 10:00 FiO2 50 07/12/23 09:36 Intake & Output 07/13/23 07/14/23 07/14/23 18:59 06:59 18:59 Intake Total 4578.720 4657.332 180 Output Total 360 470 510 Balance 9766.015 4991.332 -330 Weight 114.1 kg Intake: IV 1169 1040 180 ACETAMINOPHEN IV (For NPO 100 ) 1,000 mg In Empty Bag 1 bag @ 400 mls/hr IVPB Q6HR [facility] Rx#:[id number] Potassium Chloride 10 meq 100 In Water For Injection 1 100ml.bag @ 100 mls/hr IVPB Q1H [facility] Rx#: [id number] Pressure Bag 0.9 NS 9 Sodium Chloride 0.9% 1, 960 1040 180 000 ml @ 20 mls/hr IV . Q24H [facility] Rx#:[id number] Intake, IV Titration 407.683 183.332 Amount Amiodarone 360 mg In 400 183.332 Dextrose 5% in Water 200 ml @ 1 MG/MIN 33.333 mls/ hr IV .Q6H [facility] Rx#: [id number] Insulin Regular 100 unit 7.683 In Sodium Chloride 0.9% 100 ml @ Per Protocol IV .Q0M [facility] Rx#:[id number] Oral 800 Output: Chest Tube Drainage 60 120 10 Midstinal 60 120 10 Urine 300 350 500 Other: Voiding Method Urinal External Catheter # Voids 1 1 ABP, PAP, CO, CI - Last Documented Arterial Blood Pressure 116/62 - Exam Physical Exam: Revealed a 78-year-old white male in no distress, patient is in atrial fibrillation with RVR. Remains on amiodarone, received digoxin last night, HEENT:[Neck is supple.] [No neck masses.] [No thyromegaly.] [No JVD.] Speech is normal. Chest: [Minimal crackles and diminished breath sounds at the left base , no rhonchi and wheezes Cardiac: Irregular irregular rhythm, positive pericardial rub. Abdomen: [Soft, nontender, no megaly, no rebound, no guarding, normal bowel sounds.] Extremities: [No clubbing, no edema, no cyanosis.] Neurological Exam: Left facial droop is noted and mild left sided upper extremity weakness noted. psychiatric: Depressed mood Flat affect, normal mental status examination. skin: No rashes - Labs CBC & Chem 7: 07/14/23 03:11 07/14/23 03:11 Labs: Abnormal Lab Results - Last 24 Hours (Table) 07/13/23 07/13/23 07/13/23 Range/Units 04:04 11:27 16:36 WBC (3.8-10.6) k/uL RBC (4.30-5.90) m/uL Hgb (13.0-17.5) gm/dL Hct (39.0-53.0) % Plt Count (150-450) k/uL Neutrophils # (1.3-7.7) k/uL Sodium (137-145) mmol/L BUN (9-20) mg/dL Glucose (74-99) mg/dL POC Glucose (mg/dL) 165 H 200 H (70-110) mg/dL Calcium (8.4-10.2) mg/dL Total Bilirubin (0.2-1.3) mg/dL AST (17-59) U/L Total Protein (6.3-8.2) g/dL Albumin (3.5-5.0) g/dL HDL Cholesterol 20.00 L (40.00-60.00) mg/dL 07/13/23 07/14/23 07/14/23 Range/Units 20:22 03:11 03:11 WBC 12.4 H (3.8-10.6) k/uL RBC 3.23 L (4.30-5.90) m/uL Hgb 9.7 L D (13.0-17.5) gm/dL Hct 29.3 L (39.0-53.0) % Plt Count 68 L (150-450) k/uL Neutrophils # 10.4 H (1.3-7.7) k/uL Sodium 134 L (137-145) mmol/L BUN 23 H (9-20) mg/dL Glucose 142 H (74-99) mg/dL POC Glucose (mg/dL) 194 H (70-110) mg/dL Calcium 7.5 L (8.4-10.2) mg/dL Total Bilirubin 1.4 H (0.2-1.3) mg/dL AST 97 H (17-59) U/L Total Protein 4.5 L (6.3-8.2) g/dL Albumin 2.2 L (3.5-5.0) g/dL HDL Cholesterol (40.00-60.00) mg/dL 07/14/23 Range/Units 06:38 WBC (3.8-10.6) k/uL RBC (4.30-5.90) m/uL Hgb (13.0-17.5) gm/dL Hct (39.0-53.0) % Plt Count (150-450) k/uL Neutrophils # (1.3-7.7) k/uL Sodium (137-145) mmol/L BUN (9-20) mg/dL Glucose (74-99) mg/dL POC Glucose (mg/dL) 165 H (70-110) mg/dL Calcium (8.4-10.2) mg/dL Total Bilirubin (0.2-1.3) mg/dL AST (17-59) U/L Total Protein (6.3-8.2) g/dL Albumin (3.5-5.0) g/dL HDL Cholesterol (40.00-60.00) mg/dL Assessment and Plan Assessment: Impression Acute hypoxic respiratory failure secondary to cardiac tamponade, iatrogenic in nature Cardiac tamponade, status post left atrial ablation for paroxysmal atrial fibrillation with evidence of injury to the left atrium requiring emergent sternotomy, institution of cardiopulmonary bypass, and repair of left atrial injury, exclusion of left atrial appendage using a 35 mm atriclip, intraoperati ve transesophageal echocardiogram, postoperative day #3 Acute CVA, 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 With a left sided hemiparesis. Benign essential hypertension Chronic atrial fibrillation, symptomatic History of supraventricular tachycardia Dyslipidemia degenerative joint disease Ex-smoker Upper extremity swelling, rule out DVT hence ultrasound was ordered and IV access was discontinued in the right upper extremity. Recommendation: Continue incentive spirometry Patient tolerated extubation well over the last 48 hours Continue to monitor the patient in the ICU Continue supportive care measures Continue incentive spirometry Cardiac surgery addressing mediastinal tube Continue to hold on anticoagulation until chest tube and pacing wires removed Physician to oral amiodarone as per cardiology Ambulate with assistance Immune GI and DVT prophylaxis per We'll continue to follow Time with Patient: Less than 30
[2023-07-14] MEDS: SODIUM CHLORIDE 0.9% 1,000 ML IV SCH (11:32)
--- NOTE | 2023-07-14 11:35 | US ---
EXAMINATION TYPE: US venous doppler duplex UE RT DATE OF EXAM: 07/14/2023 Exam done portable COMPARISON: NONE CLINICAL INDICATION: Male, 78 years old with history of Edema, warmth; SIDE PERFORMED: Right Difficult and limited study due to arm swelling and patient's limited range of movement in his arm, exam done with patient sitting up in chair Right Arm: visualized portions appear negative for DVT, unable to obtain images of cephalic vein Right medial upper arm: 18.2 x 2.5 x 6.9cm elongated non vascular complex area seen IMPRESSION: 1. No evidence for deep vein thrombosis. 2. Elongated right medial arm saphenous edema possibly relating to blood products. Correlate with hi story.
--- NOTE | 2023-07-14 12:05 | P.PN ---
Subjective 07/12/2023 This is a 78-year-old gentleman with past medical history significant for symptomatic paroxysmal atrial fibrillation, CAD, hypertension, hyperlipidemia, BPH, prior nicotine dependence and multiple other medical issues, underwent emergent sternotomy and cardiopulmonary bypass with repair of left atrial injury, exclusion of left atrial appendage and intraoperative transesophageal echocardiogram secondary to cardiac tamponade status post left atrial ablation for proximal atrial fibrillation. Vent dependent, FiO2 50%/+5 of PEEP. Chest x-ray reporting mild cardiomegaly with mild vascular congestion, small left pleural effusion, mild bibasilar atelectasis, loop recorder device and atrial appendage clip. Maintained on levophed. Wliy sinus rhythm. T-max 100.2, WBC decreased to 19.7, hemoglobin 15.4, platelets 71. BUN 20, creatinine 1.24. On glucose 134, hemoglobin A1c 6.2, sodium 141, potassium 4.5, magnesium 2.2. T bili decreased to 0.4, AST 152 ALT 38, alk phos 64 albumin 2.2, TSH 0.394. Receiving calcium and bicarb; Bicarb 19, calcium 7.5, ionized calcium 4.5. 07/13/2023: The patient is awake and alert in bed. He is lying flat. He is status post left atrial ablation for chronic atrial fibrillation. During the procedure he had a left atrial injury resulting in cardiac tamponade on and blood loss. Cardiothoracic surgery then taken to the operating room he was on cardiopulmonary bypass. Upon is awaking there was a left facial droop and weakness. Thought to be an acute CVA during the event. He seems quite somnolent today he is much more awake. Family is at bedside. He has some slurred speech but is understanding me. Some commands. Nursing reports a bedside swallow test was okay for round and textured diet. Currently he is in sinus rhythm. Respiratory normal pressures tolerable pulse ox is 94% on 2 L O2. Labs showed potassium 2.9 hemoglobin was 1.7. Platelets are 84. Chemistries are essentially normal exception of glucose 128. He did receive 7 units packed red blood cells 2 units of fresh frozen plasma and 1 unit of platelets yesterday. He continues be followed by critical care, thoracic surgery, cardiology, and neurology. their notes were reviewed today 07/14/2023 patient is in chair. He is somnolent but easily arousable. Facial droop is resolved. and son are at bedside. He has no significant complaints today other than anorexia. He denies any chest pains other than surgical pressures or shortness of breath, nausea vomiting, or other issues. Cardiology, thoracic surgery and critical care have reviewed their notes. Heart rate is somewhat tachycardic and a pulse ox remains controlled with 1 L of oxygen via nasal cannula. Blood pressure slightly elevated. He is now on Clevidipine for blood pressure control. White count is improved 0.4. Hemoglobin is 9.7 platelets are 68. Electrolytes are essentially normal. Glucose is been 200 or less for the past 24 hours. Objective - Vital Signs Vital signs: Vital Signs Temp 98.3 F 07/14/23 08:00 Pulse 127 H 07/14/23 11:30 Resp 22 07/14/23 11:00 BP 144/84 07/14/23 11:00 Pulse Ox 91 L 07/14/23 11:00 FiO2 50 07/12/23 09:36 Intake & Output 07/13/23 07/14/23 07/14/23 18:59 06:59 18:59 Intake Total 5730.985 6017.332 180 Output Total 360 470 510 Balance 4304.036 1977.332 -330 Weight 114.1 kg Intake: IV 1169 1040 180 ACETAMINOPHEN IV (For NPO 100 ) 1,000 mg In Empty Bag 1 bag @ 400 mls/hr IVPB Q6HR [facility] Rx#:[id number] Potassium Chloride 10 meq 100 In Water For Injection 1 100ml.bag @ 100 mls/hr IVPB Q1H [facility] Rx#: [id number] Pressure Bag 0.9 NS 9 Sodium Chloride 0.9% 1, 960 1040 180 000 ml @ 20 mls/hr IV . Q24H [facility] Rx#:[id number] Intake, IV Titration 407.683 183.332 Amount Amiodarone 360 mg In 400 183.332 Dextrose 5% in Water 200 ml @ 1 MG/MIN 33.333 mls/ hr IV .Q6H [facility] Rx#: [id number] Insulin Regular 100 unit 7.683 In Sodium Chloride 0.9% 100 ml @ Per Protocol IV .Q0M [facility] Rx#:[id number] Oral 800 Output: Chest Tube Drainage 60 120 10 Midstinal 60 120 10 Urine 300 350 500 Other: Voiding Method Urinal External Catheter # Voids 1 1 ABP, PAP, CO, CI - Last Documented Arterial Blood Pressure 116/62 - Exam GENERAL: up in chair HEENT: facial droop resolved NECK: Supple, No JVD. CARDIOVASCULAR: S1, S2 regular.telemetry sinus rhythm ,No murmur RESPIRATION: Unlabored, Breath sounds diminished in the bases. Mediastinal chest tube in place ABDOMEN: Soft, nontender . No guarding. no masses palpable. No ascites, No hepatosplenomegaly.Bowel sounds heard. condom cath in place Extremities: The legs show trace pedal edema. He is moving them in all quadrants. There is some weakness in the left hand grasp. NERVOUS SYSTEM: Awake alert and oriented 2. Skin: Warm and dry, no rash Results - Labs CBC & Chem 7: 07/14/23 03:11 07/14/23 03:11 Labs: Abnormal Lab Results - Last 24 Hours (Table) 07/13/23 07/13/23 07/13/23 Range/Units 04:04 16:36 20:22 WBC (3.8-10.6) k/uL RBC (4.30-5.90) m/uL Hgb (13.0-17.5) gm/dL Hct (39.0-53.0) % Plt Count (150-450) k/uL Neutrophils # (1.3-7.7) k/uL Sodium (137-145) mmol/L BUN (9-20) mg/dL Glucose (74-99) mg/dL POC Glucose (mg/dL) 200 H 194 H (70-110) mg/dL Calcium (8.4-10.2) mg/dL Total Bilirubin (0.2-1.3) mg/dL AST (17-59) U/L Total Protein (6.3-8.2) g/dL Albumin (3.5-5.0) g/dL HDL Cholesterol 20.00 L (40.00-60.00) mg/dL 07/14/23 07/14/23 07/14/23 Range/Units 03:11 03:11 06:38 WBC 12.4 H (3.8-10.6) k/uL RBC 3.23 L (4.30-5.90) m/uL Hgb 9.7 L D (13.0-17.5) gm/dL Hct 29.3 L (39.0-53.0) % Plt Count 68 L (150-450) k/uL Neutrophils # 10.4 H (1.3-7.7) k/uL Sodium 134 L (137-145) mmol/L BUN 23 H (9-20) mg/dL Glucose 142 H (74-99) mg/dL POC Glucose (mg/dL) 165 H (70-110) mg/dL Calcium 7.5 L (8.4-10.2) mg/dL Total Bilirubin 1.4 H (0.2-1.3) mg/dL AST 97 H (17-59) U/L Total Protein 4.5 L (6.3-8.2) g/dL Albumin 2.2 L (3.5-5.0) g/dL HDL Cholesterol (40.00-60.00) mg/dL // Range/Units 11:07 WBC (3.8-10.6) k/uL RBC (4.30-5.90) m/uL Hgb (13.0-17.5) gm/dL Hct (39.0-53.0) % Plt Count (150-450) k/uL Neutrophils # (1.3-7.7) k/uL Sodium (137-145) mmol/L BUN (9-20) mg/dL Glucose (74-99) mg/dL POC Glucose (mg/dL) 162 H (70-110) mg/dL Calcium (8.4-10.2) mg/dL Total Bilirubin (0.2-1.3) mg/dL AST (17-59) U/L Total Protein (6.3-8.2) g/dL Albumin (3.5-5.0) g/dL HDL Cholesterol (40.00-60.00) mg/dL Assessment and Plan Plan: Acute hypoxic respiratory failure secondary to cardiac tamponade, iatrogenic in nature Cardiac tamponade, status post left atrial ablation for paroxysmal atrial fibrillation injury to the left atrium requiring emergent sternotomy, institution of cardiopulmonary bypass, and repair of left atrial injury, , chest tube in place emergent sternotomy POD#2 Acute CVA, 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 With a left sided hemiparesis. Benign essential hypertension Chronic atrial fibrillation, symptomatic, status post ablation History of supraventricular tachycardia Dyslipidemia degenerative joint disease BPH: Alberts catheter to gravity Ex-smoker Recommendations from critical care, thoracic surgery, cardiology, reviewed He'll continue on his current care treatment. continue diet Labs in a.m. He'll be reevaluated by family medicine in the next 24 hours
--- NOTE | 2023-07-14 13:57 | CT ---
EXAMINATION TYPE: CT brain wo con CT DLP: 1138.7 mGycm, Automated exposure control for dose reduction was used. DATE OF EXAM: 07/14/2023 1:48 PM COMPARISON: 07/12/2023.. CLINICAL INDICATION:Male, 78 years old with history of Follow up CVA, TECHNIQUE: Brain: Axial CT images of the brain were obtained with coronal and sagittal reformats created and rev iewed. Contrast used: None. Oral contrast used: None. FINDINGS: Brain: Extra-axial spaces: No abnormal extra-axial fluid collections. Ventricular system: Within normal limits Cerebral parenchyma: Right frontal lobe loss of cast-white matter differentiation. No acute intrapare nchymal hemorrhage or mass effect. The cast-white junction is well differentiated. Cerebellum: Unremarkable. Mass effect: No evidence of midline shift. Intracranial vasculature: Atherosclerotic calcifications of the intracranial vessels. Soft tissues: Normal. Calvarium/osseous structures: No depressed skull fracture. Paranasal sinuses and mastoid air cells: Mild scattered paranasal sinus disease. Visualized orbits: Orbital contents are intact. IMPRESSION: Similar right frontal lobe CVA. No new areas of abnormal cast-white matter loss of differentiation. N o evidence for hemorrhagic conversion.
--- NOTE | 2023-07-14 14:19 | P.PN ---
Subjective Progress Note Date: 07/14/23 Patient was seen for a follow-up. Patient's and their son were also present today. Patient denies any headache. He is doing much better. No new focal symptoms. Patient is laying in the recliner. Objective - Vital Signs Vital signs: Vital Signs Temp 98.3 F 07/14/23 08:00 Pulse 123 H 07/14/23 12:00 Resp 24 07/14/23 12:00 BP 116/67 07/14/23 12:00 Pulse Ox 92 L 07/14/23 12:00 FiO2 50 07/12/23 09:36 Intake & Output 07/13/23 07/14/23 07/14/23 18:59 06:59 18:59 Intake Total 9838.825 3454.332 220 Output Total 360 470 910 Balance 9306.783 9214.332 -690 Weight 114.1 kg Intake: IV 1169 1040 220 ACETAMINOPHEN IV (For NPO 100 ) 1,000 mg In Empty Bag 1 bag @ 400 mls/hr IVPB Q6HR [facility] Rx#:[id number] Potassium Chloride 10 meq 100 In Water For Injection 1 100ml.bag @ 100 mls/hr IVPB Q1H [facility] Rx#: [id number] Pressure Bag 0.9 NS 9 Sodium Chloride 0.9% 1, 960 1040 220 000 ml @ 20 mls/hr IV . Q24H [facility] Rx#:[id number] Intake, IV Titration 407.683 183.332 Amount Amiodarone 360 mg In 400 183.332 Dextrose 5% in Water 200 ml @ 1 MG/MIN 33.333 mls/ hr IV .Q6H [facility] Rx#: [id number] Insulin Regular 100 unit 7.683 In Sodium Chloride 0.9% 100 ml @ Per Protocol IV .Q0M [facility] Rx#:[id number] Oral 800 Output: Chest Tube Drainage 60 120 10 Midstinal 60 120 10 Urine 300 350 900 Other: Voiding Method Urinal External Catheter # Voids 1 1 ABP, PAP, CO, CI - Last Documented Arterial Blood Pressure 116/62 - Exam Patient is an elderly male, who is laying in the recliner, much more mentally clear. Mentation is improved. Still appears short of breath. Patient is alert awake. Patient knows that he is in [facility] in [place] and it is June 2023. Speech is very mildly dysarthric (almost 95% back to baseline). He can name and repeat very well. His comprehension is intact. Attention, concentration is slightly limited and fund of knowledge normal. On cranial nerve examination, pupils are equal, round and reacting to light, visual donaldson are full on confrontation, with no neglect on double simultaneous stimulation. Extraocular muscles are intact with no nystagmus. Patient has very mild left facial weakness, central type. His tongue protrudes to the midline. Palatal elevation and sensation normal, hearing is normal and shoulder shrug normal. Facial sensation normal. On muscle strength testing, there is mild left pronation, but no drift. 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 Deep tendon reflexes are symmetric 1 at the biceps, 1 brachioradialis, 1 at the knees, 0 ankles and plantars are flat bilaterally. Sensory to touch is equal with no neglect on double simultaneous stimulation. Cerebellar function revealed no ataxia for [id number] testing left upper extremity. No ataxia on the right side. Tone and bulk of muscles normal. Gait deferred.. On general examination, there is no carotid bruit or murmur, S1-S2 audible. Chest is clear on consultation. Abdomen is soft nontender. No organomegaly, bowel sounds present. Peripheral pulses are present. - Labs CBC & Chem 7: 07/14/23 03:11 07/14/23 03:11 Labs: Abnormal Lab Results - Last 24 Hours (Table) 07/13/23 07/13/23 07/13/23 Range/Units 04:04 16:36 20:22 WBC (3.8-10.6) k/uL RBC (4.30-5.90) m/uL Hgb (13.0-17.5) gm/dL Hct (39.0-53.0) % Plt Count (150-450) k/uL Neutrophils # (1.3-7.7) k/uL Sodium (137-145) mmol/L BUN (9-20) mg/dL Glucose (74-99) mg/dL POC Glucose (mg/dL) 200 H 194 H (70-110) mg/dL Calcium (8.4-10.2) mg/dL Total Bilirubin (0.2-1.3) mg/dL AST (17-59) U/L Total Protein (6.3-8.2) g/dL Albumin (3.5-5.0) g/dL HDL Cholesterol 20.00 L (40.00-60.00) mg/dL 07/14/23 07/14/23 07/14/23 Range/Units 03:11 03:11 06:38 WBC 12.4 H (3.8-10.6) k/uL RBC 3.23 L (4.30-5.90) m/uL Hgb 9.7 L D (13.0-17.5) gm/dL Hct 29.3 L (39.0-53.0) % Plt Count 68 L (150-450) k/uL Neutrophils # 10.4 H (1.3-7.7) k/uL Sodium 134 L (137-145) mmol/L BUN 23 H (9-20) mg/dL Glucose 142 H (74-99) mg/dL POC Glucose (mg/dL) 165 H (70-110) mg/dL Calcium 7.5 L (8.4-10.2) mg/dL Total Bilirubin 1.4 H (0.2-1.3) mg/dL AST 97 H (17-59) U/L Total Protein 4.5 L (6.3-8.2) g/dL Albumin 2.2 L (3.5-5.0) g/dL HDL Cholesterol (40.00-60.00) mg/dL 07/14/23 Range/Units 11:07 WBC (3.8-10.6) k/uL RBC (4.30-5.90) m/uL Hgb (13.0-17.5) gm/dL Hct (39.0-53.0) % Plt Count (150-450) k/uL Neutrophils # (1.3-7.7) k/uL Sodium (137-145) mmol/L BUN (9-20) mg/dL Glucose (74-99) mg/dL POC Glucose (mg/dL) 162 H (70-110) mg/dL Calcium (8.4-10.2) mg/dL Total Bilirubin (0.2-1.3) mg/dL AST (17-59) U/L Total Protein (6.3-8.2) g/dL Albumin (3.5-5.0) g/dL HDL Cholesterol (40.00-60.00) mg/dL Assessment and Plan Assessment: * Acute ischemic stroke initially manifesting with dysarthria and left hemiparesis, mainly involving the left facial brachial region. Patient also has slight left visual field neglect without visual field loss, with initial NIH stroke scale is 7. Patient not a candidate for TPA, because of recent cardiac surgery, and symptoms present for > 4.5 hours. Patient's neurological examination much improved, with NIH stroke scale down to 3. * Status post pulmonary vein isolation, and ablation 07/11/2023 with left atrial injury, pericardial effusion/cardiac tamponade * Left atrial injury status post cardiopulmonary bypass with left atrial repair, exclusion of left atrial appendage * History of paroxysmal atrial fibrillation. * CAD * Thrombocytopenia * Hypertension * Hyperlipidemia * Obesity Plan: * Patient has further improved today as compared to yesterday. * Repeat CT head performed today revealed similar right frontal lobe CVA. No new areas of abnormal cast white matter loss of differentiation. No evidence of hemorrhagic conversion. * May start anticoagulation with heparin without bolus, as cardiology wants to start anticoagulation as early as possible. Today is 3 days post CVA. * MRI will be done in the morning. * CTA of head showed dominant left vertebral artery. No large vessel intracranial arterial occlusion, significant stenosis or aneurysmal change seen. * CTA of the neck showed dominant left vertebral artery. No significant, and or internal carotid artery stenosis. Recent post CABG changes visualized. I personally reviewed CTA of head and neck, agree with findings. No large vessel occlusion. No indication for mechanical thrombectomy. * 2-D echo limited views revealed technically difficult study. Left- ventricular EF is 50-55%. Left atrium not well visualized. * Fasting a.m. lipid panel cholesterol 57, LDL 11, HDL 20 and triglycerides 129. Continue continue Lipitor 40 mg daily. (Patient at home on Lipitor 20 mg) * Hemoglobin A1c 6.2 * Optimize control of blood pressure due to cardiac reasons. * Continue aspirin 325 mg daily. * Neuro checks every 2 hours. * Telemetry monitoring rule out any arrhythmia * PT, OT, speech therapy * DVT prophylaxis: heparin 5000 units subcu every 8 hours. * Discussed with patient's family in detail as well. * Dr. Judson Leal will resume neurology service in the morning.
[2023-07-14] MEDS: AMIODARONE 200 MG TAB PO SCH ×2 (15:57→21:46)
[2023-07-14 16:11] LABS: Glucose,Whole Blood 180 mg/dL (70-110)
[2023-07-14 17:46] LABS: Glucose,Whole Blood 171 mg/dL (70-110)
[2023-07-14 19:49] LABS: Glucose,Whole Blood 166 mg/dL (70-110)
[2023-07-14] MEDS: SENNOSIDES-DOCUSATE SODIUM 1 EACH TAB PO SCH (21:45)
[2023-07-14 21:53] LABS: Glucose,Whole Blood 182 mg/dL (70-110)
[2023-07-14] MEDS: CLEVIDIPINE BUTYRATE 25 MG in EMPTY BAG 1 BAG IV SCH (23:24)
[2023-07-15] MEDS: HEPARIN SODIUM,PORCINE 5,000 UNIT/ML 1 ML VIAL SQ SCH ×3 (00:41→17:31)
[2023-07-15 03:56] LABS: HCT 26.3 % (39.0-53.0); HGB 9.2 gm/dL (13.0-17.5); MCH 31.3 pg (25.0-35.0); MCV 89.4 fL (80.0-100.0); Mean Platelet Volume 10.1; RBC 2.94 m/uL (4.30-5.90); RDW 13.8 % (11.5-15.5); WBC 10.3 k/uL (3.8-10.6)
[2023-07-15 04:07] LABS: Platelet Count 82 k/uL (150-450)
[2023-07-15 04:18] LABS: African American GFR (CKD) >90 (>60 ml/min/1.73 sqM); Anion Gap 6 mmol/L; Blood Urea Nitrogen 17 mg/dL (9-20); Calcium 7.4 mg/dL (8.4-10.2); Carbon Dioxide 23 mmol/L (22-30); Chloride 102 mmol/L (98-107); Glucose 128 mg/dL (74-99); Non-African American GFR(CKD) 89 (>60 ml/min/1.73 sqM); Potassium 3.6 mmol/L (3.5-5.1); Sodium 131 mmol/L (137-145)
[2023-07-15] MEDS ORDERED: POTASSIUM CHLORIDE ER 20 MEQ TAB.ER PO SCH (05:00)
[2023-07-15 06:51] LABS: Glucose,Whole Blood 163 mg/dL (70-110)
[2023-07-15] MEDS: INSULIN ASPART (NovoLOG) 100 UNIT/ML VIAL SQ SCH ×4 (06:56→20:38)
--- NOTE | 2023-07-15 07:09 | XR ---
EXAMINATION TYPE: XR chest 1V portable DATE OF EXAM: 07/15/2023 COMPARISON: 07/14/2023 HISTORY: Shortness of breath TECHNIQUE: Single frontal view of the chest is obtained. FINDINGS: Postoperative change with bilateral consolidation and small left effusion. No sizable pneu mothorax. Arthropathy of the shoulders. Post median sternotomy. IMPRESSION: Bilateral consolidation and small left pleural effusion stable.
[2023-07-15] MEDS: IPRATROPIUM-ALBUTEROL 3 ML NEB INHALATION SCH ×4 (08:10→20:28)
[2023-07-15] MEDS ORDERED: DIGOXIN 250 MCG/ML 2 ML AMP IVP ONE (08:19)
[2023-07-15] MEDS: ATORVASTATIN 40 MG TAB PO SCH (08:39)
[2023-07-15] MEDS: MULTIVITAMINS, THERA 1 EACH TAB PO SCH (08:39)
[2023-07-15] MEDS: AMIODARONE 200 MG TAB PO SCH ×3 (08:40→22:07)
[2023-07-15] MEDS: PANTOPRAZOLE 40 MG TABLET PO SCH (08:40)
[2023-07-15] MEDS: TAMSULOSIN 0.4 MG CAP.ER.24H PO SCH ×2 (08:40→20:38)
[2023-07-15] MEDS: ASPIRIN 325 MG TAB PO SCH (08:40)
[2023-07-15] MEDS: METOPROLOL TARTRATE 50 MG TAB PO SCH ×3 (08:40→23:07)
[2023-07-15] MEDS ORDERED: LIDOCAINE 1% INJ 10MG/ML (20 ML MDV) SQ ONE (11:12)
--- NOTE | 2023-07-15 11:33 | P.PN ---
Subjective Progress Note Date: 07/15/23 This is a 78-year-old white male with history of hypertension, degenerative joint disease, known history of coronary artery disease, recurrent symptomatic atrial fibrillation, he was deemed to be a good candidate for pulmonary vein and left atrial ablation. Yesterday the patient underwent elective ablation by Dr. Trinidad, the procedure was complicated by hypotension. Echocardiography showed evidence of the pericardial effusion and tamponade hence cardiothoracic surgery was consulted yesterday on emergent basis, and the patient underwent Urgent pericardiocentesis and was sent to the OR for open exploration. Apparently there was a puncture in the gavino between the left superior and left inferior pulmonary veins and this was repaired by Dr. Espinoza. Postoperatively, patient was admitted to the ICU intubated and mechanically ventilated, and this consult was initiated. I saw this patient today, he is intubated and mechanically ventilated, he is on assist control rate of 16 tidal volume 550 FiO2 50% and PEEP of 5. His IV fluid is running at 80 mL/h, patient is on insulin drip at 2.5 units per hour, ABG showed a pO2 of 90 pCO2 of 34 pH of 7.38. Chest x-ray this morning showed mostly stable tubes and catheters, and no evidence of acute process. Patient was on propofol which was placed on hold earlier this morning for plans to wean and extubate if possible. Hence I recommended that we continue with the weaning process, check weaning parameters, and if appropriate and the patient meets the criteria, we'll proceed with extubation. Patient was reevaluated today on 07/13/2023, patient remains in the ICU, he was extubated yesterday, tolerated the extubation well. Unfortunately the patient developed what seems to be an acute ischemic event involving the right frontal lobe, no midline shift or acute intracranial hemorrhage. Patient was seen by neurology on consultation, and at this point mostly recommending supportive care measures. Patient has a slight weakness noted in his left upper extremity, and according to the urologist he was found to have left visual field neglect without visual field loss. Clearly the urologist felt that he is not a candidate for TPA, NIH stroke scale is 7. Not to mention the patient had a recent cardiac surgery. Labs today showed WBC count of 17.1 hemoglobin 11.7 on a relatively normal basic metabolic profile, renal profile is improving creatinine is down to 1.18 compared to 1.24 yesterday patient is on amiodarone drip for atrial fibrillation with RVR, he is also on insulin drip at 1.5 units per hour, IV fluid 0.9 normal saline at 80 mL per hour. He is doing poorly with incentive spirometry achieving no more than 500 mL. Mediastinal tube remains in place, drained 50 mL overnight. Chest x-ray showed minimal basilar atelectasis. Especially at the left base. Patient was reevaluated 07/14/2023, patient remains in the ICU, hemodynamically stable, however the patient remains on amiodarone for his atrial fibrillation with RVR receiving 1 mg/m and his IV fluid is 0.9 normal saline at 75 mL per hour. Chest x-ray is showing minimal left lower lobe atelectasis and possibly a small tiny left pleural effusion, his mediastinal chest tube drained no more than 60 mL of bloody effusion. Patient remains doing poorly with incentive spirometry. [employer] saw the patient, transitioned his amiodarone to oral, and placed on metoprolol 50 mg 3 times a day. Today the right upper extremity noted to be swollen and edematous, hence I recommended removing the IV from the right upper extremity, and established another IV access in the left forearm. Ultrasound of the upper extremity was also ordered to make sure the patient does not have DVT. Neurologically the patient is about the same, his left-sided weakness and his left facial droop remain but they seem to be improving. WBC count is 12.4 hemoglobin 9.7 basic metabolic profile is normal and renal profile is normal. The patient is seen today 07/15/2023 in follow-up in the intensive care unit. Currently awake and alert in no acute distress. He is resting comfortably in bed. Maintaining O2 saturations in the 90s on 2 L/m per nasal cannula. He states he is feeling stronger today compared to yesterday. Still with some left-sided weakness. Follow-up computed tomography scan of the brain continued to show a right frontal lobe CVA. No new areas of abnormal mont[place] oca-white matter loss of differentiation. No evidence of hemorrhagic conversion. X-ray shows bilateral consolidation and a small left pleural effusion. He is status post 7 units of packed red blood cells, 2 units of fresh frozen plasma and 1 unit of platelets this admission. White count 10.3. Hemoglobin 9.2. Platelets 82,000. Sodium 131. Potassium 3.6. Bicarb 23. BUN 17. Creatinine 0.73. Glucose 128. He is continued on DuoNeb inhalations. Heparin for DVT prophylaxis. Normal saline at KVO. Plan is for PICC line placement today. Objective - Vital Signs Vital signs: Vital Signs Temp 98.2 F 07/15/23 08:00 Pulse 117 H 07/15/23 11:00 Resp 18 07/15/23 11:00 BP 119/93 07/15/23 11:00 Pulse Ox 95 07/15/23 11:00 FiO2 50 07/12/23 09:36 Intake & Output 07/14/23 07/15/23 07/15/23 18:59 06:59 18:59 Intake Total 860 710 50 Output Total 1290 550 275 Balance -430 160 -225 Weight 114.7 kg Intake: IV 340 170 50 Sodium Chloride 0.9% 1, 340 170 50 000 ml @ 20 mls/hr IV . Q24H [facility] Rx#:[id number] Oral 520 540 Output: Chest Tube Drainage 30 Midstinal 30 Urine 1260 550 275 Other: Voiding Method External Catheter External Catheter # Voids 1 ABP, PAP, CO, CI - Last Documented Arterial Blood Pressure 116/62 - Exam GENERAL EXAM: Alert, very pleasant 78-year-old gentleman, 2 L/m per nasal c annula, comfortable in no apparent distress. HEAD: Normocephalic. EYES: Normal reaction of pupils, equal size. NOSE: Clear with pink turbinates. THROAT: No erythema or exudates. NECK: No masses, no JVD. CHEST: No chest wall deformity. LUNGS: Equal air entry with crackles in the bilateral bases. CVS: S1 and S2 normal with no audible murmur, regular rhythm. ABDOMEN: No hepatosplenomegaly, normal bowel sounds, no guarding or rigidity. SPINE: No scoliosis or deformity SKIN: No rashes CENTRAL NERVOUS SYSTEM: No focal deficits, tone is normal in all 4 extremities. EXTREMITIES: Residual left-sided weakness. There is right upper extremity edema. No clubbing, no cyanosis. Peripheral pulses are intact. - Labs CBC & Chem 7: 07/15/23 03:29 07/15/23 03:29 Labs: Abnormal Lab Results - Last 24 Hours (Table) 07/14/23 07/14/23 07/14/23 Range/Units 16:09 17:45 19:47 RBC (4.30-5.90) m/uL Hgb (13.0-17.5) gm/dL Hct (39.0-53.0) % Plt Count (150-450) k/uL Sodium (137-145) mmol/L Glucose (74-99) mg/dL POC Glucose (mg/dL) 180 H 171 H 166 H (70-110) mg/dL Calcium (8.4-10.2) mg/dL 07/14/23 07/15/23 07/15/23 Range/Units 21:51 03:29 03:29 RBC 2.94 L (4.30-5.90) m/uL Hgb 9.2 L (13.0-17.5) gm/dL Hct 26.3 L (39.0-53.0) % Plt Count 82 L (150-450) k/uL Sodium 131 L (137-145) mmol/L Glucose 128 H (74-99) mg/dL POC Glucose (mg/dL) 182 H (70-110) mg/dL Calcium 7.4 L (8.4-10.2) mg/dL 07/15/23 Range/Units 06:50 RBC (4.30-5.90) m/uL Hgb (13.0-17.5) gm/dL Hct (39.0-53.0) % Plt Count (150-450) k/uL Sodium (137-145) mmol/L Glucose (74-99) mg/dL POC Glucose (mg/dL) 163 H (70-110) mg/dL Calcium (8.4-10.2) mg/dL Assessment and Plan Assessment: Acute hypoxic respiratory failure secondary to cardiac tamponade, iatrogenic in nature Cardiac tamponade, status post left atrial ablation for paroxysmal atrial fibrillation with evidence of injury to the left atrium requiring emergent sternotomy, institution of cardiopulmonary bypass, and repair of left atrial injury, exclusion of left atrial appendage using a 35 mm atriclip, intraoperative transesophageal echocardiogram, postoperative day #4 Acute blood loss anemia secondary to above, status post 7 units of packed red blood cells, current hemoglobin 9.2. Acute CVA, 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 With a left sided hemiparesis. Benign essential hypertension Chronic atrial fibrillation, symptomatic History of supraventricular tachycardia Dyslipidemia degenerative joint disease Ex-smoker Right upper extremity swelling, ruled out DVT Plan: The patient was seen and evaluated Computed tomography scan of the brain, chest x-ray, labs and medications reviewed Remains with some left-sided weakness Stable and on 2 L nasal cannula Encouraged the increased use of the incentive spirometer MRI of the brain pending PICC line pending Increase his activity as tolerated Heparin for DVT prophylaxis We will continue to follow I have personally seen and examined the patient, performed the documentation and the assessment and plan as written. Number of minutes spent on the visit: 10.
[2023-07-15 11:57] LABS: Glucose,Whole Blood 167 mg/dL (70-110)
--- NOTE | 2023-07-15 12:38 | XR ---
EXAMINATION TYPE: XR chest 1V portable DATE OF EXAM: 07/15/2023 COMPARISON: 07/15/2023 HISTORY: Post PICC line insertion TECHNIQUE: Single frontal view of the chest is obtained. FINDINGS: A PICC line is seen at the region of the subclavian SVC junction. Coarsened interstitium. Sternotomy changes are seen. Left lower lobe consolidation is not included in the [id number]. Hear t is enlarged. Diffuse osteopenia. No sizable pneumothorax. Mild central venous congestion in the dif ferential diagnosis. IMPRESSION: PICC line appears in good position.
--- NOTE | 2023-07-15 13:02 | P.PN ---
Subjective Progress Note Date: 07/15/23 - Chief Complaint Cardiac tamponade status post left atrial ablation - History of Present Illness This is a 78-year-old gentleman with past medical history significant for symptomatic paroxysmal atrial fibrillation, CAD, hypertension, hyperlipidemia, BPH, prior nicotine dependence and multiple other medical issues, underwent emergent sternotomy and cardiopulmonary bypass with repair of left atrial injury, exclusion of left atrial appendage and intraoperative transesophageal echocardiogram secondary to cardiac tamponade status post left atrial ablation for proximal atrial fibrillation. Vent dependent, FiO2 50%/+5 of PEEP. Chest x-ray reporting mild cardiomegaly with mild vascular congestion, small left pleural effusion, mild bibasilar atelectasis, loop recorder device and atrial appendage clip. Maintained on levophed. Wily sinus rhythm. T-max 100.2, WBC decreased to 19.7, hemoglobin 15.4, platelets 71. BUN 20, creatinine 1.24. On glucose 134, hemoglobin A1c 6.2, sodium 141, potassium 4.5, magnesium 2.2. T bili decreased to 0.4, AST 152 ALT 38, alk phos 64 albumin 2.2, TSH 0.394. Receiving calcium and bicarb; Bicarb 19, calcium 7.5, ionized calcium 4.5. 07/13/2023: The patient is awake and alert in bed. He is lying flat. He is status post left atrial ablation for chronic atrial fibrillation. During the procedure he had a left atrial injury resulting in cardiac tamponade on and blood loss. Cardiothoracic surgery then taken to the operating room he was on cardiopulmonary bypass. Upon is awaking there was a left facial droop and weakness. Thought to be an acute CVA during the event. He seems quite somnolent today he is much more awake. Family is at bedside. He has some slurred speech but is understanding me. Some commands. Nursing reports a bedside swallow test was okay for round and textured diet. Currently he is in sinus rhythm. Respiratory normal pressures tolerable pulse ox is 94% on 2 L O2. Labs showed potassium 2.9 hemoglobin was 1.7. Platelets are 84. Chemistries are essentially normal exception of glucose 128. He did receive 7 units packed red blood cells 2 units of fresh frozen plasma and 1 unit of platelets yesterday. He continues be followed by critical care, thoracic surgery, cardiology, and neurology. their notes were reviewed today 07/14/2023 patient is in chair. He is somnolent but easily arousable. Facial droop is resolved. and son are at bedside. He has no significant complaints today other than anorexia. He denies any chest pains other than surgical pressures or shortness of breath, nausea vomiting, or other issues. Cardiology, thoracic surgery and critical care have reviewed their notes. Heart rate is somewhat tachycardic and a pulse ox remains controlled with 1 L of oxygen via nasal cannula. Blood pressure slightly elevated. He is now on Clevidipine for blood pressure control. White count is improved 0.4. Hemoglobin is 9.7 platelets are 68. Electrolytes are essentially normal. Glucose is been 200 or less for the past 24 hours. 07/15/2023 maintained on amiodarone drip, nebulized bronchodilators. chest x- ray pending. Repeat brain CT reported similar right frontal lobe CVA with no new areas of abnormal cast-white matter loss of differentiation, no evidence for hemorrhagic conversion.maintaining O2 sats in the 90s on 2 L nasal cannula. Received multiple units of blood products including 7 units of packed RBCs, 2 FFP and 1 platelet; hemoglobin currently 9.2, platelets 82. Tachycardic. Afebrile, T-max 99.7, WBC 10.3. Sodium 131 and potassium 3.6, bicarb 23 BUN 17, creatinine 0.73, calcium 7.4. Blood sugars controlled. Objective - Vital Signs Vital signs: Vital Signs Temp 98.2 F 07/15/23 08:00 Pulse 135 H 07/15/23 09:00 Resp 18 07/15/23 09:00 BP 153/94 07/15/23 09:00 Pulse Ox 95 07/15/23 09:00 FiO2 50 07/12/23 09:36 Intake & Output 07/14/23 07/15/23 07/15/23 18:59 06:59 18:59 Intake Total 860 710 10 Output Total 1290 550 100 Balance -430 160 -90 Weight 114.7 kg Intake: IV 340 170 10 Sodium Chloride 0.9% 1, 340 170 10 000 ml @ 20 mls/hr IV . Q24H [facility] Rx#:[id number] Oral 520 540 Output: Chest Tube Drainage 30 Midstinal 30 Urine 1260 550 100 Other: Voiding Method External Catheter External Catheter ABP, PAP, CO, CI - Last Documented Arterial Blood Pressure 116/62 - Exam PHYSICAL EXAM: VITAL SIGNS: As above GENERAL: Sitting up in bed, alert and oriented 3, speech clear and appropriate HEENT: Normocephalic, Conjunctivae normal. eyes normal. NECK: Supple, No JVD. CARDIOVASCULAR: S1, S2 regular.irregular, positive pericardial sonny RESPIRATION: Unlabored, fine bibasilar crackles , bilateral bases diminished . ABDOMEN: Soft, nontender . No guarding. no masses palpable. +BS EXTREMITIES: Right upper extremity edema, No lower extremity edema, no cyanosis. No calf tenderness. Positive peripheral pulses. NERVOUS SYSTEM: Residual left upper extremity weakness significantly improved, cranial nerves II through XII grossly intact Skin: Warm and dry, no rash . - Labs CBC & Chem 7: 07/15/23 03:29 07/15/23 03:29 Labs: Abnormal Lab Results - Last 24 Hours (Table) 07/14/23 07/14/23 07/14/23 Range/Units 11:07 16:09 17:45 RBC (4.30-5.90) m/uL Hgb (13.0-17.5) gm/dL Hct (39.0-53.0) % Plt Count (150-450) k/uL Sodium (137-145) mmol/L Glucose (74-99) mg/dL POC Glucose (mg/dL) 162 H 180 H 171 H (70-110) mg/dL Calcium (8.4-10.2) mg/dL 07/14/23 07/14/23 07/15/23 Range/Units 19:47 21:51 03:29 RBC 2.94 L (4.30-5.90) m/uL Hgb 9.2 L (13.0-17.5) gm/dL Hct 26.3 L (39.0-53.0) % Plt Count 82 L (150-450) k/uL Sodium (137-145) mmol/L Glucose (74-99) mg/dL POC Glucose (mg/dL) 166 H 182 H (70-110) mg/dL Calcium (8.4-10.2) mg/dL 07/15/23 07/15/23 Range/Units 03:29 06:50 RBC (4.30-5.90) m/uL Hgb (13.0-17.5) gm/dL Hct (39.0-53.0) % Plt Count (150-450) k/uL Sodium 131 L (137-145) mmol/L Glucose 128 H (74-99) mg/dL POC Glucose (mg/dL) 163 H (70-110) mg/dL Calcium 7.4 L (8.4-10.2) mg/dL Assessment and Plan Assessment: Cardiac tamponade status post left atrial ablation for symptomatic paroximal atrial fibrillation, status post emergent sternotomy and cardiopulmonary bypass with repair left atrial injury Acute hypoxic respiratory failure, status post vent dependent secondary to cardiac tamponade Acute CVA, ischemic, right frontal lobe with left-sided hemiparesis,iatrogenic in nature. Thrombocytopenia secondary to the above Acute blood loss anemia secondary to #1, status post multiple blood products Hypotension, status post pressor dependent, secondary to the above Acute renal failure Chronic atrial fibrillation, symptomatic Degenerative joint disease History of SVT Diabetes mellitus, hemoglobin A1c 6.2 CAD Hypertension Hyperlipidemia BPH Gastroesophageal reflux disease Morbid obesity, BMI 35 Prior nicotine dependence Plan: Continue on current medication regime ,monitoring and symptomatic treatment. Brain MRI pending. PICC line pending .Antiarrhythmics as per card iology. Aggressive pulmonary toileting with incentive spirometer reinforced. Multiple consults following including neurology. ICU management as per per diem physical therapist. PT/OT/ST. repeat swallow evaluation pending.Prognosis guarded given multiple complex medical issues. The impression and plan of care has been dictated as directed. : I performed a history and examination of this patient, discussed the same with the dictator. I agree with the dictator's note ,documented as a scribe. Any additional findings or plans will be noted.
--- NOTE | 2023-07-15 13:33 | P.PN ---
Subjective Progress Note Date: 07/15/23 Principal diagnosis: Repeat tamponade status post left atrial ablation for paroxysmal atrial fibrillation with evidence of injury to the left atrium between the left superior pulmonary vein and the left inferior pulmonary vein. Previous medical history of coronary artery disease, recurrent symptomatic atrial fibrillation, SVT, hypertension, hyperlipidemia, arthritis, BPH, and previous tobacco dependence POD #4 emergent sternotomy and institution of cardiopulmonary bypass, repair of left atrial injury, exclusion of the left atrial appendage using a 35 mm AtriClip, intraoperative transesophageal echocardiogram Acute ischemia anterior right frontal lobe without midline shift or acute intracranial hemorrhage The patient was seen and examined this morning sitting up in the recliner in the intensive care unit in no acute distress. Currently in rapid atrial fibrillation although blood pressure stable, being managed by Dr. Moore, received amio/lopressor/digoxin/lasix. Mediastinal chest tubes present with 50 mL serosanguineous drainage in the last 24 hours, no air leak present. Chest x- ray, labs reviewed. This morning patient is alert and oriented 3 and able to speak clearly, he does still have left arm weakness but able to move all extremities and follow all commands, has ambulated short distances, tolerating oral diet without difficulty. Had repeat brain CT demonstrating no hemorrhagic conversion. Objective - Vital Signs Vital signs: Vital Signs Temp 98.4 F 07/15/23 12:00 Pulse 140 H 07/15/23 12:00 Resp 15 07/15/23 12:00 BP 129/100 07/15/23 12:00 Pulse Ox 96 07/15/23 12:00 FiO2 50 07/12/23 09:36 Intake & Output 07/14/23 07/15/23 07/15/23 18:59 06:59 18:59 Intake Total 860 710 50 Output Total 1290 550 275 Balance -430 160 -225 Weight 114.7 kg Intake: IV 340 170 50 Sodium Chloride 0.9% 1, 340 170 50 000 ml @ 20 mls/hr IV . Q24H [facility] Rx#:[id number] Oral 520 540 Output: Chest Tube Drainage 30 Midstinal 30 Urine 1260 550 275 Other: Voiding Method External Catheter External Catheter Urinal # Voids 1 ABP, PAP, CO, CI - Last Documented Arterial Blood Pressure 116/62 - Exam CONSTITUTIONAL: Appears comfortable, cooperative, no acute distress RESPIRATORY: Lungs sounds diminished bilaterally. Respirations even, nonlabored. Currently on 2 L nasal cannula with oxygen saturation 96%. Able to achieve 1000 mL on incentive spirometry. Strong cough. CARDIOVASCULAR: S1, S2 present. Rapid irregular rate and rhythm, rapid atrial fibrillation on telemetry. Sternum stable. Palpable peripheral pulses bilaterally. No edema present. No calf pain or tenderness noted. Heart hugger, antiembolism stockings, SCDs present. GASTROINTESTINAL: Abdomen soft, nontender, nondistended. Active bowel sounds present 4 quadrants. Tolerating diet, passing flatus GENITOURINARY: External catheter present draining clear, yellow urine. Output 1810 mL in the last 24 hours INTEGUMENTARY: Skin is warm and dry. Anterior chest incision well approximated and covered with dry intact dressing NEUROLOGIC: Cranial nerves II through XII intact MUSKULOSKELETAL: Able to move all extremities, right arm weakness PSYCHIATRIC: Alert and oriented to person place and time, flat affect INVASIVE LINES AND TUBES: Mediastinal chest tubes present to water seal, no air leaks present, 50 mL serosanguineous drainage in the last 24 hours - Allied health notes Allied health notes reviewed: nursing - Labs CBC & Chem 7: 07/15/23 03:29 07/15/23 03:29 Labs: Abnormal Lab Results - Last 24 Hours (Table) 07/14/23 07/14/23 07/14/23 Range/Units 16:09 17:45 19:47 RBC (4.30-5.90) m/uL Hgb (13.0-17.5) gm/dL Hct (39.0-53.0) % Plt Count (150-450) k/uL Sodium (137-145) mmol/L Glucose (74-99) mg/dL POC Glucose (mg/dL) 180 H 171 H 166 H (70-110) mg/dL Calcium (8.4-10.2) mg/dL 07/14/23 07/15/23 07/15/23 Range/Units 21:51 03:29 03:29 RBC 2.94 L (4.30-5.90) m/uL Hgb 9.2 L (13.0-17.5) gm/dL Hct 26.3 L (39.0-53.0) % Plt Count 82 L (150-450) k/uL Sodium 131 L (137-145) mmol/L Glucose 128 H (74-99) mg/dL POC Glucose (mg/dL) 182 H (70-110) mg/dL Calcium 7.4 L (8.4-10.2) mg/dL 07/15/23 07/15/23 Range/Units 06:50 11:56 RBC (4.30-5.90) m/uL Hgb (13.0-17.5) gm/dL Hct (39.0-53.0) % Plt Count (150-450) k/uL Sodium (137-145) mmol/L Glucose (74-99) mg/dL POC Glucose (mg/dL) 163 H 167 H (70-110) mg/dL Calcium (8.4-10.2) mg/dL - Imaging and Cardiology Chest x-ray: report reviewed, image reviewed Assessment and Plan Assessment: Cardiac tamponade status post left atrial ablation for paroxysmal atrial fibrillation with evidence of injury to the left atrium between the left superior pulmonary vein and the left inferior pulmonary vein, status post emergent sternotomy and institution of cardiopulmonary bypass, repair of left atrial injury Leukocytosis, likely reactive Thrombocytopenia, likely from massive blood loss History of coronary artery disease Recurrent symptomatic atrial fibrillation, exclusion of the left atrial appendage using a 35 mm AtriClip, currently sinus History of SVT History of hypertension, currently hypotensive on low dose levo Hyperlipidemia Arthritis BPH Previous tobacco dependence Acute ischemia anterior right frontal lobe without midline shift or acute intracranial hemorrhage Plan: Epicardial pacer wire discontinued without incident Mediastinal chest tube discontinued without incident A. fib management per Dr. Moore. Will restart eliquis tonight Will monitor daily labs and x-rays. Electrolyte replacement per protocol Continue to record strict accurate intake and output Sternal precautions Increase activity as tolerated. PT/OT/cardiac rehab consulted Wean O2 as tolerated. Encourage incentive spirometry use More recommendations to follow
--- NOTE | 2023-07-15 13:59 | P.PN ---
Subjective Progress Note Date: 07/15/23 I'm seeing the patient for the first time during this admission. Please refer to Dr. Chaves's note for further details. It seems that the patient had status post pulmonary vein isolation with ablation on 07/11/2023 with left atrial injury with pericardial effusion/cardiac stump and not and after that is seems the patient had manifestation of acute ischemic stroke with dysarthria, left facial droop with the left visual neglect patient no IV TPA because of recent cardiac surgery. Patient's symptoms was improving. According to the nurse the patient only has mild left facial droop. Objective - Vital Signs Vital signs: Vital Signs Temp 98.4 F 07/15/23 12:00 Pulse 140 H 07/15/23 12:00 Resp 15 07/15/23 12:00 BP 129/100 07/15/23 12:00 Pulse Ox 96 07/15/23 12:00 FiO2 50 07/12/23 09:36 Intake & Output 07/14/23 07/15/23 07/15/23 18:59 06:59 18:59 Intake Total 860 710 50 Output Total 1290 550 275 Balance -430 160 -225 Weight 114.7 kg Intake: IV 340 170 50 Sodium Chloride 0.9% 1, 340 170 50 000 ml @ 20 mls/hr IV . Q24H [facility] Rx#:[id number] Oral 520 540 Output: Chest Tube Drainage 30 Midstinal 30 Urine 1260 550 275 Other: Voiding Method External Catheter External Catheter Urinal # Voids 1 ABP, PAP, CO, CI - Last Documented Arterial Blood Pressure 116/62 - Exam General lying in bed and is not in acute distress Neuro-patient is awake alert oriented to self place and time. Does follow simple commands. No aphasia and no neglect. Mild left facial droop. Motor is a left in all extremities above gravity. The strength seems equal throughout. - Labs CBC & Chem 7: 07/15/23 03:29 07/15/23 03:29 Labs: Abnormal Lab Results - Last 24 Hours (Table) 07/14/23 07/14/23 07/14/23 Range/Units 16:09 17:45 19:47 RBC (4.30-5.90) m/uL Hgb (13.0-17.5) gm/dL Hct (39.0-53.0) % Plt Count (150-450) k/uL Sodium (137-145) mmol/L Glucose (74-99) mg/dL POC Glucose (mg/dL) 180 H 171 H 166 H (70-110) mg/dL Calcium (8.4-10.2) mg/dL 07/14/23 07/15/23 07/15/23 Range/Units 21:51 03:29 03:29 RBC 2.94 L (4.30-5.90) m/uL Hgb 9.2 L (13.0-17.5) gm/dL Hct 26.3 L (39.0-53.0) % Plt Count 82 L (150-450) k/uL Sodium 131 L (137-145) mmol/L Glucose 128 H (74-99) mg/dL POC Glucose (mg/dL) 182 H (70-110) mg/dL Calcium 7.4 L (8.4-10.2) mg/dL 07/15/23 07/15/23 Range/Units 06:50 11:56 RBC (4.30-5.90) m/uL Hgb (13.0-17.5) gm/dL Hct (39.0-53.0) % Plt Count (150-450) k/uL Sodium (137-145) mmol/L Glucose (74-99) mg/dL POC Glucose (mg/dL) 163 H 167 H (70-110) mg/dL Calcium (8.4-10.2) mg/dL Assessment and Plan Assessment: * Acute ischemic stroke initially manifesting with dysarthria and left hemiparesis, mainly involving the left facial brachial region. Patient also has slight left visual field neglect without visual field loss, with initial NIH stroke scale is 7. Patient not a candidate for TPA, because of recent cardiac surgery, and symptoms present for > 4.5 hours. Patient's neurological examination much improved. Continues to have left facial droop. * Status post pulmonary vein isolation, and ablation 07/11/2023 with left atrial injury, pericardial effusion/cardiac tamponade * Left atrial injury status post cardiopulmonary bypass with left atrial repair, exclusion of left atrial appendage * History of paroxysmal atrial fibrillation. * CAD * Thrombocytopenia * Hypertension * Hyperlipidemia * Obesity Plan: * Repeat CT head performed today revealed similar right frontal lobe CVA. No new areas of abnormal cast white matter loss of differentiation. No evidence of hemorrhagic conversion. * MRI is pending. * CTA of head showed dominant left vertebral artery. No large vessel intracranial arterial occlusion, significant stenosis or aneurysmal change seen. * CTA of the neck showed dominant left vertebral artery. No significant, and or internal carotid artery stenosis. Recent post CABG changes visualized. I personally reviewed CTA of head and neck, agree with findings. No large vessel occlusion. No indication for mechanical thrombectomy. * 2-D echo limited views revealed technically difficult study. Left-ventricul ar EF is 50-55%. Left atrium not well visualized. * Fasting a.m. lipid panel cholesterol 57, LDL 11, HDL 20 and triglycerides 129. Continue continue Lipitor 40 mg daily. (Patient at home on Lipitor 20 mg) * Hemoglobin A1c 6.2 * Optimize control of blood pressure due to cardiac reasons. * Currently the patient is on Eliquis was started by cardiothoracic team 5 mg when tell twice a day., On aspirin 325 mg daily. She is also on Lipitor 40 mg daily. * Neuro checks every 2 hours. * Telemetry monitoring rule out any arrhythmia * PT, OT, speech therapy * DVT prophylaxis: heparin 5000 units subcu every 8 hours. But since the patient was on Eliquis recommend discontinuing subcu heparin from a neurologic perspective I discussed with the patient and patient's nurse. We'll continue to follow Time with Patient: Less than 30
--- NOTE | 2023-07-15 15:36 | IR ---
PICC LINE PLACEMENT: HISTORY: Infection requiring long-term antibiotic therapy PROCEDURE: Ultrasound guidance of PICC line placement. MOLD COOLER: COMPLICATIONS: None ANESTHESIA: 1. 1% Lidocaine locally. FINDINGS/TECHNIQUE: The procedure was explained to the patient. The risks, complications, benefits and alternatives were discussed and any questions were answered. Informed consent was obtained. The patient was placed supine on the fluoroscopic table and prepped and draped in the usual sterile fash ion. Utilizing a 21 gauge needle and sonographic guidance, access in the left basilic vein was achi eved and there is placement of a 0.018 guidewire. The vein is patent. A 5-F. sheath was placed over the guidewire. The guidewire and dilator were removed and a 5-F. Double lumen PICC line was placed through the sheath with the chest x-ray confirming the tip at the level of the SVC. The sheath was r emoved, the catheter was flushed and sutured into position. The patient was stable throughout the pr ocedure and remained stable upon discharge from the Department of Radiology. The vein puncture was patent under ultrasound. A cast scale image was obtained to document patency of the vein punctured. All elements of the maximal barrier technique were utilized. IMPRESSION: 1. Successful PICC line placement under ultrasound performed bedside within the ICU.
[2023-07-15 17:21] LABS: Glucose,Whole Blood 168 mg/dL (70-110)
[2023-07-15] MEDS: SODIUM CHLORIDE 0.9% 1,000 ML IV SCH (17:38)
--- NOTE | 2023-07-15 18:08 | MR ---
EXAMINATION TYPE: MR brain wo con DATE OF EXAM: 07/15/2023 5:03 PM CLINICAL INDICATION:Male, 78 years old with history of Acute CVA, r/o hemorrhagic conversion; PHH, Ac krystian CVA, R/O hemorrhagic conversion COMPARISON: CT head 07/14/2023 and 07/12/2023. TECHNIQUE: Multi planar, multi sequence imaging was performed through the brain including: T1, T2, In version recovery, Diffusion weighted imaging, and gradient echo imaging. No gadolinium was given. FINDINGS: Area of increased signal on DWI with corresponding low ADC signal in the right frontal lobe anteriorl y involving the white matter and cortex, compatible with acute/subacute infarct, about 3.5 cm in size . There are multiple additional much smaller foci of restricted diffusion within the white matter of the right frontal lobe anteriorly and posteriorly, and a few scattered subcortical foci in the right parietal and temporal lobes as well as a patch of restricted diffusion in the lateral aspect of the m id right temporal lobe. On the left there are 3 or 4 foci in the white matter of the left frontal lob e centrum semiovale region, largest 0.8 cm, suggesting acute/subacute small vessel infarcts. Showerin g emboli are a consideration. There are areas of increased T2/FLAIR signal which correspond to the areas of recent infarct. In sarah tion there is patchy white matter T2 FLAIR signal hyperintensity in the white matter of both cerebral hemispheres suggesting a background of mild chronic small vessel ischemia. Mild generalized brain atrophy, with commensurate mild enlargement of the ventricles/CSF spaces. Ther e is slight mineralization noted in the bilateral basal ganglia. No evidence of intracranial hemorrha ge or hemorrhagic conversion of the areas of infarct. No midline shift or mass effect. The major vasc ular flow voids at the base of the brain are preserved. Left vertebral artery appears dominant. Basal cisterns are patent. Midline structures show no discrete abnormality. Lobular mucosal thickening seen in the bilateral maxillary sinuses. Mild leftward nasal septal deviat ion. Orbits appear grossly unremarkable as seen. No definite areas of abnormal marrow signal are seen in the skull. IMPRESSION: 1. Acute/subacute infarct in the anterior right frontal lobe. 2. Multiple additional much smaller foci of restricted diffusion within the white matter of the righ t frontal, parietal, and temporal lobes, as well as a patch of restricted diffusion in the lateral as pect of the mid right temporal lobe, compatible with additional areas of acute/subacute infarct. 3. A few foci of restricted diffusion in the white matter of the left frontal lobe centrum semiovale region, suggesting acute/subacute small vessel infarcts. Showering emboli are a consideration, rule out cardiac or vascular sources. 4. No evidence of intracranial hemorrhage, or hemorrhagic conversion related to the above infarcts. 5. Nonspecific white matter changes, likely secondary to mild chronic small vessel ischemic disease. 6. No evidence of intracranial mass, mass effect, or midline shift.
[2023-07-15 20:12] LABS: Glucose,Whole Blood 223 mg/dL (70-110)
[2023-07-15] MEDS: APIXABAN 5 MG TAB PO SCH (20:38)
[2023-07-15] MEDS: SENNOSIDES-DOCUSATE SODIUM 1 EACH TAB PO SCH (20:38)
[2023-07-15] MEDS ORDERED: ZOLPIDEM 5 MG TAB PO ONE (21:00)
[2023-07-16 03:49] LABS: HCT 27.3 % (39.0-53.0); HGB 9.2 gm/dL (13.0-17.5); MCH 30.3 pg (25.0-35.0); MCHC 33.8 g/dL (31.0-37.0); MCV 89.7 fL (80.0-100.0); Mean Platelet Volume 9.9; Platelet Count 105 k/uL (150-450); RBC 3.04 m/uL (4.30-5.90); RDW 14.4 % (11.5-15.5); WBC 9.1 k/uL (3.8-10.6)
[2023-07-16 04:06] LABS: African American GFR (CKD) >90 (>60 ml/min/1.73 sqM); Anion Gap 5 mmol/L; Blood Urea Nitrogen 11 mg/dL (9-20); Calcium 7.6 mg/dL (8.4-10.2); Carbon Dioxide 24 mmol/L (22-30); Chloride 103 mmol/L (98-107); Glucose 129 mg/dL (74-99); Non-African American GFR(CKD) >90 (>60 ml/min/1.73 sqM); Potassium 3.6 mmol/L (3.5-5.1); Sodium 132 mmol/L (137-145)
[2023-07-16] MEDS ORDERED: POTASSIUM CHLORIDE 20 MEQ in WATER FOR INJECTION 1 100ML.BAG IVPB STA (04:21)
[2023-07-16 06:26] LABS: Glucose,Whole Blood 162 mg/dL (70-110)
[2023-07-16] MEDS: INSULIN ASPART (NovoLOG) 100 UNIT/ML VIAL SQ SCH ×4 (06:31→21:19)
[2023-07-16] MEDS: PANTOPRAZOLE 40 MG TABLET PO SCH (06:31)
[2023-07-16] MEDS ORDERED: DIGOXIN 250 MCG/ML 2 ML AMP IVP ONE (07:34)
[2023-07-16] MEDS ORDERED: SODIUM CHLORIDE 0.9% 500 ML 250 ML IV ONE (07:35)
[2023-07-16] MEDS: ASPIRIN 325 MG TAB PO SCH (08:46)
[2023-07-16] MEDS: ATORVASTATIN 40 MG TAB PO SCH (08:46)
[2023-07-16] MEDS: TAMSULOSIN 0.4 MG CAP.ER.24H PO SCH ×2 (08:46→21:08)
[2023-07-16] MEDS: AMIODARONE 200 MG TAB PO SCH ×3 (08:46→21:08)
[2023-07-16] MEDS: MULTIVITAMINS, THERA 1 EACH TAB PO SCH (08:46)
[2023-07-16] MEDS: METOPROLOL TARTRATE 50 MG TAB PO SCH ×3 (08:46→21:08)
[2023-07-16] MEDS: APIXABAN 5 MG TAB PO SCH ×2 (08:46→21:08)
--- NOTE | 2023-07-16 08:52 | XR ---
EXAM: XR chest 1V portable CLINICAL INDICATION:Male, 78 years old with history of post window; [facility] COMPARISON: 07/15/2023 11:22 AM and before TECHNIQUE: Chest single view. FINDINGS: Lines/tubes/devices: Left arm PICC with tip terminating over the left brachiocephalic vein to the lef t of the trachea. EKG leads and other extrinsic densities over the field of view. Left atrial appenda ge closure device. Sternotomy wires. Loop recorder projects over the left heart. Cardiomediastinum: Cardiac silhouette appears stable, heart is enlarged. Stable mediastinal silhouette, nonspecific mild broadening of the mediastinum could be related to med iastinal lipomatosis among other etiologies. Partially calcified aorta. Vasculature: No increased pulmonary vasculature. Lungs/pleura: Mildly coarsened interstitium similar to previous likely chronic changes. Improving left basilar pleu ral/parenchymal opacity with mild residual. Pericardial fat somewhat prominent. No definite right sandra g infiltrate, sizable effusion, or pneumothorax. Bones/soft tissues: Osseous structures appear grossly unchanged. Osteopenia and degenerative changes of the spine and charito ulders. Regional soft tissues appear unremarkable. IMPRESSION: 1. Left arm PICC with tip over the left brachiocephalic vein. Would recommend advancement to the mid to distal SVC. 2. Cardiomegaly with postoperative changes. 3. Interval improved aeration of pleural/parenchymal opacity in the left lung base. 4. No new acute cardiopulmonary abnormality.
[2023-07-16] MEDS: IPRATROPIUM-ALBUTEROL 3 ML NEB INHALATION SCH ×4 (09:37→20:35)
--- NOTE | 2023-07-16 10:37 | P.PN ---
Subjective Patient seen on July 15 in the morning Stable Sitting up in a chair Denies any chest discomfort or undue shortness of breath In atrial fibrillation RVR Tolerating metoprolol 50 mg 3 times a day Awaiting placement of a PICC line Awaiting chest tube removal On examination heart sounds are irregular Breath sounds are clear Impression Symptomatic paroxysmal atrial fibrillation Status post cryoablation of 3 pulmonary veins Cardiac perforation during left superior pulmonary vein ablation Status post open exploration and primary closure Plan PICC line today left arm. Discussed with Dr. Kitchen Chest tube removal today later Anticoagulation thereafter Awaiting MRI of the brain MRI of the brain consistent with subacute infarction anterior right frontal lobe and shower emboli Improvement in neurologic status over the last few days Continue amiodarone 200 mg by mouth 3 times a day Continue IV digoxin daily Continue by mouth metoprolol Continue atorvastatin and aspirin Objective - Vital Signs Vital signs: Vital Signs Temp 98.1 F 07/16/23 08:00 Pulse 97 07/16/23 09:49 Resp 21 07/16/23 09:00 BP 109/73 07/16/23 09:00 Pulse Ox 96 07/16/23 09:37 FiO2 50 07/12/23 09:36 Intake & Output 07/15/23 07/16/23 07/16/23 18:59 06:59 18:59 Intake Total 520 650 265 Output Total 1175 1175 200 Balance -655 -525 65 Weight 113.9 kg Intake: IV 120 70 265 Sodium Chloride 0.9% 1, 120 70 15 000 ml @ 20 mls/hr IV . Q24H [facility] Rx#:[id number] Sodium Chloride 0.9% 500 250 ml 250 ml @ 999 mls/hr IV .Q16M [facility] Rx#:[id number] Intake, IV Titration 100 Amount Potassium Chloride 20 meq 100 In Water For Injection 1 100ml.bag @ 50 mls/hr IVPB ONCE ST[facility] Rx#: [id number] Oral 400 480 Output: Urine 1175 1175 200 Other: Voiding Method Urinal Urinal Urinal # Voids 1 1 1 # Bowel Movements 1 ABP, PAP, CO, CI - Last Documented Arterial Blood Pressure 116/62 - Labs CBC & Chem 7: 07/16/23 03:32 07/16/23 03:32 Labs: Abnormal Lab Results - Last 24 Hours (Table) 07/15/23 07/15/23 07/15/23 Range/Units 11:56 17:19 20:11 RBC (4.30-5.90) m/uL Hgb (13.0-17.5) gm/dL Hct (39.0-53.0) % Plt Count (150-450) k/uL Sodium (137-145) mmol/L Creatinine (0.66-1.25) mg/dL Glucose (74-99) mg/dL POC Glucose (mg/dL) 167 H 168 H 223 H (70-110) mg/dL Calcium (8.4-10.2) mg/dL 07/16/23 07/16/23 07/16/23 Range/Units 03:32 03:32 06:25 RBC 3.04 L (4.30-5.90) m/uL Hgb 9.2 L (13.0-17.5) gm/dL Hct 27.3 L (39.0-53.0) % Plt Count 105 L (150-450) k/uL Sodium 132 L (137-145) mmol/L Creatinine 0.60 L (0.66-1.25) mg/dL Glucose 129 H (74-99) mg/dL POC Glucose (mg/dL) 162 H (70-110) mg/dL Calcium 7.6 L (8.4-10.2) mg/dL
--- NOTE | 2023-07-16 10:43 | P.PN ---
Subjective Patient is resting comfortably in a chair On seeing all questions Discussed procedural events with the patient during A. fib ablation Denies any chest discomfort Does not appear to be short of breath His blood pressure has been low in between 9210 mmHg Asymptomatic Remains in atrial fibrillation with RVR Chest x-ray reviewed. No evidence for vascular congestion White count 9.1 thousand Hemoglobin 9.2 Sodium 132, potassium 3.6 Creatinine stable Plan 250 mL IV bolus, normal saline with improvement in blood pressure Continue metoprolol 25-50 mg by mouth 3 times a day. Discussed with the nurse Continue oral amiodarone poor milligrams 3 times daily Continue IV digoxin, one more dose today 0.125 mg ELIQUIS to continue 5 mg twice a day PICC line in place Chest tube removed Check limited 2-D echo evaluate pericardium Physical therapy consult Objective - Vital Signs Vital signs: Vital Signs Temp 98.1 F 07/16/23 08:00 Pulse 97 07/16/23 09:49 Resp 21 07/16/23 09:00 BP 109/73 07/16/23 09:00 Pulse Ox 96 07/16/23 09:37 FiO2 50 07/12/23 09:36 Intake & Output 07/15/23 07/16/23 07/16/23 18:59 06:59 18:59 Intake Total 520 650 265 Output Total 1175 1175 200 Balance -655 -525 65 Weight 113.9 kg Intake: IV 120 70 265 Sodium Chloride 0.9% 1, 120 70 15 000 ml @ 20 mls/hr IV . Q24H [facility] Rx#:[id number] Sodium Chloride 0.9% 500 250 ml 250 ml @ 999 mls/hr IV .Q16M [facility] Rx#:[id number] Intake, IV Titration 100 Amount Potassium Chloride 20 meq 100 In Water For Injection 1 100ml.bag @ 50 mls/hr IVPB ONCE STA Rx#: [id number] Oral 400 480 Output: Urine 1175 1175 200 Other: Voiding Method Urinal Urinal Urinal # Voids 1 1 1 # Bowel Movements 1 ABP, PAP, CO, CI - Last Documented Arterial Blood Pressure 116/62 - Labs CBC & Chem 7: 07/16/23 03:32 07/16/23 03:32 Labs: Abnormal Lab Results - Last 24 Hours (Table) 07/15/23 07/15/23 07/15/23 Range/Units 11:56 17:19 20:11 RBC (4.30-5.90) m/uL Hgb (13.0-17.5) gm/dL Hct (39.0-53.0) % Plt Count (150-450) k/uL Sodium (137-145) mmol/L Creatinine (0.66-1.25) mg/dL Glucose (74-99) mg/dL POC Glucose (mg/dL) 167 H 168 H 223 H (70-110) mg/dL Calcium (8.4-10.2) mg/dL 07/16/23 07/16/23 07/16/23 Range/Units 03:32 03:32 06:25 RBC 3.04 L (4.30-5.90) m/uL Hgb 9.2 L (13.0-17.5) gm/dL Hct 27.3 L (39.0-53.0) % Plt Count 105 L (150-450) k/uL Sodium 132 L (137-145) mmol/L Creatinine 0.60 L (0.66-1.25) mg/dL Glucose 129 H (74-99) mg/dL POC Glucose (mg/dL) 162 H (70-110) mg/dL Calcium 7.6 L (8.4-10.2) mg/dL
--- NOTE | 2023-07-16 11:03 | P.PN ---
Subjective Progress Note Date: 07/16/23 This is a 78-year-old white male with history of hypertension, degenerative joint disease, known history of coronary artery disease, recurrent symptomatic atrial fibrillation, he was deemed to be a good candidate for pulmonary vein and left atrial ablation. Yesterday the patient underwent elective ablation by Dr. Trinidad, the procedure was complicated by hypotension. Echocardiography showed evidence of the pericardial effusion and tamponade hence cardiothoracic surgery was consulted yesterday on emergent basis, and the patient underwent Urgent pericardiocentesis and was sent to the OR for open exploration. Apparently there was a puncture in the gavino between the left superior and left inferior pulmonary veins and this was repaired by Dr. Espinoza. Postoperatively, patient was admitted to the ICU intubated and mechanically ventilated, and this consult was initiated. I saw this patient today, he is intubated and mechanically ventilated, he is on assist control rate of 16 tidal volume 550 FiO2 50% and PEEP of 5. His IV fluid is running at 80 mL/h, patient is on insulin drip at 2.5 units per hour, ABG showed a pO2 of 90 pCO2 of 34 pH of 7.38. Chest x-ray this morning showed mostly stable tubes and catheters, and no evidence of acute process. Patient was on propofol which was placed on hold earlier this morning for plans to wean and extubate if possible. Hence I recommended that we continue with the weaning process, check weaning parameters, and if appropriate and the patient meets the criteria, we'll proceed with extubation. Patient was reevaluated today on 07/13/2023, patient remains in the ICU, he was extubated yesterday, tolerated the extubation well. Unfortunately the patient developed what seems to be an acute ischemic event involving the right frontal lobe, no midline shift or acute intracranial hemorrhage. Patient was seen by neurology on consultation, and at this point mostly recommending supportive care measures. Patient has a slight weakness noted in his left upper extremity, and according to the urologist he was found to have left visual field neglect without visual field loss. Clearly the urologist felt that he is not a candidate for TPA, NIH stroke scale is 7. Not to mention the patient had a recent cardiac surgery. Labs today showed WBC count of 17.1 hemoglobin 11.7 on a relatively normal basic metabolic profile, renal profile is improving creatinine is down to 1.18 compared to 1.24 yesterday patient is on amiodarone drip for atrial fibrillation with RVR, he is also on insulin drip at 1.5 units per hour, IV fluid 0.9 normal saline at 80 mL per hour. He is doing poorly with incentive spirometry achieving no more than 500 mL. Mediastinal tube remains in place, drained 50 mL overnight. Chest x-ray showed minimal basilar atelectasis. Especially at the left base. Patient was reevaluated 07/14/2023, patient remains in the ICU, hemodynamically stable, however the patient remains on amiodarone for his atrial fibrillation with RVR receiving 1 mg/m and his IV fluid is 0.9 normal saline at 75 mL per hour. Chest x-ray is showing minimal left lower lobe atelectasis and possibly a small tiny left pleural effusion, his mediastinal chest tube drained no more than 60 mL of bloody effusion. Patient remains doing poorly with incentive spirometry. Panel Raiser Operator saw the patient, transitioned his amiodarone to oral, and placed on metoprolol 50 mg 3 times a day. Today the right upper extremity noted to be swollen and edematous, hence I recommended removing the IV from the right upper extremity, and established another IV access in the left forearm. Ultrasound of the upper extremity was also ordered to make sure the patient does not have DVT. Neurologically the patient is about the same, his left-sided weakness and his left facial droop remain but they seem to be improving. WBC count is 12.4 hemoglobin 9.7 basic metabolic profile is normal and renal profile is normal. The patient is seen today 07/15/2023 in follow-up in the intensive care unit. Currently awake and alert in no acute distress. He is resting comfortably in bed. Maintaining O2 saturations in the 90s on 2 L/m per nasal cannula. He states he is feeling stronger today compared to yesterday. Still with some left-sided weakness. Follow-up computed tomography scan of the brain continued to show a right frontal lobe CVA. No new areas of abnormal [place]-white matter loss of differentiation. No evidence of hemorrhagic conversion. X-ray shows bilateral consolidation and a small left pleural effusion. He is status post 7 units of packed red blood cells, 2 units of fresh frozen plasma and 1 unit of platelets this admission. White count 10.3. Hemoglobin 9.2. Platelets 82,000. Sodium 131. Potassium 3.6. Bicarb 23. BUN 17. Creatinine 0.73. Glucose 128. He is continued on DuoNeb inhalations. Heparin for DVT prophylaxis. Normal saline at KVO. Plan is for PICC line placement today. The patient is seen today 07/16/2023 in follow-up in the intensive care unit. He is resting comfortably in bed. Awake and alert in no acute distress. He is maintaining O2 saturations in the mid 90s on 2 L/m per nasal cannula. He remains in atrial fibrillation. Afebrile. Hemodynamically stable. MRI of the brain revealed an acute/subacute infarct in the anterior right frontal lobe. Multiple additional much smaller foci of restricted diffusion within the white matter of the right frontal, parietal and temporal lobes as well as a patch of restricted diffusion in the lateral aspect of the right temporal lobe, compatible with additional areas of subacute/acute infarct. A new foci of restricted diffusion in the white matter of the left frontal lobe centrum semiovale region, suggesting acute/subacute small vessel infarcts. Showering emboli are a consideration. Chest x-ray reveals improved aeration of the opacity left lung base. No new acute cardiopulmonary abnormalities. Left upper extremity PICC line in place. He is status post 7 units of packed red blood cells, 2 units of fresh frozen plasma, one unit of platelets this admission. White count 9.1. Hemoglobin 9.2. Platelets 105. Sodium 132. Potassium 36. Bicarb 24. BUN 11. Creatinine 0.60. Glucose 129. He remains on amiodarone, metoprolol. Anticoagulated with Eliquis. Objective - Vital Signs Vital signs: Vital Signs Temp 98.1 F 07/16/23 08:00 Pulse 97 07/16/23 09:49 Resp 21 07/16/23 09:00 BP 109/73 07/16/23 09:00 Pulse Ox 96 07/16/23 09:37 FiO2 50 07/12/23 09:36 Intake & Output 07/15/23 07/16/23 07/16/23 18:59 06:59 18:59 Intake Total 520 650 265 Output Total 1175 1175 200 Balance -945 -050 65 Weight 113.9 kg 113.9 kg Intake: IV 120 70 265 Sodium Chloride 0.9% 1, 120 70 15 000 ml @ 20 mls/hr IV . Q24H [facility] Rx#:[id number] Sodium Chloride 0.9% 500 250 ml 250 ml @ 999 mls/hr IV .Q16M [facility] Rx#:[id number] Intake, IV Titration 100 Amount Potassium Chloride 20 meq 100 In Water For Injection 1 100ml.bag @ 50 mls/hr IVPB ONCE STA Rx#: [id number] Oral 400 480 Output: Urine 1175 1175 200 Other: Voiding Method Urinal Urinal Urinal # Voids 1 1 1 # Bowel Movements 1 ABP, PAP, CO, CI - Last Documented Arterial Blood Pressure 116/62 - Exam GENERAL EXAM: Alert, 78-year-old gentleman, resting in bed, on 2 L/m per nasal cannula, comfortable in no apparent distress. HEAD: Normocephalic. EYES: Normal reaction of pupils, equal size. NOSE: Clear with pink turbinates. THROAT: No erythema or exudates. NECK: No masses, no JVD. CHEST: No chest wall deformity. LUNGS: Equal air entry with crackles in the bilateral bases. CVS: S1 and S2 normal with no audible murmur, regular rhythm. ABDOMEN: No hepatosplenomegaly, normal bowel sounds, no guarding or rigidity. SPINE: No scoliosis or deformity SKIN: No rashes CENTRAL NERVOUS SYSTEM: No focal deficits, tone is normal in all 4 extremities. EXTREMITIES: Residual left-sided weakness. There is right upper extremity edema. No clubbing, no cyanosis. Peripheral pulses are intact. - Labs CBC & Chem 7: 07/16/23 03:32 07/16/23 03:32 Labs: Abnormal Lab Results - Last 24 Hours (Table) 07/15/23 07/15/23 07/15/23 Range/Units 11:56 17:19 20:11 RBC (4.30-5.90) m/uL Hgb (13.0-17.5) gm/dL Hct (39.0-53.0) % Plt Count (150-450) k/uL Sodium (137-145) mmol/L Creatinine (0.66-1.25) mg/dL Glucose (74-99) mg/dL POC Glucose (mg/dL) 167 H 168 H 223 H (70-110) mg/dL Calcium (8.4-10.2) mg/dL 07/16/23 07/16/23 07/16/23 Range/Units 03:32 03:32 06:25 RBC 3.04 L (4.30-5.90) m/uL Hgb 9.2 L (13.0-17.5) gm/dL Hct 27.3 L (39.0-53.0) % Plt Count 105 L (150-450) k/uL Sodium 132 L (137-145) mmol/L Creatinine 0.60 L (0.66-1.25) mg/dL Glucose 129 H (74-99) mg/dL POC Glucose (mg/dL) 162 H (70-110) mg/dL Calcium 7.6 L (8.4-10.2) mg/dL Assessment and Plan Assessment: Acute hypoxic respiratory failure secondary to cardiac tamponade, iatrogenic in nature Cardiac tamponade, status post left atrial ablation for paroxysmal atrial fibrillation with evidence of injury to the left atrium requiring emergent sternotomy, institution of cardiopulmonary bypass, and repair of left atrial injury, exclusion of left atrial appendage using a 35 mm atriclip, intraoperative transesophageal echocardiogram, postoperative day #5 Acute blood loss anemia secondary to above, status post 7 units of packed red blood cells, current hemoglobin 9.2 Acute CVA, 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 MRI of the brain revealed an acute/subacute infarct in the anterior right frontal lobe. Multiple additional much smaller foci of restricted diffusion within the white matter of the right frontal, parietal and temporal lobes as well as a patch of restricted diffusion in the lateral aspect of the right temporal lobe, compatible with additional areas of subacute/acute infarct. A new foci of restricted diffusion in the white matter of the left frontal lobe centrum semiovale region, suggesting acute/subacute small vessel infarcts. Showering emboli are a consideration Benign essential hypertension Chronic atrial fibrillation, symptomatic History of supraventricular tachycardia Dyslipidemia degenerative joint disease Ex-smoker Right upper extremity swelling, ruled out DVT Plan: The patient was seen and evaluated MRI of the brain, chest x-ray, labs and medications reviewed Remains with some left-sided weakness Stable and on 2 L nasal cannula Continue the use of the incentive spirometer Increase his activity as tolerated Anticoagulated with Eliquis We will continue to follow I have personally seen and examined the patient, performed the documentation and the assessment and plan as written. Number of minutes spent on the visit: 10.
--- NOTE | 2023-07-16 11:10 | CA ---
Transthoracic Echo Report Name: Eliud Slaughter Age: 78 Gender: M : 1945 Exam Date: 07/16/2023 09:28 Exam Location: [facility] Ht (in): 70 Wt (lb): 251 Ordering Physician: Royal Moore MD ([id number]) Attending/Referring Phys: Food Service Hotel Runner Aishwarya Felix RDCS Procedure CPT: Indications: recheck previous cardiac tamponade Cardiac Hx: Technical Quality: Fair Contrast 1: Total Dose (mL): Contrast 2: Total Dose (mL): MEASUREMENTS (Male / Female) Normal Values FINDINGS Left Ventricle Limited study. Preserved LV systolic function. Right Ventricle Right Atrium Left Atrium Mitral Valve Aortic Valve Tricuspid Valve Pulmonic Valve Pericardium Minimal pericardial effusion (normal variant). Aorta CONCLUSIONS Limited echo. Normal left ventricular systolic function Small pericardial effusion noted Previewed by: Dr. Polina Esteban MD (Electronically Signed) Final Date: 16 July 2023 11:09
[2023-07-16 11:20] LABS: Glucose,Whole Blood 215 mg/dL (70-110)
--- NOTE | 2023-07-16 12:28 | P.PN ---
Subjective Progress Note Date: 07/16/23 Principal diagnosis: Cardiac tamponade status post left atrial ablation for paroxysmal atrial fibrillation with evidence of injury to the left atrium between the left superior pulmonary vein and the left inferior pulmonary vein. Previous medical history of coronary artery disease, recurrent symptomatic atrial fibrillation, SVT, hypertension, hyperlipidemia, arthritis, BPH, and previous tobacco dependence POD #5 emergent sternotomy and institution of cardiopulmonary bypass, repair of left atrial injury, exclusion of the left atrial appendage using a 35 mm AtriClip, intraoperative transesophageal echocardiogram Acute ischemia anterior right frontal lobe without midline shift or acute intracranial hemorrhage The patient was seen and examined this morning sitting up in the recliner in the intensive care unit in no acute distress. Currently in atrial fibrillation alth ough not as rapid as yesterday, blood pressure stable, being managed by Dr. Moore. Mediastinal chest tubes as well as epicardial pacemaker wires discontinued yesterday, Eliquis restarted. Chest x-ray, labs reviewed. This morning patient is alert and oriented 3 and able to speak clearly, he does still have left arm weakness but able to move all extremities and follow all commands, has ambulated short distances, tolerating oral diet without difficulty. at bedside, updated with sternal precautions. Objective - Vital Signs Vital signs: Vital Signs Temp 98.1 F 07/16/23 08:00 Pulse 101 H 07/16/23 11:00 Resp 21 07/16/23 11:00 BP 110/74 07/16/23 11:00 Pulse Ox 95 07/16/23 11:00 FiO2 50 07/12/23 09:36 Intake & Output 07/15/23 07/16/23 07/16/23 18:59 06:59 18:59 Intake Total 520 650 285 Output Total 1175 1175 475 Balance -655 -525 -190 Weight 113.9 kg 113.9 kg Intake: IV 120 70 285 Sodium Chloride 0.9% 1, 120 70 35 000 ml @ 20 mls/hr IV . Q24H [facility] Rx#:[id number] Sodium Chloride 0.9% 500 250 ml 250 ml @ 999 mls/hr IV .Q16M ONE Rx#:[id number] Intake, IV Titration 100 Amount Potassium Chloride 20 meq 100 In Water For Injection 1 100ml.bag @ 50 mls/hr IVPB ONCE STA Rx#: [id number] Oral 400 480 Output: Urine 1175 1175 475 Other: Voiding Method Urinal Urinal Urinal # Voids 1 1 1 # Bowel Movements 1 ABP, PAP, CO, CI - Last Documented Arterial Blood Pressure 116/62 - Exam CONSTITUTIONAL: Appears comfortable, cooperative, no acute distress RESPIRATORY: Lungs sounds diminished bilaterally. Respirations even, nonlabored. Currently on 2 L nasal cannula with oxygen saturation 95%. Able to achieve 1000 mL on incentive spirometry. Strong cough. CARDIOVASCULAR: S1, S2 present. Irregular rate and rhythm, atrial fibrillation on telemetry. Sternum stable. Palpable peripheral pulses bilaterally. No edema present. No calf pain or tenderness noted. Heart hugger, antiembolism stockings, SCDs present. GASTROINTESTINAL: Abdomen soft, nontender, nondistended. Active bowel sounds present 4 quadrants. Tolerating diet, positive bowel movement this morning GENITOURINARY: Voiding clear, yellow urine. Output 2350 mL in the last 24 hours INTEGUMENTARY: Skin is warm and dry. Anterior chest incision well approximated and covered with dry intact dressing NEUROLOGIC: Cranial nerves II through XII intact MUSKULOSKELETAL: Able to move all extremities, right arm weakness PSYCHIATRIC: Alert and oriented to person place and time, flat affect - Allied health notes Allied health notes reviewed: nursing - Labs CBC & Chem 7: 07/16/23 03:32 07/16/23 03:32 Labs: Abnormal Lab Results - Last 24 Hours (Table) 07/15/23 07/15/23 07/16/23 Range/Units 17:19 20:11 03:32 RBC 3.04 L (4.30-5.90) m/uL Hgb 9.2 L (13.0-17.5) gm/dL Hct 27.3 L (39.0-53.0) % Plt Count 105 L (150-450) k/uL Sodium (137-145) mmol/L Creatinine (0.66-1.25) mg/dL Glucose (74-99) mg/dL POC Glucose (mg/dL) 168 H 223 H (70-110) mg/dL Calcium (8.4-10.2) mg/dL 07/16/23 07/16/23 07/16/23 Range/Units 03:32 06:25 11:19 RBC (4.30-5.90) m/uL Hgb (13.0-17.5) gm/dL Hct (39.0-53.0) % Plt Count (150-450) k/uL Sodium 132 L (137-145) mmol/L Creatinine 0.60 L (0.66-1.25) mg/dL Glucose 129 H (74-99) mg/dL POC Glucose (mg/dL) 162 H 215 H (70-110) mg/dL Calcium 7.6 L (8.4-10.2) mg/dL - Imaging and Cardiology Chest x-ray: image reviewed Assessment and Plan Assessment: Cardiac tamponade status post left atrial ablation for paroxysmal atrial fibrillation with evidence of injury to the left atrium between the left superior pulmonary vein and the left inferior pulmonary vein, status post e mergent sternotomy and institution of cardiopulmonary bypass, repair of left atrial injury Leukocytosis, likely reactive Thrombocytopenia, likely from massive blood loss History of coronary artery disease Recurrent symptomatic atrial fibrillation, exclusion of the left atrial appendage using a 35 mm AtriClip, currently sinus History of SVT History of hypertension, currently hypotensive on low dose levo Hyperlipidemia Arthritis BPH Previous tobacco dependence Acute ischemia anterior right frontal lobe without midline shift or acute intracranial hemorrhage Plan: A. fib management per Dr. Moore Will monitor daily labs and x-rays. Electrolyte replacement per protocol Continue to record strict accurate intake and output Sternal precautions, discussed with patient and , instructions placed on discharge plan Increase activity as tolerated. PT/OT/cardiac rehab consulted Wean O2 as tolerated. Encourage incentive spirometry use Patient to follow up outpatient with Dr. Espinoza in 4 weeks, discussed with patient and Patient may be discharged from cardiothoracic surgery standpoint when okay with other physicians We will continue to see on an as-needed basis. Please call us with any further questions.
--- NOTE | 2023-07-16 13:35 | P.PN ---
Subjective Progress Note Date: 07/16/23 - Chief Complaint Cardiac tamponade status post left atrial ablation - History of Present Illness This is a 78-year-old gentleman with past medical history significant for symptomatic paroxysmal atrial fibrillation, CAD, hypertension, hyperlipidemia, BPH, prior nicotine dependence and multiple other medical issues, underwent emergent sternotomy and cardiopulmonary bypass with repair of left atrial injury, exclusion of left atrial appendage and intraoperative transesophageal echocardiogram secondary to cardiac tamponade status post left atrial ablation for proximal atrial fibrillation. Vent dependent, FiO2 50%/+5 of PEEP. Chest x-ray reporting mild cardiomegaly with mild vascular congestion, small left pleural effusion, mild bibasilar atelectasis, loop recorder device and atrial appendage clip. Maintained on levophed. Wily sinus rhythm. T-max 100.2, WBC decreased to 19.7, hemoglobin 15.4, platelets 71. BUN 20, creatinine 1.24. On glucose 134, hemoglobin A1c 6.2, sodium 141, potassium 4.5, magnesium 2.2. T bili decreased to 0.4, AST 152 ALT 38, alk phos 64 albumin 2.2, TSH 0.394. Receiving calcium and bicarb; Bicarb 19, calcium 7.5, ionized calcium 4.5. 07/13/2023: The patient is awake and alert in bed. He is lying flat. He is status post left atrial ablation for chronic atrial fibrillation. During the procedure he had a left atrial injury resulting in cardiac tamponade on and blood loss. Cardiothoracic surgery then taken to the operating room he was on cardiopulmonary bypass. Upon is awaking there was a left facial droop and weakness. Thought to be an acute CVA during the event. He seems quite somnolent today he is much more awake. Family is at bedside. He has some slurred speech but is understanding me. Some commands. Nursing reports a bedside swallow test was okay for round and textured diet. Currently he is in sinus rhythm. Respiratory normal pressures tolerable pulse ox is 94% on 2 L O2. Labs showed potassium 2.9 hemoglobin was 1.7. Platelets are 84. Chemistries are essentially normal exception of glucose 128. He did receive 7 units packed red blood cells 2 units of fresh frozen plasma and 1 unit of platelets yesterday. He continues be followed by critical care, thoracic surgery, cardiology, and neurology. their notes were reviewed today 07/14/2023 patient is in chair. He is somnolent but easily arousable. Facial droop is resolved. and son are at bedside. He has no significant complaints today other than anorexia. He denies any chest pains other than surgical pressures or shortness of breath, nausea vomiting, or other issues. Cardiology, thoracic surgery and critical care have reviewed their notes. Heart rate is somewhat tachycardic and a pulse ox remains controlled with 1 L of oxygen via nasal cannula. Blood pressure slightly elevated. He is now on Clevidipine for blood pressure control. White count is improved 0.4. Hemoglobin is 9.7 platelets are 68. Electrolytes are essentially normal. Glucose is been 200 or less for the past 24 hours. 07/15/2023 maintained on amiodarone drip, nebulized bronchodilators. chest x- ray pending. Repeat brain CT reported similar right frontal lobe CVA with no new areas of abnormal cast-white matter loss of differentiation, no evidence for hemorrhagic conversion.maintaining O2 sats in the 90s on 2 L nasal cannula. Received multiple units of blood products including 7 units of packed RBCs, 2 FFP and 1 platelet; hemoglobin currently 9.2, platelets 82. Tachycardic. Afebrile, T-max 99.7, WBC 10.3. Sodium 131 and potassium 3.6, bicarb 23 BUN 17, creatinine 0.73, calcium 7.4. Blood sugars controlled. 07/16/23 maintained on oral metoprolol and amiodarone, continues in atrial fibrillation heart rates currently in the 120s to 130s. Anticoagulated with Eliquis. Received a bolus of 250 MLS for soft blood pressures earlier. PICC line placed yesterday. Mediastinal chest tube discontinued. Blood sugars in the low 200s, doughnuts and pudding at bedside. Brain MRI reported acute/subacute infarct in the anterior right frontal lobe. Multiple additional much smaller foci of restricted diffusion within the white matter of the right frontal, parietal and temporal lobes as well as a patch of restricted diffusion in the lateral aspect of the right temporal lobe, compatible with additional areas of subacute/acute infarct. A new foci of restricted diffusion in the white matter of the left frontal lobe centrum semiovale region, suggesting acute/subacute small vessel infarcts. Showering emboli are a consideration. Chest x-ray reporting interval improved aeration left lung base. Ambulated in the hallway, tolerating exertion well. Maintaining O2 sats in the high 90s on 2 L nasal cannula, incentive spirometer up to 1000. Afebrile, normal WBC. Renal function stable. Objective - Vital Signs Vital signs: Vital Signs Temp 97.5 F L 07/16/23 12:00 Pulse 123 H 07/16/23 12:00 Resp 14 07/16/23 12:00 BP 108/81 07/16/23 12:00 Pulse Ox 97 07/16/23 12:00 FiO2 50 07/12/23 09:36 Intake & Output 07/15/23 07/16/23 07/16/23 18:59 06:59 18:59 Intake Total 520 650 295 Output Total 1175 1175 725 Balance -655 -525 -430 Weight 113.9 kg 113.9 kg Intake: IV 120 70 295 Sodium Chloride 0.9% 1, 120 70 45 000 ml @ 20 mls/hr IV . Q24H [facility] Rx#:[id number] Sodium Chloride 0.9% 500 250 ml 250 ml @ 999 mls/hr IV .Q16M [facility] Rx#:[id number] Intake, IV Titration 100 Amount Potassium Chloride 20 meq 100 In Water For Injection 1 100ml.bag @ 50 mls/hr IVPB ONCE STA Rx#: [id number] Oral 400 480 Output: Urine 1175 1175 725 Other: Voiding Method Urinal Urinal Urinal # Voids 1 1 1 # Bowel Movements 1 ABP, PAP, CO, CI - Last Documented Arterial Blood Pressure 116/62 - Exam PHYSICAL EXAM: VITAL SIGNS: As above GENERAL: Alert and oriented 3, sitting up in chair, no acute distress HEENT: Normocephalic, Conjunctivae normal. eyes normal. NECK: Supple, No JVD. CARDIOVASCULAR: S1, S2 regular.irregular, tachycardic. RESPIRATION: Unlabored, fine bibasilar crackles , bilateral bases diminished . ABDOMEN: Soft, nontender . No guarding. +BS EXTREMITIES: Mild edema, No calf tenderness. Positive peripheral pulses. NERVOUS SYSTEM: Residual left upper extremity weakness significantly improved, cranial nerves II through XII grossly intact. Skin: Warm and dry, no rash . - Labs CBC & Chem 7: 07/16/23 03:32 07/16/23 03:32 Labs: Abnormal Lab Results - Last 24 Hours (Table) 07/15/23 07/15/23 07/16/23 Range/Units 17:19 20:11 03:32 RBC 3.04 L (4.30-5.90) m/uL Hgb 9.2 L (13.0-17.5) gm/dL Hct 27.3 L (39.0-53.0) % Plt Count 105 L (150-450) k/uL Sodium (137-145) mmol/L Creatinine (0.66-1.25) mg/dL Glucose (74-99) mg/dL POC Glucose (mg/dL) 168 H 223 H (70-110) mg/dL Calcium (8.4-10.2) mg/dL 07/16/23 07/16/23 07/16/23 Range/Units 03:32 06:25 11:19 RBC (4.30-5.90) m/uL Hgb (13.0-17.5) gm/dL Hct (39.0-53.0) % Plt Count (150-450) k/uL Sodium 132 L (137-145) mmol/L Creatinine 0.60 L (0.66-1.25) mg/dL Glucose 129 H (74-99) mg/dL POC Glucose (mg/dL) 162 H 215 H (70-110) mg/dL Calcium 7.6 L (8.4-10.2) mg/dL Assessment and Plan Assessment: Cardiac tamponade status post left atrial ablation for symptomatic paroximal atrial fibrillation, status post emergent sternotomy and cardiopulmonary bypass with repair left atrial injury Acute hypoxic respiratory failure, status post vent dependent secondary to cardiac tamponade Acute CVA, ischemic, right frontal lobe with left-sided hemiparesis,iatrogenic in nature. Brain MRI reported Brain MRI reported acute/subacute infarct in the anterior right frontal lobe. Multiple additional much smaller foci of restricted diffusion within the white matter of the right frontal, parietal and temporal lobes as well as a patch of restricted diffusion in the lateral aspect of the right temporal lobe, compatible with additional areas of subacute/acute infarct. A new foci of restricted diffusion in the white matter of the left frontal lobe centrum semiovale region, suggesting acute/subacute small vessel infarcts. Showering emboli are a consideration. Thrombocytopenia secondary to the above Acute blood loss anemia secondary to #1, status post multiple blood products Hypotension, status post pressor dependent, secondary to the above Acute renal failure Chronic atrial fibrillation, symptomatic Degenerative joint disease History of SVT Diabetes mellitus, hemoglobin A1c 6.2 CAD Hypertension Hyperlipidemia BPH Gastroesophageal reflux disease Morbid obesity, BMI 35 Prior nicotine dependence Plan: Continue on current medication regime ,monitoring and symptomatic treatment. Antiarrhythmics as per cardiology. Anticoagulated with ELiquis.Continue aggressive pulmonary toileting with incentive spirometer reinforced. Multiple consults following. Inpatient rehab consulted. The impression and plan of care has been dictated as directed. : I performed a history and examination of this patient, discussed the same with the dictator. I agree with the dictator's note ,documented as a scribe. Any additional findings or plans will be noted.
--- NOTE | 2023-07-16 14:25 | P.PN ---
Subjective Progress Note Date: 07/16/23 I am following-up with the patient and he feels he is about the same. Objective - Vital Signs Vital signs: Vital Signs Temp 97.5 F L 07/16/23 12:00 Pulse 109 H 07/16/23 13:30 Resp 14 07/16/23 12:00 BP 108/81 07/16/23 12:00 Pulse Ox 97 07/16/23 12:00 FiO2 50 07/12/23 09:36 Intake & Output 07/15/23 07/16/23 07/16/23 18:59 06:59 18:59 Intake Total 520 650 295 Output Total 1175 1175 725 Balance -655 -525 -430 Weight 113.9 kg 113.9 kg Intake: IV 120 70 295 Sodium Chloride 0.9% 1, 120 70 45 000 ml @ 20 mls/hr IV . Q24H [facility] Rx#:[id number] Sodium Chloride 0.9% 500 250 ml 250 ml @ 999 mls/hr IV .Q16M [facility] Rx#:[id number] Intake, IV Titration 100 Amount Potassium Chloride 20 meq 100 In Water For Injection 1 100ml.bag @ 50 mls/hr IVPB ONCE STA Rx#: [id number] Oral 400 480 Output: Urine 1175 1175 725 Other: Voiding Method Urinal Urinal Urinal # Voids 1 1 1 # Bowel Movements 1 ABP, PAP, CO, CI - Last Documented Arterial Blood Pressure 116/62 - Exam General Sitting in a recliner chair and is not in acute distress Neuro-patient is awake alert oriented to self place and time. Does follow simple commands. No aphasia and no neglect. Mild left facial droop. Motor is lifting all extremities above gravity. Maybe subtle weakness in the left. Otherwise The strength seems equal. - Labs CBC & Chem 7: 07/16/23 03:32 07/16/23 03:32 Labs: Abnormal Lab Results - Last 24 Hours (Table) 07/15/23 07/15/23 07/16/23 Range/Units 17:19 20:11 03:32 RBC 3.04 L (4.30-5.90) m/uL Hgb 9.2 L (13.0-17.5) gm/dL Hct 27.3 L (39.0-53.0) % Plt Count 105 L (150-450) k/uL Sodium (137-145) mmol/L Creatinine (0.66-1.25) mg/dL Glucose (74-99) mg/dL POC Glucose (mg/dL) 168 H 223 H (70-110) mg/dL Calcium (8.4-10.2) mg/dL 07/16/23 07/16/23 07/16/23 Range/Units 03:32 06:25 11:19 RBC (4.30-5.90) m/uL Hgb (13.0-17.5) gm/dL Hct (39.0-53.0) % Plt Count (150-450) k/uL Sodium 132 L (137-145) mmol/L Creatinine 0.60 L (0.66-1.25) mg/dL Glucose 129 H (74-99) mg/dL POC Glucose (mg/dL) 162 H 215 H (70-110) mg/dL Calcium 7.6 L (8.4-10.2) mg/dL Assessment and Plan Assessment: * Acute ischemic stroke: Bilateral hemispheric right more than left and appears cardioembolic especially with the recent surgery. Initially manifesting with dysarthria and left hemiparesis, mainly involving the left facial brachial r egion. Patient also has slight left visual field neglect without visual field loss, with initial NIH stroke scale is 7. Patient not a candidate for TPA, because of recent cardiac surgery, and symptoms present for > 4.5 hours. Patient's neurological examination much improved. Has mild left facial droop. * Status post pulmonary vein isolation, and ablation 07/11/2023 with left atrial injury, pericardial effusion/cardiac tamponade * Left atrial injury status post cardiopulmonary bypass with left atrial repair, exclusion of left atrial appendage * History of paroxysmal atrial fibrillation. * CAD * Thrombocytopenia * Hypertension * Hyperlipidemia * Obesity Plan: * Repeat CT head performed today revealed similar right frontal lobe CVA. No new areas of abnormal cast white matter loss of differentiation. No evidence of hemorrhagic conversion. * MRI: Was reported as acute/subacute infarct in the anterior right frontal lobe. Multiple additional much smaller foci of restricted diffusion within the white of the right frontal parietal temporal lobe as well as patchy restricted diffusion in the lateral aspect of the mid right temporal lobe, compatible with additional areas of acute subacute infarct. If you foci versus a diffusion in the white of the left frontal lobe centrum semiovale old valve region, suggesting acute/subacute small vessel infarct. Showering emboli are a consideration rule out cardiac or vascular source. No evidence of intracranial hemorrhage, or hemorrhagic conversion related to the above infarct. Nonspecific white matter changes, likely secondary due to mild chronic small vessel ischemic disease. No evidence of intracranial mass, mass effect or midline shift. I personally reviewed the MRI and agree patient has bilateral hemispheric stroke right more than the left. * CTA of head showed dominant left vertebral artery. No large vessel intracranial arterial occlusion, significant stenosis or aneurysmal change seen. * CTA of the neck showed dominant left vertebral artery. No significant, and or internal carotid artery stenosis. Recent post CABG changes visualized. I personally reviewed CTA of head and neck, agree with findings. No large vessel occlusion. No indication for mechanical thrombectomy. * 2-D echo limited views revealed technically difficult study. Left- ventricular EF is 50-55%. Left atrium not well visualized. * Limited 2-D echo was reported as normal left ventricular systolic function. Small pericardial effusion noted. * Fasting a.m. lipid panel cholesterol 57, LDL 11, HDL 20 and triglycerides 129. Continue continue Lipitor 40 mg daily. (Patient at home on Lipitor 20 mg) * Hemoglobin A1c 6.2 * Optimize control of blood pressure due to cardiac reasons. * Currently the patient is on Eliquis was started by cardiothoracic team 5 mg when tell twice a day., On aspirin 325 mg daily. He is also on Lipitor 40 mg daily. * Neuro checks every 2 hours. * Telemetry monitoring rule out any arrhythmia * PT, OT, speech therapy * Upon discharge, recommend the patient to follow-up with neurologist as outpatient within 1-2 weeks. * DVT prophylaxis: heparin 5000 units subcu every 8 hours. I discussed with the patient and patient's nurse. There is no additional neurological workup. Please notify neurology team if any further concerns. Time with Patient: Less than 30
[2023-07-16 16:46] LABS: Glucose,Whole Blood 232 mg/dL (70-110)
[2023-07-16 20:19] LABS: Glucose,Whole Blood 195 mg/dL (70-110)
[2023-07-16] MEDS: SODIUM CHLORIDE 0.9% 1,000 ML IV SCH (20:24)
[2023-07-16] MEDS: SENNOSIDES-DOCUSATE SODIUM 1 EACH TAB PO SCH (21:08)
[2023-07-17 03:34] LABS: Basophils % (A) 0 %; Eosinophils # (A) 0.3 k/uL (0-0.7); Eosinophils % (A) 4 %; HCT 27.2 % (39.0-53.0); Lymphocytes # (A) 1.1 k/uL (1.0-4.8); Lymphocytes % (A) 12 %; MCH 29.8 pg (25.0-35.0); MCHC 33.2 g/dL (31.0-37.0); Mean Platelet Volume 10.5; Monocytes # (A) 0.7 k/uL (0-1.0); Monocytes % (A) 8 %; Neutrophils # (A) 6.4 k/uL (1.3-7.7); Neutrophils % (A) 73 %; Platelet Count 134 k/uL (150-450); RBC 3.02 m/uL (4.30-5.90); RDW 13.9 % (11.5-15.5); WBC 8.9 k/uL (3.8-10.6)
[2023-07-17 03:44] LABS: African American GFR (CKD) >90 (>60 ml/min/1.73 sqM); Anion Gap 6 mmol/L; Blood Urea Nitrogen 8 mg/dL (9-20); Carbon Dioxide 25 mmol/L (22-30); Chloride 102 mmol/L (98-107); Glucose 126 mg/dL (74-99); Non-African American GFR(CKD) >90 (>60 ml/min/1.73 sqM); Potassium 3.4 mmol/L (3.5-5.1); Sodium 133 mmol/L (137-145)
--- NOTE | 2023-07-17 05:39 | P.PN ---
Subjective Patient is sitting in the lounge chair. He finds it difficult to sleep in bed because suggest uncomfortable No breathing trouble no chest discomfort denies any chest discomfort coronary breathing problems Neurologically he has made significant recovery He is able to talk in complete sentences has full comprehension His motor recovery is almost complete He remains in atrial fibrillation with elevated heart rates despite oral amiodarone IV amiodarone He has been receiving digoxin IV He is also on metoprolol 50 mg 3 times a day Chest tubes have been removed Full catheters removed external wires have been removed He has a PICC line in the left arm On examination blood pressure is 100 mmHg Heart rates 120 irregular Breath sounds are reduced bilaterally but there are no rhonchi no crackles Heart sounds are normal The right upper extremity swelling has improved somewhat The left forearm seems to be slightly swollen but there is no induration no edema I asked the nurse to remove the left forearm IV line sincerely is a PICC line Labs are reviewed Hemoglobin 9.0 Potassium 3.4 Magnesium pending Digoxin level pending 2-D echo showed a very small pericardial effusion normal LV function after removal of chest tubes Plan Continue physical therapy/ambulate the hallways Transferred to [facility]. Digoxin level Magnesium level Replace potassium Objective - Vital Signs Vital signs: Vital Signs Temp 98.2 F 07/17/23 00:00 Pulse 121 H 07/17/23 03:00 Resp 30 H 07/17/23 03:00 BP 107/78 07/17/23 03:00 Pulse Ox 95 07/17/23 03:00 FiO2 50 07/12/23 09:36 Intake & Output 07/16/23 07/16/23 07/17/23 06:59 18:59 06:59 Intake Total 650 335 480 Output Total 1175 2250 1000 Balance -525 -7976 -520 Weight 113.9 kg 113.9 kg Intake: IV 70 335 80 Sodium Chloride 0.9% 1, 70 85 80 000 ml @ 20 mls/hr IV . Q24H [facility] Rx#:[id number] Sodium Chloride 0.9% 500 250 ml 250 ml @ 999 mls/hr IV .Q16M [facility] Rx#:[id number] Intake, IV Titration 100 Amount Potassium Chloride 20 meq 100 In Water For Injection 1 100ml.bag @ 50 mls/hr IVPB ONCE STA Rx#: [id number] Oral 480 400 Output: Urine 1175 2250 1000 Other: Voiding Method Urinal Urinal Urinal # Voids 1 1 # Bowel Movements 1 1 ABP, PAP, CO, CI - Last Documented Arterial Blood Pressure 116/62 - Labs CBC & Chem 7: 07/17/23 03:03 07/17/23 03:03 Labs: Abnormal Lab Results - Last 24 Hours (Table) 07/16/23 07/16/23 07/16/23 Range/Units 06:25 11:19 16:44 RBC (4.30-5.90) m/uL Hgb (13.0-17.5) gm/dL Hct (39.0-53.0) % Plt Count (150-450) k/uL Sodium (137-145) mmol/L Potassium (3.5-5.1) mmol/L BUN (9-20) mg/dL Creatinine (0.66-1.25) mg/dL Glucose (74-99) mg/dL POC Glucose (mg/dL) 162 H 215 H 232 H (70-110) mg/dL Calcium (8.4-10.2) mg/dL 07/16/23 07/17/23 07/17/23 Range/Units 20:18 03:03 03:03 RBC 3.02 L (4.30-5.90) m/uL Hgb 9.0 L (13.0-17.5) gm/dL Hct 27.2 L (39.0-53.0) % Plt Count 134 L (150-450) k/uL Sodium 133 L (137-145) mmol/L Potassium 3.4 L (3.5-5.1) mmol/L BUN 8 L (9-20) mg/dL Creatinine 0.63 L (0.66-1.25) mg/dL Glucose 126 H (74-99) mg/dL POC Glucose (mg/dL) 195 H (70-110) mg/dL Calcium 8.0 L (8.4-10.2) mg/dL
[2023-07-17] MEDS: INSULIN ASPART (NovoLOG) 100 UNIT/ML VIAL SQ SCH ×4 (06:33→20:33)
[2023-07-17 06:34] LABS: Glucose,Whole Blood 145 mg/dL (70-110)
[2023-07-17] MEDS: PANTOPRAZOLE 40 MG TABLET PO SCH (06:35)
[2023-07-17] MEDS: POTASSIUM CHLORIDE ER 20 MEQ TAB.ER PO SCH ×2 (06:35→08:07)
[2023-07-17] MEDS: ASPIRIN 325 MG TAB PO SCH (08:07)
[2023-07-17] MEDS: MULTIVITAMINS, THERA 1 EACH TAB PO SCH (08:07)
[2023-07-17] MEDS: ATORVASTATIN 40 MG TAB PO SCH (08:07)
[2023-07-17] MEDS: APIXABAN 5 MG TAB PO SCH ×2 (08:07→20:34)
[2023-07-17] MEDS: METOPROLOL TARTRATE 50 MG TAB PO SCH ×3 (08:07→20:34)
[2023-07-17] MEDS: TAMSULOSIN 0.4 MG CAP.ER.24H PO SCH ×2 (08:07→20:34)
[2023-07-17] MEDS: AMIODARONE 200 MG TAB PO SCH ×3 (08:08→20:34)
[2023-07-17] MEDS: IPRATROPIUM-ALBUTEROL 3 ML NEB INHALATION SCH ×4 (09:09→21:22)
--- NOTE | 2023-07-17 10:41 | P.PN ---
Subjective Progress Note Date: 07/17/23 This is a 78-year-old white male with history of hypertension, degenerative joint disease, known history of coronary artery disease, recurrent symptomatic atrial fibrillation, he was deemed to be a good candidate for pulmonary vein and left atrial ablation. Yesterday the patient underwent elective ablation by Dr. Trinidad, the procedure was complicated by hypotension. Echocardiography showed evidence of the pericardial effusion and tamponade hence cardiothoracic surgery was consulted yesterday on emergent basis, and the patient underwent Urgent pericardiocentesis and was sent to the OR for open exploration. Apparently there was a puncture in the gavino between the left superior and left inferior pulmonary veins and this was repaired by Dr. Espinoza. Postoperatively, patient was admitted to the ICU intubated and mechanically ventilated, and this consult was initiated. I saw this patient today, he is intubated and mechanically ventilated, he is on assist control rate of 16 tidal volume 550 FiO2 50% and PEEP of 5. His IV fluid is running at 80 mL/h, patient is on insulin drip at 2.5 units per hour, ABG showed a pO2 of 90 pCO2 of 34 pH of 7.38. Chest x-ray this morning showed mostly stable tubes and catheters, and no evidence of acute process. Patient was on propofol which was placed on hold earlier this morning for plans to wean and extubate if possible. Hence I recommended that we continue with the weaning process, check weaning parameters, and if appropriate and the patient meets the criteria, we'll proceed with extubation. Patient was reevaluated today on 07/13/2023, patient remains in the ICU, he was extubated yesterday, tolerated the extubation well. Unfortunately the patient developed what seems to be an acute ischemic event involving the right frontal lobe, no midline shift or acute intracranial hemorrhage. Patient was seen by neurology on consultation, and at this point mostly recommending supportive care measures. Patient has a slight weakness noted in his left upper extremity, and according to the urologist he was found to have left visual field neglect without visual field loss. Clearly the urologist felt that he is not a candidate for TPA, NIH stroke scale is 7. Not to mention the patient had a recent cardiac surgery. Labs today showed WBC count of 17.1 hemoglobin 11.7 on a relatively normal basic metabolic profile, renal profile is improving creatinine is down to 1.18 compared to 1.24 yesterday patient is on amiodarone drip for atrial fibrillation with RVR, he is also on insulin drip at 1.5 units per hour, IV fluid 0.9 normal saline at 80 mL per hour. He is doing poorly with incentive spirometry achieving no more than 500 mL. Mediastinal tube remains in place, drained 50 mL overnight. Chest x-ray showed minimal basilar atelectasis. Especially at the left base. Patient was reevaluated 07/14/2023, patient remains in the ICU, hemodynamically stable, however the patient remains on amiodarone for his atrial fibrillation with RVR receiving 1 mg/m and his IV fluid is 0.9 normal saline at 75 mL per hour. Chest x-ray is showing minimal left lower lobe atelectasis and possibly a small tiny left pleural effusion, his mediastinal chest tube drained no more than 60 mL of bloody effusion. Patient remains doing poorly with incentive spirometry. Rag Cutting Machine Operator saw the patient, transitioned his amiodarone to oral, and placed on metoprolol 50 mg 3 times a day. Today the right upper extremity noted to be swollen and edematous, hence I recommended removing the IV from the right upper extremity, and established another IV access in the left forearm. Ultrasound of the upper extremity was also ordered to make sure the patient does not have DVT. Neurologically the patient is about the same, his left-sided weakness and his left facial droop remain but they seem to be improving. WBC count is 12.4 hemoglobin 9.7 basic metabolic profile is normal and renal profile is normal. The patient is seen today 07/15/2023 in follow-up in the intensive care unit. Currently awake and alert in no acute distress. He is resting comfortably in bed. Maintaining O2 saturations in the 90s on 2 L/m per nasal cannula. He states he is feeling stronger today compared to yesterday. Still with some left-sided weakness. Follow-up computed tomography scan of the brain continued to show a right frontal lobe CVA. No new areas of abnormal [place]-white matter loss of differentiation. No evidence of hemorrhagic conversion. X-ray shows bilateral consolidation and a small left pleural effusion. He is status post 7 units of packed red blood cells, 2 units of fresh frozen plasma and 1 unit of platelets this admission. White count 10.3. Hemoglobin 9.2. Platelets 82,000. Sodium 131. Potassium 3.6. Bicarb 23. BUN 17. Creatinine 0.73. Glucose 128. He is continued on DuoNeb inhalations. Heparin for DVT prophylaxis. Normal saline at KVO. Plan is for PICC line placement today. The patient is seen today 07/16/2023 in follow-up in the intensive care unit. He is resting comfortably in bed. Awake and alert in no acute distress. He is maintaining O2 saturations in the mid 90s on 2 L/m per nasal cannula. He remains in atrial fibrillation. Afebrile. Hemodynamically stable. MRI of the brain revealed an acute/subacute infarct in the anterior right frontal lobe. Multiple additional much smaller foci of restricted diffusion within the white matter of the right frontal, parietal and temporal lobes as well as a patch of restricted diffusion in the lateral aspect of the right temporal lobe, compatible with additional areas of subacute/acute infarct. A new foci of restricted diffusion in the white matter of the left frontal lobe centrum semiovale region, suggesting acute/subacute small vessel infarcts. Showering emboli are a consideration. Chest x-ray reveals improved aeration of the opacity left lung base. No new acute cardiopulmonary abnormalities. Left upper extremity PICC line in place. He is status post 7 units of packed red blood cells, 2 units of fresh frozen plasma, one unit of platelets this admission. White count 9.1. Hemoglobin 9.2. Platelets 105. Sodium 132. Potassium 36. Bicarb 24. BUN 11. Creatinine 0.60. Glucose 129. He remains on amiodarone, metoprolol. Anticoagulated with Eliquis. The patient is seen today 07/17/2023 in follow-up in the intensive care unit. He is currently sitting up in a chair. Awake and alert in no acute distress. He is maintaining good O2 saturations in the upper 90s on 2 L/m per nasal cannula. He does remain in atrial fibrillation with a fairly controlled ventricular response. He remains on amiodarone and metoprolol. Anticoagulated with Eliquis. Continued on bronchodilators. He is status post 7 units of packed red blood cells, 2 units of fresh frozen plasma, one unit of platelets. White count 8.9. Hemoglobin 9.0. Platelets 134. Sodium 133. Potassium 3.4. Bicarb 25. BUN 8. Creatinine 0.63. Glucose 126. Objective - Vital Signs Vital signs: Vital Signs Temp 97.6 F 07/17/23 08:00 Pulse 114 H 07/17/23 10:00 Resp 21 07/17/23 09:00 BP 122/96 07/17/23 09:00 Pulse Ox 98 07/17/23 09:09 FiO2 50 07/12/23 09:36 Intake & Output 07/16/23 07/17/23 07/17/23 18:59 06:59 18:59 Intake Total 335 480 Output Total 2250 1380 550 Balance -1914 Weight 113.9 kg 114.4 kg Intake: IV 335 80 Sodium Chloride 0.9% 1, 85 80 000 ml @ 20 mls/hr IV . Q24H [facility] Rx#:[id number] Sodium Chloride 0.9% 500 250 ml 250 ml @ 999 mls/hr IV .Q16M [facility] Rx#:[id number] Oral 400 Output: Urine 2250 1380 550 Other: Voiding Method Urinal Urinal Toilet Urinal # Voids 1 # Bowel Movements 1 1 1 ABP, PAP, CO, CI - Last Documented Arterial Blood Pressure 116/62 - Exam GENERAL EXAM: Alert, pleasant 78-year-old gentleman, sitting up in a chair, on 2 L/m per nasal cannula, comfortable in no apparent distress. HEAD: Normocephalic. EYES: Normal reaction of pupils, equal size. NOSE: Clear with pink turbinates. THROAT: No erythema or exudates. NECK: No masses, no JVD. CHEST: No chest wall deformity. LUNGS: Equal air entry with crackles in the bilateral bases. CVS: S1 and S2 normal with no audible murmur, regular rhythm. ABDOMEN: No hepatosplenomegaly, normal bowel sounds, no guarding or rigidity. SPINE: No scoliosis or deformity SKIN: No rashes CENTRAL NERVOUS SYSTEM: No focal deficits, tone is normal in all 4 extremities. EXTREMITIES: Residual left-sided weakness. There is right upper extremity edema. No clubbing, no cyanosis. Peripheral pulses are intact. - Labs CBC & Chem 7: 07/17/23 03:03 07/17/23 03:03 Labs: Abnormal Lab Results - Last 24 Hours (Table) 07/16/23 07/16/23 07/16/23 Range/Units 11:19 16:44 20:18 RBC (4.30-5.90) m/uL Hgb (13.0-17.5) gm/dL Hct (39.0-53.0) % Plt Count (150-450) k/uL Sodium (137-145) mmol/L Potassium (3.5-5.1) mmol/L BUN (9-20) mg/dL Creatinine (0.66-1.25) mg/dL Glucose (74-99) mg/dL POC Glucose (mg/dL) 215 H 232 H 195 H (70-110) mg/dL Calcium (8.4-10.2) mg/dL 07/17/23 07/17/23 07/17/23 Range/Units 03:03 03:03 06:32 RBC 3.02 L (4.30-5.90) m/uL Hgb 9.0 L (13.0-17.5) gm/dL Hct 27.2 L (39.0-53.0) % Plt Count 134 L (150-450) k/uL Sodium 133 L (137-145) mmol/L Potassium 3.4 L (3.5-5.1) mmol/L BUN 8 L (9-20) mg/dL Creatinine 0.63 L (0.66-1.25) mg/dL Glucose 126 H (74-99) mg/dL POC Glucose (mg/dL) 145 H (70-110) mg/dL Calcium 8.0 L (8.4-10.2) mg/dL Assessment and Plan Assessment: Acute hypoxic respiratory failure secondary to cardiac tamponade, iatrogenic in nature Cardiac tamponade, status post left atrial ablation for paroxysmal atrial fibrillation with evidence of injury to the left atrium requiring emergent sternotomy, institution of cardiopulmonary bypass, and repair of left atrial inj ury, exclusion of left atrial appendage using a 35 mm atriclip, intraoperative transesophageal echocardiogram, postoperative day #6 Acute blood loss anemia secondary to above, status post 7 units of packed red blood cells, current hemoglobin 9.0 Acute CVA, 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 MRI of the brain revealed an acute/subacute infarct in the anterior right frontal lobe. Multiple additional much smaller foci of restricted diffusion within the white matter of the right frontal, parietal and temporal lobes as well as a patch of restricted diffusion in the lateral aspect of the right temporal lobe, compatible with additional areas of subacute/acute infarct. A new foci of restricted diffusion in the white matter of the left frontal lobe centrum semiovale region, suggesting acute/subacute small vessel infarcts. Showering emboli are a consideration Benign essential hypertension Chronic atrial fibrillation, symptomatic History of supraventricular tachycardia Dyslipidemia degenerative joint disease Ex-smoker Right upper extremity swelling, ruled out DVT Plan: The patient was seen and evaluated Labs and medications reviewed Remains with some left-sided weakness Stable and on 2 L nasal cannula Continue the use of the incentive spirometer Continue bronchodilators Increase his activity as tolerated Anticoagulated with Eliquis Plan is for possible inpatient rehabilitation post discharge We will continue to follow I have personally seen and examined the patient, performed the documentation and the assessment and plan as written. Number of minutes spent on the visit: 10.
[2023-07-17 11:30] LABS: Glucose,Whole Blood 154 mg/dL (70-110)
[2023-07-17] MEDS: SODIUM CHLORIDE 0.9% 1,000 ML IV SCH (12:15)
--- NOTE | 2023-07-17 13:32 | P.PN ---
Subjective Progress Note Date: 07/17/23 - Chief Complaint Cardiac tamponade status post left atrial ablation - History of Present Illness This is a 78-year-old gentleman with past medical history significant for symptomatic paroxysmal atrial fibrillation, CAD, hypertension, hyperlipidemia, BPH, prior nicotine dependence and multiple other medical issues, underwent emergent sternotomy and cardiopulmonary bypass with repair of left atrial injury, exclusion of left atrial appendage and intraoperative transesophageal echocardiogram secondary to cardiac tamponade status post left atrial ablation for proximal atrial fibrillation. Vent dependent, FiO2 50%/+5 of PEEP. Chest x-ray reporting mild cardiomegaly with mild vascular congestion, small left pleural effusion, mild bibasilar atelectasis, loop recorder device and atrial appendage clip. Maintained on levophed. Wily sinus rhythm. T-max 100.2, WBC decreased to 19.7, hemoglobin 15.4, platelets 71. BUN 20, creatinine 1.24. On glucose 134, hemoglobin A1c 6.2, sodium 141, potassium 4.5, magnesium 2.2. T bili decreased to 0.4, AST 152 ALT 38, alk phos 64 albumin 2.2, TSH 0.394. Receiving calcium and bicarb; Bicarb 19, calcium 7.5, ionized calcium 4.5. 07/13/2023: The patient is awake and alert in bed. He is lying flat. He is status post left atrial ablation for chronic atrial fibrillation. During the procedure he had a left atrial injury resulting in cardiac tamponade on and blood loss. Cardiothoracic surgery then taken to the operating room he was on cardiopulmonary bypass. Upon is awaking there was a left facial droop and weakness. Thought to be an acute CVA during the event. He seems quite somnolent today he is much more awake. Family is at bedside. He has some slurred speech but is understanding me. Some commands. Nursing reports a bedside swallow test was okay for round and textured diet. Currently he is in sinus rhythm. Respiratory normal pressures tolerable pulse ox is 94% on 2 L O2. Labs showed potassium 2.9 hemoglobin was 1.7. Platelets are 84. Chemistries are essentially normal exception of glucose 128. He did receive 7 units packed red blood cells 2 units of fresh frozen plasma and 1 unit of platelets yesterday. He continues be followed by critical care, thoracic surgery, cardiology, and neurology. their notes were reviewed today 07/14/2023 patient is in chair. He is somnolent but easily arousable. Facial droop is resolved. and son are at bedside. He has no significant complaints today other than anorexia. He denies any chest pains other than surgical pressures or shortness of breath, nausea vomiting, or other issues. Cardiology, thoracic surgery and critical care have reviewed their notes. Heart rate is somewhat tachycardic and a pulse ox remains controlled with 1 L of oxygen via nasal cannula. Blood pressure slightly elevated. He is now on Clevidipine for blood pressure control. White count is improved 0.4. Hemoglobin is 9.7 platelets are 68. Electrolytes are essentially normal. Glucose is been 200 or less for the past 24 hours. 07/15/2023 maintained on amiodarone drip, nebulized bronchodilators. chest x- ray pending. Repeat brain CT reported similar right frontal lobe CVA with no new areas of abnormal cast-white matter loss of differentiation, no evidence for hemorrhagic conversion.maintaining O2 sats in the 90s on 2 L nasal cannula. Received multiple units of blood products including 7 units of packed RBCs, 2 FFP and 1 platelet; hemoglobin currently 9.2, platelets 82. Tachycardic. Afebrile, T-max 99.7, WBC 10.3. Sodium 131 and potassium 3.6, bicarb 23 BUN 17, creatinine 0.73, calcium 7.4. Blood sugars controlled. 07/16/23 maintained on oral metoprolol and amiodarone, continues in atrial fibrillation heart rates currently in the 120s to 130s. Anticoagulated with Eliquis. Received a bolus of 250 MLS for soft blood pressures earlier. PICC line placed yesterday. Mediastinal chest tube discontinued. Blood sugars in the low 200s, doughnuts and pudding at bedside. Brain MRI reported acute/subacute infarct in the anterior right frontal lobe. Multiple additional much smaller foci of restricted diffusion within the white matter of the right frontal, parietal and temporal lobes as well as a patch of restricted diffusion in the lateral aspect of the right temporal lobe, compatible with additional areas of subacute/acute infarct. A new foci of restricted diffusion in the white matter of the left frontal lobe centrum semiovale region, suggesting acute/subacute small vessel infarcts. Showering emboli are a consideration. Chest x-ray reporting interval improved aeration left lung base. Ambulated in the hallway, tolerating exertion well. Maintaining O2 sats in the high 90s on 2 L nasal cannula, incentive spirometer up to 1000. Afebrile, normal WBC. Renal function stable. 07/17/2023 telemetry atrial fibrillation with heart rates in the 120s currently, on oral amiodarone, metoprolol. Continues on nebulized bronchodilators, maintaining O2 sats in the 90s on 2 L nasal cannula. Afebrile, normal WBC. Hemoglobin 9, platelets 134. Sodium 133, potassium 3.4-receiving supplementation. Denies chest pain, palpitations or increasing shortness of breath. Objective - Vital Signs Vital signs: Vital Signs Temp 97.6 F 07/17/23 08:00 Pulse 114 H 07/17/23 10:00 Resp 21 07/17/23 09:00 BP 122/96 07/17/23 09:00 Pulse Ox 98 07/17/23 09:09 FiO2 50 07/12/23 09:36 Intake & Output 07/16/23 07/17/23 07/17/23 18:59 06:59 18:59 Intake Total 335 480 Output Total 2250 1380 550 Balance -1915 -900 -550 Weight 113.9 kg 114.4 kg 114.4 kg Intake: IV 335 80 Sodium Chloride 0.9% 1, 85 80 000 ml @ 20 mls/hr IV . Q24H [facility] Rx#:[id number] Sodium Chloride 0.9% 500 250 ml 250 ml @ 999 mls/hr IV .Q16M ONE Rx#:[id number] Oral 400 Output: Urine 2250 1380 550 Other: Voiding Method Urinal Urinal Toilet Urinal # Voids 1 # Bowel Movements 1 1 1 ABP, PAP, CO, CI - Last Documented Arterial Blood Pressure 116/62 - Exam PHYSICAL EXAM: VITAL SIGNS: As above GENERAL: Alert and oriented 3, sitting up in chair, no acute distress HEENT: Normocephalic, Conjunctivae normal. eyes normal. NECK: Supple, No JVD. CARDIOVASCULAR: S1, S2 regular.irregular, tachycardic. RESPIRATION: Unlabored, equal air entry, bilateral bases diminished ABDOMEN: Soft, nontender . No guarding. +BS EXTREMITIES: Mild edema, No calf tenderness. Positive peripheral pulses. NERVOUS SYSTEM: Residual left upper extremity weakness significantly improved, cranial nerves II through XII grossly intact. Skin: Warm and dry, no rash . - Labs CBC & Chem 7: 07/17/23 03:03 07/17/23 03:03 Labs: Abnormal Lab Results - Last 24 Hours (Table) 07/16/23 07/16/23 07/17/23 Range/Units 16:44 20:18 03:03 RBC 3.02 L (4.30-5.90) m/uL Hgb 9.0 L (13.0-17.5) gm/dL Hct 27.2 L (39.0-53.0) % Plt Count 134 L (150-450) k/uL Sodium (137-145) mmol/L Potassium (3.5-5.1) mmol/L BUN (9-20) mg/dL Creatinine (0.66-1.25) mg/dL Glucose (74-99) mg/dL POC Glucose (mg/dL) 232 H 195 H (70-110) mg/dL Calcium (8.4-10.2) mg/dL 07/17/23 07/17/23 07/17/23 Range/Units 03:03 06:32 11:28 RBC (4.30-5.90) m/uL Hgb (13.0-17.5) gm/dL Hct (39.0-53.0) % Plt Count (150-450) k/uL Sodium 133 L (137-145) mmol/L Potassium 3.4 L (3.5-5.1) mmol/L BUN 8 L (9-20) mg/dL Creatinine 0.63 L (0.66-1.25) mg/dL Glucose 126 H (74-99) mg/dL POC Glucose (mg/dL) 145 H 154 H (70-110) mg/dL Calcium 8.0 L (8.4-10.2) mg/dL Assessment and Plan Assessment: Cardiac tamponade status post left atrial ablation for symptomatic paroximal atrial fibrillation, status post emergent sternotomy and cardiopulmonary bypass with repair left atrial injury Acute hypoxic respiratory failure, status post vent dependent secondary to cardiac tamponade Acute CVA, ischemic, right frontal lobe with left-sided hemiparesis,iatrogenic in nature. Brain MRI reported Brain MRI reported acute/subacute infarct in the anterior right frontal lobe. Multiple additional much smaller foci of restri cted diffusion within the white matter of the right frontal, parietal and temporal lobes as well as a patch of restricted diffusion in the lateral aspect of the right temporal lobe, compatible with additional areas of subacute/acute infarct. A new foci of restricted diffusion in the white matter of the left frontal lobe centrum semiovale region, suggesting acute/subacute small vessel infarcts. Showering emboli are a consideration. Thrombocytopenia secondary to the above Acute blood loss anemia secondary to #1, status post multiple blood products Hypotension, status post pressor dependent, secondary to the above Acute renal failure Chronic atrial fibrillation, symptomatic Degenerative joint disease History of SVT Diabetes mellitus, hemoglobin A1c 6.2 CAD Hypertension Hyperlipidemia BPH Gastroesophageal reflux disease Morbid obesity, BMI 35 Prior nicotine dependence Plan: Continue on current medication regime ,monitoring and symptomatic treatment. Patient is now 3 S. overflow .Potassium replacement/close monitoring of electrolytes with repeat labs ordered for a.m. Antiarrhy thmics/anticoagulation as per cardiology. Increase activity as tolerated/PT. Maintain aggressive pulmonary toileting with incentive spirometer reinforced. Inpatient rehab consult in place, recommendations pending. The impression and plan of care has been dictated as directed. : I performed a history and examination of this patient, discussed the same with the dictator. I agree with the dictator's note ,documented as a scribe. Any additional findings or plans will be noted.
--- NOTE | 2023-07-17 16:01 | P.CONS ---
History of Present Illness - Reason for Consult Consult date: 07/17/23 rehab recommendations - Chief Complaint CVA, Cardiac tamponade - History of Present Illness Mr Slaughter is a 78 y/o right handed male who lives with his in a condo with 1+1 step to enter. Prior to admission, patient was independent with mobility and ADLs without and assistive device. Both him and his are retired, he drives but his will be able to drive on discharge. He has good family support. Patient presented to the hospital on 07/11/23 with symptomatic AFib. He was evaluated by cardiac team and taken OR for ablation. He developed hypotension and was found to be in cardiac tamponade. Pericardial window with drain placed, He had an emergent sternotomy and cardiopulmonary bypass with repair of left atrial injury. He did need to be transfused as there was approximately 3 liters of blood loss. He was transferred to ICU. He was extubated on 07/12/23. He was noted to have acute left sided weakness, concern for stroke. CT head revealed right frontal lobe ischemia. His left facial droop and weakness improved. Brain MRI reported acute/subacute infarct in the anterior right frontal lobe. Multiple additional much smaller foci of restricted diffusion within the white matter of the right frontal, parietal and temporal lobes as well as a patch of restricted diffusion in the lateral aspect of the right temporal lobe, compatible with additional areas of subacute/acute infarct. A new foci of restricted diffusion in the white matter of the left frontal lobe centrum semi ovale region, suggesting acute/subacute small vessel infarcts. His IV cardiac meds were converted to orals. PM&R consulted for rehab recommendations. Patient was seen by therapies, supervision with bed mobility, transfers, ambulated 300 feet, he does need some assist with ADLs due to his recent sternal surgery. 07/17/23: patient doing well, he is hoping to go home soon. He reports he is feeling much better over all. He is still wearing oxygen which he does not wear at home. He admits to chest soreness, no abdominal pain. He had BM today and yesterday, no urinary complaints. He still has quite a bit of edema in his right greater than left arm and legs. His is at the bedside and reports she feels comfortable taking patient home at current functional level, recommend home care. Review of Systems reviewed, negative unless stated above in subjective Past Medical History Past Medical History: Atrial Fibrillation, Coronary Artery Disease (CAD), GERD/Reflux, Hyperlipidemia, Hypertension, Osteoarthritis (OA), Prostate Disorder, Supraventricular Tachycardia (SVT) Additional Past Medical History / Comment(s): See Dr. Moore's H&P. Aortic valve regurgitation, VARICOSE VEINS, HX DUODENAL ULCER, BPH, occasionally left foot burning. History of Any Multi-Drug Resistant Organisms: None Reported Past Surgical History: EPS, Heart Catheterization, Joint Replacement, Orthopedic Surgery Additional Past Surgical History / Comment(s): Lipoma removed from chest area, bilateral ear-cosmetic surgery, right rotator cuff, bilateral knee replacements, heel spur removed, loop recorder, colonoscopies. Past Anesthesia/Blood Transfusion Reactions: No Reported Reaction Additional Past Anesthesia/Blood Transfusion Reaction / Comm: With last total knee surgery had several days "things were cloudy" and pt states he was sent for cat scan which was normal Past Psychological History: No Psychological Hx Reported Additional Psychological History / Comment(s): Pt resides with spouse. No device Smoking Status: Former smoker Past Alcohol Use History: Occasional Additional Past Alcohol Use History / Comment(s): SMOKED 1 YEAR - APPROX 50 YEARS AGO. Past Drug Use History: None Reported - Past Family History Mother Family Medical History: Coronary Artery Disease (CAD) Father Family Medical History: Coronary Artery Disease (CAD) Medications and Allergies Home Medications Medication Instructions Recorded Confirmed Type Tamsulosin [Flomax] 0.4 mg PO BID 08/20/14 07/10/23 History Atorvastatin [Lipitor] 20 mg PO 1700 10/22/17 07/10/23 History amLODIPine BESYLATE [Norvasc] 10 mg PO QAM 10/22/17 07/10/23 History traMADol HCL [Ultram] 50 mg PO Q6HR PRN 10/22/17 07/11/23 History Multivitamins, Thera [Multivitamin 1 tab PO QAM 10/05/22 07/10/23 History (formulary)] Apixaban [Eliquis] 5 mg PO BID 07/10/23 07/11/23 History Metoprolol Succinate [Toprol XL] 100 mg PO BID 07/10/23 07/10/23 History Omeprazole 20 mg PO QAM 07/10/23 07/10/23 History Allergies Allergy/AdvReac Type Severity Reaction Status Date / Time No Known Allergies Allergy Verified 07/11/23 12:59 Physical Exam Vitals: Vital Signs Temp Pulse Pulse Resp BP BP Pulse Ox 07/17/23 12:39 115 H 07/17/23 12:23 120 H 07/17/23 12:00 97.8 F 110 H 18 97/78 98 07/17/23 10:00 114 H 07/17/23 09:19 129 H 07/17/23 09:09 115 H 98 07/17/23 09:00 117 H 21 122/96 96 07/17/23 08:00 97.6 F 151 H 20 95 07/17/23 07:00 154 H 16 101/65 96 07/17/23 06:00 146 H 24 121/99 95 07/17/23 05:00 123 H 21 89/61 95 07/17/23 04:00 98.3 F 109 H 22 116/86 95 07/17/23 03:00 121 H 30 H 107/78 95 07/17/23 02:00 111 H 28 H 107/72 94 L 07/17/23 01:00 108 H 25 H 100/78 94 L 07/17/23 00:00 98.2 F 112 H 28 H 102/85 95 07/16/23 23:00 117 H 19 108/62 95 07/16/23 22:00 126 H 19 114/80 96 07/16/23 21:25 110 H 52 H 109/72 96 07/16/23 21:00 122 H 25 H 109/72 95 07/16/23 20:46 112 H 07/16/23 20:35 115 H 07/16/23 20:00 98.8 F 128 H 28 H 117/95 94 L 07/16/23 19:00 138 H 29 H 117/95 96 07/16/23 18:00 114 H 29 H 109/91 96 07/16/23 17:00 135 H 26 H 128/85 97 07/16/23 16:10 123 H 07/16/23 16:01 135 H 07/16/23 16:00 97.8 F 138 H 26 H 104/58 96 Intake and Output 07/17/23 07/17/23 07/17/23 06:59 14:59 22:59 Intake Total 50 Output Total 855 550 Balance -805 -550 Intake: IV 50 Sodium Chloride 0.9% 1, 50 000 ml @ 20 mls/hr IV . Q24H [facility] Rx#:[id number] Output: Urine 855 550 Other: Voiding Method Urinal Toilet Urinal # Bowel Movements 1 Weight 114.4 kg 114.4 kg General: WDWN, elderly male, sitting in recliner with legs elevated, at bedside, NAD Head: Normocephalic, atraumatic. Eyes: Symmetric Ears: Symmetric. Hearing within normal limits. Mouth: Clear. Neck: Supple. Cardiac:tie tamper on, heart hugger on. Calves supple, + Edema, SCDs on, right greater than left arm edema Lungs: Breathing comfortably on O2 via NC. Abdomen: Soft, nontender. Extremities: Arthritic changes consistent with age. Neurological: Alert and oriented x 4. Speech is clear and fluent without paraphasic errors Cranial nerves: CN II-XII grossly intact. Sensation: Intact and symmetrical limbs. Musculoskeletal: ROM WFL EXCEPT: sternal precautions MMT UE Sh Abd EE EF FABD WE HG Right 4 4+ 5 5 5 5 Left 4 4+ 5- 5 5 5 MMT LE HF KE DF EHL Right 4+ 5 5 5 Left 4+ 5 5 5 Skin: Skin intact where visible to head, neck, and bilateral upper and lower extremities EXCEPT: bilateral arm ecchymosis, sternal/chest wall incisions and puncture sites Psych: Calm, cooperative Results CBC & Chem 7: 07/17/23 03:03 07/17/23 03:03 Labs: Abnormal Lab Results - Last 24 Hours (Table) 07/16/23 07/16/23 07/17/23 Range/Units 16:44 20:18 03:03 RBC 3.02 L (4.30-5.90) m/uL Hgb 9.0 L (13.0-17.5) gm/dL Hct 27.2 L (39.0-53.0) % Plt Count 134 L (150-450) k/uL Sodium (137-145) mmol/L Potassium (3.5-5.1) mmol/L BUN (9-20) mg/dL Creatinine (0.66-1.25) mg/dL Glucose (74-99) mg/dL POC Glucose (mg/dL) 232 H 195 H (70-110) mg/dL Calcium (8.4-10.2) mg/dL 07/17/23 07/17/23 07/17/23 Range/Units 03:03 06:32 11:28 RBC (4.30-5.90) m/uL Hgb (13.0-17.5) gm/dL Hct (39.0-53.0) % Plt Count (150-450) k/uL Sodium 133 L (137-145) mmol/L Potassium 3.4 L (3.5-5.1) mmol/L BUN 8 L (9-20) mg/dL Creatinine 0.63 L (0.66-1.25) mg/dL Glucose 126 H (74-99) mg/dL POC Glucose (mg/dL) 145 H 154 H (70-110) mg/dL Calcium 8.0 L (8.4-10.2) mg/dL Assessment and Plan Assessment: # acute right frontal, parietal lobe CVA with resolved left hemiparesis -PT/OT/T[employer]IS [employer]ALL [employer]ER # Cardiac tamponade s/p emergent sternotomy, cardiopulmonary bypass and left atrial injury repair # s/p ablation #acute blood loss anemia s/p transfusions # Atrial fibrillation # Impaired gait and ADLs # Acute hypoxic respiratory failure -on O2 NC # Pain Management -Tylenol 650 mg Q 4 prn, [place] 5/325 mg Q 4 hrs prn, # DVT proph -Eliquis, ASA 325 mg QD # Diet heart healthy carb consistent # Comorbidities CAD, hypertension, hyperlipidemia, BPH, prior nicotine dependence, obesity BMI 36.2 # your medical dx and management Disposition: Patient and patient's feel safe with him returning home at current functional level, was Supervision with PT, over 330 ft ambulated, which is too functional for IPR. Recommending HHC, patient and agreeable. Discussed with SW. Patient seen and examined in coordination with Dr Evans via audio and visual telemedicine Thank you for consulting our services
[2023-07-17 16:38] LABS: Glucose,Whole Blood 120 mg/dL (70-110)
[2023-07-17 20:02] LABS: Glucose,Whole Blood 232 mg/dL (70-110)
[2023-07-17] MEDS: SENNOSIDES-DOCUSATE SODIUM 1 EACH TAB PO SCH (20:33)
[2023-07-17] MEDS ORDERED: ZOLPIDEM 5 MG TAB PO PRN (21:00)
[2023-07-18 06:14] LABS: Glucose,Whole Blood 150 mg/dL (70-110)
[2023-07-18] MEDS: INSULIN ASPART (NovoLOG) 100 UNIT/ML VIAL SQ SCH ×4 (06:28→20:31)
[2023-07-18] MEDS: TAMSULOSIN 0.4 MG CAP.ER.24H PO SCH ×2 (07:54→20:31)
[2023-07-18] MEDS: METOPROLOL TARTRATE 50 MG TAB PO SCH ×3 (07:54→20:31)
[2023-07-18] MEDS: PANTOPRAZOLE 40 MG TABLET PO SCH (07:54)
[2023-07-18] MEDS: APIXABAN 5 MG TAB PO SCH ×2 (07:54→20:30)
[2023-07-18] MEDS: ASPIRIN 325 MG TAB PO SCH (07:54)
[2023-07-18] MEDS: ATORVASTATIN 40 MG TAB PO SCH (07:54)
[2023-07-18] MEDS: AMIODARONE 200 MG TAB PO SCH (07:55)
[2023-07-18] MEDS: MULTIVITAMINS, THERA 1 EACH TAB PO SCH (07:55)
[2023-07-18] MEDS: IPRATROPIUM-ALBUTEROL 3 ML NEB INHALATION SCH ×4 (08:11→22:13)
[2023-07-18 08:32] LABS: African American GFR (CKD) >90 (>60 ml/min/1.73 sqM); Anion Gap 7 mmol/L; Blood Urea Nitrogen 7 mg/dL (9-20); Calcium 8.4 mg/dL (8.4-10.2); Carbon Dioxide 25 mmol/L (22-30); Chloride 102 mmol/L (98-107); Glucose 152 mg/dL (74-99); Non-African American GFR(CKD) >90 (>60 ml/min/1.73 sqM); Potassium 3.9 mmol/L (3.5-5.1); Sodium 134 mmol/L (137-145)
[2023-07-18 11:57] LABS: Glucose,Whole Blood 132 mg/dL (70-110)
[2023-07-18] MEDS: DRONEDARONE 400 MG TAB PO SCH ×2 (11:59→16:28)
--- NOTE | 2023-07-18 13:01 | P.PN ---
Subjective 07/18/2023:Status post, proximal atrial fibrillation ablation that led to left atrial injury in cardiac tamponade. He underwent cardiac thoracic surgery to repair this. He is postop day six. He is much improved. He is on the general medical floor. He denies any chest pains pressures, shortness of breath, nausea at this time.All signs, other than heart rate or normal heart rate is slightly elevated. Telemetry showing atrial fibrillation.Symmetries in glucose reviewed.Seen by PMR. He wishes to return home though at this time. Objective - Vital Signs Vital signs: Vital Signs Temp 98.3 F 07/18/23 11:42 Pulse 102 H 07/18/23 11:42 Resp 16 07/18/23 11:42 BP 104/71 07/18/23 11:42 Pulse Ox 96 07/18/23 11:42 FiO2 50 07/12/23 09:36 Intake & Output 07/17/23 07/18/23 07/18/23 18:59 06:59 18:59 Intake Total 320 120 Output Total 550 600 550 Balance -230 -600 -430 Weight 114.4 kg 99.2 kg Intake: Oral 320 120 Output: Urine 550 600 550 Other: Voiding Method Toilet Toilet Toilet Urinal Urinal Urinal # Voids 1 3 # Bowel Movements 1 ABP, PAP, CO, CI - Last Documented Arterial Blood Pressure 116/62 - Exam GENERAL: walking in hallway HEENT: PERRL EOMI NECK: Supple, No JVD. CARDIOVASCULAR: S1, S2 normal.telemetry showing afib ,No murmur RESPIRATION: Unlabored, Breath sounds diminished in the bases. chest binder in place ABDOMEN: Soft, nontender . No guarding. no masses palpable. No ascites, No hepatosplenomegaly.Bowel sounds normal Extremities: The legs show trace pedal edema. ambulating normally NERVOUS SYSTEM: Awake alert and oriented 3. Skin: Warm and dry, no rash - Labs CBC & Chem 7: 07/17/23 03:03 07/18/23 07:43 Labs: Abnormal Lab Results - Last 24 Hours (Table) 07/17/23 07/17/23 07/18/23 Range/Units 16:37 20:00 06:13 Sodium (137-145) mmol/L BUN (9-20) mg/dL Creatinine (0.66-1.25) mg/dL Glucose (74-99) mg/dL POC Glucose (mg/dL) 120 H 232 H 150 H (70-110) mg/dL 07/18/23 07/18/23 Range/Units 07:43 11:55 Sodium 134 L (137-145) mmol/L BUN 7 L (9-20) mg/dL Creatinine 0.57 L (0.66-1.25) mg/dL Glucose 152 H (74-99) mg/dL POC Glucose (mg/dL) 132 H (70-110) mg/dL Assessment and Plan Plan: Acute hypoxic respiratory failure secondary to cardiac tamponade, iatrogenic in nature RESOLVED Cardiac tamponade, status post left atrial ablation for paroxysmal atrial fibrillation POD injury to the left atrium requiring emergent sternotomy, institution of cardi opulmonary bypass, and repair of left atrial injury, , chest tube in place emergent sternotomy POD#7 Acute CVA, 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 With a left sided hemiparesis:resolving Benign essential hypertension Chronic atrial fibrillation, symptomatic, status post ablation History of supraventricular tachycardia Dyslipidemia degenerative joint disease BPH: stale Ex-smoker he is much improved and most geovanni smith go home in the next 24 hours depending on Cardiology He'll be reevaluated by family medicine in the next 24 hours
[2023-07-18 13:52] VITALS: BMI 31.4
--- NOTE | 2023-07-18 14:10 | P.PN ---
Subjective Patient is doing well Sitting in the chair Breathing comfortably Neurologically he shows significant improvement both in terms of his mental status, speech, swallowing which is almost normalized now Motor function is normal He walks around in the hallways On examination Rhythm is irregular he is in atrial fibrillation heart rate from 110-130 beats a minute Blood pressure 104/71 mmHg, Opal lungs normal, no crackles Heart sounds S1 and S2 are irregular no murmurs Right arm swelling has improved significantly Impression Significant improvement in which the normalization of clinical neurologic signs and symptoms CVA, embolic showers Status post A. fib ablation with PVI Cardiac perforation status post open heart surgery and primary closure of the puncture between the left superior and left inferior pulmonary veins Remains in atrial fibrillation despite amiodarone Plan Stop full dose aspirin Start 81 mg of aspirin Continue statins Continue beta blockers Stop amiodarone Start Multaq 400 mg twice daily Continue with physical therapy Discharge planning Detailed discussion the patient and his family members regarding the events of t his admission Objective - Vital Signs Vital signs: Vital Signs Temp 98.3 F 07/18/23 11:42 Pulse 102 H 07/18/23 11:42 Resp 16 07/18/23 11:42 BP 104/71 07/18/23 11:42 Pulse Ox 96 07/18/23 11:42 FiO2 50 07/12/23 09:36 Intake & Output 07/17/23 07/18/23 07/18/23 18:59 06:59 18:59 Intake Total 320 120 Output Total 550 600 550 Balance -230 -600 -430 Weight 114.4 kg 99.2 kg 99.2 kg Intake: Oral 320 120 Output: Urine 550 600 550 Other: Voiding Method Toilet Toilet Toilet Urinal Urinal Urinal # Voids 1 3 # Bowel Movements 1 ABP, PAP, CO, CI - Last Documented Arterial Blood Pressure 116/62 - Labs CBC & Chem 7: 07/17/23 03:03 07/18/23 07:43 Labs: Abnormal Lab Results - Last 24 Hours (Table) 07/17/23 07/17/23 07/18/23 Range/Units 16:37 20:00 06:13 Sodium (137-145) mmol/L BUN (9-20) mg/dL Creatinine (0.66-1.25) mg/dL Glucose (74-99) mg/dL POC Glucose (mg/dL) 120 H 232 H 150 H (70-110) mg/dL 07/18/23 07/18/23 Range/Units 07:43 11:55 Sodium 134 L (137-145) mmol/L BUN 7 L (9-20) mg/dL Creatinine 0.57 L (0.66-1.25) mg/dL Glucose 152 H (74-99) mg/dL POC Glucose (mg/dL) 132 H (70-110) mg/dL
--- NOTE | 2023-07-18 14:16 | P.PN ---
Subjective Progress Note Date: 07/18/23 Principal diagnosis: Atrial fibrillation. The patient is seen today 07/15/2023 in follow-up in the intensive care unit. Currently awake and alert in no acute distress. He is resting comfortably in bed. Maintaining O2 saturations in the 90s on 2 L/m per nasal cannula. He stat es he is feeling stronger today compared to yesterday. Still with some left- sided weakness. Follow-up computed tomography scan of the brain continued to show a right frontal lobe CVA. No new areas of abnormal [place]-white matter loss of differentiation. No evidence of hemorrhagic conversion. X-ray shows bilateral consolidation and a small left pleural effusion. He is status post 7 units of packed red blood cells, 2 units of fresh frozen plasma and 1 unit of platelets this admission. White count 10.3. Hemoglobin 9.2. Platelets 82,000. Sodium 131. Potassium 3.6. Bicarb 23. BUN 17. Creatinine 0.73. Glucose 128. He is continued on DuoNeb inhalations. Heparin for DVT prophylaxis. Normal saline at KVO. Plan is for PICC line placement today. The patient is seen today 07/16/2023 in follow-up in the intensive care unit. He is resting comfortably in bed. Awake and alert in no acute distress. He is maintaining O2 saturations in the mid 90s on 2 L/m per nasal cannula. He kurt ins in atrial fibrillation. Afebrile. Hemodynamically stable. MRI of the brain revealed an acute/subacute infarct in the anterior right frontal lobe. Multiple additional much smaller foci of restricted diffusion within the white matter of the right frontal, parietal and temporal lobes as well as a patch of restricted diffusion in the lateral aspect of the right temporal lobe, compatible with additional areas of subacute/acute infarct. A new foci of restricted diffusion in the white matter of the left frontal lobe centrum semiovale region, suggesting acute/subacute small vessel infarcts. Showering emboli are a consideration. Chest x-ray reveals improved aeration of the opacity left lung base. No new acute cardiopulmonary abnormalities. Left upper extremity PICC line in place. He is status post 7 units of packed red blood cells, 2 units of fresh frozen plasma, one unit of platelets this admission. White count 9.1. Hemoglobin 9.2. Platelets 105. Sodium 132. Potassium 36. B icarb 24. BUN 11. Creatinine 0.60. Glucose 129. He remains on amiodarone, metoprolol. Anticoagulated with Eliquis. The patient is seen today 07/17/2023 in follow-up in the intensive care unit. He is currently sitting up in a chair. Awake and alert in no acute distress. He is maintaining good O2 saturations in the upper 90s on 2 L/m per nasal cannula. He does remain in atrial fibrillation with a fairly controlled ventricular response. He remains on amiodarone and metoprolol. Anticoagulated with Eliquis. Continued on bronchodilators. He is status post 7 units of packed red blood cells, 2 units of fresh frozen plasma, one unit of platelets. White count 8.9. Hemoglobin 9.0. Platelets 134. Sodium 133. Potassium 3.4. Bicarb 25. BUN 8. Creatinine 0.63. Glucose 126. Progress note dated 07/18/2023. The patient was seen yesterday in the intensive care unit, and is seen today in room 357. The patient continues on oxygen, and 2 L. He's not receiving any IV fluids. The patient is feeling much better. He's hoping to be discharged home soon. Currently labs data includes a sodium 134, potassium 5.9, chlorides 102, CO2 25, BUN 7, creatinine 0.57, glucose 132, and calcium 8.4. Objective - Vital Signs Vital signs: Vital Signs Temp 98.3 F 07/18/23 11:42 Pulse 102 H 07/18/23 11:42 Resp 16 07/18/23 11:42 BP 104/71 07/18/23 11:42 Pulse Ox 96 07/18/23 11:42 FiO2 50 07/12/23 09:36 Intake & Output 07/17/23 07/18/23 07/18/23 18:59 06:59 18:59 Intake Total 320 120 Output Total 550 600 550 Balance -230 -600 -430 Weight 114.4 kg 99.2 kg 99.2 kg Intake: Oral 320 120 Output: Urine 550 600 550 Other: Voiding Method Toilet Toilet Toilet Urinal Urinal Urinal # Voids 1 3 # Bowel Movements 1 ABP, PAP, CO, CI - Last Documented Arterial Blood Pressure 116/62 - Exam No acute distress, oriented 3. The patient is currently on 2 L of oxygen. HEENT examination is grossly unremarkable. Mucous membranes are moist. No oral lesions. Neck supple. Full range of motion. No adenopathy thyromegaly or neck vein distention. Cardiovascular examination reveals an irregular rhythm and rate. S1-S2 normal. No S3 or S4. No discernible murmur noted. Heart rate 98 bpm. Heart sounds are distant. Lungs reveal clear breath sounds. Breath sounds are equal bilaterally. No adventitious lung sounds including wheezes rhonchi or crackles. Saturations are 96%. Abdomen soft bowel sounds are heard. No masses or tenderness. Extremities are intact. No cyanosis clubbing or edema. Skin is without rash or lesion. Neurologic examination is brief but nonfocal. - Labs CBC & Chem 7: 07/17/23 03:03 07/18/23 07:43 Labs: Abnormal Lab Results - Last 24 Hours (Table) 07/17/23 07/17/23 07/18/23 Range/Units 16:37 20:00 06:13 Sodium (137-145) mmol/L BUN (9-20) mg/dL Creatinine (0.66-1.25) mg/dL Glucose (74-99) mg/dL POC Glucose (mg/dL) 120 H 232 H 150 H (70-110) mg/dL 07/18/23 07/18/23 Range/Units 07:43 11:55 Sodium 134 L (137-145) mmol/L BUN 7 L (9-20) mg/dL Creatinine 0.57 L (0.66-1.25) mg/dL Glucose 152 H (74-99) mg/dL POC Glucose (mg/dL) 132 H (70-110) mg/dL Assessment and Plan Assessment: Acute hypoxic respiratory failure secondary to cardiac tamponade, iatrogenic in nature. Cardiac tamponade, status post left atrial ablation for paroxysmal atrial fibrillation with evidence of injury to the left atrium requiring emergent sternotomy, institution of cardiopulmonary bypass, and repair of left atrial injury, exclusion of left atrial appendage using a 35 mm atriclip, intraoperative transesophageal echocardiogram, postoperative day #7. Acute blood loss anemia secondary to above, status post 7 units of packed red blood cells. Acute CVA, 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 MRI of the brain revealed an acute/subacute infarct in the anterior right frontal lobe. Multiple additional much smaller foci of restricted diffusion within the white matter of the right frontal, parietal and temporal lobes as well as a patch of restricted diffusion in the lateral aspect of the right temporal lobe, compatible with additional areas of subacute/acute infarct. A new foci of restricted diffusion in the white matter of the left frontal lobe centrum semiovale region, suggesting acute/subacute small vessel infarcts. Show ering emboli are a consideration. Benign essential hypertension. Chronic atrial fibrillation, symptomatic. History of supraventricular tachycardia. Dyslipidemia degenerative joint disease. Ex-smoker. Right upper extremity swelling, ruled out DVT. Plan: Plan dated 07/18/2023. The patient was moved out of the intensive care unit yesterday, and is currently in 357. He continues on oxygen at 2 L. The patient does have some residual left-sided weakness. He continues to use the incentive spirometer, and continues on bronchodilators. His activities being increased as tolerated. The patient continues on a factor X a inhibitor. Additional recommendations and suggestions are forthcoming. The patient apparently is going to be discharged home rather than rehab. We will continue to follow make recommendations along the way. Labs, x-rays, medications are reviewed. Time with Patient: Less than 30
[2023-07-18 16:09] LABS: HCT 26.4 % (39.0-53.0); HGB 8.9 gm/dL (13.0-17.5); Hypochromasia Slight; MCH 30.8 pg (25.0-35.0); MCHC 33.6 g/dL (31.0-37.0); MCV 91.5 fL (80.0-100.0); Mean Platelet Volume 9.4; Platelet Count 209 k/uL (150-450); RBC 2.88 m/uL (4.30-5.90); RDW 14.2 % (11.5-15.5); WBC 10.2 k/uL (3.8-10.6)
[2023-07-18 16:12] LABS: Glucose,Whole Blood 170 mg/dL (70-110)
[2023-07-18 19:59] LABS: Glucose,Whole Blood 213 mg/dL (70-110)
[2023-07-18] MEDS: SENNOSIDES-DOCUSATE SODIUM 1 EACH TAB PO SCH (20:30)
[2023-07-18] MEDS: HYDROCORTISONE 1% CREAM 454 GM JAR TOPICAL SCH (20:32)
[2023-07-18] MEDS ORDERED: ZOLPIDEM 5 MG TAB PO SCH (21:00)
[2023-07-19 06:20] LABS: Glucose,Whole Blood 152 mg/dL (70-110)
[2023-07-19] MEDS: DRONEDARONE 400 MG TAB PO SCH (06:29)
[2023-07-19] MEDS: PANTOPRAZOLE 40 MG TABLET PO SCH (06:29)
[2023-07-19] MEDS: INSULIN ASPART (NovoLOG) 100 UNIT/ML VIAL SQ SCH (06:30)
[2023-07-19] MEDS: IPRATROPIUM-ALBUTEROL 3 ML NEB INHALATION SCH ×2 (07:56→11:25)
--- NOTE | 2023-07-19 08:00 | P.DS ---
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 Do you want consulting provider notified?: Already Contacted 07/16/23 13:04 Consult Physician Routine Consulting Provider: Antonio Evans Consult Reason/Comments: IP rehab Do you want consulting provider notified?: Yes Primary care physician: Kg Arguello Hospital Course: Patient is sitting comfortably in chair He has no chest discomfort no breathing trouble is eating breakfast Very well blood pressure is low normal 100 mmHg Heart rates in the 70s he is in sinus rhythm Yesterday we had stopped amiodarone and started Multaq 400 mg twice daily On examination lungs are clear no rhonchi no crackles Heart sounds S1 and S2 are normal Breath sounds are clear No JVD Wound is healing well Impression Paroxysmal atrial fibrillation-Bolden, symptomatic Status post pulmonary vein isolation of the right-sided veins and the left superior vein Cardiac perforation during left superior pulmonary vein ablation/cryoablation Open exploration and primary closure perforation in the gavino left-sided Postprocedure atrial fibrillation Perioperative CVA but with virtually complete neurologic recovery now Plan discharge home today Removed PICC line just prior to discharge, discussed symptoms ELIQUIS 5 g twice daily Aspirin 81 mg daily Continue atorvastatin Metoprolol tartrate, 15 g 3 times a day for now, he will hold his metoprolol succinate 100 mg twice daily at home for now Multaq 400 mg twice daily Hold amlodipine for now Follow-up Dr. Moore within 2 weeks Follow-up with CT surgery will follow Dr. Arguello Plan - Discharge Summary Discharge Rx Participant: No New Discharge Prescriptions: No Action Tamsulosin [Flomax] 0.4 mg PO BID traMADol HCL [Ultram] 50 mg PO Q6HR PRN PRN Reason: Pain Atorvastatin [Lipitor] 20 mg PO 1700 amLODIPine BESYLATE [Norvasc] 10 mg PO QAM Multivitamins, Thera [Multivitamin (formulary)] 1 tab PO QAM Omeprazole 20 mg PO QAM Metoprolol Succinate [Toprol XL] 100 mg PO BID Apixaban [Eliquis] 5 mg PO BID Discharge Medication List Tamsulosin [Flomax] 0.4 mg PO BID 08/20/14 [History] Atorvastatin [Lipitor] 20 mg PO 1700 10/22/17 [History] amLODIPine BESYLATE [Norvasc] 10 mg PO QAM 10/22/17 [History] traMADol HCL [Ultram] 50 mg PO Q6HR PRN 10/22/17 [History] Multivitamins, Thera [Multivitamin (formulary)] 1 tab PO QAM 10/05/22 [History] Apixaban [Eliquis] 5 mg PO BID 07/10/23 [History] Metoprolol Succinate [Toprol XL] 100 mg PO BID 07/10/23 [History] Omeprazole 20 mg PO QAM 07/10/23 [History] Follow up Appointment(s)/Referral(s): Royal Moore MD [STAFF PHYSICIAN] - 1 Week [facility] [NON-STAFF] - 1 Week ([facility] will call you to arrange a visit) Khurram Espinoza MD [STAFF PHYSICIAN] - 08/16/23 10:00 am Kg Arguello MD [Primary Care Provider] - 1 Week Activity/Diet/Wound Care/Special Instructions: DISCHARGE INSTRUCTIONS: 1. No driving for 4 weeks, or until physician gives their ok. 2. The patient should sleep in their own bed, no medical bed needed. 3. Stairs are not an issue. If the bedroom is upstairs, it is advised that the patient go up at night and down in the morning for the first week. Go slowly, using handrail and take 1 step at a time. 4. CHRISTIAN hose are to be worn for 30 days post surgery or until physician discontinues. 5. Heart hugger is to be worn 100% of the time until physician discontinues.(except when showering) 6. No lifting, pushing, or pulling more than 10 pounds for 12 weeks. The physician will advise of any restriction changes. 7. The patient is expected to continue the prescribed walking program. 8. Continue with incentive spirometry and splinting/heart hugger until otherwise directed by the physician. 9. Must shower daily using liquid antibacterial soap 10. Routine sternal incision care. No powders, lotions, ointments on incisions. No dressings are necessary on incisions unless they are draining. Dermabond tape is to remain on sternal incision until surgeon follow-up. 11. Please call surgeon/[employer] for temp greater than 101 F or purulent drainage from incisions.
[2023-07-19] MEDS: MULTIVITAMINS, THERA 1 EACH TAB PO SCH (08:42)
[2023-07-19] MEDS: HYDROCORTISONE 1% CREAM 454 GM JAR TOPICAL SCH (08:42)
[2023-07-19] MEDS: TAMSULOSIN 0.4 MG CAP.ER.24H PO SCH (08:42)
[2023-07-19] MEDS: APIXABAN 5 MG TAB PO SCH (08:42)
[2023-07-19] MEDS: ATORVASTATIN 40 MG TAB PO SCH (08:42)
[2023-07-19] MEDS: METOPROLOL TARTRATE 50 MG TAB PO SCH (08:42)
[2023-07-19] MEDS ORDERED: ASPIRIN 81 MG PO SCH (09:00)
[2023-07-19 09:15] VITALS: BP 98/59; PULSE 89; RESP 17; TEMP 97.6
[2023-07-19 09:39] LABS: HCT 27.1 % (39.0-53.0); Hypochromasia Slight; MCH 30.5 pg (25.0-35.0); MCV 92.3 fL (80.0-100.0); Platelet Count 232 k/uL (150-450); RBC 2.94 m/uL (4.30-5.90); WBC 10.2 k/uL (3.8-10.6)
[2023-07-19 10:06] LABS: African American GFR (CKD) >90 (>60 ml/min/1.73 sqM); Anion Gap 8 mmol/L; Blood Urea Nitrogen 10 mg/dL (9-20); Calcium 8.6 mg/dL (8.4-10.2); Carbon Dioxide 29 mmol/L (22-30); Chloride 100 mmol/L (98-107); Glucose 168 mg/dL (74-99); Non-African American GFR(CKD) >90 (>60 ml/min/1.73 sqM); Sodium 137 mmol/L (137-145)
--- NOTE | 2023-07-19 11:37 | P.PN ---
Progress Note - Text Patient is medically cleared for discharge
--- NOTE | 2023-07-20 07:44 | PN ---
PROGRESS NOTE DATE OF SERVICE: 07/19/2023 This is a Pulmonary/Critical Care Progress Note. SUBJECTIVE: The patient is seen today in room 357. He is currently on room air, and not receiving any IV fluids. He is hoping to be discharged today. No decision has been made as yet. The patient has no specific complaints today. He denies any chest pain or chest discomfort. He also denies any shortness of breath. LABORATORY DATA: From today includes a white count of 10.2, hemoglobin 9, hematocrit 27.1, and a platelet count of 232,000. Sodium 137, potassium 4, chloride 100, CO2 of 29. BUN 10, and creatinine 0.64. PHYSICAL EXAMINATION: VITAL SIGNS: Current vital signs include temperature 97.6 heart rate 89, respiratory rate 17, blood pressure 98/59 with mean of 72. Room air saturation 96%. GENERAL: He appears in no acute distress. No respiratory distress. HEENT: Examination is grossly unremarkable. NECK: Supple, full range of motion. No adenopathy. NECK: Veins are flat. CARDIOVASCULAR: Examination reveals regular rhythm rate. Heart rate 89 beats per minute. S1, S2 normal. LUNGS: Revealed mostly clear breath sounds. Scattered rhonchi. No wheezes or crackles. Breath sounds equal. Room air saturation 96%. ABDOMEN: Soft, bowel sounds are heard. EXTREMITIES: Intact. No cyanosis, clubbing, or edema. SKIN: Without rash. NEUROLOGIC: Examination is brief, but nonfocal. ASSESSMENT: 1. Acute hypoxemic respiratory failure secondary to cardiac tamponade. 2. Cardiac tamponade, status post left atrial ablation for paroxysmal atrial fibrillation with injury to the left atrium, requiring emergent sternotomy, cardiopulmonary bypass, and repair of left atrial injury, with exclusion of the left atrial appendage, and intraoperative transesophageal echocardiogram, postop day #8. 3. Acute blood loss anemia, status post 7 units of PRBCs. 4. Acute cerebrovascular accident, ischemic, improved. 5. Benign essential hypertension. 6. Chronic atrial fibrillation. 7. History of supraventricular tachycardia. 8. Hyperlipidemia. 9. Previous tobacco use. 10.No evidence of deep vein thrombosis, in the right upper extremity. PLAN: The patient is stable from the pulmonary standpoint. He has not been in the hospital for 8 days. The patient is somebody, who might be considered for possible discharge. We will leave that up to the Primary Service. No additional recommendations are made. Labs, x-rays, and medications are reviewed. Prognosis is guarded. MMODL / IJN: [id number] /
--- NOTE | 2023-07-23 20:25 | CDI ---
Documentation Clarification Form Date: 07/23/2023 08:17:14 PM From: Bianca Gunter Phone: Admit Date: 07/11/2023 08:45:00 PM Patient Name: Eliud Slaughter Visit Number: [id number] Discharge Date: 07/19/2023 11:21:00 AM ATTENTION: The Clinical Documentation Specialists (CDI) and [facility] Coding Staff appreciate your assistance in clarifying documentation. Please respond to the clarification below the line at the bottom and electronically sign. The CDI & [facility] Coding staff will review the response and follow-up if needed. Please note: Queries are made part of the Legal Health Record. If you have any questions, please contact the author of this message via ITS. Dr. Royal Moore Your patient is receiving the following: Insulin Human Regular 100 unit 100 mls @ 0 mls/hr.07/11/23. Please clarify what condition/diagnosis is being treated. History/Risk Factors: 78yo M, Cardiac tamponade, A Fib, AHRF, ALBA, CVA, HTN, HLD, DMII, former smoker Clinical indicators: 07/11 Glucose 112 191 Hemoglobin A1C 6.2 Treatment: Insulin Human Regular 100 unit 100 mls @ 0 mls/hr. What diagnosis are you treating with Insulin? [ ] Diabetes mellitus with hyperglycemia [ xx ] No additional diagnosis [ ] Other, please specify [ ] Unable to determine (Template Last Reviewed: August 2020) Diagnosis as in history, risk factors No new diagnosis MTDD
== END 2023-07-19 11:21 | disposition home or self-care (01) | DRG 228 ==
LOC: CATHEP 12:31 → 2SICU 20:45 → 3SCARD 07-17 14:43
PROVIDERS: ADMIT Internal Medicine Clinical Cardiac Electrophysiology; ATTEND Internal Medicine Clinical Cardiac Electrophysiology
PROC: B24BZZ4 Ultrasonography of Heart with Aorta, Transesophageal (ICD-10-PCS; 2023-07-11)
PROC: 5A1221Z Performance of Cardiac Output, Continuous (ICD-10-PCS; 2023-07-11)
PROC: 30233H0 Transfusion of Autologous Whole Blood into Peripheral Vein, Percutaneous Approach (ICD-10-PCS; 2023-07-11)
PROC: 3E033XZ Introduction of Vasopressor into Peripheral Vein, Percutaneous Approach (ICD-10-PCS; 2023-07-11)
PROC: 4A023FZ Measurement of Cardiac Rhythm, Percutaneous Approach (ICD-10-PCS; 2023-07-11)
PROC: 4A0234Z Measurement of Cardiac Electrical Activity, Percutaneous Approach (ICD-10-PCS; 2023-07-11)
PROC: 02K83ZZ Map Conduction Mechanism, Percutaneous Approach (ICD-10-PCS; 2023-07-11)
PROC: B24BZZZ Ultrasonography of Heart with Aorta (ICD-10-PCS; 2023-07-11)
PROC: 0W9D3ZZ Drainage of Pericardial Cavity, Percutaneous Approach (ICD-10-PCS; 2023-07-11)
PROC: 30283B1 Transfusion of Nonautologous 4-Factor Prothrombin Complex Concentrate into Vein, Percutaneous Approach (ICD-10-PCS; 2023-07-11)
PROC: 6A550Z2 Pheresis of Platelets, Single (ICD-10-PCS; 2023-07-11)
PROC: 5A1935Z Respiratory Ventilation, Less than 24 Consecutive Hours (ICD-10-PCS; 2023-07-11)
PROC: 30233R1 Transfusion of Nonautologous Platelets into Peripheral Vein, Percutaneous Approach (ICD-10-PCS; 2023-07-11)
PROC: 30233K1 Transfusion of Nonautologous Frozen Plasma into Peripheral Vein, Percutaneous Approach (ICD-10-PCS; 2023-07-11)
PROC: 30233J1 Transfusion of Nonautologous Serum Albumin into Peripheral Vein, Percutaneous Approach (ICD-10-PCS; 2023-07-11)
PROC: 02584ZZ Destruction of Conduction Mechanism, Percutaneous Endoscopic Approach (ICD-10-PCS; principal; 2023-07-11 14:30)
PROC: 02L70DK Occlusion of Left Atrial Appendage with Intraluminal Device, Open Approach (ICD-10-PCS; 2023-07-11 17:34)
PROC: 02HV33Z Insertion of Infusion Device into Superior Vena Cava, Percutaneous Approach (ICD-10-PCS; 2023-07-15)
DX: I48.19 Other persistent atrial fibrillation (principal); I63.421 Cerebral infarction due to embolism of right anterior cerebral artery; J96.01 Acute respiratory failure with hypoxia; I97.821 Postprocedural cerebrovascular infarction following other surgery; I31.4 Cardiac tamponade; I31.39 Other pericardial effusion (noninflammatory); N17.9 Acute kidney failure, unspecified; D62 Acute posthemorrhagic anemia; G81.94 Hemiplegia, unspecified affecting left nondominant side; D69.59 Other secondary thrombocytopenia; I95.9 Hypotension, unspecified; E66.01 Morbid (severe) obesity due to excess calories; Z68.36 Body mass index [BMI] 36.0-36.9, adult; I10 Essential (primary) hypertension; I35.1 Nonrheumatic aortic (valve) insufficiency; I25.10 Atherosclerotic heart disease of native coronary artery without angina pectoris; N40.0 Benign prostatic hyperplasia without lower urinary tract symptoms; E78.5 Hyperlipidemia, unspecified; K21.9 Gastro-esophageal reflux disease without esophagitis; M19.90 Unspecified osteoarthritis, unspecified site; M79.89 Other specified soft tissue disorders; D72.828 Other elevated white blood cell count; R29.707 NIHSS score 7; R47.1 Dysarthria and anarthria; R29.810 Facial weakness; Z96.653 Presence of artificial knee joint, bilateral; Z87.891 Personal history of nicotine dependence; Z82.49 Family history of ischemic heart disease and other diseases of the circulatory system; Z87.11 Personal history of peptic ulcer disease; Z95.818 Presence of other cardiac implants and grafts; Z79.01 Long term (current) use of anticoagulants; Z79.899 Other long term (current) drug therapy; Z86.79 Personal history of other diseases of the circulatory system
CPT/HCPCS: 36573; 70450; 70496; 70498; 70551; 71045; 80048; 80053; 80061; 82330; 82805; 82810; 83036; 83735; 84443; 85018; 85025; 85027; 85384; 85610; 85730; 86850; 86891; 86900; 86901; 86920; 93308; 93656; 94002; 94003; 94640